=== PATIENT | female | born 1945 ===

== ENCOUNTER 2016-07-23 19:07 | Inpatient (IN) | payer MEDICARE ==
[~2016-07-23] VITALS: Ht 162.6 cm; Wt 66.2 kg
[~2016-07-23 19:07] MED LIST: B/P med; CETI10TA16 PO; DIPY25TA PO; INSU100I27 SQ; IRBE1TAB5 PO; METF500T9 PO; OCTR100V SQ; allergy pill; blood thinner; calcium; iron PO; simvastatin PO; water pill
[2016-07-23 19:44] LABS: BILIRUBIN,URINE NEGATIVE (NEG); GLUCOSE,URINE NEGATIVE (NEG); NITRITE,URINE NEGATIVE (NEG); PROTEIN,URINE 30 mg/dL (NEG-TRACE)
[2016-07-23 19:54] LABS: BACTERIA,URINE FEW /HPF (0-FEW); RBC,URINE OCC /HPF (0-2); SQUAMOUS EPITHELIAL CELL,UR OCC /LPF
[2016-07-23 20:06] LABS: BASO # 0.3 x10^3/uL (0.0-0.2); BASO % 2 % (0-3); EOS % 0 % (0-3); LYMPH # 2.1 x10^3/uL (1.0-4.8); LYMPH % 16 % (24-48); MEAN CORPUSCULAR HEMOGLOBIN 30 pg (25-35); MEAN CORPUSCULAR HGB CONC 33 g/dL (31-37); MEAN CORPUSCULAR VOLUME 90 fL (79-100); MONO % 7 % (0-9); NEUT % 74 % (31-73); PLATELET COUNT 304 x10^3/uL (140-400); RED BLOOD COUNT 2.27 x10^6/uL (3.50-5.40); RED CELL DISTRIBUTION WIDTH 17.1 % (11.5-14.5); WHITE BLOOD COUNT 13.1 x10^3/uL (4.0-11.0)
[2016-07-23 20:07] LABS: HEMATOCRIT 20.5 % (36.0-47.0); HEMOGLOBIN 6.8 g/dL (12.0-15.5)
[2016-07-23 20:16] LABS: CALCIUM 8.1 mg/dL (8.5-10.1); CREATININE 0.8 mg/dL (0.6-1.0); GFR 71.3; POTASSIUM 3.5 mmol/L (3.5-5.1)
[2016-07-23] MEDS ORDERED: PIP/TAZO PER PHARMACY MC PRN (21:15)
[2016-07-23] MEDS ORDERED: levOFLOXacin PER PHARMACY. MC PRN (21:15)
--- NOTE | 2016-07-23 21:25 | PHYS DOC ---
Past Medical History Past Medical History: CAD, Diabetes-Type II, Hypertension, TIA, Other Additional Past Medical Histor: JAUNDICE,CA OF BILIARY TRACT Past Surgical History: Other Additional Past Surgical Histo: COLOSTOMY,WHIPPLE PROCEDURE, G-tube Alcohol Use: None Additional Information: PATIENT STATES, "NOT FOR 30 YEARS" Drug Use: None Adult General Chief Complaint Chief Complaint: FEVER HPI HPI Patient is a 70 year old female who presents by EMS from nursing facility for fever and leukocytosis. The patient notes she has a cough that is been present since the time of her operation partially 6 weeks ago; but her sons state it has been worse in the past few days. She otherwise states things are going okay. She notes normal ostomy output and G-tube output. She notes abdominal pain that has been improving since time of her operation with no recent worsening or swelling. She denies chest pain, dyspnea, palpitations, fever or chills, nausea or vomiting, dysuria, hematuria, headache. Review of Systems Review of Systems Constitutional: Denies fever or chills [] Eyes: Denies change in visual acuity, redness, or eye pain [] HENT: Denies nasal congestion or sore throat [] Respiratory: Denies shortness of breath [] Cardiovascular: No additional information not addressed in HPI [] GI: Denies nausea, vomiting, bloody stools or diarrhea [] : Denies dysuria or hematuria [] Musculoskeletal: Denies back pain or joint pain [] Integument: Denies rash or skin lesions [] Neurologic: Denies headache, focal weakness or sensory changes [] Endocrine: Denies polyuria or polydipsia [] Current Medications Current Medications Current Medications Medications (Trade) Dose Ordered Sig/Luly Start Time Stop Time Status Last Admin Dose Admin Levofloxacin/ Dextrose 150 ml @ 100 mls/hr 1X ONCE 07/23/16 22:00 07/23/16 23:29 Levofloxacin/ Dextrose (Levaquin Per Pharmacy) 1 each PRN DAILY PRN 07/23/16 21:15 Piperacillin Sod/ Tazobactam Sod (Zosyn Per Pharmacy) 1 each PRN DAILY PRN 07/23/16 21:15 Piperacillin Sod/ Tazobactam Sod 3.375 gm/Sodium Chloride 50 ml @ 100 mls/hr 1X ONCE 07/23/16 21:30 07/23/16 21:59 Vancomycin HCl (Vanco Per Pharmacy) 1 each PRN DAILY PRN 07/23/16 21:15 Vancomycin HCl 1.75 gm/Sodium Chloride 500 ml @ 250 mls/hr 1X ONCE 07/23/16 23:00 07/24/16 00:59 Allergies Allergies Allergies Coded Allergies Type Severity Reaction Last Updated Verified No Known Drug Allergies 06/10/16 No Physical Exam Physical Exam Constitutional: Well developed, well nourished, no acute distress, non-toxic appearance. [] HENT: Normocephalic, atraumatic, bilateral external ears normal, oropharynx moist, no oral exudates, nose normal. [] Eyes: PERRLA, EOMI. [] Neck: Normal range of motion, supple. [] Cardiovascular:Heart rate regular rhythm [] Lungs & Thorax: Bilateral breath sounds clear to auscultation [] Abdomen: Bowel sounds normal, soft, minimal general tenderness, healing midline incision, G-tube in LUQ, ostomy with light green stool in right abdomen. [] Skin: Warm, dry, no erythema, no rash. [] Back: No tenderness, no CVA tenderness. [] Extremities: No tenderness, ROM intact, no edema. [] Neurologic: Alert and oriented X 3, normal motor function, normal sensory function, no focal deficits noted. [] Psychologic: Affect normal, judgement normal, mood normal. [] Current Patient Data Vital Signs Vital Signs Date Time Temp Pulse Resp B/P (MAP) Pulse Ox O2 Delivery O2 Flow Rate FiO2 07/23/16 19:07 99.5 97 24 118/57 (77) 86 Room Air 99.5 Lab Values Laboratory Tests Test 07/23/16 19:40 07/23/16 19:50 Urine Collection Type U cath Urine Color Yellow Urine Clarity Turbid Urine pH 8.0 Urine Specific [place] 1.020 Urine Protein 30 mg/dL (NEG-TRACE) Urine Glucose (UA) Negative mg/dL (NEG) Urine Ketones (Stick) Negative mg/dL (NEG) Urine Blood Negative (NEG) Urine Nitrite Negative (NEG) Urine Bilirubin Negative (NEG) Urine Urobilinogen Dipstick 1.0 mg/dL (0.2 mg/dL) Urine Leukocyte Esterase Large (NEG) Urine RBC Occ /HPF (0-2) Urine WBC 11-20 /HPF (0-4) Urine Squamous Epithelial Cells Occ /LPF Urine Amorphous Sediment Present /HPF Urine Bacteria Few /HPF (0-FEW) White Blood Count 13.1 x10^3/uL (4.0-11.0) H Red Blood Count 2.27 x10^6/uL (3.50-5.40) L Hemoglobin 6.8 g/dL (12.0-15.5) *L Hematocrit 20.5 % (36.0-47.0) *L Mean Corpuscular Volume 90 fL (79-100) Mean Corpuscular Hemoglobin 30 pg (25-35) Mean Corpuscular Hemoglobin Concent 33 g/dL (31-37) Red Cell Distribution Width 17.1 % (11.5-14.5) H Platelet Count 304 x10^3/uL (140-400) Neutrophils (%) (Auto) 74 % (31-73) H Lymphocytes (%) (Auto) 16 % (24-48) L Monocytes (%) (Auto) 7 % (0-9) Eosinophils (%) (Auto) 0 % (0-3) Basophils (%) (Auto) 2 % (0-3) Neutrophils # (Auto) 9.6 x10^3uL (1.8-7.7) H Lymphocytes # (Auto) 2.1 x10^3/uL (1.0-4.8) Monocytes # (Auto) 1.0 x10^3/uL (0.0-1.1) Eosinophils # (Auto) 0.1 x10^3/uL (0.0-0.7) Basophils # (Auto) 0.3 x10^3/uL (0.0-0.2) H Sodium Level 138 mmol/L (136-145) Potassium Level 3.5 mmol/L (3.5-5.1) Chloride Level 99 mmol/L (98-107) Carbon Dioxide Level 35 mmol/L (21-32) H Anion Gap 4 (6-14) L Blood Urea Nitrogen 19 mg/dL (7-20) Creatinine 0.8 mg/dL (0.6-1.0) Estimated GFR (Cockcroft-Gault) 71.3 Glucose Level 121 mg/dL (70-99) H Calcium Level 8.1 mg/dL (8.5-10.1) L Laboratory Tests 07/23/16 19:50 Laboratory Tests 07/23/16 19:50 Radiology/Procedures Radiology/Procedures Chest x-ray as interpreted by me with haziness in left lower lateral lung field concerning for infiltrate versus atelectasis Course & Med Decision Making Course & Med Decision Making Pertinent Labs and Imaging studies reviewed. (See chart for details) Has leukocytosis and anemia. Otherwise laboratory evaluation is unremarkable. Chest x-ray concerning for pneumonia. Has 2 L oxygen requirement that is new. Will treat with broad-spectrum antibiotics for HCAP. Ordered 1 unit of packed red blood cells; patient gives consent. Discussed case with Dr. Snyder, who will admit. Pulmonology consult and general surgery consult placed. Dragon Disclaimer Dragon Disclaimer This electronic medical record was generated, in whole or in part, using a voice recognition dictation system. Departure Departure Impression: Primary Impression: HCAP (healthcare-associated pneumonia) Additional Impression: Anemia Disposition: ADMITTED INPATIENT Condition: STABLE Referrals: TANI BECKETT MD (PCP) Problem Qualifiers Additional Impression: Anemia Anemia type: unspecified type Qualified Codes: D64.9 - Anemia, unspecified Enrique OLEARY MD July 23, 2016 21:25
[2016-07-23] MEDS ORDERED: fentaNYL PF VIAL 100 MCG/2 ML VIAL IV PRN (21:30)
[2016-07-23] MEDS ORDERED: PIPERACILLIN/TAZOBACTAM 3.375 GM in IV NORMAL SALINE 50ML 50 ML IV ONE (21:30)
[2016-07-23] MEDS ORDERED: ACETAMINOPHEN 325 MG TABLET. PO PRN (21:30)
[2016-07-23] MEDS ORDERED: ONDANSETRON PF 4 MG/2 ML VIAL. IV PRN (21:30)
[2016-07-23] MEDS ORDERED: POTASSIUM CL 20MEQ D5-0.9%NACL 1,000 ML IV ONE (22:00)
[2016-07-23 22:45] VITALS: BP 89/41
[2016-07-23] MEDS ORDERED: VANCOMYCIN 1.75 GM in IV NORMAL SALINE 500ML BAG 500 ML IV ONE (23:00)
[2016-07-23 23:20] VITALS: BP 89/41
[2016-07-23 23:41] VITALS: BP 98/43
[2016-07-24] VITALS (10 sets, daily range): BP systolic 94–119; BP diastolic 46–52
[2016-07-24] MEDS ORDERED: ENOX40DI SQ (02:07)
[2016-07-24] MEDS ORDERED: OCTR100A IJ (02:07)
[2016-07-24] MEDS: VANCOMYCIN PER PHARMACY MC PRN ×2 (02:10→13:25)
[2016-07-24] MEDS ORDERED: INSU100V13 SQ (02:13)
[2016-07-24] MEDS ORDERED: [UNRECOGNIZED DRUG - CODE] IV (02:13)
[2016-07-24] MEDS ORDERED: SODI20VI3 IV (02:13)
[2016-07-24] MEDS ORDERED: INSU100I17 SQ (02:13)
[2016-07-24] MEDS ORDERED: PANT40TA5 PO (02:13)
[2016-07-24] MEDS ORDERED: CETI10TA22 PO (02:13)
[2016-07-24] MEDS ORDERED: DEXTROSE 50% 25 GM / 50ML DISP.SYRIN. IV PRN (02:15)
[2016-07-24] MEDS: PIPERACILLIN/TAZOBACTAM 3.375 GM in IV NORMAL SALINE 50ML 50 ML IV SCH ×3 (04:45→20:03)
[2016-07-24] MEDS: INSULIN ASPART 300 UNITS/3 ML INSULN.PEN SQ SCH ×3 (08:00→17:00)
[2016-07-24] MEDS ORDERED: IOHEXOL 300 MG/ML 75 ML VIAL IV ONE (08:30)
[2016-07-24] MEDS ORDERED: IOHEXOL 240 MG/ML 50ML VIAL. PO ONE (08:30)
[2016-07-24] MEDS ORDERED: CONTRAST GIVEN MC PRN (08:45)
--- NOTE | 2016-07-24 08:45 | RAD ---
Indication cough. A single view of the chest was obtained and is compared to an exam 06/16/2016. Heart size is at the upper limits of normal but similar. There is no gross congestive heart failure. The right lung is clear. Aeration of the left lung base has improved relative to the previous exam. Some slight volume loss at the left lung base is compatible with atelectasis scar or pneumonia. The right lung is clear. Significant pleural fluid is not seen and there is no pneumothorax. A right PICC line is noted extending to the SVC right atrial junction. IMPRESSION: Improved aeration of the left lung base relative to the previous exam. Some residual modest volume loss persists
--- NOTE | 2016-07-24 08:59 | PDOC2 ---
BENJAMIN OROZCO CARDIAC SONOGRAPHER 07/24/16 0859: CONSULT Date of Consult Date of Consult DATE: 07/24/16 TIME: 08:53 Reason for Consult Reason for Consult: postop sandra Referring Physician Referring Physician: ER Identification/Chief Complaint Chief Complaint fevers Source Source: Chart review, Patient History of Present Illness Reason for Visit: S/p adolphle by Dr Black on 06/10/16. Has been recovering at nursing facility since discharge. Developed fevers and chills for last 3 days. She has had some persistent cough. Low appetite, however no emesis, or worsening abdominal pain Past Medical History Cardiovascular: CAD, HTN, Hyperlipidemia CENTRAL NERVOUS SYSTEM: CVA, TIA Heme/Onc: Cancer (pancreatic), Other (anemia) Endocrine: Diabetes Past Surgical History Past Surgical History: Other (ipple) Family History Family History: Diabetes Social History Quit ALCOHOL: rare Drugs: None Lives: [facility] Current Problem List Problem List Problems Medical Problems: (1) Anemia Status: Acute (2) HCAP (healthcare-associated pneumonia) Status: Acute Current Medications Current Medications Current Medications Vancomycin HCl (Vanco Per Pharmacy) 1 each PRN DAILY PRN MC SEE COMMENTS Last administered on 07/24/16 02:10; Start 07/23/16 at 21:15 Piperacillin Sod/ Tazobactam Sod (Zosyn Per Pharmacy) 1 each PRN DAILY PRN MC SEE COMMENTS; Start 07/23/16 at 21:15 Levofloxacin/ Dextrose (Levaquin Per Pharmacy) 1 each PRN DAILY PRN MC SEE COMMENTS; Start 07/23/16 at 21:15 Piperacillin Sod/ Tazobactam Sod 3.375 gm/Sodium Chloride 50 ml @ 100 mls/hr 1X ONCE IV Last administered on 07/23/16 21:27; Start 07/23/16 at 21:30; Stop 07/23/16 at 21:59; Status DC Levofloxacin/ Dextrose 150 ml @ 100 mls/hr 1X ONCE IV Last administered on 22:02; Start 07/23/16 at 22:00; Stop 07/23/16 at 23:29; Status DC Vancomycin HCl 1.75 gm/Sodium Chloride 500 ml @ 250 mls/hr 1X ONCE IV Last administered on 07/23/16 23:30; Start 07/23/16 at 23:00; Stop 07/24/16 at 00:59 ; Status DC Ondansetron HCl (Zofran) 4 mg PRN Q8HRS PRN IV NAUSEA/VOMITING; Start 07/23/16 at 21:30; Stop 07/24/16 at 21:29 Fentanyl Citrate (Fentanyl 2ml Vial) 50 mcg PRN Q2HR PRN IV SEVERE PAIN; Start 07/23/16 at 21:30; Stop 07/24/16 at 21:29 Acetaminophen (Tylenol) 650 mg PRN Q4HRS PRN PO FEVER Last administered on 07/23 21:34; Start 07/23/16 at 21:30; Stop 07/24/16 at 21:29 Potassium Chloride/Dextrose/ Sod Cl 1,000 ml @ 75 mls/hr 1X ONCE IV Last administered on 07/23/16 23:34; Start 07/23/16 at 22:00; Stop 07/24/16 at 11:19 Vancomycin HCl 1 gm/Sodium Chloride 250 ml @ 250 mls/hr Q24H IV ; Start at 23:00 Piperacillin Sod/ Tazobactam Sod 3.375 gm/Sodium Chloride 50 ml @ 100 mls/hr Q6HRS IV Last administered on 07/24/16 04:45; Start 07/24/16 at 06:00 Levofloxacin/ Dextrose 150 ml @ 100 mls/hr Q24H IV ; Start 07/24/16 at 22:00 Vancomycin HCl 1 each 1X ONCE MC ; Start 07/25/16 at 22:30; Stop 07/25/16 at 22: 31 Insulin Aspart (NovoLOG) 0-5 UNITS TIDWMEALS SQ ; Start 07/24/16 at 08:00 Dextrose (Dextrose 50%-Water Syringe) 12.5 gm PRN Q15MIN PRN IV SEE COMMENTS; Start 07/24/16 at 02:15 Iohexol (Omnipaque 240 Mg/ml) 30 ml 1X ONCE PO ; Start 07/24/16 at 08:30; Stop 07/24/16 at 08:32; Status DC Iohexol (Omnipaque 300 Mg/ml) 75 ml 1X ONCE IV ; Start 07/24/16 at 08:30; Stop 07/24/16 at 08:32; Status DC Info (Do NOT chart on this entry -- for MONITORING) 1 each PRN DAILY PRN MC SEE COMMENTS; Start 07/24/16 at 08:45; Stop 07/26/16 at 08:44 Active Scripts Active Octreotide Acetate 100 Mcg/1 Ml Vial 100 Mcg SQ Q8HRS 30 Days Levemir Flextouch (Insulin Detemir) 100 Unit/1 Ml Insuln.pen 8 Units SQ QHS 30 Days Reported Tpn Electrolytes Vial (Sodium/K+/Mag/Ca/Chlor/Acetate) 20 Ml Vial 20 Ml IV Pantoprazole Sodium 40 Mg Tablet.dr 1 Tab PO DAILY Zyrtec (Cetirizine Hcl) 10 Mg Tablet 1 Tab PO DAILY Dextrose 5%-1/2NS Iv Solution (Dextrose 5 %-0.45 % Nacl) 1,000 Ml Iv.soln 1,000 Ml IV Levemir (Insulin Detemir) 100 Unit/1 Ml Vial 8 Unit SQ Novolog Flexpen (Insulin Aspart) 100 Unit/1 Ml Insuln.pen 1 Unit SQ TIDAC Sandostatin (Octreotide Acetate) 100 Mcg/1 Ml Ampul 100 Mcg IJ TID Lovenox (Enoxaparin Sodium) 40 Mg/0.4 Ml Disp.syrin 40 Mg SQ Allergies Allergies: Coded Allergies: No Known Drug Allergies (Unverified , 06/10/16) ROS General: YES: Other (see hpi) PSYCHOLOGICAL ROS: No: Anxiety, Depression Eyes: No Blurry vision, No Double vision HEENT: No: Heacaches, Sore Throat Hematological and Lymphatic: YES: Bleeding Problems, No: Blood Clots Respiratory: YES: Cough, SOB with excertion Cardiovascular: No Chest Pain, No Palpitations Gastrointestinal: Yes Abdominal Pain (improving), No Diarrhea Genitourinary: No Dysuria, No Hematuria Musculoskeletal: No Joint Pain, No Muscle Pain Neurological: No Impaired Coord/balance, No Numbness/Tingling Skin: Yes Other (draining abdominal wound) Physical Exam General: Alert, Cooperative, No acute distress HEENT: PERRLA, Mucous membr. moist/pink Lungs: Other (diminished, on 02) Heart: Other (intermittent tachy) Abdomen: Soft, No tenderness, Other (ruq milky drainage from previous drain site, g tube in place) Extremities: No clubbing, No cyanosis Skin: No rashes, No significant lesion Neuro: Normal speech, Sensation intact Psych/Mental Status: Mental status NL, Mood NL MUSCULOSKELETAL: No deformity, No swelling Vitals VITALS Vital Signs Date Time Temp Pulse Resp B/P (MAP) Pulse Ox O2 Delivery O2 Flow Rate FiO2 07/24/16 07:00 98.7 80 20 94/46 (62) 92 Nasal Cannula 98.7 07/24/16 01:53 2.0 Labs Labs Laboratory Tests Test 07/23/16 19:40 07/23/16 19:50 07/23/16 22:45 07/24/16 08:06 Urine Collection Type U cath Urine Color Yellow Urine Clarity Turbid Urine pH 8.0 Urine Specific [place] 1.020 Urine Protein 30 mg/dL (NEG-TRACE) Urine Glucose (UA) Negative mg/dL (NEG) Urine Ketones (Stick) Negative mg/dL (NEG) Urine Blood Negative (NEG) Urine Nitrite Negative (NEG) Urine Bilirubin Negative (NEG) Urine Urobilinogen Dipstick 1.0 mg/dL (0.2 mg/dL) Urine Leukocyte Esterase Large (NEG) Urine RBC Occ /HPF (0-2) Urine WBC 11-20 /HPF (0-4) Urine Squamous Epithelial Cells Occ /LPF Urine Amorphous Sediment Present /HPF Urine Bacteria Few /HPF (0-FEW) White Blood Count 13.1 x10^3/uL (4.0-11.0) Red Blood Count 2.27 x10^6/uL (3.50-5.40) Hemoglobin 6.8 g/dL (12.0-15.5) Hematocrit 20.5 % (36.0-47.0) Mean Corpuscular Volume 90 fL (79-100) Mean Corpuscular Hemoglobin 30 pg (25-35) Mean Corpuscular Hemoglobin Concent 33 g/dL (31-37) Red Cell Distribution Width 17.1 % (11.5-14.5) Platelet Count 304 x10^3/uL (140-400) Neutrophils (%) (Auto) 74 % (31-73) Lymphocytes (%) (Auto) 16 % (24-48) Monocytes (%) (Auto) 7 % (0-9) Eosinophils (%) (Auto) 0 % (0-3) Basophils (%) (Auto) 2 % (0-3) Neutrophils # (Auto) 9.6 x10^3uL (1.8-7.7) Lymphocytes # (Auto) 2.1 x10^3/uL (1.0-4.8) Monocytes # (Auto) 1.0 x10^3/uL (0.0-1.1) Eosinophils # (Auto) 0.1 x10^3/uL (0.0-0.7) Basophils # (Auto) 0.3 x10^3/uL (0.0-0.2) Sodium Level 138 mmol/L (136-145) Potassium Level 3.5 mmol/L (3.5-5.1) Chloride Level 99 mmol/L (98-107) Carbon Dioxide Level 35 mmol/L (21-32) Anion Gap 4 (6-14) Blood Urea Nitrogen 19 mg/dL (7-20) Creatinine 0.8 mg/dL (0.6-1.0) Estimated GFR (Cockcroft-Gault) 71.3 Glucose Level 121 mg/dL (70-99) Calcium Level 8.1 mg/dL (8.5-10.1) Lactic Acid Level 1.9 mmol/L (0.4-2.0) Glucose (Fingerstick) 197 mg/dL (70-99) Laboratory Tests Test 07/23/16 19:40 07/23/16 19:50 07/23/16 22:45 07/24/16 08:06 Urine Collection Type U cath Urine Color Yellow Urine Clarity Turbid Urine pH 8.0 Urine Specific [place] 1.020 Urine Protein 30 mg/dL (NEG-TRACE) Urine Glucose (UA) Negative mg/dL (NEG) Urine Ketones (Stick) Negative mg/dL (NEG) Urine Blood Negative (NEG) Urine Nitrite Negative (NEG) Urine Bilirubin Negative (NEG) Urine Urobilinogen Dipstick 1.0 mg/dL (0.2 mg/dL) Urine Leukocyte Esterase Large (NEG) Urine RBC Occ /HPF (0-2) Urine WBC 11-20 /HPF (0-4) Urine Squamous Epithelial Cells Occ /LPF Urine Amorphous Sediment Present /HPF Urine Bacteria Few /HPF (0-FEW) White Blood Count 13.1 x10^3/uL (4.0-11.0) Red Blood Count 2.27 x10^6/uL (3.50-5.40) Hemoglobin 6.8 g/dL (12.0-15.5) Hematocrit 20.5 % (36.0-47.0) Mean Corpuscular Volume 90 fL (79-100) Mean Corpuscular Hemoglobin 30 pg (25-35) Mean Corpuscular Hemoglobin Concent 33 g/dL (31-37) Red Cell Distribution Width 17.1 % (11.5-14.5) Platelet Count 304 x10^3/uL (140-400) Neutrophils (%) (Auto) 74 % (31-73) Lymphocytes (%) (Auto) 16 % (24-48) Monocytes (%) (Auto) 7 % (0-9) Eosinophils (%) (Auto) 0 % (0-3) Basophils (%) (Auto) 2 % (0-3) Neutrophils # (Auto) 9.6 x10^3uL (1.8-7.7) Lymphocytes # (Auto) 2.1 x10^3/uL (1.0-4.8) Monocytes # (Auto) 1.0 x10^3/uL (0.0-1.1) Eosinophils # (Auto) 0.1 x10^3/uL (0.0-0.7) Basophils # (Auto) 0.3 x10^3/uL (0.0-0.2) Sodium Level 138 mmol/L (136-145) Potassium Level 3.5 mmol/L (3.5-5.1) Chloride Level 99 mmol/L (98-107) Carbon Dioxide Level 35 mmol/L (21-32) Anion Gap 4 (6-14) Blood Urea Nitrogen 19 mg/dL (7-20) Creatinine 0.8 mg/dL (0.6-1.0) Estimated GFR (Cockcroft-Gault) 71.3 Glucose Level 121 mg/dL (70-99) Calcium Level 8.1 mg/dL (8.5-10.1) Lactic Acid Level 1.9 mmol/L (0.4-2.0) Glucose (Fingerstick) 197 mg/dL (70-99) Assessment/Plan Assessment/Plan fevers, leukocytosis anemia, hypotension pneumonia, continue treatment transfused last night will check CT abd/pelvis JUAN BLACK MD 07/24/16 1244: CONSULT Allergies Allergies: Coded Allergies: No Known Drug Allergies (Unverified , 06/10/16) Assessment/Plan Assessment/Plan Pt seen and examined. Agree with MsRebecca Orozco's note Pt without c/o, denies abd complaints abd soft, ND, NTTP, some whitish drainage RUQ, previous drain is out G-tube in place CT abd pelvis without obvious complicating factors, some irritation cecum will ask GI to comment agree with treatment of pneumonia cont clears currently, but will consider ADAT being evaluated by speech d/w pt and pt's son Thanks for consult BENJAMIN OROZCO APRN July 24, 2016 08:59 JUAN BLACK MD July 24, 2016 12:44
--- NOTE | 2016-07-24 09:11 | PDOC1 ---
History and Physical Date of Admission Date of Admission DATE: 07/24/16 TIME: 09:09 Identification/Chief Complaint Chief Complaint fever, abd pain Problems: Source Source: Chart review, Patient History of Present Illness History of Present Illness Ms. Anderson, is a 70 year old female admit from [facility] for fever and leukocytosis. The patient notes she has a cough that is been present since the time of her operation partially 6 weeks ago; but her sons state it has been worse in the past few days. She otherwise states things are going okay. She notes normal ostomy output and G-tube output. She notes abdominal pain that has been improving since time of her operation with no recent worsening or swelling. She denies chest pain, dyspnea, palpitations, fever or chills, nausea or vomiting, dysuria, hematuria, headache. Past Medical History Cardiovascular: CAD, HTN, Hyperlipidemia CENTRAL NERVOUS SYSTEM: CVA, TIA Heme/Onc: Cancer (pancreatic), Other (anemia) Endocrine: Diabetes Past Surgical History Past Surgical History: Other (whipple) Family History Family History: Diabetes Social History Smoke: No ALCOHOL: rare Drugs: None Current Problem List Problem List Problems Medical Problems: (1) Anemia Status: Acute (2) HCAP (healthcare-associated pneumonia) Status: Acute Problems: Current Medications Current Medications Current Medications Vancomycin HCl (Vanco Per Pharmacy) 1 each PRN DAILY PRN MC SEE COMMENTS Last administered on 07/24/16 02:10; Start 07/23/16 at 21:15 Piperacillin Sod/ Tazobactam Sod (Zosyn Per Pharmacy) 1 each PRN DAILY PRN MC SEE COMMENTS; Start 07/23/16 at 21:15 Levofloxacin/ Dextrose (Levaquin Per Pharmacy) 1 each PRN DAILY PRN MC SEE COMMENTS; Start 07/23/16 at 21:15 Piperacillin Sod/ Tazobactam Sod 3.375 gm/Sodium Chloride 50 ml @ 100 mls/hr 1X ONCE IV Last administered on 07/23/16 21:27; Start 07/23/16 at 21:30; Stop 07/23/16 at 21:59; Status DC Levofloxacin/ Dextrose 150 ml @ 100 mls/hr 1X ONCE IV Last administered on 22:02; Start 07/23/16 at 22:00; Stop 07/23/16 at 23:29; Status DC Vancomycin HCl 1.75 gm/Sodium Chloride 500 ml @ 250 mls/hr 1X ONCE IV Last administered on 07/23/16 23:30; Start 07/23/16 at 23:00; Stop 07/24/16 at 00:59 ; Status DC Ondansetron HCl (Zofran) 4 mg PRN Q8HRS PRN IV NAUSEA/VOMITING; Start 07/23/16 at 21:30; Stop 07/24/16 at 21:29 Fentanyl Citrate (Fentanyl 2ml Vial) 50 mcg PRN Q2HR PRN IV SEVERE PAIN; Start 07/23/16 at 21:30; Stop 07/24/16 at 21:29 Acetaminophen (Tylenol) 650 mg PRN Q4HRS PRN PO FEVER Last administered on 07/23 21:34; Start 07/23/16 at 21:30; Stop 07/24/16 at 21:29 Potassium Chloride/Dextrose/ Sod Cl 1,000 ml @ 75 mls/hr 1X ONCE IV Last administered on 07/23/16 23:34; Start 07/23/16 at 22:00; Stop 07/24/16 at 11:19 Vancomycin HCl 1 gm/Sodium Chloride 250 ml @ 250 mls/hr Q24H IV ; Start at 23:00 Piperacillin Sod/ Tazobactam Sod 3.375 gm/Sodium Chloride 50 ml @ 100 mls/hr Q6HRS IV Last administered on 07/24/16 04:45; Start 07/24/16 at 06:00 Levofloxacin/ Dextrose 150 ml @ 100 mls/hr Q24H IV ; Start 07/24/16 at 22:00 Vancomycin HCl 1 each 1X ONCE MC ; Start 07/25/16 at 22:30; Stop 07/25/16 at 22: 31 Insulin Aspart (NovoLOG) 0-5 UNITS TIDWMEALS SQ ; Start 07/24/16 at 08:00 Dextrose (Dextrose 50%-Water Syringe) 12.5 gm PRN Q15MIN PRN IV SEE COMMENTS; Start 07/24/16 at 02:15 Iohexol (Omnipaque 240 Mg/ml) 30 ml 1X ONCE PO ; Start 07/24/16 at 08:30; Stop 07/24/16 at 08:32; Status DC Iohexol (Omnipaque 300 Mg/ml) 75 ml 1X ONCE IV ; Start 07/24/16 at 08:30; Stop 07/24/16 at 08:32; Status DC Info (Do NOT chart on this entry -- for MONITORING) 1 each PRN DAILY PRN MC SEE COMMENTS; Start 07/24/16 at 08:45; Stop 07/26/16 at 08:44 Active Scripts Active Octreotide Acetate 100 Mcg/1 Ml Vial 100 Mcg SQ Q8HRS 30 Days Levemir Flextouch (Insulin Detemir) 100 Unit/1 Ml Insuln.pen 8 Units SQ QHS 30 Days Reported Tpn Electrolytes Vial (Sodium/K+/Mag/Ca/Chlor/Acetate) 20 Ml Vial 20 Ml IV Pantoprazole Sodium 40 Mg Tablet.dr 1 Tab PO DAILY Zyrtec (Cetirizine Hcl) 10 Mg Tablet 1 Tab PO DAILY Dextrose 5%-1/2NS Iv Solution (Dextrose 5 %-0.45 % Nacl) 1,000 Ml Iv.soln 1,000 Ml IV Levemir (Insulin Detemir) 100 Unit/1 Ml Vial 8 Unit SQ Novolog Flexpen (Insulin Aspart) 100 Unit/1 Ml Insuln.pen 1 Unit SQ TIDAC Sandostatin (Octreotide Acetate) 100 Mcg/1 Ml Ampul 100 Mcg IJ TID Lovenox (Enoxaparin Sodium) 40 Mg/0.4 Ml Disp.syrin 40 Mg SQ Allergies Allergies: Coded Allergies: No Known Drug Allergies (Unverified , 06/10/16) ROS General: YES: Fatigue, Malaise PSYCHOLOGICAL ROS: YES: Sleep disturbances, No: Anxiety, Behavioral Disorder, Concentration difficultie, Decreased libido , Depression, Disorientation, Hallucinations, Hostility, Irritablity, Memory difficulties, Mood Swings, Obsessive thoughts Eyes: No Blurry vision, No Decreased vision, No Double vision, No Dry eyes, No Excessive tearing, No Eye Pain, No Itchy Eyes, No Loss of vision, No Photophobia , No Scotomata, No Uses contacts, No Uses glasses, No Other HEENT: No: Heacaches, Visual Changes, Hearing change, Nasal congestion, Nasal discharge, Oral lesions, Sinus pain, Sore Throat, Epistaxis, Sneezing, Snoring, Tinnitus, Vertigo, Vocal changes, Other Respiratory: YES: Tachypnea, No: Cough, Hemoptysis, Orthopnea, Pleuritic Pain, Shortness of breath, Sputum Changes, Stridor Cardiovascular: No Chest Pain, No Palpitations, No Orthopnea, No Paroxysmal Noc. Dyspnea, No Edema, No Lt Headedness, No Other Gastrointestinal: Yes Nausea, Yes Abdominal Pain, No Vomiting, No Diarrhea, No Constipation, No Melena, No Hematochezia, No Other Genitourinary: No Dysuria, No Frequency, No Incontinence, No Hematuria, No Retention, No Discharge, No Urgency, No Pain, No Flank Pain, No Other, No , No , No , No , No , No , No Musculoskeletal: Yes Joint Stiffness, No Gait Disturbance, No Joint Pain, No Joint Swelling, No Muscle Pain, No Muscular Weakness, No Pain In:, No Swelling In:, No Other Neurological: Yes Memory Loss, No Behavorial Changes, No Bowel/Bladder ControlChng, No Confusion, No Dizziness, No Gait Disturbance, No Headaches, No Impaired Coord/balance, No Numbness/Tingling, No Seizures, No Speech Problems, No Tremors, No Visual Changes, No Weakness, No Other Skin: Yes Dry Skin, No Eczema, No Hair Changes, No Lumps, No Mole Changes, No Mottling, No Nail Changes, No Pruritus, No Rash, No Skin Lesion Changes, No Other, No Acne Physical Exam General: Alert, Cooperative, mild distress HEENT: EOMI, Mucous membr. moist/pink Lungs: Other (poor vol, slight rales) Abdomen: Soft (tender, diffuse, no acute) Extremities: Normal pulses Skin: No rashes, No significant lesion Neuro: Normal tone Psych/Mental Status: Mental status NL, Mood NL Vitals Vitals Vital Signs Date Time Temp Pulse Resp B/P (MAP) Pulse Ox O2 Delivery O2 Flow Rate FiO2 07/24/16 07:00 98.7 80 20 94/46 (62) 92 Nasal Cannula 98.7 07/24/16 01:53 2.0 Labs Labs Laboratory Tests Test 07/23/16 19:40 07/23/16 19:50 07/23/16 22:45 07/24/16 08:06 Urine Collection Type U cath Urine Color Yellow Urine Clarity Turbid Urine pH 8.0 Urine Specific [place] 1.020 Urine Protein 30 mg/dL (NEG-TRACE) Urine Glucose (UA) Negative mg/dL (NEG) Urine Ketones (Stick) Negative mg/dL (NEG) Urine Blood Negative (NEG) Urine Nitrite Negative (NEG) Urine Bilirubin Negative (NEG) Urine Urobilinogen Dipstick 1.0 mg/dL (0.2 mg/dL) Urine Leukocyte Esterase Large (NEG) Urine RBC Occ /HPF (0-2) Urine WBC 11-20 /HPF (0-4) Urine Squamous Epithelial Cells Occ /LPF Urine Amorphous Sediment Present /HPF Urine Bacteria Few /HPF (0-FEW) White Blood Count 13.1 x10^3/uL (4.0-11.0) Red Blood Count 2.27 x10^6/uL (3.50-5.40) Hemoglobin 6.8 g/dL (12.0-15.5) Hematocrit 20.5 % (36.0-47.0) Mean Corpuscular Volume 90 fL (79-100) Mean Corpuscular Hemoglobin 30 pg (25-35) Mean Corpuscular Hemoglobin Concent 33 g/dL (31-37) Red Cell Distribution Width 17.1 % (11.5-14.5) Platelet Count 304 x10^3/uL (140-400) Neutrophils (%) (Auto) 74 % (31-73) Lymphocytes (%) (Auto) 16 % (24-48) Monocytes (%) (Auto) 7 % (0-9) Eosinophils (%) (Auto) 0 % (0-3) Basophils (%) (Auto) 2 % (0-3) Neutrophils # (Auto) 9.6 x10^3uL (1.8-7.7) Lymphocytes # (Auto) 2.1 x10^3/uL (1.0-4.8) Monocytes # (Auto) 1.0 x10^3/uL (0.0-1.1) Eosinophils # (Auto) 0.1 x10^3/uL (0.0-0.7) Basophils # (Auto) 0.3 x10^3/uL (0.0-0.2) Sodium Level 138 mmol/L (136-145) Potassium Level 3.5 mmol/L (3.5-5.1) Chloride Level 99 mmol/L (98-107) Carbon Dioxide Level 35 mmol/L (21-32) Anion Gap 4 (6-14) Blood Urea Nitrogen 19 mg/dL (7-20) Creatinine 0.8 mg/dL (0.6-1.0) Estimated GFR (Cockcroft-Gault) 71.3 Glucose Level 121 mg/dL (70-99) Calcium Level 8.1 mg/dL (8.5-10.1) Lactic Acid Level 1.9 mmol/L (0.4-2.0) Glucose (Fingerstick) 197 mg/dL (70-99) Laboratory Tests Test 07/23/16 19:40 07/23/16 19:50 07/23/16 22:45 07/24/16 08:06 Urine Collection Type U cath Urine Color Yellow Urine Clarity Turbid Urine pH 8.0 Urine Specific [place] 1.020 Urine Protein 30 mg/dL (NEG-TRACE) Urine Glucose (UA) Negative mg/dL (NEG) Urine Ketones (Stick) Negative mg/dL (NEG) Urine Blood Negative (NEG) Urine Nitrite Negative (NEG) Urine Bilirubin Negative (NEG) Urine Urobilinogen Dipstick 1.0 mg/dL (0.2 mg/dL) Urine Leukocyte Esterase Large (NEG) Urine RBC Occ /HPF (0-2) Urine WBC 11-20 /HPF (0-4) Urine Squamous Epithelial Cells Occ /LPF Urine Amorphous Sediment Present /HPF Urine Bacteria Few /HPF (0-FEW) White Blood Count 13.1 x10^3/uL (4.0-11.0) Red Blood Count 2.27 x10^6/uL (3.50-5.40) Hemoglobin 6.8 g/dL (12.0-15.5) Hematocrit 20.5 % (36.0-47.0) Mean Corpuscular Volume 90 fL (79-100) Mean Corpuscular Hemoglobin 30 pg (25-35) Mean Corpuscular Hemoglobin Concent 33 g/dL (31-37) Red Cell Distribution Width 17.1 % (11.5-14.5) Platelet Count 304 x10^3/uL (140-400) Neutrophils (%) (Auto) 74 % (31-73) Lymphocytes (%) (Auto) 16 % (24-48) Monocytes (%) (Auto) 7 % (0-9) Eosinophils (%) (Auto) 0 % (0-3) Basophils (%) (Auto) 2 % (0-3) Neutrophils # (Auto) 9.6 x10^3uL (1.8-7.7) Lymphocytes # (Auto) 2.1 x10^3/uL (1.0-4.8) Monocytes # (Auto) 1.0 x10^3/uL (0.0-1.1) Eosinophils # (Auto) 0.1 x10^3/uL (0.0-0.7) Basophils # (Auto) 0.3 x10^3/uL (0.0-0.2) Sodium Level 138 mmol/L (136-145) Potassium Level 3.5 mmol/L (3.5-5.1) Chloride Level 99 mmol/L (98-107) Carbon Dioxide Level 35 mmol/L (21-32) Anion Gap 4 (6-14) Blood Urea Nitrogen 19 mg/dL (7-20) Creatinine 0.8 mg/dL (0.6-1.0) Estimated GFR (Cockcroft-Gault) 71.3 Glucose Level 121 mg/dL (70-99) Calcium Level 8.1 mg/dL (8.5-10.1) Lactic Acid Level 1.9 mmol/L (0.4-2.0) Glucose (Fingerstick) 197 mg/dL (70-99) VTE Prophylaxis Ordered VTE Prophylaxis Devices: No VTE Pharmacological Prophylaxi: Yes Assessment/Plan Assessment/Plan sepsis, UTI fever acute hypoxic respiratory failure, stable on a little 02, consult pulm no clear PNA seen on CXR blood cx pending recent wipple, cont TPN moderate malnutrition anemia of chronic disease, trasnfuse 1 PRBC to help hypoxia admit ERWIN PUENTE MD July 24, 2016 09:11
--- NOTE | 2016-07-24 10:45 | RAD ---
Indication status post Whipple procedure. Fever. Axial images through the abdomen and pelvis were obtained. Both oral and IV contrast were administered. Approximately 75 cc of Omnipaque 300 was administered intravenously. Note is made of a previous examination 06/18/2016. The lung bases are clear. There is a low-density mass, likely reflecting a cyst, in the left lobe of the liver appearing similar to the previous exam. A definite significant finding in the liver is not seen. The spleen appears unremarkable. A gastrostomy tube is noted. Changes compatible with a Whipple procedure are noted. The distal body and tail of the pancreas appear unremarkable. No extravasated GI contrast is seen on today's exam. No extraluminal air is seen. There is some abdominal ascites. The amount of fluid overall appears similar to the previous exam. No adrenal or significant renal pathology is seen. Occasional right renal cysts are noted. The cecum and ascending colon are thickened. This represents a new finding compared to the previous exam. Findings suggest ischemia or focal colitis. The transverse and ascending and sigmoid colon are relatively collapsed but a definite abnormality associated with this portion of the bowel is not seen. No additional finding in the pelvis is seen. IMPRESSION: Thickening of the cecum and ascending colon suggesting focal colitis or ischemia. Abdominal ascites similar to the previous exam. PQRS Compliance Statement: One or more of the following individualized dose reduction techniques were utilized for this examination: 1. Automated exposure control 2. Adjustment of the mA and/or kV according to patient size 3. Use of iterative reconstruction technique
--- NOTE | 2016-07-24 13:00 | CONS ---
DATE OF CONSULTATION: 07/23/2016 ATTENDING PHYSICIAN: Dr. Hieu Snyder. REASON FOR CONSULTATION: Fever, leukocytosis, and abnormal chest x-ray. HISTORY OF PRESENT ILLNESS: The patient is a 70-year-old female who has minimal history of tobacco use, quit 25 years ago. She had a recent Whipple surgery. She states she has been using oxygen since the surgery. She lives at a rehab facility where she was brought back to the hospital with increasing white cell count and fever. She also has some abdominal pain. The patient has a normal ostomy output and also a G-tube output. From a pulmonary standpoint, she does have a mild cough, but she does not seem to be bothered by it. No purulent sputum production. No shortness of breath. Currently, she is requiring oxygen at 2 liters. Her blood cultures have shown 1 out of 2 bottles gram-positive cocci in clusters. I have reviewed the patient's CT abdomen and pelvis, and the lower sections shows mild atelectasis at the bases which is most likely secondary to abdominal process. No postnasal drainage. She does have a lot of belching. PAST MEDICAL HISTORY: History of coronary artery disease, hypertension, hyperlipidemia, CVA, TIA, history of pancreatic cancer, anemia, and diabetes. PAST SURGICAL HISTORY: Whipple surgery recently. FAMILY HISTORY: Diabetes. ALLERGIES: None. CURRENT MEDICATIONS: Reviewed as listed in the MRAD including broad-spectrum antibiotics. SOCIAL HISTORY: Smoked minimally, quit 25 years ago. FAMILY HISTORY: Noncontributory to lungs. PHYSICAL EXAMINATION: VITAL SIGNS: Blood pressure 103/52. She had a T-max of 102.8. Pulse oximetry is 95% on 2 liters. HEENT: Sclerae are nonicteric. NECK: Supple. LUNGS: Clear. CARDIOVASCULAR: Regular rate and rhythm. ABDOMEN: Soft, and she has an ileostomy in place and another drain. EXTREMITIES: With no pitting edema. LABORATORY DATA: Reviewed. White cell count 13.1, hemoglobin 6.8, hematocrit 20.5, and platelets are 304. IMPRESSION: 1. Fever/leukocytosis and bacteremia secondary to early sepsis. The source is in the abdomen. CT abdomen and pelvis is suggesting colitis or focal cecum/ascending colon ischemia. 2. Recent Whipple procedure. 3. Gram-positive bacteremia. 4. Abnormal chest x-ray with minimal atelectasis in the bases which is most likely related to the abdominal process. 5. Minimal history of tobacco use. 6. Mild cough which is nonspecific. RECOMMENDATIONS: 1. Continue with broad-spectrum antibiotic per Infectious Disease recommendation. 2. Follow cultures. 3. Follow Infectious Disease recommendations. 4. Follow General Surgery recommendations. 5. Incentive spirometry. 6. Discussed with the patient's son. 7. Continue oxygen at 2 liters. 8. We will follow along with you with p.r.n. bronchodilators as well. NIKKI ANTHONY MD DR: YOSELYN/sheyla JOB#: [id number] / [id number] PETER
--- NOTE | 2016-07-24 13:11 | PDOC ---
Infectious Disease Note Vital Sign Vital Signs Vital Signs Date Time Temp Pulse Resp B/P (MAP) Pulse Ox O2 Delivery O2 Flow Rate FiO2 07/24/16 11:00 98.4 73 20 103/52 (69) 95 Nasal Cannula 98.4 07/24/16 01:53 2.0 Labs Lab Laboratory Tests Test 07/23/16 19:40 07/23/16 19:50 07/23/16 22:45 07/24/16 05:00 Urine Collection Type U cath Urine Color Yellow Urine Clarity Turbid Urine pH 8.0 Urine Specific [place] 1.020 Urine Protein 30 mg/dL (NEG-TRACE) Urine Glucose (UA) Negative mg/dL (NEG) Urine Ketones (Stick) Negative mg/dL (NEG) Urine Blood Negative (NEG) Urine Nitrite Negative (NEG) Urine Bilirubin Negative (NEG) Urine Urobilinogen Dipstick 1.0 mg/dL (0.2 mg/dL) Urine Leukocyte Esterase Large (NEG) Urine RBC Occ /HPF (0-2) Urine WBC 11-20 /HPF (0-4) Urine Squamous Epithelial Cells Occ /LPF Urine Amorphous Sediment Present /HPF Urine Bacteria Few /HPF (0-FEW) White Blood Count 13.1 x10^3/uL (4.0-11.0) Red Blood Count 2.27 x10^6/uL (3.50-5.40) Hemoglobin 6.8 g/dL (12.0-15.5) Hematocrit 20.5 % (36.0-47.0) Mean Corpuscular Volume 90 fL (79-100) Mean Corpuscular Hemoglobin 30 pg (25-35) Mean Corpuscular Hemoglobin Concent 33 g/dL (31-37) Red Cell Distribution Width 17.1 % (11.5-14.5) Platelet Count 304 x10^3/uL (140-400) Neutrophils (%) (Auto) 74 % (31-73) Lymphocytes (%) (Auto) 16 % (24-48) Monocytes (%) (Auto) 7 % (0-9) Eosinophils (%) (Auto) 0 % (0-3) Basophils (%) (Auto) 2 % (0-3) Neutrophils # (Auto) 9.6 x10^3uL (1.8-7.7) Lymphocytes # (Auto) 2.1 x10^3/uL (1.0-4.8) Monocytes # (Auto) 1.0 x10^3/uL (0.0-1.1) Eosinophils # (Auto) 0.1 x10^3/uL (0.0-0.7) Basophils # (Auto) 0.3 x10^3/uL (0.0-0.2) Sodium Level 138 mmol/L (136-145) Potassium Level 3.5 mmol/L (3.5-5.1) Chloride Level 99 mmol/L (98-107) Carbon Dioxide Level 35 mmol/L (21-32) Anion Gap 4 (6-14) Blood Urea Nitrogen 19 mg/dL (7-20) Creatinine 0.8 mg/dL (0.6-1.0) Estimated GFR (Cockcroft-Gault) 71.3 Glucose Level 121 mg/dL (70-99) Calcium Level 8.1 mg/dL (8.5-10.1) Lactic Acid Level 1.9 mmol/L (0.4-2.0) Nasal Screen MRSA (PCR) Negative (Negative) Test 07/24/16 08:06 07/24/16 11:46 Glucose (Fingerstick) 197 mg/dL (70-99) 141 mg/dL (70-99) Micro BLOOD CULTURE Final GRAM POSITIVE COCCI IN CLUSTERS, SUGGESTIVE OF STAPH, IN 1 OF 2 BOTTLES, ONE SET DRAWN. Objective Assessment GPC in clusters bacteremia, POA - came with PICC line Fever Leukocytosis Thickening of the cecum and ascending colon suggesting focal colitis or ischemia. 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 The chart was reviewed. The case was discussed. Agree with the plan of care. KAREN FLORES APRN July 24, 2016 13:11 DWAYNE CARL MD July 24, 2016 13:25
[2016-07-24] MEDS: TPN PER PHARMACY MC PRN (13:17)
[2016-07-24 14:16] LABS: BASO % 0 % (0-3); EOS % 3 % (0-3); HEMATOCRIT 24.9 % (36.0-47.0); HEMOGLOBIN 8.3 g/dL (12.0-15.5); LYMPH # 1.4 x10^3/uL (1.0-4.8); LYMPH % 14 % (24-48); MEAN CORPUSCULAR HEMOGLOBIN 30 pg (25-35); MEAN CORPUSCULAR HGB CONC 33 g/dL (31-37); MEAN CORPUSCULAR VOLUME 89 fL (79-100); MONO % 9 % (0-9); NEUT % 75 % (31-73); PLATELET COUNT 179 x10^3/uL (140-400); RED CELL DISTRIBUTION WIDTH 17.8 % (11.5-14.5)
--- NOTE | 2016-07-24 14:27 | PDOC2 ---
GI CONSULT Reason For Consult: Possible colitis HPI: HPI: 70 y/o female know from previous admission in 05/2016, found to have cholangiocarcinoma, s/p Whipple. Has been recovering at rehab facility, brought back to [facility] w/ fever/chills, cough, and low appetite. Pulmonology and ID are following for bacteremia/early sepsis, abnormal CXR. Surgery has seen, GI consult requested re: thickening of the cecum and ascending colon on CT, suggestive of colitis or ischemia. Has been having diarrhea, sometimes w/ incontinence. No abd pain, no n/v. Denies bleeding. On TPN and clears. Hgb low at 6.8, transfusions in process. Reports previously normal EGD and colonoscopy w/ Dr. Hawkins. PMH: PMH: cholangiocarcinoma s/p Whipple, CVA, CAD, DM, HLD, HTN, anemia, right ankle surgery, arm fracture FH: Family History: Cancer Social History: Smoke: No ALCOHOL: rare Drugs: None ROS: GEN: +fevers HEENT: Denies blurred vision, sore throat CV: Denies chest pain RESP: +cough GI: Per HPI : Denies hematuria, dysuria ENDO: Denies weight changes NEURO: Denies confusion, dizziness MSK: +weakness SKIN: Denies jaundice, pruritus Vitals: Vitals: Vital Signs Date Time Temp Pulse Resp B/P (MAP) Pulse Ox O2 Delivery O2 Flow Rate FiO2 07/24/16 11:00 98.4 73 20 103/52 (69) 95 Nasal Cannula 98.4 07/24/16 01:53 2.0 Labs: Labs: Laboratory Tests Test 07/23/16 19:40 07/23/16 19:50 07/23/16 22:45 07/24/16 05:00 Urine Collection Type U cath Urine Color Yellow Urine Clarity Turbid Urine pH 8.0 Urine Specific [place] 1.020 Urine Protein 30 mg/dL (NEG-TRACE) Urine Glucose (UA) Negative mg/dL (NEG) Urine Ketones (Stick) Negative mg/dL (NEG) Urine Blood Negative (NEG) Urine Nitrite Negative (NEG) Urine Bilirubin Negative (NEG) Urine Urobilinogen Dipstick 1.0 mg/dL (0.2 mg/dL) Urine Leukocyte Esterase Large (NEG) Urine RBC Occ /HPF (0-2) Urine WBC 11-20 /HPF (0-4) Urine Squamous Epithelial Cells Occ /LPF Urine Amorphous Sediment Present /HPF Urine Bacteria Few /HPF (0-FEW) White Blood Count 13.1 x10^3/uL (4.0-11.0) Red Blood Count 2.27 x10^6/uL (3.50-5.40) Hemoglobin 6.8 g/dL (12.0-15.5) Hematocrit 20.5 % (36.0-47.0) Mean Corpuscular Volume 90 fL (79-100) Mean Corpuscular Hemoglobin 30 pg (25-35) Mean Corpuscular Hemoglobin Concent 33 g/dL (31-37) Red Cell Distribution Width 17.1 % (11.5-14.5) Platelet Count 304 x10^3/uL (140-400) Neutrophils (%) (Auto) 74 % (31-73) Lymphocytes (%) (Auto) 16 % (24-48) Monocytes (%) (Auto) 7 % (0-9) Eosinophils (%) (Auto) 0 % (0-3) Basophils (%) (Auto) 2 % (0-3) Neutrophils # (Auto) 9.6 x10^3uL (1.8-7.7) Lymphocytes # (Auto) 2.1 x10^3/uL (1.0-4.8) Monocytes # (Auto) 1.0 x10^3/uL (0.0-1.1) Eosinophils # (Auto) 0.1 x10^3/uL (0.0-0.7) Basophils # (Auto) 0.3 x10^3/uL (0.0-0.2) Sodium Level 138 mmol/L (136-145) Potassium Level 3.5 mmol/L (3.5-5.1) Chloride Level 99 mmol/L (98-107) Carbon Dioxide Level 35 mmol/L (21-32) Anion Gap 4 (6-14) Blood Urea Nitrogen 19 mg/dL (7-20) Creatinine 0.8 mg/dL (0.6-1.0) Estimated GFR (Cockcroft-Gault) 71.3 Glucose Level 121 mg/dL (70-99) Calcium Level 8.1 mg/dL (8.5-10.1) Lactic Acid Level 1.9 mmol/L (0.4-2.0) Nasal Screen MRSA (PCR) Negative (Negative) Test 07/24/16 08:06 07/24/16 11:46 Glucose (Fingerstick) 197 mg/dL (70-99) 141 mg/dL (70-99) Allergies: Coded Allergies: No Known Drug Allergies (Unverified , 06/10/16) Medications: Current Medications Medications (Trade) Dose Ordered Sig/Luly Route PRN Reason Start Time Stop Time Status Last Admin Dose Admin Vancomycin HCl (Vanco Per Pharmacy) 1 each PRN DAILY PRN MC SEE COMMENTS 07/23/16 21:15 07/24/16 13:25 Piperacillin Sod/ Tazobactam Sod 3.375 gm/Sodium Chloride 50 ml @ 100 mls/hr 1X ONCE IV 07/23/16 21:30 07/23/16 21:59 DC 07/23/16 21:27 Levofloxacin/ Dextrose 150 ml @ 100 mls/hr 1X ONCE IV 07/23/16 22:00 07/23/16 23:29 DC 07/23/16 22:02 Vancomycin HCl 1.75 gm/Sodium Chloride 500 ml @ 250 mls/hr 1X ONCE IV 07/23/16 23:00 07/24/16 00:59 DC 07/23/16 23:30 Acetaminophen (Tylenol) 650 mg PRN Q4HRS PRN PO FEVER 07/23/16 21:30 07/24/16 21:29 07/23/16 21:34 Potassium Chloride/Dextrose/ Sod Cl 1,000 ml @ 75 mls/hr 1X ONCE IV 07/23/16 22:00 07/24/16 11:19 DC 07/23/16 23:34 Piperacillin Sod/ Tazobactam Sod 3.375 gm/Sodium Chloride 50 ml @ 100 mls/hr Q6HRS IV 07/24/16 06:00 07/24/16 11:42 Iohexol (Omnipaque 240 Mg/ml) 30 ml 1X ONCE PO 07/24/16 08:30 07/24/16 08:32 DC 07/24/16 08:30 Iohexol (Omnipaque 300 Mg/ml) 75 ml 1X ONCE IV 07/24/16 08:30 07/24/16 08:32 DC 07/24/16 09:57 Info 1 each PRN DAILY PRN MC SEE COMMENTS 07/24/16 10:00 07/24/16 13:17 Metronidazole 100 ml @ 100 mls/hr Q8HRS IV 07/24/16 14:00 07/24/16 13:50 Imaging: Imaging: CXR 07/24/16 IMPRESSION: Improved aeration of the left lung base relative to the previous exam. Some residual modest volume loss persists. CT A/P 07/24/16 IMPRESSION: Thickening of the cecum and ascending colon suggesting focal colitis or ischemia. Abdominal ascites similar to the previous exam. PE: GEN: NAD HEENT: Atraumatic, PERRL LUNGS: diminished HEART: tachycardic ABD: non-tender, previous drain sight w/ milky drainage, G tube EXTREMITY: No edema SKIN: No rashes, no jaundice NEURO/PSYCH: A & O 3 A/P: A/P: Fever, leukocytosis, abnormal CXR, possible colitis on CT -followed by ID, pulm; on IV atbx -C Diff ordered, uncollected Cholangiocarcinoma s/p Whipple 05/2016 -surgery following, on TPN and clears Anemia CRC screen -reports previously normal colonoscopy w/ Dr. Hawkins, unsure when -- Infectious vs ischemia. Check stool studies, continue atbx. CLINT LAURNET July 24, 2016 14:27
[2016-07-24] MEDS: IPRATRPIUM/ALBUTEROL 0.5/2.5MG 3 ML NEBU. NEB SCH ×2 (16:28→19:45)
[2016-07-24] MEDS: VANCOMYCIN 1 GM in IV NORMAL SALINE 250ML 250 ML IV SCH (18:18)
[2016-07-24] MEDS: ENOXAPARIN 40 MG/0.4 ML SYRINGE. SQ SCH (18:25)
[2016-07-24] MEDS ORDERED: [UNRECOGNIZED DRUG - OTHER] IV SCH ×10 (22:00)
[2016-07-24] MEDS ORDERED: DEXTROSE 70% IV SCH ×10 (22:00)
[2016-07-24] MEDS ORDERED: TOTAL PARENTERAL NUTRITION IV SCH ×10 (22:00)
[2016-07-24] MEDS ORDERED: AMINO ACIDS IV SCH ×10 (22:00)
[2016-07-25] MEDS: PIPERACILLIN/TAZOBACTAM 3.375 GM in IV NORMAL SALINE 50ML 50 ML IV SCH ×5 (00:28→23:29)
[2016-07-25 03:00] VITALS: BP 106/36
--- NOTE | 2016-07-25 03:53 | CONS ---
DATE OF CONSULTATION: 07/24/2016 REFERRING PHYSICIAN: Dr. Chandler. REASON FOR CONSULTATION: Positive blood cultures. 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 She initially presented with painless obstructive jaundice status post biliary stenting followed by a Whipple procedure on 06/10/2016. 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 She eventually was transferred to a [facility] facility. However, she has since developed a fever and an elevated white blood cell count of 13,100, and a hemoglobin 6.8. Blood cultures have since returned positive for gram-positive cocci in clusters suggestive of staph in one of two bottles, hence ID consult. Aside from a nagging cough, the patient verbalizes comfort at the moment. She denies headache, chest discomfort or shortness of air. She is needing supplemental oxygen at 2 liters nasal cannula. She received a blood transfusion yesterday. She denies nausea or vomiting. She is tolerating a clear liquid diet and is awaiting for a bedside swallow evaluation for diet advancement. She has a PICC line that has been in place since last admission. She is incontinent of bowel and bladder. PAST MEDICAL HISTORY: Klebsiella urinary tract infection, intermediate nitrofurantoin and resistant ampicillin, otherwise sensitive. Coronary artery disease, hypertension, hyperlipidemia, cerebrovascular accident, diabetes mellitus, B12 deficiency. PAST SURGICAL HISTORY: Whipple procedure 06/10/2016, ERCP with stent placement on 06/03/2016, PICC line placement on 06/17/2016. FAMILY HISTORY: Positive for diabetes mellitus, heart disease, colon cancer, prostate cancer, and ovarian cancer SOCIAL HISTORY: She is a , currently residing in a [facility] facility. Former smoker. Quit over 20 years ago. ALLERGIES: No known drug allergies. CURRENT MEDICATIONS: She is on vancomycin, Zosyn, and levofloxacin. Other medications are available and have been reviewed on the APR. REVIEW OF SYSTEMS: Per HPI, otherwise all other review of systems are negative. PHYSICAL EXAMINATION: GENERAL: female, propped up in bed, in no apparent distress. VITAL SIGNS: Temperature 98.4, T-max is 102.8. Blood pressure 103/52, heart rate 73, respiratory rate 20, pulse oximetry 95% on 2 liters nasal cannula. Weight is 146 pounds. HEENT: Pupils equally round, normal conjunctivae. Oral mucosa is pink and moist. . No lesions seen. NECK: Supple. LUNGS: Clear to auscultation. Nonlabored. HEART: Normal S1, S2. ABDOMEN: Obese, bowel sounds are present, soft, nontender. Gastrostomy tube to dependent drainage bag. Right-sided ostomy bag over a previous YUMIKO drain site. EXTREMITIES: No gross edema or cyanosis. SKIN: Without rash. Warm to touch. Coccyx pressure wound per RN notes. We referred to a chart for further description and pictures. NEUROLOGIC: Alert, responds appropriately and follows commands. LINES: RUE-PICC clean. LABORATORY DATA: On admission, WBC 13.1, hemoglobin 6.8, hematocrit 20.5, platelet count 304,000. Sodium 138, potassium 3.5, creatinine 0.8, BUN 19, glucose 121, lactic acid 1.9. Urinalysis showed wbc's 11-20, leukocyte esterase large, nitrite negative, bacteria few. Urine culture no growth so far. MRSA screen negative. Blood cultures, gram-positive cocci in clusters, suggestive of staph in one of two bottles. Chest x-ray shows improved aeration of the left lung base relative to previous exam. Some residual volume loss persist. Abdominal/pelvic CT shows thickening of the cecum and ascending colon suggestive of focal colitis or ischemia; and abdominal ascites similar to the previous exam. IMPRESSION: 1. Gram-positive cocci in clusters, bacteremia, present on admission. 2. Fever. 3. Leukocytosis. 4. Thickening of the cecum and ascending colon suggestive of focal colitis or ischemia. 5. Anemia, status post blood transfusion. 6. Newly diagnosed cholangiocarcinoma status post Whipple procedure on 06/10/2016. PLAN: I discontinued the levofloxacin. I agree with vancomycin and Zosyn. We will check stool for Clostridium difficile and add metronidazole. Discussed with RN for stat CBC. We will follow up on laboratory values and await GPC identification. Supportive care. Thank you, Dr. Chandler, for asking us to participate in this patient's care. Should you have further questions or concerns, please call. The patient was seen and examined, and plan of care implemented by Dr. Dwayne Carl. DWAYNE CARL MD DR: LINDA/sheyla JOB#: [id number] / [id number]
[2016-07-25 05:55] LABS: BASO % 1 % (0-3); EOS % 7 % (0-3); HEMATOCRIT 23.7 % (36.0-47.0); HEMOGLOBIN 8.3 g/dL (12.0-15.5); LYMPH # 1.7 x10^3/uL (1.0-4.8); LYMPH % 21 % (24-48); MEAN CORPUSCULAR HEMOGLOBIN 31 pg (25-35); MEAN CORPUSCULAR HGB CONC 35 g/dL (31-37); MEAN CORPUSCULAR VOLUME 88 fL (79-100); MONO % 11 % (0-9); NEUT % 62 % (31-73); PLATELET COUNT 195 x10^3/uL (140-400); RED BLOOD COUNT 2.69 x10^6/uL (3.50-5.40); RED CELL DISTRIBUTION WIDTH 17.6 % (11.5-14.5); WHITE BLOOD COUNT 8.3 x10^3/uL (4.0-11.0)
[2016-07-25 05:58] LABS: ALBUMIN 1.4 g/dL (3.4-5.0); ALBUMIN/GLOBULIN RATIO 0.4 (1.0-1.7); CALCIUM 7.7 mg/dL (8.5-10.1); CREATININE 0.9 mg/dL (0.6-1.0); GFR 62.3; PHOSPHORUS 3.4 mg/dL (2.6-4.7); POTASSIUM 3.2 mmol/L (3.5-5.1); TOTAL BILIRUBIN 0.5 mg/dL (0.2-1.0); TOTAL PROTEIN 5.2 g/dL (6.4-8.2)
[2016-07-25] MEDS: IPRATRPIUM/ALBUTEROL 0.5/2.5MG 3 ML NEBU. NEB SCH ×4 (07:18→20:15)
[2016-07-25 07:35] VITALS: BP 117/49
[2016-07-25] MEDS: INSULIN ASPART 300 UNITS/3 ML INSULN.PEN SQ SCH ×3 (08:00→17:35)
--- NOTE | 2016-07-25 09:21 | PDOC ---
PULMONARY PROGRESS NOTES Subjective no soa Vitals Vital Signs Date Time Temp Pulse Resp B/P (MAP) Pulse Ox O2 Delivery O2 Flow Rate FiO2 07/25/16 07:35 97.7 69 18 117/49 (71) 95 Nasal Cannula 2.0 97.7 General: Alert, No acute distress Lungs: Clear Cardiovascular: S1 Abdomen: Soft Neuro Exam: Alert Extremities: No Edema Skin: Warm Labs Laboratory Tests Test 07/23/16 19:40 07/23/16 19:50 07/23/16 22:45 07/24/16 05:00 Urine Collection Type U cath Urine Color Yellow Urine Clarity Turbid Urine pH 8.0 Urine Specific [place] 1.020 Urine Protein 30 mg/dL (NEG-TRACE) Urine Glucose (UA) Negative mg/dL (NEG) Urine Ketones (Stick) Negative mg/dL (NEG) Urine Blood Negative (NEG) Urine Nitrite Negative (NEG) Urine Bilirubin Negative (NEG) Urine Urobilinogen Dipstick 1.0 mg/dL (0.2 mg/dL) Urine Leukocyte Esterase Large (NEG) Urine RBC Occ /HPF (0-2) Urine WBC 11-20 /HPF (0-4) Urine Squamous Epithelial Cells Occ /LPF Urine Amorphous Sediment Present /HPF Urine Bacteria Few /HPF (0-FEW) White Blood Count 13.1 x10^3/uL (4.0-11.0) Red Blood Count 2.27 x10^6/uL (3.50-5.40) Hemoglobin 6.8 g/dL (12.0-15.5) Hematocrit 20.5 % (36.0-47.0) Mean Corpuscular Volume 90 fL (79-100) Mean Corpuscular Hemoglobin 30 pg (25-35) Mean Corpuscular Hemoglobin Concent 33 g/dL (31-37) Red Cell Distribution Width 17.1 % (11.5-14.5) Platelet Count 304 x10^3/uL (140-400) Neutrophils (%) (Auto) 74 % (31-73) Lymphocytes (%) (Auto) 16 % (24-48) Monocytes (%) (Auto) 7 % (0-9) Eosinophils (%) (Auto) 0 % (0-3) Basophils (%) (Auto) 2 % (0-3) Neutrophils # (Auto) 9.6 x10^3uL (1.8-7.7) Lymphocytes # (Auto) 2.1 x10^3/uL (1.0-4.8) Monocytes # (Auto) 1.0 x10^3/uL (0.0-1.1) Eosinophils # (Auto) 0.1 x10^3/uL (0.0-0.7) Basophils # (Auto) 0.3 x10^3/uL (0.0-0.2) Sodium Level 138 mmol/L (136-145) Potassium Level 3.5 mmol/L (3.5-5.1) Chloride Level 99 mmol/L (98-107) Carbon Dioxide Level 35 mmol/L (21-32) Anion Gap 4 (6-14) Blood Urea Nitrogen 19 mg/dL (7-20) Creatinine 0.8 mg/dL (0.6-1.0) Estimated GFR (Cockcroft-Gault) 71.3 Glucose Level 121 mg/dL (70-99) Calcium Level 8.1 mg/dL (8.5-10.1) Lactic Acid Level 1.9 mmol/L (0.4-2.0) Nasal Screen MRSA (PCR) Negative (Negative) Test 07/24/16 08:06 07/24/16 11:46 07/24/16 13:55 07/24/16 18:26 Glucose (Fingerstick) 197 mg/dL (70-99) 141 mg/dL (70-99) 138 mg/dL (70-99) White Blood Count 10.0 x10^3/uL (4.0-11.0) Red Blood Count 2.80 x10^6/uL (3.50-5.40) Hemoglobin 8.3 g/dL (12.0-15.5) Hematocrit 24.9 % (36.0-47.0) Mean Corpuscular Volume 89 fL (79-100) Mean Corpuscular Hemoglobin 30 pg (25-35) Mean Corpuscular Hemoglobin Concent 33 g/dL (31-37) Red Cell Distribution Width 17.8 % (11.5-14.5) Platelet Count 179 x10^3/uL (140-400) Neutrophils (%) (Auto) 75 % (31-73) Lymphocytes (%) (Auto) 14 % (24-48) Monocytes (%) (Auto) 9 % (0-9) Eosinophils (%) (Auto) 3 % (0-3) Basophils (%) (Auto) 0 % (0-3) Neutrophils # (Auto) 7.5 x10^3uL (1.8-7.7) Lymphocytes # (Auto) 1.4 x10^3/uL (1.0-4.8) Monocytes # (Auto) 0.9 x10^3/uL (0.0-1.1) Eosinophils # (Auto) 0.2 x10^3/uL (0.0-0.7) Basophils # (Auto) 0.0 x10^3/uL (0.0-0.2) Test 07/25/16 00:05 07/25/16 05:15 07/25/16 06:48 Glucose (Fingerstick) 235 mg/dL (70-99) 226 mg/dL (70-99) White Blood Count 8.3 x10^3/uL (4.0-11.0) Red Blood Count 2.69 x10^6/uL (3.50-5.40) Hemoglobin 8.3 g/dL (12.0-15.5) Hematocrit 23.7 % (36.0-47.0) Mean Corpuscular Volume 88 fL (79-100) Mean Corpuscular Hemoglobin 31 pg (25-35) Mean Corpuscular Hemoglobin Concent 35 g/dL (31-37) Red Cell Distribution Width 17.6 % (11.5-14.5) Platelet Count 195 x10^3/uL (140-400) Neutrophils (%) (Auto) 62 % (31-73) Lymphocytes (%) (Auto) 21 % (24-48) Monocytes (%) (Auto) 11 % (0-9) Eosinophils (%) (Auto) 7 % (0-3) Basophils (%) (Auto) 1 % (0-3) Neutrophils # (Auto) 5.1 x10^3uL (1.8-7.7) Lymphocytes # (Auto) 1.7 x10^3/uL (1.0-4.8) Monocytes # (Auto) 0.9 x10^3/uL (0.0-1.1) Eosinophils # (Auto) 0.6 x10^3/uL (0.0-0.7) Basophils # (Auto) 0.0 x10^3/uL (0.0-0.2) Sodium Level 141 mmol/L (136-145) Potassium Level 3.2 mmol/L (3.5-5.1) Chloride Level 104 mmol/L (98-107) Carbon Dioxide Level 31 mmol/L (21-32) Anion Gap 6 (6-14) Blood Urea Nitrogen 17 mg/dL (7-20) Creatinine 0.9 mg/dL (0.6-1.0) Estimated GFR (Cockcroft-Gault) 62.3 BUN/Creatinine Ratio 19 (6-20) Glucose Level 215 mg/dL (70-99) Calcium Level 7.7 mg/dL (8.5-10.1) Phosphorus Level 3.4 mg/dL (2.6-4.7) Magnesium Level 2.0 mg/dL (1.8-2.4) Total Bilirubin 0.5 mg/dL (0.2-1.0) Aspartate Amino Transf (AST/SGOT) 22 U/L (15-37) Alanine Aminotransferase (ALT/SGPT) 26 U/L (14-59) Alkaline Phosphatase 89 U/L (46-116) Total Protein 5.2 g/dL (6.4-8.2) Albumin 1.4 g/dL (3.4-5.0) Albumin/Globulin Ratio 0.4 (1.0-1.7) Triglycerides Level 300 mg/dL (0-150) Laboratory Tests Test 07/24/16 11:46 07/24/16 13:55 07/24/16 18:26 07/25/16 00:05 Glucose (Fingerstick) 141 mg/dL (70-99) 138 mg/dL (70-99) 235 mg/dL (70-99) White Blood Count 10.0 x10^3/uL (4.0-11.0) Red Blood Count 2.80 x10^6/uL (3.50-5.40) Hemoglobin 8.3 g/dL (12.0-15.5) Hematocrit 24.9 % (36.0-47.0) Mean Corpuscular Volume 89 fL (79-100) Mean Corpuscular Hemoglobin 30 pg (25-35) Mean Corpuscular Hemoglobin Concent 33 g/dL (31-37) Red Cell Distribution Width 17.8 % (11.5-14.5) Platelet Count 179 x10^3/uL (140-400) Neutrophils (%) (Auto) 75 % (31-73) Lymphocytes (%) (Auto) 14 % (24-48) Monocytes (%) (Auto) 9 % (0-9) Eosinophils (%) (Auto) 3 % (0-3) Basophils (%) (Auto) 0 % (0-3) Neutrophils # (Auto) 7.5 x10^3uL (1.8-7.7) Lymphocytes # (Auto) 1.4 x10^3/uL (1.0-4.8) Monocytes # (Auto) 0.9 x10^3/uL (0.0-1.1) Eosinophils # (Auto) 0.2 x10^3/uL (0.0-0.7) Basophils # (Auto) 0.0 x10^3/uL (0.0-0.2) Test 07/25/16 05:15 07/25/16 06:48 White Blood Count 8.3 x10^3/uL (4.0-11.0) Red Blood Count 2.69 x10^6/uL (3.50-5.40) Hemoglobin 8.3 g/dL (12.0-15.5) Hematocrit 23.7 % (36.0-47.0) Mean Corpuscular Volume 88 fL (79-100) Mean Corpuscular Hemoglobin 31 pg (25-35) Mean Corpuscular Hemoglobin Concent 35 g/dL (31-37) Red Cell Distribution Width 17.6 % (11.5-14.5) Platelet Count 195 x10^3/uL (140-400) Neutrophils (%) (Auto) 62 % (31-73) Lymphocytes (%) (Auto) 21 % (24-48) Monocytes (%) (Auto) 11 % (0-9) Eosinophils (%) (Auto) 7 % (0-3) Basophils (%) (Auto) 1 % (0-3) Neutrophils # (Auto) 5.1 x10^3uL (1.8-7.7) Lymphocytes # (Auto) 1.7 x10^3/uL (1.0-4.8) Monocytes # (Auto) 0.9 x10^3/uL (0.0-1.1) Eosinophils # (Auto) 0.6 x10^3/uL (0.0-0.7) Basophils # (Auto) 0.0 x10^3/uL (0.0-0.2) Sodium Level 141 mmol/L (136-145) Potassium Level 3.2 mmol/L (3.5-5.1) Chloride Level 104 mmol/L (98-107) Carbon Dioxide Level 31 mmol/L (21-32) Anion Gap 6 (6-14) Blood Urea Nitrogen 17 mg/dL (7-20) Creatinine 0.9 mg/dL (0.6-1.0) Estimated GFR (Cockcroft-Gault) 62.3 BUN/Creatinine Ratio 19 (6-20) Glucose Level 215 mg/dL (70-99) Calcium Level 7.7 mg/dL (8.5-10.1) Phosphorus Level 3.4 mg/dL (2.6-4.7) Magnesium Level 2.0 mg/dL (1.8-2.4) Total Bilirubin 0.5 mg/dL (0.2-1.0) Aspartate Amino Transf (AST/SGOT) 22 U/L (15-37) Alanine Aminotransferase (ALT/SGPT) 26 U/L (14-59) Alkaline Phosphatase 89 U/L (46-116) Total Protein 5.2 g/dL (6.4-8.2) Albumin 1.4 g/dL (3.4-5.0) Albumin/Globulin Ratio 0.4 (1.0-1.7) Triglycerides Level 300 mg/dL (0-150) Glucose (Fingerstick) 226 mg/dL (70-99) Medications Active Scripts Medications Dose Route/Sig Max Daily Dose Days Date Category Tpn Electrolytes Vial (Sodium/K+/Mag/Ca/Chlor/Acetate) 20 Ml Vial 20 Ml IV 07/24/16 Reported Pantoprazole Sodium 40 Mg Tablet.dr 1 Tab PO DAILY 07/24/16 Reported Zyrtec (Cetirizine Hcl) 10 Mg Tablet 1 Tab PO DAILY 07/24/16 Reported Dextrose 5%-1/2NS Iv Solution (Dextrose 5 %-0.45 % Nacl) 1,000 Ml Iv.soln 1,000 Ml IV 5/31/17 Reported Levemir (Insulin Detemir) 100 Unit/1 Ml Vial 8 Unit SQ 07/24/16 Reported Novolog Flexpen (Insulin Aspart) 100 Unit/1 Ml Insuln.pen 1 Unit SQ TIDAC 07/24/16 Reported Sandostatin (Octreotide Acetate) 100 Mcg/1 Ml Ampul 100 Mcg IJ TID 07/24/16 Reported Lovenox (Enoxaparin Sodium) 40 Mg/0.4 Ml Disp.syrin 40 Mg SQ 07/24/16 Reported Octreotide Acetate 100 Mcg/1 Ml Vial 100 Mcg SQ Q8HRS 30 06/27/16 Rx Levemir Flextouch (Insulin Detemir) 100 Unit/1 Ml Insuln.pen 8 Units SQ QHS 30 06/27/16 Rx Impression . 1. Fever/leukocytosis and bacteremia secondary to early sepsis. The source is in the abdomen. CT abdomen and pelvis is suggesting colitis or focal cecum/ascending colon ischemia. 2. Recent Whipple procedure. 3. Gram-positive bacteremia./coag neg staph 4. Abnormal chest x-ray with minimal atelectasis in the bases which is most likely related to the abdominal process. 5. Minimal history of tobacco use. 6. Mild cough which is nonspecific. Plan . 1. Continue with broad-spectrum antibiotic per Infectious Disease recommendation. 2. Follow cultures. 3. Follow Infectious Disease recommendations. 4. Follow General Surgery recommendations. 5. Incentive spirometry. 6. Discussed with the patient's son 07/24 7. Continue oxygen at 2 liters. 8. We will follow along with NIKKI Ojeda MD Jul 25, 2016 09:21
--- NOTE | 2016-07-25 09:35 | PDOC ---
BENJAMIN OROZCO PROCEDURE ANALYST 07/25/16 0935: SURGICAL PROGRESS NOTE Subjective taking clears no abdominal pain Vital Signs Vital Signs Date Time Temp Pulse Resp B/P (MAP) Pulse Ox O2 Delivery O2 Flow Rate FiO2 07/25/16 07:35 97.7 69 18 117/49 (71) 95 Nasal Cannula 2.0 97.7 I&O Intake and Output 07/25/16 06:59 Intake Total 400 ml Output Total 350 ml Balance 50 ml Intake Oral 400 ml Drainage Total 350 ml # Voids 2 # Bowel Movements 4 General: Cooperative, No acute distress Abdomen: Soft, Other (nttp) Labs Laboratory Tests Test 07/23/16 19:40 07/23/16 19:50 07/23/16 22:45 07/24/16 05:00 Urine Collection Type U cath Urine Color Yellow Urine Clarity Turbid Urine pH 8.0 Urine Specific [place] 1.020 Urine Protein 30 mg/dL (NEG-TRACE) Urine Glucose (UA) Negative mg/dL (NEG) Urine Ketones (Stick) Negative mg/dL (NEG) Urine Blood Negative (NEG) Urine Nitrite Negative (NEG) Urine Bilirubin Negative (NEG) Urine Urobilinogen Dipstick 1.0 mg/dL (0.2 mg/dL) Urine Leukocyte Esterase Large (NEG) Urine RBC Occ /HPF (0-2) Urine WBC 11-20 /HPF (0-4) Urine Squamous Epithelial Cells Occ /LPF Urine Amorphous Sediment Present /HPF Urine Bacteria Few /HPF (0-FEW) White Blood Count 13.1 x10^3/uL (4.0-11.0) Red Blood Count 2.27 x10^6/uL (3.50-5.40) Hemoglobin 6.8 g/dL (12.0-15.5) Hematocrit 20.5 % (36.0-47.0) Mean Corpuscular Volume 90 fL (79-100) Mean Corpuscular Hemoglobin 30 pg (25-35) Mean Corpuscular Hemoglobin Concent 33 g/dL (31-37) Red Cell Distribution Width 17.1 % (11.5-14.5) Platelet Count 304 x10^3/uL (140-400) Neutrophils (%) (Auto) 74 % (31-73) Lymphocytes (%) (Auto) 16 % (24-48) Monocytes (%) (Auto) 7 % (0-9) Eosinophils (%) (Auto) 0 % (0-3) Basophils (%) (Auto) 2 % (0-3) Neutrophils # (Auto) 9.6 x10^3uL (1.8-7.7) Lymphocytes # (Auto) 2.1 x10^3/uL (1.0-4.8) Monocytes # (Auto) 1.0 x10^3/uL (0.0-1.1) Eosinophils # (Auto) 0.1 x10^3/uL (0.0-0.7) Basophils # (Auto) 0.3 x10^3/uL (0.0-0.2) Sodium Level 138 mmol/L (136-145) Potassium Level 3.5 mmol/L (3.5-5.1) Chloride Level 99 mmol/L (98-107) Carbon Dioxide Level 35 mmol/L (21-32) Anion Gap 4 (6-14) Blood Urea Nitrogen 19 mg/dL (7-20) Creatinine 0.8 mg/dL (0.6-1.0) Estimated GFR (Cockcroft-Gault) 71.3 Glucose Level 121 mg/dL (70-99) Calcium Level 8.1 mg/dL (8.5-10.1) Lactic Acid Level 1.9 mmol/L (0.4-2.0) Nasal Screen MRSA (PCR) Negative (Negative) Test 07/24/16 08:06 07/24/16 11:46 07/24/16 13:55 07/24/16 18:26 Glucose (Fingerstick) 197 mg/dL (70-99) 141 mg/dL (70-99) 138 mg/dL (70-99) White Blood Count 10.0 x10^3/uL (4.0-11.0) Red Blood Count 2.80 x10^6/uL (3.50-5.40) Hemoglobin 8.3 g/dL (12.0-15.5) Hematocrit 24.9 % (36.0-47.0) Mean Corpuscular Volume 89 fL (79-100) Mean Corpuscular Hemoglobin 30 pg (25-35) Mean Corpuscular Hemoglobin Concent 33 g/dL (31-37) Red Cell Distribution Width 17.8 % (11.5-14.5) Platelet Count 179 x10^3/uL (140-400) Neutrophils (%) (Auto) 75 % (31-73) Lymphocytes (%) (Auto) 14 % (24-48) Monocytes (%) (Auto) 9 % (0-9) Eosinophils (%) (Auto) 3 % (0-3) Basophils (%) (Auto) 0 % (0-3) Neutrophils # (Auto) 7.5 x10^3uL (1.8-7.7) Lymphocytes # (Auto) 1.4 x10^3/uL (1.0-4.8) Monocytes # (Auto) 0.9 x10^3/uL (0.0-1.1) Eosinophils # (Auto) 0.2 x10^3/uL (0.0-0.7) Basophils # (Auto) 0.0 x10^3/uL (0.0-0.2) Test 07/25/16 00:05 07/25/16 05:15 07/25/16 06:48 Glucose (Fingerstick) 235 mg/dL (70-99) 226 mg/dL (70-99) White Blood Count 8.3 x10^3/uL (4.0-11.0) Red Blood Count 2.69 x10^6/uL (3.50-5.40) Hemoglobin 8.3 g/dL (12.0-15.5) Hematocrit 23.7 % (36.0-47.0) Mean Corpuscular Volume 88 fL (79-100) Mean Corpuscular Hemoglobin 31 pg (25-35) Mean Corpuscular Hemoglobin Concent 35 g/dL (31-37) Red Cell Distribution Width 17.6 % (11.5-14.5) Platelet Count 195 x10^3/uL (140-400) Neutrophils (%) (Auto) 62 % (31-73) Lymphocytes (%) (Auto) 21 % (24-48) Monocytes (%) (Auto) 11 % (0-9) Eosinophils (%) (Auto) 7 % (0-3) Basophils (%) (Auto) 1 % (0-3) Neutrophils # (Auto) 5.1 x10^3uL (1.8-7.7) Lymphocytes # (Auto) 1.7 x10^3/uL (1.0-4.8) Monocytes # (Auto) 0.9 x10^3/uL (0.0-1.1) Eosinophils # (Auto) 0.6 x10^3/uL (0.0-0.7) Basophils # (Auto) 0.0 x10^3/uL (0.0-0.2) Sodium Level 141 mmol/L (136-145) Potassium Level 3.2 mmol/L (3.5-5.1) Chloride Level 104 mmol/L (98-107) Carbon Dioxide Level 31 mmol/L (21-32) Anion Gap 6 (6-14) Blood Urea Nitrogen 17 mg/dL (7-20) Creatinine 0.9 mg/dL (0.6-1.0) Estimated GFR (Cockcroft-Gault) 62.3 BUN/Creatinine Ratio 19 (6-20) Glucose Level 215 mg/dL (70-99) Calcium Level 7.7 mg/dL (8.5-10.1) Phosphorus Level 3.4 mg/dL (2.6-4.7) Magnesium Level 2.0 mg/dL (1.8-2.4) Total Bilirubin 0.5 mg/dL (0.2-1.0) Aspartate Amino Transf (AST/SGOT) 22 U/L (15-37) Alanine Aminotransferase (ALT/SGPT) 26 U/L (14-59) Alkaline Phosphatase 89 U/L (46-116) Total Protein 5.2 g/dL (6.4-8.2) Albumin 1.4 g/dL (3.4-5.0) Albumin/Globulin Ratio 0.4 (1.0-1.7) Triglycerides Level 300 mg/dL (0-150) Laboratory Tests Test 07/24/16 11:46 07/24/16 13:55 07/24/16 18:26 07/25/16 00:05 Glucose (Fingerstick) 141 mg/dL (70-99) 138 mg/dL (70-99) 235 mg/dL (70-99) White Blood Count 10.0 x10^3/uL (4.0-11.0) Red Blood Count 2.80 x10^6/uL (3.50-5.40) Hemoglobin 8.3 g/dL (12.0-15.5) Hematocrit 24.9 % (36.0-47.0) Mean Corpuscular Volume 89 fL (79-100) Mean Corpuscular Hemoglobin 30 pg (25-35) Mean Corpuscular Hemoglobin Concent 33 g/dL (31-37) Red Cell Distribution Width 17.8 % (11.5-14.5) Platelet Count 179 x10^3/uL (140-400) Neutrophils (%) (Auto) 75 % (31-73) Lymphocytes (%) (Auto) 14 % (24-48) Monocytes (%) (Auto) 9 % (0-9) Eosinophils (%) (Auto) 3 % (0-3) Basophils (%) (Auto) 0 % (0-3) Neutrophils # (Auto) 7.5 x10^3uL (1.8-7.7) Lymphocytes # (Auto) 1.4 x10^3/uL (1.0-4.8) Monocytes # (Auto) 0.9 x10^3/uL (0.0-1.1) Eosinophils # (Auto) 0.2 x10^3/uL (0.0-0.7) Basophils # (Auto) 0.0 x10^3/uL (0.0-0.2) Test 07/25/16 05:15 07/25/16 06:48 White Blood Count 8.3 x10^3/uL (4.0-11.0) Red Blood Count 2.69 x10^6/uL (3.50-5.40) Hemoglobin 8.3 g/dL (12.0-15.5) Hematocrit 23.7 % (36.0-47.0) Mean Corpuscular Volume 88 fL (79-100) Mean Corpuscular Hemoglobin 31 pg (25-35) Mean Corpuscular Hemoglobin Concent 35 g/dL (31-37) Red Cell Distribution Width 17.6 % (11.5-14.5) Platelet Count 195 x10^3/uL (140-400) Neutrophils (%) (Auto) 62 % (31-73) Lymphocytes (%) (Auto) 21 % (24-48) Monocytes (%) (Auto) 11 % (0-9) Eosinophils (%) (Auto) 7 % (0-3) Basophils (%) (Auto) 1 % (0-3) Neutrophils # (Auto) 5.1 x10^3uL (1.8-7.7) Lymphocytes # (Auto) 1.7 x10^3/uL (1.0-4.8) Monocytes # (Auto) 0.9 x10^3/uL (0.0-1.1) Eosinophils # (Auto) 0.6 x10^3/uL (0.0-0.7) Basophils # (Auto) 0.0 x10^3/uL (0.0-0.2) Sodium Level 141 mmol/L (136-145) Potassium Level 3.2 mmol/L (3.5-5.1) Chloride Level 104 mmol/L (98-107) Carbon Dioxide Level 31 mmol/L (21-32) Anion Gap 6 (6-14) Blood Urea Nitrogen 17 mg/dL (7-20) Creatinine 0.9 mg/dL (0.6-1.0) Estimated GFR (Cockcroft-Gault) 62.3 BUN/Creatinine Ratio 19 (6-20) Glucose Level 215 mg/dL (70-99) Calcium Level 7.7 mg/dL (8.5-10.1) Phosphorus Level 3.4 mg/dL (2.6-4.7) Magnesium Level 2.0 mg/dL (1.8-2.4) Total Bilirubin 0.5 mg/dL (0.2-1.0) Aspartate Amino Transf (AST/SGOT) 22 U/L (15-37) Alanine Aminotransferase (ALT/SGPT) 26 U/L (14-59) Alkaline Phosphatase 89 U/L (46-116) Total Protein 5.2 g/dL (6.4-8.2) Albumin 1.4 g/dL (3.4-5.0) Albumin/Globulin Ratio 0.4 (1.0-1.7) Triglycerides Level 300 mg/dL (0-150) Glucose (Fingerstick) 226 mg/dL (70-99) Problem List Problems Medical Problems: (1) Anemia Status: Acute (2) HCAP (healthcare-associated pneumonia) Status: Acute Assessment/Plan colitis cdiff pending Problems: JUAN VILLA MD 07/25/16 1526: SURGICAL PROGRESS NOTE Assessment/Plan Pt seen and examined. Agree with Ms. Orozco's note Pt without c/o abd soft, min drainage will clamp G-tube and try diet Problems: BENJAMIN OROZCO APRN Jul 25, 2016 09:35 JUAN VILLA MD Jul 25, 2016 15:26
--- NOTE | 2016-07-25 09:59 | PDOC ---
PROGRESS NOTES Chief Complaint Chief Complaint sepsis. 1. colitis or focal cecum/ascending colon ischemia. 2. Recent Whipple procedure. 3. Gram-positive bacteremia 4. dyspnea and hypoxia, w/ atelectasis History of Present Illness History of Present Illness better today, cont IV abx ID and PULM following cx pending 02 support and pulm toilet Vitals Vitals Vital Signs Date Time Temp Pulse Resp B/P (MAP) Pulse Ox O2 Delivery O2 Flow Rate FiO2 07/25/16 07:35 97.7 69 18 117/49 (71) 95 Nasal Cannula 2.0 97.7 Physical Exam General: Cooperative, No acute distress Heart: Other (intermittent tachy) Lungs: Clear Abdomen: Soft, Other (nttp) Extremities: Normal pulses Skin: No rashes, No significant lesion Labs LABS Laboratory Tests Test 07/24/16 11:46 07/24/16 13:55 07/24/16 18:26 07/25/16 00:05 Glucose (Fingerstick) 141 mg/dL (70-99) 138 mg/dL (70-99) 235 mg/dL (70-99) White Blood Count 10.0 x10^3/uL (4.0-11.0) Red Blood Count 2.80 x10^6/uL (3.50-5.40) Hemoglobin 8.3 g/dL (12.0-15.5) Hematocrit 24.9 % (36.0-47.0) Mean Corpuscular Volume 89 fL (79-100) Mean Corpuscular Hemoglobin 30 pg (25-35) Mean Corpuscular Hemoglobin Concent 33 g/dL (31-37) Red Cell Distribution Width 17.8 % (11.5-14.5) Platelet Count 179 x10^3/uL (140-400) Neutrophils (%) (Auto) 75 % (31-73) Lymphocytes (%) (Auto) 14 % (24-48) Monocytes (%) (Auto) 9 % (0-9) Eosinophils (%) (Auto) 3 % (0-3) Basophils (%) (Auto) 0 % (0-3) Neutrophils # (Auto) 7.5 x10^3uL (1.8-7.7) Lymphocytes # (Auto) 1.4 x10^3/uL (1.0-4.8) Monocytes # (Auto) 0.9 x10^3/uL (0.0-1.1) Eosinophils # (Auto) 0.2 x10^3/uL (0.0-0.7) Basophils # (Auto) 0.0 x10^3/uL (0.0-0.2) Test 07/25/16 05:15 07/25/16 06:48 White Blood Count 8.3 x10^3/uL (4.0-11.0) Red Blood Count 2.69 x10^6/uL (3.50-5.40) Hemoglobin 8.3 g/dL (12.0-15.5) Hematocrit 23.7 % (36.0-47.0) Mean Corpuscular Volume 88 fL (79-100) Mean Corpuscular Hemoglobin 31 pg (25-35) Mean Corpuscular Hemoglobin Concent 35 g/dL (31-37) Red Cell Distribution Width 17.6 % (11.5-14.5) Platelet Count 195 x10^3/uL (140-400) Neutrophils (%) (Auto) 62 % (31-73) Lymphocytes (%) (Auto) 21 % (24-48) Monocytes (%) (Auto) 11 % (0-9) Eosinophils (%) (Auto) 7 % (0-3) Basophils (%) (Auto) 1 % (0-3) Neutrophils # (Auto) 5.1 x10^3uL (1.8-7.7) Lymphocytes # (Auto) 1.7 x10^3/uL (1.0-4.8) Monocytes # (Auto) 0.9 x10^3/uL (0.0-1.1) Eosinophils # (Auto) 0.6 x10^3/uL (0.0-0.7) Basophils # (Auto) 0.0 x10^3/uL (0.0-0.2) Sodium Level 141 mmol/L (136-145) Potassium Level 3.2 mmol/L (3.5-5.1) Chloride Level 104 mmol/L (98-107) Carbon Dioxide Level 31 mmol/L (21-32) Anion Gap 6 (6-14) Blood Urea Nitrogen 17 mg/dL (7-20) Creatinine 0.9 mg/dL (0.6-1.0) Estimated GFR (Cockcroft-Gault) 62.3 BUN/Creatinine Ratio 19 (6-20) Glucose Level 215 mg/dL (70-99) Calcium Level 7.7 mg/dL (8.5-10.1) Phosphorus Level 3.4 mg/dL (2.6-4.7) Magnesium Level 2.0 mg/dL (1.8-2.4) Total Bilirubin 0.5 mg/dL (0.2-1.0) Aspartate Amino Transf (AST/SGOT) 22 U/L (15-37) Alanine Aminotransferase (ALT/SGPT) 26 U/L (14-59) Alkaline Phosphatase 89 U/L (46-116) Total Protein 5.2 g/dL (6.4-8.2) Albumin 1.4 g/dL (3.4-5.0) Albumin/Globulin Ratio 0.4 (1.0-1.7) Triglycerides Level 300 mg/dL (0-150) Glucose (Fingerstick) 226 mg/dL (70-99) Review of Systems Review of Systems abd pain and nausea Assessment and Plan Assessmemt and Plan Problems Medical Problems: (1) Anemia Status: Acute (2) HCAP (healthcare-associated pneumonia) Status: Acute Problems: Comment Review of Relevant I have reviewed the following items mera (where applicable) has been applied. Labs Laboratory Tests Test 07/23/16 19:40 07/23/16 19:50 07/23/16 22:45 07/24/16 05:00 Urine Collection Type U cath Urine Color Yellow Urine Clarity Turbid Urine pH 8.0 Urine Specific [place] 1.020 Urine Protein 30 mg/dL (NEG-TRACE) Urine Glucose (UA) Negative mg/dL (NEG) Urine Ketones (Stick) Negative mg/dL (NEG) Urine Blood Negative (NEG) Urine Nitrite Negative (NEG) Urine Bilirubin Negative (NEG) Urine Urobilinogen Dipstick 1.0 mg/dL (0.2 mg/dL) Urine Leukocyte Esterase Large (NEG) Urine RBC Occ /HPF (0-2) Urine WBC 11-20 /HPF (0-4) Urine Squamous Epithelial Cells Occ /LPF Urine Amorphous Sediment Present /HPF Urine Bacteria Few /HPF (0-FEW) White Blood Count 13.1 x10^3/uL (4.0-11.0) Red Blood Count 2.27 x10^6/uL (3.50-5.40) Hemoglobin 6.8 g/dL (12.0-15.5) Hematocrit 20.5 % (36.0-47.0) Mean Corpuscular Volume 90 fL (79-100) Mean Corpuscular Hemoglobin 30 pg (25-35) Mean Corpuscular Hemoglobin Concent 33 g/dL (31-37) Red Cell Distribution Width 17.1 % (11.5-14.5) Platelet Count 304 x10^3/uL (140-400) Neutrophils (%) (Auto) 74 % (31-73) Lymphocytes (%) (Auto) 16 % (24-48) Monocytes (%) (Auto) 7 % (0-9) Eosinophils (%) (Auto) 0 % (0-3) Basophils (%) (Auto) 2 % (0-3) Neutrophils # (Auto) 9.6 x10^3uL (1.8-7.7) Lymphocytes # (Auto) 2.1 x10^3/uL (1.0-4.8) Monocytes # (Auto) 1.0 x10^3/uL (0.0-1.1) Eosinophils # (Auto) 0.1 x10^3/uL (0.0-0.7) Basophils # (Auto) 0.3 x10^3/uL (0.0-0.2) Sodium Level 138 mmol/L (136-145) Potassium Level 3.5 mmol/L (3.5-5.1) Chloride Level 99 mmol/L (98-107) Carbon Dioxide Level 35 mmol/L (21-32) Anion Gap 4 (6-14) Blood Urea Nitrogen 19 mg/dL (7-20) Creatinine 0.8 mg/dL (0.6-1.0) Estimated GFR (Cockcroft-Gault) 71.3 Glucose Level 121 mg/dL (70-99) Calcium Level 8.1 mg/dL (8.5-10.1) Lactic Acid Level 1.9 mmol/L (0.4-2.0) Nasal Screen MRSA (PCR) Negative (Negative) Test 07/24/16 08:06 07/24/16 11:46 07/24/16 13:55 07/24/16 18:26 Glucose (Fingerstick) 197 mg/dL (70-99) 141 mg/dL (70-99) 138 mg/dL (70-99) White Blood Count 10.0 x10^3/uL (4.0-11.0) Red Blood Count 2.80 x10^6/uL (3.50-5.40) Hemoglobin 8.3 g/dL (12.0-15.5) Hematocrit 24.9 % (36.0-47.0) Mean Corpuscular Volume 89 fL (79-100) Mean Corpuscular Hemoglobin 30 pg (25-35) Mean Corpuscular Hemoglobin Concent 33 g/dL (31-37) Red Cell Distribution Width 17.8 % (11.5-14.5) Platelet Count 179 x10^3/uL (140-400) Neutrophils (%) (Auto) 75 % (31-73) Lymphocytes (%) (Auto) 14 % (24-48) Monocytes (%) (Auto) 9 % (0-9) Eosinophils (%) (Auto) 3 % (0-3) Basophils (%) (Auto) 0 % (0-3) Neutrophils # (Auto) 7.5 x10^3uL (1.8-7.7) Lymphocytes # (Auto) 1.4 x10^3/uL (1.0-4.8) Monocytes # (Auto) 0.9 x10^3/uL (0.0-1.1) Eosinophils # (Auto) 0.2 x10^3/uL (0.0-0.7) Basophils # (Auto) 0.0 x10^3/uL (0.0-0.2) Test 07/25/16 00:05 07/25/16 05:15 07/25/16 06:48 Glucose (Fingerstick) 235 mg/dL (70-99) 226 mg/dL (70-99) White Blood Count 8.3 x10^3/uL (4.0-11.0) Red Blood Count 2.69 x10^6/uL (3.50-5.40) Hemoglobin 8.3 g/dL (12.0-15.5) Hematocrit 23.7 % (36.0-47.0) Mean Corpuscular Volume 88 fL (79-100) Mean Corpuscular Hemoglobin 31 pg (25-35) Mean Corpuscular Hemoglobin Concent 35 g/dL (31-37) Red Cell Distribution Width 17.6 % (11.5-14.5) Platelet Count 195 x10^3/uL (140-400) Neutrophils (%) (Auto) 62 % (31-73) Lymphocytes (%) (Auto) 21 % (24-48) Monocytes (%) (Auto) 11 % (0-9) Eosinophils (%) (Auto) 7 % (0-3) Basophils (%) (Auto) 1 % (0-3) Neutrophils # (Auto) 5.1 x10^3uL (1.8-7.7) Lymphocytes # (Auto) 1.7 x10^3/uL (1.0-4.8) Monocytes # (Auto) 0.9 x10^3/uL (0.0-1.1) Eosinophils # (Auto) 0.6 x10^3/uL (0.0-0.7) Basophils # (Auto) 0.0 x10^3/uL (0.0-0.2) Sodium Level 141 mmol/L (136-145) Potassium Level 3.2 mmol/L (3.5-5.1) Chloride Level 104 mmol/L (98-107) Carbon Dioxide Level 31 mmol/L (21-32) Anion Gap 6 (6-14) Blood Urea Nitrogen 17 mg/dL (7-20) Creatinine 0.9 mg/dL (0.6-1.0) Estimated GFR (Cockcroft-Gault) 62.3 BUN/Creatinine Ratio 19 (6-20) Glucose Level 215 mg/dL (70-99) Calcium Level 7.7 mg/dL (8.5-10.1) Phosphorus Level 3.4 mg/dL (2.6-4.7) Magnesium Level 2.0 mg/dL (1.8-2.4) Total Bilirubin 0.5 mg/dL (0.2-1.0) Aspartate Amino Transf (AST/SGOT) 22 U/L (15-37) Alanine Aminotransferase (ALT/SGPT) 26 U/L (14-59) Alkaline Phosphatase 89 U/L (46-116) Total Protein 5.2 g/dL (6.4-8.2) Albumin 1.4 g/dL (3.4-5.0) Albumin/Globulin Ratio 0.4 (1.0-1.7) Triglycerides Level 300 mg/dL (0-150) Laboratory Tests Test 07/24/16 11:46 07/24/16 13:55 07/24/16 18:26 07/25/16 00:05 Glucose (Fingerstick) 141 mg/dL (70-99) 138 mg/dL (70-99) 235 mg/dL (70-99) White Blood Count 10.0 x10^3/uL (4.0-11.0) Red Blood Count 2.80 x10^6/uL (3.50-5.40) Hemoglobin 8.3 g/dL (12.0-15.5) Hematocrit 24.9 % (36.0-47.0) Mean Corpuscular Volume 89 fL (79-100) Mean Corpuscular Hemoglobin 30 pg (25-35) Mean Corpuscular Hemoglobin Concent 33 g/dL (31-37) Red Cell Distribution Width 17.8 % (11.5-14.5) Platelet Count 179 x10^3/uL (140-400) Neutrophils (%) (Auto) 75 % (31-73) Lymphocytes (%) (Auto) 14 % (24-48) Monocytes (%) (Auto) 9 % (0-9) Eosinophils (%) (Auto) 3 % (0-3) Basophils (%) (Auto) 0 % (0-3) Neutrophils # (Auto) 7.5 x10^3uL (1.8-7.7) Lymphocytes # (Auto) 1.4 x10^3/uL (1.0-4.8) Monocytes # (Auto) 0.9 x10^3/uL (0.0-1.1) Eosinophils # (Auto) 0.2 x10^3/uL (0.0-0.7) Basophils # (Auto) 0.0 x10^3/uL (0.0-0.2) Test 07/25/16 05:15 07/25/16 06:48 White Blood Count 8.3 x10^3/uL (4.0-11.0) Red Blood Count 2.69 x10^6/uL (3.50-5.40) Hemoglobin 8.3 g/dL (12.0-15.5) Hematocrit 23.7 % (36.0-47.0) Mean Corpuscular Volume 88 fL (79-100) Mean Corpuscular Hemoglobin 31 pg (25-35) Mean Corpuscular Hemoglobin Concent 35 g/dL (31-37) Red Cell Distribution Width 17.6 % (11.5-14.5) Platelet Count 195 x10^3/uL (140-400) Neutrophils (%) (Auto) 62 % (31-73) Lymphocytes (%) (Auto) 21 % (24-48) Monocytes (%) (Auto) 11 % (0-9) Eosinophils (%) (Auto) 7 % (0-3) Basophils (%) (Auto) 1 % (0-3) Neutrophils # (Auto) 5.1 x10^3uL (1.8-7.7) Lymphocytes # (Auto) 1.7 x10^3/uL (1.0-4.8) Monocytes # (Auto) 0.9 x10^3/uL (0.0-1.1) Eosinophils # (Auto) 0.6 x10^3/uL (0.0-0.7) Basophils # (Auto) 0.0 x10^3/uL (0.0-0.2) Sodium Level 141 mmol/L (136-145) Potassium Level 3.2 mmol/L (3.5-5.1) Chloride Level 104 mmol/L (98-107) Carbon Dioxide Level 31 mmol/L (21-32) Anion Gap 6 (6-14) Blood Urea Nitrogen 17 mg/dL (7-20) Creatinine 0.9 mg/dL (0.6-1.0) Estimated GFR (Cockcroft-Gault) 62.3 BUN/Creatinine Ratio 19 (6-20) Glucose Level 215 mg/dL (70-99) Calcium Level 7.7 mg/dL (8.5-10.1) Phosphorus Level 3.4 mg/dL (2.6-4.7) Magnesium Level 2.0 mg/dL (1.8-2.4) Total Bilirubin 0.5 mg/dL (0.2-1.0) Aspartate Amino Transf (AST/SGOT) 22 U/L (15-37) Alanine Aminotransferase (ALT/SGPT) 26 U/L (14-59) Alkaline Phosphatase 89 U/L (46-116) Total Protein 5.2 g/dL (6.4-8.2) Albumin 1.4 g/dL (3.4-5.0) Albumin/Globulin Ratio 0.4 (1.0-1.7) Triglycerides Level 300 mg/dL (0-150) Glucose (Fingerstick) 226 mg/dL (70-99) Microbiology 07/23/16 Blood Culture - Preliminary, Resulted 07/23/16 Blood Culture Result 1 (CHANDU) - Preliminary, Resulted 07/23/16 Urine Culture - Preliminary, Resulted 07/23/16 Urine Culture Result 1 (CHANDU) - Preliminary, Resulted Medications Current Medications Vancomycin HCl (Vanco Per Pharmacy) 1 each PRN DAILY PRN MC SEE COMMENTS Last administered on 07/24/16 13:25; Start 07/23/16 at 21:15 Piperacillin Sod/ Tazobactam Sod (Zosyn Per Pharmacy) 1 each PRN DAILY PRN MC SEE COMMENTS; Start 07/23/16 at 21:15; Stop 07/24/16 at 13:27; Status DC Levofloxacin/ Dextrose (Levaquin Per Pharmacy) 1 each PRN DAILY PRN MC SEE COMMENTS; Start 07/23/16 at 21:15; Stop 07/24/16 at 13:27; Status DC Piperacillin Sod/ Tazobactam Sod 3.375 gm/Sodium Chloride 50 ml @ 100 mls/hr 1X ONCE IV Last administered on 07/23/16 21:27; Start 07/23/16 at 21:30; Stop 07/23/16 at 21:59; Status DC Levofloxacin/ Dextrose 150 ml @ 100 mls/hr 1X ONCE IV Last administered on 22:02; Start 07/23/16 at 22:00; Stop 07/23/16 at 23:29; Status DC Vancomycin HCl 1.75 gm/Sodium Chloride 500 ml @ 250 mls/hr 1X ONCE IV Last administered on 07/23/16 23:30; Start 07/23/16 at 23:00; Stop 07/24/16 at 00:59 ; Status DC Ondansetron HCl (Zofran) 4 mg PRN Q8HRS PRN IV NAUSEA/VOMITING; Start 07/23/16 at 21:30; Stop 07/24/16 at 21:29; Status DC Fentanyl Citrate (Fentanyl 2ml Vial) 50 mcg PRN Q2HR PRN IV SEVERE PAIN; Start 07/23/16 at 21:30; Stop 07/24/16 at 21:29; Status DC Acetaminophen (Tylenol) 650 mg PRN Q4HRS PRN PO FEVER Last administered on 07/23 21:34; Start 07/23/16 at 21:30; Stop 07/24/16 at 21:29; Status DC Potassium Chloride/Dextrose/ Sod Cl 1,000 ml @ 75 mls/hr 1X ONCE IV Last administered on 07/23/16 23:34; Start 07/23/16 at 22:00; Stop 07/24/16 at 11:19 ; Status DC Vancomycin HCl 1 gm/Sodium Chloride 250 ml @ 250 mls/hr Q18H IV Last administered on 07/24/16 18:18; Start 07/24/16 at 17:00 Piperacillin Sod/ Tazobactam Sod 3.375 gm/Sodium Chloride 50 ml @ 100 mls/hr Q6HRS IV Last administered on 07/25/16 06:21; Start 07/24/16 at 06:00 Levofloxacin/ Dextrose 150 ml @ 100 mls/hr Q24H IV ; Start 07/24/16 at 22:00; Stop 07/24/16 at 22:00; Status DC Vancomycin HCl 1 each 1X ONCE MC ; Start 07/25/16 at 22:30; Stop 07/25/16 at 22: 31 Insulin Aspart (NovoLOG) 0-5 UNITS TIDWMEALS SQ Last administered on 07/25/16 08:00; Start 07/24/16 at 08:00 Dextrose (Dextrose 50%-Water Syringe) 12.5 gm PRN Q15MIN PRN IV SEE COMMENTS; Start 07/24/16 at 02:15 Iohexol (Omnipaque 240 Mg/ml) 30 ml 1X ONCE PO Last administered on 07/24/16 08:30; Start 07/24/16 at 08:30; Stop 07/24/16 at 08:32; Status DC Iohexol (Omnipaque 300 Mg/ml) 75 ml 1X ONCE IV Last administered on 07/24/16 09:57; Start 07/24/16 at 08:30; Stop 07/24/16 at 08:32; Status DC Info (Do NOT chart on this entry -- for MONITORING) 1 each PRN DAILY PRN MC SEE COMMENTS; Start 07/24/16 at 08:45; Stop 07/26/16 at 08:44 Info 1 each PRN DAILY PRN MC SEE COMMENTS Last administered on 07/24/16 13:17 ; Start 07/24/16 at 10:00 Enoxaparin Sodium (Lovenox Per Pharmacy Prophylaxis Dosing) 1 each PRN DAILY PRN MC SEE COMMENTS; Start 07/24/16 at 11:45; Stop 07/24/16 at 13:27; Status DC Enoxaparin Sodium (Lovenox 40mg Syringe) 40 mg Q24H SQ Last administered on 18:25; Start 07/24/16 at 12:00 Albuterol/ Ipratropium (Duoneb) 3 ml RTQID NEB Last administered on 07/25/16 07 :18; Start 07/24/16 at 13:00 Sodium Acetate 80 meq/Potassium Chloride 40 meq/ Potassium Phosphate 13.6 mmol/ Magnesium Sulfate 14 meq/ Calcium Gluconate 10 meq/ Multivitamins 10 ml/Chromium / Copper/Manganese/ Seleni/Zn 1 ml/ Total Parenteral Nutrition/Amino Acids/ Dextrose/ Fat Emulsion Intravenous 1,800 ml @ 75 mls/hr TPN CONT IV Last administered on 07/24/16 22:03; Start 07/24/16 at 22:00; Stop 07/25/16 at 21:59 Metronidazole 100 ml @ 100 mls/hr Q8HRS IV Last administered on 07/25/16 05:43 ; Start 07/24/16 at 14:00 Active Scripts Active Octreotide Acetate 100 Mcg/1 Ml Vial 100 Mcg SQ Q8HRS 30 Days Levemir Flextouch (Insulin Detemir) 100 Unit/1 Ml Insuln.pen 8 Units SQ QHS 30 Days Reported Tpn Electrolytes Vial (Sodium/K+/Mag/Ca/Chlor/Acetate) 20 Ml Vial 20 Ml IV Pantoprazole Sodium 40 Mg Tablet.dr 1 Tab PO DAILY Zyrtec (Cetirizine Hcl) 10 Mg Tablet 1 Tab PO DAILY Dextrose 5%-1/2NS Iv Solution (Dextrose 5 %-0.45 % Nacl) 1,000 Ml Iv.soln 1,000 Ml IV Levemir (Insulin Detemir) 100 Unit/1 Ml Vial 8 Unit SQ Novolog Flexpen (Insulin Aspart) 100 Unit/1 Ml Insuln.pen 1 Unit SQ TIDAC Sandostatin (Octreotide Acetate) 100 Mcg/1 Ml Ampul 100 Mcg IJ TID Lovenox (Enoxaparin Sodium) 40 Mg/0.4 Ml Disp.syrin 40 Mg SQ Vitals/I & O Vital Sign - Last 24 Hours 07/24/16 07/24/16 07/24/16 07/24/16 11:00 14:00 16:31 19:00 Temp 98.4 97.7 97.5 98.4 97.7 97.5 Pulse 73 72 80 Resp 20 20 20 B/P (MAP) 103/52 (69) 99/48 (65) 107/49 (68) Pulse Ox 95 95 94 96 O2 Delivery Nasal Cannula Nasal Cannula Nasal Cannula Nasal Cannula O2 Flow Rate 2.0 07/24/16 07/24/16 07/25/16 07/25/16 19:46 23:00 03:00 07:29 Temp 97.7 97.7 97.7 97.7 Pulse 67 70 Resp 20 18 B/P (MAP) 119/50 (73) 106/36 (59) Pulse Ox 97 98 97 O2 Delivery Nasal Cannula Nasal Cannula Nasal Cannula Nasal Cannula O2 Flow Rate 2.0 2.0 2.0 2.0 07/25/16 07:35 Temp 97.7 97.7 Pulse 69 Resp 18 B/P (MAP) 117/49 (71) Pulse Ox 95 O2 Delivery Nasal Cannula O2 Flow Rate 2.0 Intake and Output 07/24/16 07/24/16 07/25/16 15:00 23:00 07:00 Intake Total 200 ml 200 ml Output Total 350 ml Balance 200 ml 200 ml -350 ml ERWIN PUENTE MD Jul 25, 2016 09:59
[2016-07-25 10:40] VITALS: BP 109/52
[2016-07-25] MEDS: VANCOMYCIN 1 GM in IV NORMAL SALINE 250ML 250 ML IV SCH (11:32)
--- NOTE | 2016-07-25 11:36 | PDOC ---
Infectious Disease Note Subjective Subjective Feeling better ROS ROS GEN: Denies fevers, chills, sweats HEENT: Denies blurred vision, sore throat CV: Denies chest pain RESP: Denies shortness of air, cough GI: Denies n/v/d NEURO: Denies confusion, dizziness MSK: Denies weakness, joint pain/swelling Vital Sign Vital Signs Vital Signs Date Time Temp Pulse Resp B/P (MAP) Pulse Ox O2 Delivery O2 Flow Rate FiO2 07/25/16 11:14 Nasal Cannula 2.0 07/25/16 07:35 97.7 69 18 117/49 (71) 95 97.7 Physical Exam PHYSICAL EXAM GENERAL: NAD, Alert, coop HEENT: PERRL, OC/OP -clear NECK: Supple, no JVD, no LN LUNGS: Clear HEART: S1S2, no gallop, no murmur ABD: Soft, NT, no organomegaly, no rebound, Obese. G tube to drainage EXT: No edema, no cyanosis [employer]CH [employer]: Alert, oriented x 3, no focal neurologic deficit SKIN: No rash IV: PICC - RUE Labs Lab Laboratory Tests Test 07/24/16 11:46 07/24/16 13:55 07/24/16 18:26 07/25/16 00:05 Glucose (Fingerstick) 141 mg/dL (70-99) 138 mg/dL (70-99) 235 mg/dL (70-99) White Blood Count 10.0 x10^3/uL (4.0-11.0) Red Blood Count 2.80 x10^6/uL (3.50-5.40) Hemoglobin 8.3 g/dL (12.0-15.5) Hematocrit 24.9 % (36.0-47.0) Mean Corpuscular Volume 89 fL (79-100) Mean Corpuscular Hemoglobin 30 pg (25-35) Mean Corpuscular Hemoglobin Concent 33 g/dL (31-37) Red Cell Distribution Width 17.8 % (11.5-14.5) Platelet Count 179 x10^3/uL (140-400) Neutrophils (%) (Auto) 75 % (31-73) Lymphocytes (%) (Auto) 14 % (24-48) Monocytes (%) (Auto) 9 % (0-9) Eosinophils (%) (Auto) 3 % (0-3) Basophils (%) (Auto) 0 % (0-3) Neutrophils # (Auto) 7.5 x10^3uL (1.8-7.7) Lymphocytes # (Auto) 1.4 x10^3/uL (1.0-4.8) Monocytes # (Auto) 0.9 x10^3/uL (0.0-1.1) Eosinophils # (Auto) 0.2 x10^3/uL (0.0-0.7) Basophils # (Auto) 0.0 x10^3/uL (0.0-0.2) Test 07/25/16 05:15 07/25/16 06:48 White Blood Count 8.3 x10^3/uL (4.0-11.0) Red Blood Count 2.69 x10^6/uL (3.50-5.40) Hemoglobin 8.3 g/dL (12.0-15.5) Hematocrit 23.7 % (36.0-47.0) Mean Corpuscular Volume 88 fL (79-100) Mean Corpuscular Hemoglobin 31 pg (25-35) Mean Corpuscular Hemoglobin Concent 35 g/dL (31-37) Red Cell Distribution Width 17.6 % (11.5-14.5) Platelet Count 195 x10^3/uL (140-400) Neutrophils (%) (Auto) 62 % (31-73) Lymphocytes (%) (Auto) 21 % (24-48) Monocytes (%) (Auto) 11 % (0-9) Eosinophils (%) (Auto) 7 % (0-3) Basophils (%) (Auto) 1 % (0-3) Neutrophils # (Auto) 5.1 x10^3uL (1.8-7.7) Lymphocytes # (Auto) 1.7 x10^3/uL (1.0-4.8) Monocytes # (Auto) 0.9 x10^3/uL (0.0-1.1) Eosinophils # (Auto) 0.6 x10^3/uL (0.0-0.7) Basophils # (Auto) 0.0 x10^3/uL (0.0-0.2) Sodium Level 141 mmol/L (136-145) Potassium Level 3.2 mmol/L (3.5-5.1) Chloride Level 104 mmol/L (98-107) Carbon Dioxide Level 31 mmol/L (21-32) Anion Gap 6 (6-14) Blood Urea Nitrogen 17 mg/dL (7-20) Creatinine 0.9 mg/dL (0.6-1.0) Estimated GFR (Cockcroft-Gault) 62.3 BUN/Creatinine Ratio 19 (6-20) Glucose Level 215 mg/dL (70-99) Calcium Level 7.7 mg/dL (8.5-10.1) Phosphorus Level 3.4 mg/dL (2.6-4.7) Magnesium Level 2.0 mg/dL (1.8-2.4) Total Bilirubin 0.5 mg/dL (0.2-1.0) Aspartate Amino Transf (AST/SGOT) 22 U/L (15-37) Alanine Aminotransferase (ALT/SGPT) 26 U/L (14-59) Alkaline Phosphatase 89 U/L (46-116) Total Protein 5.2 g/dL (6.4-8.2) Albumin 1.4 g/dL (3.4-5.0) Albumin/Globulin Ratio 0.4 (1.0-1.7) Triglycerides Level 300 mg/dL (0-150) Glucose (Fingerstick) 226 mg/dL (70-99) Objective Assessment STCN bacteremia, POA - came with PICC line Fever - better Leukocytosis - better Thickening of the cecum and ascending colon suggesting focal colitis or ischemia. 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
--- NOTE | 2016-07-25 12:13 | PDOC ---
Subjective: Subjective: Feels better. No pain. Objective: Objective: Per RN - not much diarrhea, stool tests sent yesterday. Vital Signs: Vital Signs Date Time Temp Pulse Resp B/P (MAP) Pulse Ox O2 Delivery O2 Flow Rate FiO2 07/25/16 11:14 Nasal Cannula 2.0 07/25/16 07:35 97.7 69 18 117/49 (71) 95 97.7 Labs: Laboratory Tests Test 07/24/16 13:55 07/24/16 18:26 07/25/16 00:05 07/25/16 05:15 White Blood Count 10.0 x10^3/uL 8.3 x10^3/uL Red Blood Count 2.80 x10^6/uL 2.69 x10^6/uL Hemoglobin 8.3 g/dL 8.3 g/dL Hematocrit 24.9 % 23.7 % Mean Corpuscular Volume 89 fL 88 fL Mean Corpuscular Hemoglobin 30 pg 31 pg Mean Corpuscular Hemoglobin Concent 33 g/dL 35 g/dL Red Cell Distribution Width 17.8 % 17.6 % Platelet Count 179 x10^3/uL 195 x10^3/uL Neutrophils (%) (Auto) 75 % 62 % Lymphocytes (%) (Auto) 14 % 21 % Monocytes (%) (Auto) 9 % 11 % Eosinophils (%) (Auto) 3 % 7 % Basophils (%) (Auto) 0 % 1 % Neutrophils # (Auto) 7.5 x10^3uL 5.1 x10^3uL Lymphocytes # (Auto) 1.4 x10^3/uL 1.7 x10^3/uL Monocytes # (Auto) 0.9 x10^3/uL 0.9 x10^3/uL Eosinophils # (Auto) 0.2 x10^3/uL 0.6 x10^3/uL Basophils # (Auto) 0.0 x10^3/uL 0.0 x10^3/uL Glucose (Fingerstick) 138 mg/dL 235 mg/dL Sodium Level 141 mmol/L Potassium Level 3.2 mmol/L Chloride Level 104 mmol/L Carbon Dioxide Level 31 mmol/L Anion Gap 6 Blood Urea Nitrogen 17 mg/dL Creatinine 0.9 mg/dL Estimated GFR (Cockcroft-Gault) 62.3 BUN/Creatinine Ratio 19 Glucose Level 215 mg/dL Calcium Level 7.7 mg/dL Phosphorus Level 3.4 mg/dL Magnesium Level 2.0 mg/dL Total Bilirubin 0.5 mg/dL Aspartate Amino Transf (AST/SGOT) 22 U/L Alanine Aminotransferase (ALT/SGPT) 26 U/L Alkaline Phosphatase 89 U/L Total Protein 5.2 g/dL Albumin 1.4 g/dL Albumin/Globulin Ratio 0.4 Triglycerides Level 300 mg/dL Test 07/25/16 06:48 07/25/16 11:30 Glucose (Fingerstick) 226 mg/dL 261 mg/dL PE: GEN: NAD LUNGS: clear anteriorly HEART: RRR ABD: non-tender, RUQ w/ bag, G tube NEURO/PSYCH: A & O 3 A/P: Fever, leukocytosis- resolved Abnormal CXR, possible colitis on CT -on IV atbx per ID -stool tests pending 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 Hawkins -- Await stool studies. CLINT LAURENT Jul 25, 2016 12:13
[2016-07-25] MEDS: ENOXAPARIN 40 MG/0.4 ML SYRINGE. SQ SCH (12:14)
[2016-07-25] MEDS: TPN PER PHARMACY MC PRN (13:24)
[2016-07-25] MEDS: VANCOMYCIN PER PHARMACY MC PRN (13:31)
[2016-07-25 15:10] VITALS: BP 111/55
[2016-07-25] MEDS: VANCOMYCIN 125 MG/2.5 ML ORAL SOLUTION. PO SCH ×2 (18:22→20:51)
[2016-07-25 19:00] VITALS: BP 111/48
[2016-07-25] MEDS ORDERED: [UNRECOGNIZED DRUG - OTHER] IV SCH ×10 (22:00)
[2016-07-25] MEDS ORDERED: DEXTROSE 70% IV SCH ×20 (22:00)
[2016-07-25] MEDS ORDERED: AMINO ACIDS IV SCH ×20 (22:00)
[2016-07-25] MEDS ORDERED: TOTAL PARENTERAL NUTRITION IV SCH ×20 (22:00)
[2016-07-25] MEDS ORDERED: [UNRECOGNIZED DRUG - OTHER] IV SCH ×10 (22:00)
[2016-07-25 23:00] VITALS: BP 122/54
[2016-07-26 03:00] VITALS: BP 128/69
[2016-07-26] MEDS: VANCOMYCIN 1 GM in IV NORMAL SALINE 250ML 250 ML IV SCH (04:23)
[2016-07-26 05:26] LABS: CALCIUM 7.7 mg/dL (8.5-10.1); CREATININE 0.8 mg/dL (0.6-1.0); GFR 71.3; MAGNESIUM 1.9 mg/dL (1.8-2.4); PHOSPHORUS 2.9 mg/dL (2.6-4.7); POTASSIUM 3.2 mmol/L (3.5-5.1)
[2016-07-26] MEDS: PIPERACILLIN/TAZOBACTAM 3.375 GM in IV NORMAL SALINE 50ML 50 ML IV SCH ×2 (05:50→11:25)
[2016-07-26] MEDS: VANCOMYCIN PER PHARMACY MC PRN ×3 (06:06→12:31)
[2016-07-26 07:00] VITALS: BP 115/56
[2016-07-26] MEDS: IPRATRPIUM/ALBUTEROL 0.5/2.5MG 3 ML NEBU. NEB SCH ×4 (07:38→19:54)
[2016-07-26] MEDS: VANCOMYCIN 125 MG/2.5 ML ORAL SOLUTION. PO SCH ×4 (08:30→21:57)
[2016-07-26] MEDS: INSULIN ASPART 300 UNITS/3 ML INSULN.PEN SQ SCH ×3 (08:35→17:15)
--- NOTE | 2016-07-26 08:46 | PDOC ---
SURGICAL PROGRESS NOTE Subjective tolerating diet last night, no n/v g tube clamped + diarrhea Vital Signs Vital Signs Date Time Temp Pulse Resp B/P (MAP) Pulse Ox O2 Delivery O2 Flow Rate FiO2 07/26/16 07:39 Nasal Cannula 2.0 07/26/16 03:00 98.1 73 18 128/69 (88) 98 98.1 I&O Intake and Output 07/26/16 07:00 Intake Total 860 ml Output Total 1352 ml Balance -492 ml Intake Oral 610 ml IV Total 250 ml Stool Total 2 ml Drainage Total 1350 ml # Voids 2 # Bowel Movements 3 General: Alert, Oriented X3, Cooperative, No acute distress Abdomen: Soft, Other (g tube clamped) Labs Laboratory Tests Test 07/24/16 11:46 07/24/16 13:55 07/24/16 17:20 07/24/16 18:26 Glucose (Fingerstick) 141 mg/dL (70-99) 138 mg/dL (70-99) White Blood Count 10.0 x10^3/uL (4.0-11.0) Red Blood Count 2.80 x10^6/uL (3.50-5.40) Hemoglobin 8.3 g/dL (12.0-15.5) Hematocrit 24.9 % (36.0-47.0) Mean Corpuscular Volume 89 fL (79-100) Mean Corpuscular Hemoglobin 30 pg (25-35) Mean Corpuscular Hemoglobin Concent 33 g/dL (31-37) Red Cell Distribution Width 17.8 % (11.5-14.5) Platelet Count 179 x10^3/uL (140-400) Neutrophils (%) (Auto) 75 % (31-73) Lymphocytes (%) (Auto) 14 % (24-48) Monocytes (%) (Auto) 9 % (0-9) Eosinophils (%) (Auto) 3 % (0-3) Basophils (%) (Auto) 0 % (0-3) Neutrophils # (Auto) 7.5 x10^3uL (1.8-7.7) Lymphocytes # (Auto) 1.4 x10^3/uL (1.0-4.8) Monocytes # (Auto) 0.9 x10^3/uL (0.0-1.1) Eosinophils # (Auto) 0.2 x10^3/uL (0.0-0.7) Basophils # (Auto) 0.0 x10^3/uL (0.0-0.2) Clostridium difficile Toxin (PCR) Positive (Negative) Test 07/25/16 00:05 07/25/16 05:15 07/25/16 06:48 07/25/16 11:30 Glucose (Fingerstick) 235 mg/dL (70-99) 226 mg/dL (70-99) 261 mg/dL (70-99) White Blood Count 8.3 x10^3/uL (4.0-11.0) Red Blood Count 2.69 x10^6/uL (3.50-5.40) Hemoglobin 8.3 g/dL (12.0-15.5) Hematocrit 23.7 % (36.0-47.0) Mean Corpuscular Volume 88 fL (79-100) Mean Corpuscular Hemoglobin 31 pg (25-35) Mean Corpuscular Hemoglobin Concent 35 g/dL (31-37) Red Cell Distribution Width 17.6 % (11.5-14.5) Platelet Count 195 x10^3/uL (140-400) Neutrophils (%) (Auto) 62 % (31-73) Lymphocytes (%) (Auto) 21 % (24-48) Monocytes (%) (Auto) 11 % (0-9) Eosinophils (%) (Auto) 7 % (0-3) Basophils (%) (Auto) 1 % (0-3) Neutrophils # (Auto) 5.1 x10^3uL (1.8-7.7) Lymphocytes # (Auto) 1.7 x10^3/uL (1.0-4.8) Monocytes # (Auto) 0.9 x10^3/uL (0.0-1.1) Eosinophils # (Auto) 0.6 x10^3/uL (0.0-0.7) Basophils # (Auto) 0.0 x10^3/uL (0.0-0.2) Sodium Level 141 mmol/L (136-145) Potassium Level 3.2 mmol/L (3.5-5.1) Chloride Level 104 mmol/L (98-107) Carbon Dioxide Level 31 mmol/L (21-32) Anion Gap 6 (6-14) Blood Urea Nitrogen 17 mg/dL (7-20) Creatinine 0.9 mg/dL (0.6-1.0) Estimated GFR (Cockcroft-Gault) 62.3 BUN/Creatinine Ratio 19 (6-20) Glucose Level 215 mg/dL (70-99) Calcium Level 7.7 mg/dL (8.5-10.1) Phosphorus Level 3.4 mg/dL (2.6-4.7) Magnesium Level 2.0 mg/dL (1.8-2.4) Total Bilirubin 0.5 mg/dL (0.2-1.0) Aspartate Amino Transf (AST/SGOT) 22 U/L (15-37) Alanine Aminotransferase (ALT/SGPT) 26 U/L (14-59) Alkaline Phosphatase 89 U/L (46-116) Total Protein 5.2 g/dL (6.4-8.2) Albumin 1.4 g/dL (3.4-5.0) Albumin/Globulin Ratio 0.4 (1.0-1.7) Triglycerides Level 300 mg/dL (0-150) Test 07/25/16 17:06 07/26/16 00:18 07/26/16 04:20 Glucose (Fingerstick) 223 mg/dL (70-99) 298 mg/dL (70-99) Sodium Level 141 mmol/L (136-145) Potassium Level 3.2 mmol/L (3.5-5.1) Chloride Level 106 mmol/L (98-107) Carbon Dioxide Level 29 mmol/L (21-32) Anion Gap 6 (6-14) Blood Urea Nitrogen 13 mg/dL (7-20) Creatinine 0.8 mg/dL (0.6-1.0) Estimated GFR (Cockcroft-Gault) 71.3 Glucose Level 254 mg/dL (70-99) Calcium Level 7.7 mg/dL (8.5-10.1) Phosphorus Level 2.9 mg/dL (2.6-4.7) Magnesium Level 1.9 mg/dL (1.8-2.4) Vancomycin Level Trough 12.9 mcg/mL (10.0-20.0) Vancomycin Last Dose Date 07/25/16 Vancomycin Last Dose Time 1100 Laboratory Tests Test 07/25/16 11:30 07/25/16 17:06 07/26/16 00:18 07/26/16 04:20 Glucose (Fingerstick) 261 mg/dL (70-99) 223 mg/dL (70-99) 298 mg/dL (70-99) Sodium Level 141 mmol/L (136-145) Potassium Level 3.2 mmol/L (3.5-5.1) Chloride Level 106 mmol/L (98-107) Carbon Dioxide Level 29 mmol/L (21-32) Anion Gap 6 (6-14) Blood Urea Nitrogen 13 mg/dL (7-20) Creatinine 0.8 mg/dL (0.6-1.0) Estimated GFR (Cockcroft-Gault) 71.3 Glucose Level 254 mg/dL (70-99) Calcium Level 7.7 mg/dL (8.5-10.1) Phosphorus Level 2.9 mg/dL (2.6-4.7) Magnesium Level 1.9 mg/dL (1.8-2.4) Vancomycin Level Trough 12.9 mcg/mL (10.0-20.0) Vancomycin Last Dose Date 07/25/16 Vancomycin Last Dose Time 1100 Problem List Problems Medical Problems: (1) Anemia Status: Acute (2) HCAP (healthcare-associated pneumonia) Status: Acute Assessment/Plan continue diet, g tube clamped + cdiff, on oral vanco Problems: BENJAMIN OROZCO APRN Jul 26, 2016 08:46
[2016-07-26 11:00] VITALS: BP 125/63
[2016-07-26] MEDS: ENOXAPARIN 40 MG/0.4 ML SYRINGE. SQ SCH (11:26)
--- NOTE | 2016-07-26 11:43 | PDOC ---
Subjective: Subjective: Some diarrhea, doing okay. Objective: Vital Signs: Vital Signs Date Time Temp Pulse Resp B/P (MAP) Pulse Ox O2 Delivery O2 Flow Rate FiO2 07/26/16 11:09 99 Nasal Cannula 2.0 07/26/16 03:00 98.1 73 18 128/69 (88) 98.1 Labs: Laboratory Tests Test 07/25/16 17:06 07/26/16 00:18 07/26/16 04:20 07/26/16 10:52 Glucose (Fingerstick) 223 mg/dL 298 mg/dL 335 mg/dL Sodium Level 141 mmol/L Potassium Level 3.2 mmol/L Chloride Level 106 mmol/L Carbon Dioxide Level 29 mmol/L Anion Gap 6 Blood Urea Nitrogen 13 mg/dL Creatinine 0.8 mg/dL Estimated GFR (Cockcroft-Gault) 71.3 Glucose Level 254 mg/dL Calcium Level 7.7 mg/dL Phosphorus Level 2.9 mg/dL Magnesium Level 1.9 mg/dL Vancomycin Level Trough 12.9 mcg/mL Vancomycin Last Dose Date 07/25/16 Vancomycin Last Dose Time 1100 Test 07/26/16 10:53 Glucose (Fingerstick) 302 mg/dL C Diff + PE: GEN: NAD LUNGS: clear anteriorly HEART: RRR ABD: non-tender NEURO/PSYCH: A & O 3 A/P: C Diff -on oral vanco, ID following -possible colitis on CT, some diarrhea Cholangiocarcinoma s/p Whipple 05/2016 -diet per surgery Anemia -Hgb stable -- Continue vancomycin for C Diff. CLINT LAURENT Jul 26, 2016 11:43
--- NOTE | 2016-07-26 11:54 | PDOC ---
PULMONARY PROGRESS NOTES Subjective no soa Vitals Vital Signs Date Time Temp Pulse Resp B/P (MAP) Pulse Ox O2 Delivery O2 Flow Rate FiO2 07/26/16 11:09 99 Nasal Cannula 2.0 07/26/16 03:00 98.1 73 18 128/69 (88) 98.1 General: Alert, No acute distress Lungs: Clear Cardiovascular: S1 Abdomen: Soft Neuro Exam: Alert Extremities: No Edema Skin: Warm Labs Laboratory Tests Test 07/24/16 13:55 07/24/16 17:20 07/24/16 18:26 07/25/16 00:05 White Blood Count 10.0 x10^3/uL (4.0-11.0) Red Blood Count 2.80 x10^6/uL (3.50-5.40) Hemoglobin 8.3 g/dL (12.0-15.5) Hematocrit 24.9 % (36.0-47.0) Mean Corpuscular Volume 89 fL (79-100) Mean Corpuscular Hemoglobin 30 pg (25-35) Mean Corpuscular Hemoglobin Concent 33 g/dL (31-37) Red Cell Distribution Width 17.8 % (11.5-14.5) Platelet Count 179 x10^3/uL (140-400) Neutrophils (%) (Auto) 75 % (31-73) Lymphocytes (%) (Auto) 14 % (24-48) Monocytes (%) (Auto) 9 % (0-9) Eosinophils (%) (Auto) 3 % (0-3) Basophils (%) (Auto) 0 % (0-3) Neutrophils # (Auto) 7.5 x10^3uL (1.8-7.7) Lymphocytes # (Auto) 1.4 x10^3/uL (1.0-4.8) Monocytes # (Auto) 0.9 x10^3/uL (0.0-1.1) Eosinophils # (Auto) 0.2 x10^3/uL (0.0-0.7) Basophils # (Auto) 0.0 x10^3/uL (0.0-0.2) Clostridium difficile Toxin (PCR) Positive (Negative) Glucose (Fingerstick) 138 mg/dL (70-99) 235 mg/dL (70-99) Test 07/25/16 05:15 07/25/16 06:48 07/25/16 11:30 07/25/16 17:06 White Blood Count 8.3 x10^3/uL (4.0-11.0) Red Blood Count 2.69 x10^6/uL (3.50-5.40) Hemoglobin 8.3 g/dL (12.0-15.5) Hematocrit 23.7 % (36.0-47.0) Mean Corpuscular Volume 88 fL (79-100) Mean Corpuscular Hemoglobin 31 pg (25-35) Mean Corpuscular Hemoglobin Concent 35 g/dL (31-37) Red Cell Distribution Width 17.6 % (11.5-14.5) Platelet Count 195 x10^3/uL (140-400) Neutrophils (%) (Auto) 62 % (31-73) Lymphocytes (%) (Auto) 21 % (24-48) Monocytes (%) (Auto) 11 % (0-9) Eosinophils (%) (Auto) 7 % (0-3) Basophils (%) (Auto) 1 % (0-3) Neutrophils # (Auto) 5.1 x10^3uL (1.8-7.7) Lymphocytes # (Auto) 1.7 x10^3/uL (1.0-4.8) Monocytes # (Auto) 0.9 x10^3/uL (0.0-1.1) Eosinophils # (Auto) 0.6 x10^3/uL (0.0-0.7) Basophils # (Auto) 0.0 x10^3/uL (0.0-0.2) Sodium Level 141 mmol/L (136-145) Potassium Level 3.2 mmol/L (3.5-5.1) Chloride Level 104 mmol/L (98-107) Carbon Dioxide Level 31 mmol/L (21-32) Anion Gap 6 (6-14) Blood Urea Nitrogen 17 mg/dL (7-20) Creatinine 0.9 mg/dL (0.6-1.0) Estimated GFR (Cockcroft-Gault) 62.3 BUN/Creatinine Ratio 19 (6-20) Glucose Level 215 mg/dL (70-99) Calcium Level 7.7 mg/dL (8.5-10.1) Phosphorus Level 3.4 mg/dL (2.6-4.7) Magnesium Level 2.0 mg/dL (1.8-2.4) Total Bilirubin 0.5 mg/dL (0.2-1.0) Aspartate Amino Transf (AST/SGOT) 22 U/L (15-37) Alanine Aminotransferase (ALT/SGPT) 26 U/L (14-59) Alkaline Phosphatase 89 U/L (46-116) Total Protein 5.2 g/dL (6.4-8.2) Albumin 1.4 g/dL (3.4-5.0) Albumin/Globulin Ratio 0.4 (1.0-1.7) Triglycerides Level 300 mg/dL (0-150) Glucose (Fingerstick) 226 mg/dL (70-99) 261 mg/dL (70-99) 223 mg/dL (70-99) Test 07/26/16 00:18 07/26/16 04:20 07/26/16 10:52 07/26/16 10:53 Glucose (Fingerstick) 298 mg/dL (70-99) 335 mg/dL (70-99) 302 mg/dL (70-99) Sodium Level 141 mmol/L (136-145) Potassium Level 3.2 mmol/L (3.5-5.1) Chloride Level 106 mmol/L (98-107) Carbon Dioxide Level 29 mmol/L (21-32) Anion Gap 6 (6-14) Blood Urea Nitrogen 13 mg/dL (7-20) Creatinine 0.8 mg/dL (0.6-1.0) Estimated GFR (Cockcroft-Gault) 71.3 Glucose Level 254 mg/dL (70-99) Calcium Level 7.7 mg/dL (8.5-10.1) Phosphorus Level 2.9 mg/dL (2.6-4.7) Magnesium Level 1.9 mg/dL (1.8-2.4) Vancomycin Level Trough 12.9 mcg/mL (10.0-20.0) Vancomycin Last Dose Date 07/25/16 Vancomycin Last Dose Time 1100 Laboratory Tests Test 07/25/16 17:06 07/26/16 00:18 07/26/16 04:20 07/26/16 10:52 Glucose (Fingerstick) 223 mg/dL (70-99) 298 mg/dL (70-99) 335 mg/dL (70-99) Sodium Level 141 mmol/L (136-145) Potassium Level 3.2 mmol/L (3.5-5.1) Chloride Level 106 mmol/L (98-107) Carbon Dioxide Level 29 mmol/L (21-32) Anion Gap 6 (6-14) Blood Urea Nitrogen 13 mg/dL (7-20) Creatinine 0.8 mg/dL (0.6-1.0) Estimated GFR (Cockcroft-Gault) 71.3 Glucose Level 254 mg/dL (70-99) Calcium Level 7.7 mg/dL (8.5-10.1) Phosphorus Level 2.9 mg/dL (2.6-4.7) Magnesium Level 1.9 mg/dL (1.8-2.4) Vancomycin Level Trough 12.9 mcg/mL (10.0-20.0) Vancomycin Last Dose Date 07/25/16 Vancomycin Last Dose Time 1100 Test 07/26/16 10:53 Glucose (Fingerstick) 302 mg/dL (70-99) Medications Active Scripts Medications Dose Route/Sig Max Daily Dose Days Date Category Tpn Electrolytes Vial (Sodium/K+/Mag/Ca/Chlor/Acetate) 20 Ml Vial 20 Ml IV 07/24/16 Reported Pantoprazole Sodium 40 Mg Tablet.dr 1 Tab PO DAILY 07/24/16 Reported Zyrtec (Cetirizine Hcl) 10 Mg Tablet 1 Tab PO DAILY 07/24/16 Reported Dextrose 5%-1/2NS Iv Solution (Dextrose 5 %-0.45 % Nacl) 1,000 Ml Iv.soln 1,000 Ml IV 07/24/16 Reported Levemir (Insulin Detemir) 100 Unit/1 Ml Vial 8 Unit SQ 07/24/16 Reported Novolog Flexpen (Insulin Aspart) 100 Unit/1 Ml Insuln.pen 1 Unit SQ TIDAC 07/24/16 Reported Sandostatin (Octreotide Acetate) 100 Mcg/1 Ml Ampul 100 Mcg IJ TID 07/24/16 Reported Lovenox (Enoxaparin Sodium) 40 Mg/0.4 Ml Disp.syrin 40 Mg SQ 07/24/16 Reported Octreotide Acetate 100 Mcg/1 Ml Vial 100 Mcg SQ Q8HRS 30 06/27/16 Rx Levemir Flextouch (Insulin Detemir) 100 Unit/1 Ml Insuln.pen 8 Units SQ QHS 30 06/27/16 Rx Impression . 1. Fever/leukocytosis and bacteremia secondary to early sepsis. The source is in the abdomen. CT abdomen and pelvis is suggesting colitis or focal cecum/ascending colon ischemia. 2. Recent Whipple procedure. 3. Gram-positive bacteremia./coag neg staph 4. Abnormal chest x-ray with minimal atelectasis in the bases which is most likely related to the abdominal process. 5. Minimal history of tobacco use. 6. Mild cough which is nonspecific. Plan . 1. Continue with broad-spectrum antibiotic per Infectious Disease recommendation. 2. Follow cultures. 3. Follow Infectious Disease recommendations. 4. Follow General Surgery recommendations. 5. Incentive spirometry. 6. Discussed with the patient's son 07/24 7. Continue oxygen at 2 liters. 8. will see NIKKI Card MD Jul 26, 2016 11:54
--- NOTE | 2016-07-26 11:54 | PDOC ---
Infectious Disease Note Subjective Subjective Feeling better, less abdominal l discomfort No fever TPN O2 2LNC ROS ROS GEN: Denies chills CV: Denies chest pain RESP: Denies shortness of air, cough GI: Denies n/v Vital Sign Vital Signs Vital Signs Date Time Temp Pulse Resp B/P (MAP) Pulse Ox O2 Delivery O2 Flow Rate FiO2 07/26/16 11:09 99 Nasal Cannula 2.0 07/26/16 03:00 98.1 73 18 128/69 (88) 98.1 Physical Exam PHYSICAL EXAM GENERAL: Propped up in bed, AND HEENT: OC/OP clear LUNGS: Clear HEART: S1S2, no gallop, no murmur ABD: Obese, BS present, soft, NT to light palpation, g-tube dependent drainage bag; ostomy bag over previous drain site EXT: No edema, 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 clean Labs Lab Laboratory Tests Test 07/25/16 17:06 07/26/16 00:18 07/26/16 04:20 07/26/16 10:52 Glucose (Fingerstick) 223 mg/dL (70-99) 298 mg/dL (70-99) 335 mg/dL (70-99) Sodium Level 141 mmol/L (136-145) Potassium Level 3.2 mmol/L (3.5-5.1) Chloride Level 106 mmol/L (98-107) Carbon Dioxide Level 29 mmol/L (21-32) Anion Gap 6 (6-14) Blood Urea Nitrogen 13 mg/dL (7-20) Creatinine 0.8 mg/dL (0.6-1.0) Estimated GFR (Cockcroft-Gault) 71.3 Glucose Level 254 mg/dL (70-99) Calcium Level 7.7 mg/dL (8.5-10.1) Phosphorus Level 2.9 mg/dL (2.6-4.7) Magnesium Level 1.9 mg/dL (1.8-2.4) Vancomycin Level Trough 12.9 mcg/mL (10.0-20.0) Vancomycin Last Dose Date 07/25/16 Vancomycin Last Dose Time 1100 Test 07/26/16 10:53 Glucose (Fingerstick) 302 mg/dL (70-99) Micro BLOOD CULTURE Final GRAM POSITIVE COCCI IN CLUSTERS, SUGGESTIVE OF STAPH, IN 1 OF 2 BOTTLES, ONE SET DRAWN. Objective Assessment STCN bacteremia, POA - came with PICC line Fever - better Leukocytosis - better Thickening of the cecum and ascending colon suggesting focal colitis or ischemia. + C. difficile 07/24 Anemia Newly diagnosis cholangiocarcinoma in May s/p Whipple procedure, June 10 Plan Plan of Care Cont Vanc, Zosyn, Flagyl po vanc Monitor WBC, Cr and temp Maintain hydration Contact isolation Supportive care Attending Co-Sign The patient was seen and interviewed as well as examined at the bedside. The chart was reviewed. The case was discussed. Agree with the plan of care. KAREN FLORES APRN Jul 26, 2016 11:54 ALLEN WHYTE MD Jul 26, 2016 15:17
[2016-07-26] MEDS: TPN PER PHARMACY MC PRN (12:37)
[2016-07-26 15:00] VITALS: BP 118/49
[2016-07-26] MEDS ORDERED: VANCOMYCIN 1 GM in IV NORMAL SALINE 250ML 250 ML IV SCH (16:30)
--- NOTE | 2016-07-26 16:56 | PDOC ---
PROGRESS NOTES Chief Complaint Chief Complaint Sepsis. Cholangiocarcinoma s/p Whipple CVA CAD DM HLD HTN anemia right ankle surgery arm fracture colitis or focal cecum/ascending colon ischemia. Recent Whipple procedure. Gram-positive bacteremia dyspnea and hypoxia, w/ atelectasis History of Present Illness History of Present Illness Slow improvrmrnt On IV abx, O2 ID and PULM following DW RN Vitals Vitals Vital Signs Date Time Temp Pulse Resp B/P (MAP) Pulse Ox O2 Delivery O2 Flow Rate FiO2 07/26/16 15:27 98 Nasal Cannula 2.0 07/26/16 11:00 97.9 73 17 125/63 (83) 97.9 Physical Exam General: Alert, Oriented X3, Cooperative, No acute distress Heart: Other (intermittent tachy) Lungs: Clear Abdomen: Soft, Other (g tube clamped) Extremities: Normal pulses Skin: No rashes, No significant lesion Labs LABS Laboratory Tests Test 07/25/16 17:06 07/26/16 00:18 07/26/16 04:20 07/26/16 10:52 Glucose (Fingerstick) 223 mg/dL (70-99) 298 mg/dL (70-99) 335 mg/dL (70-99) Sodium Level 141 mmol/L (136-145) Potassium Level 3.2 mmol/L (3.5-5.1) Chloride Level 106 mmol/L (98-107) Carbon Dioxide Level 29 mmol/L (21-32) Anion Gap 6 (6-14) Blood Urea Nitrogen 13 mg/dL (7-20) Creatinine 0.8 mg/dL (0.6-1.0) Estimated GFR (Cockcroft-Gault) 71.3 Glucose Level 254 mg/dL (70-99) Calcium Level 7.7 mg/dL (8.5-10.1) Phosphorus Level 2.9 mg/dL (2.6-4.7) Magnesium Level 1.9 mg/dL (1.8-2.4) Vancomycin Level Trough 12.9 mcg/mL (10.0-20.0) Vancomycin Last Dose Date 07/25/16 Vancomycin Last Dose Time 1100 Test 07/26/16 10:53 Glucose (Fingerstick) 302 mg/dL (70-99) Review of Systems Review of Systems co weakness co pain Assessment and Plan Assessmemt and Plan Problems Medical Problems: (1) Anemia Status: Acute (2) HCAP (healthcare-associated pneumonia) Status: Acute Sepsis. Cholangiocarcinoma s/p Whipple CVA CAD DM HLD HTN anemia right ankle surgery arm fracture colitis or focal cecum/ascending colon ischemia. Gram-positive bacteremia dyspnea and hypoxia, w/ atelectasis Plan Cont wound care Encourage po Consult Heme/Onc Recheck labs Prog guarded Problems: Comment Review of Relevant I have reviewed the following items mera (where applicable) has been applied. Labs Laboratory Tests Test 07/24/16 17:20 07/24/16 18:26 07/25/16 00:05 07/25/16 05:15 Clostridium difficile Toxin (PCR) Positive (Negative) Glucose (Fingerstick) 138 mg/dL (70-99) 235 mg/dL (70-99) White Blood Count 8.3 x10^3/uL (4.0-11.0) Red Blood Count 2.69 x10^6/uL (3.50-5.40) Hemoglobin 8.3 g/dL (12.0-15.5) Hematocrit 23.7 % (36.0-47.0) Mean Corpuscular Volume 88 fL (79-100) Mean Corpuscular Hemoglobin 31 pg (25-35) Mean Corpuscular Hemoglobin Concent 35 g/dL (31-37) Red Cell Distribution Width 17.6 % (11.5-14.5) Platelet Count 195 x10^3/uL (140-400) Neutrophils (%) (Auto) 62 % (31-73) Lymphocytes (%) (Auto) 21 % (24-48) Monocytes (%) (Auto) 11 % (0-9) Eosinophils (%) (Auto) 7 % (0-3) Basophils (%) (Auto) 1 % (0-3) Neutrophils # (Auto) 5.1 x10^3uL (1.8-7.7) Lymphocytes # (Auto) 1.7 x10^3/uL (1.0-4.8) Monocytes # (Auto) 0.9 x10^3/uL (0.0-1.1) Eosinophils # (Auto) 0.6 x10^3/uL (0.0-0.7) Basophils # (Auto) 0.0 x10^3/uL (0.0-0.2) Sodium Level 141 mmol/L (136-145) Potassium Level 3.2 mmol/L (3.5-5.1) Chloride Level 104 mmol/L (98-107) Carbon Dioxide Level 31 mmol/L (21-32) Anion Gap 6 (6-14) Blood Urea Nitrogen 17 mg/dL (7-20) Creatinine 0.9 mg/dL (0.6-1.0) Estimated GFR (Cockcroft-Gault) 62.3 BUN/Creatinine Ratio 19 (6-20) Glucose Level 215 mg/dL (70-99) Calcium Level 7.7 mg/dL (8.5-10.1) Phosphorus Level 3.4 mg/dL (2.6-4.7) Magnesium Level 2.0 mg/dL (1.8-2.4) Total Bilirubin 0.5 mg/dL (0.2-1.0) Aspartate Amino Transf (AST/SGOT) 22 U/L (15-37) Alanine Aminotransferase (ALT/SGPT) 26 U/L (14-59) Alkaline Phosphatase 89 U/L (46-116) Total Protein 5.2 g/dL (6.4-8.2) Albumin 1.4 g/dL (3.4-5.0) Albumin/Globulin Ratio 0.4 (1.0-1.7) Triglycerides Level 300 mg/dL (0-150) Test 07/25/16 06:48 07/25/16 11:30 07/25/16 17:06 07/26/16 00:18 Glucose (Fingerstick) 226 mg/dL (70-99) 261 mg/dL (70-99) 223 mg/dL (70-99) 298 mg/dL (70-99) Test 07/26/16 04:20 07/26/16 10:52 07/26/16 10:53 Sodium Level 141 mmol/L (136-145) Potassium Level 3.2 mmol/L (3.5-5.1) Chloride Level 106 mmol/L (98-107) Carbon Dioxide Level 29 mmol/L (21-32) Anion Gap 6 (6-14) Blood Urea Nitrogen 13 mg/dL (7-20) Creatinine 0.8 mg/dL (0.6-1.0) Estimated GFR (Cockcroft-Gault) 71.3 Glucose Level 254 mg/dL (70-99) Calcium Level 7.7 mg/dL (8.5-10.1) Phosphorus Level 2.9 mg/dL (2.6-4.7) Magnesium Level 1.9 mg/dL (1.8-2.4) Vancomycin Level Trough 12.9 mcg/mL (10.0-20.0) Vancomycin Last Dose Date 07/25/16 Vancomycin Last Dose Time 1100 Glucose (Fingerstick) 335 mg/dL (70-99) 302 mg/dL (70-99) Laboratory Tests Test 07/25/16 17:06 07/26/16 00:18 07/26/16 04:20 07/26/16 10:52 Glucose (Fingerstick) 223 mg/dL (70-99) 298 mg/dL (70-99) 335 mg/dL (70-99) Sodium Level 141 mmol/L (136-145) Potassium Level 3.2 mmol/L (3.5-5.1) Chloride Level 106 mmol/L (98-107) Carbon Dioxide Level 29 mmol/L (21-32) Anion Gap 6 (6-14) Blood Urea Nitrogen 13 mg/dL (7-20) Creatinine 0.8 mg/dL (0.6-1.0) Estimated GFR (Cockcroft-Gault) 71.3 Glucose Level 254 mg/dL (70-99) Calcium Level 7.7 mg/dL (8.5-10.1) Phosphorus Level 2.9 mg/dL (2.6-4.7) Magnesium Level 1.9 mg/dL (1.8-2.4) Vancomycin Level Trough 12.9 mcg/mL (10.0-20.0) Vancomycin Last Dose Date 07/25/16 Vancomycin Last Dose Time 1100 Test 07/26/16 10:53 Glucose (Fingerstick) 302 mg/dL (70-99) Microbiology 07/23/16 Blood Culture - Final, Complete 07/23/16 Blood Culture Result 1 (CHANDU) - Final, Complete 07/23/16 Antimicrobic Susceptibility - Final, Complete 07/23/16 Urine Culture - Final, Complete 07/23/16 Urine Culture Result 1 (CHANDU) - Final, Complete Medications Current Medications Vancomycin HCl (Vanco Per Pharmacy) 1 each PRN DAILY PRN MC SEE COMMENTS Last administered on 07/26/16 12:31; Start 07/23/16 at 21:15; Stop 07/26/16 at 15:20; Status DC Piperacillin Sod/ Tazobactam Sod (Zosyn Per Pharmacy) 1 each PRN DAILY PRN MC SEE COMMENTS; Start 07/23/16 at 21:15; Stop 07/24/16 at 13:27; Status DC Levofloxacin/ Dextrose (Levaquin Per Pharmacy) 1 each PRN DAILY PRN MC SEE COMMENTS; Start 07/23/16 at 21:15; Stop 07/24/16 at 13:27; Status DC Piperacillin Sod/ Tazobactam Sod 3.375 gm/Sodium Chloride 50 ml @ 100 mls/hr 1X ONCE IV Last administered on 07/23/16 21:27; Start 07/23/16 at 21:30; Stop 07/23/16 at 21:59; Status DC Levofloxacin/ Dextrose 150 ml @ 100 mls/hr 1X ONCE IV Last administered on 22:02; Start 07/23/16 at 22:00; Stop 07/23/16 at 23:29; Status DC Vancomycin HCl 1.75 gm/Sodium Chloride 500 ml @ 250 mls/hr 1X ONCE IV Last administered on 07/23/16 23:30; Start 07/23/16 at 23:00; Stop 07/24/16 at 00:59 ; Status DC Ondansetron HCl (Zofran) 4 mg PRN Q8HRS PRN IV NAUSEA/VOMITING; Start 07/23/16 at 21:30; Stop 07/24/16 at 21:29; Status DC Fentanyl Citrate (Fentanyl 2ml Vial) 50 mcg PRN Q2HR PRN IV SEVERE PAIN; Start 07/23/16 at 21:30; Stop 07/24/16 at 21:29; Status DC Acetaminophen (Tylenol) 650 mg PRN Q4HRS PRN PO FEVER Last administered on 07/23 21:34; Start 07/23/16 at 21:30; Stop 07/24/16 at 21:29; Status DC Potassium Chloride/Dextrose/ Sod Cl 1,000 ml @ 75 mls/hr 1X ONCE IV Last administered on 07/23/16 23:34; Start 07/23/16 at 22:00; Stop 07/24/16 at 11:19 ; Status DC Vancomycin HCl 1 gm/Sodium Chloride 250 ml @ 250 mls/hr Q18H IV Last administered on 07/26/16 04:23; Start 07/24/16 at 17:00; Stop 07/26/16 at 06:00; Status DC Piperacillin Sod/ Tazobactam Sod 3.375 gm/Sodium Chloride 50 ml @ 100 mls/hr Q6HRS IV Last administered on 07/26/16 11:25; Start 07/24/16 at 06:00; Stop 07/26/16 at 15:18; Status DC Levofloxacin/ Dextrose 150 ml @ 100 mls/hr Q24H IV ; Start 07/24/16 at 22:00; Stop 07/24/16 at 22:00; Status DC Vancomycin HCl 1 each 1X ONCE MC Last administered on 07/26/16 04:23; Start at 04:30; Stop 07/26/16 at 04:31; Status DC Insulin Aspart (NovoLOG) 0-5 UNITS TIDWMEALS SQ Last administered on 07/26/16 11:30; Start 07/24/16 at 08:00 Dextrose (Dextrose 50%-Water Syringe) 12.5 gm PRN Q15MIN PRN IV SEE COMMENTS; Start 07/24/16 at 02:15 Iohexol (Omnipaque 240 Mg/ml) 30 ml 1X ONCE PO Last administered on 07/24/16 08:30; Start 07/24/16 at 08:30; Stop 07/24/16 at 08:32; Status DC Iohexol (Omnipaque 300 Mg/ml) 75 ml 1X ONCE IV Last administered on 07/24/16 09:57; Start 07/24/16 at 08:30; Stop 07/24/16 at 08:32; Status DC Info (Do NOT chart on this entry -- for MONITORING) 1 each PRN DAILY PRN MC SEE COMMENTS; Start 07/24/16 at 08:45; Stop 07/26/16 at 08:44; Status DC Info 1 each PRN DAILY PRN MC SEE COMMENTS Last administered on 07/26/16 12:37; Start 07/24/16 at 10:00 Enoxaparin Sodium (Lovenox Per Pharmacy Prophylaxis Dosing) 1 each PRN DAILY PRN MC SEE COMMENTS; Start 07/24/16 at 11:45; Stop 07/24/16 at 13:27; Status DC Enoxaparin Sodium (Lovenox 40mg Syringe) 40 mg Q24H SQ Last administered on 07/26 11:26; Start 07/24/16 at 12:00 Albuterol/ Ipratropium (Duoneb) 3 ml RTQID NEB Last administered on 07/26/16 15 :26; Start 07/24/16 at 13:00 Sodium Acetate 80 meq/Potassium Chloride 40 meq/ Potassium Phosphate 13.6 mmol/ Magnesium Sulfate 14 meq/ Calcium Gluconate 10 meq/ Multivitamins 10 ml/Chromium / Copper/Manganese/ Seleni/Zn 1 ml/ Total Parenteral Nutrition/Amino Acids/ Dextrose/ Fat Emulsion Intravenous 1,800 ml @ 75 mls/hr TPN CONT IV Last administered on 07/24/16 22:03; Start 07/24/16 at 22:00; Stop 07/25/16 at 21:59 ; Status DC Metronidazole 100 ml @ 100 mls/hr Q8HRS IV Last administered on 07/26/16 13:50 ; Start 07/24/16 at 14:00; Stop 07/26/16 at 15:18; Status DC Sodium Acetate 80 meq/Potassium Chloride 40 meq/ Potassium Phosphate 13.6 mmol/ Magnesium Sulfate 14 meq/ Calcium Gluconate 10 meq/ Multivitamins 10 ml/Chromium / Copper/Manganese/ Seleni/Zn 1 ml/ Total Parenteral Nutrition/Amino Acids/ Dextrose/ Fat Emulsion Intravenous 1,800 ml @ 75 mls/hr TPN CONT IV ; Start at 22:00; Stop 07/26/16 at 21:59; Status Cancel Sodium Acetate 80 meq/Potassium Chloride 60 meq/ Potassium Phosphate 13.6 mmol/ Magnesium Sulfate 14 meq/ Calcium Gluconate 10 meq/ Multivitamins 10 ml/Chromium / Copper/Manganese/ Seleni/Zn 1 ml/ Total Parenteral Nutrition/Amino Acids/ Dextrose/ Fat Emulsion Intravenous 1,800 ml @ 75 mls/hr TPN CONT IV Last administered on 07/25/16 21:45; Start 07/25/16 at 22:00; Stop 07/26/16 at 21:59 Vancomycin HCl 125 mg [id number] PO Last administered on 07/26/16 12:48; Start 07/25/16 at 17:30 Vancomycin HCl 1 gm/Sodium Chloride 250 ml @ 250 mls/hr Q12H IV ; Start at 16:30; Stop 07/26/16 at 16:30; Status DC Vancomycin HCl 1 each 1X ONCE MC ; Start 07/27/16 at 16:00; Stop 07/27/16 at 16: 00; Status DC Sodium Acetate 80 meq/Potassium Chloride 60 meq/ Potassium Acetate 20 meq/ Potassium Phosphate 13.6 mmol/Magnesium Sulfate 14 meq/ Calcium Gluconate 10 meq / Multivitamins 10 ml/Chromium/ Copper/Manganese/ Seleni/Zn 1 ml/ Total Parenteral Nutrition/Amino Acids/Dextrose/ Fat Emulsion Intravenous 1,800 ml @ 75 mls/hr TPN CONT IV ; Start 07/26/16 at 22:00; Stop 07/27/16 at 21:59 Active Scripts Active Octreotide Acetate 100 Mcg/1 Ml Vial 100 Mcg SQ Q8HRS 30 Days Levemir Flextouch (Insulin Detemir) 100 Unit/1 Ml Insuln.pen 8 Units SQ QHS 30 Days Reported Tpn Electrolytes Vial (Sodium/K+/Mag/Ca/Chlor/Acetate) 20 Ml Vial 20 Ml IV Pantoprazole Sodium 40 Mg Tablet.dr 1 Tab PO DAILY Zyrtec (Cetirizine Hcl) 10 Mg Tablet 1 Tab PO DAILY Dextrose 5%-1/2NS Iv Solution (Dextrose 5 %-0.45 % Nacl) 1,000 Ml Iv.soln 1,000 Ml IV Levemir (Insulin Detemir) 100 Unit/1 Ml Vial 8 Unit SQ Novolog Flexpen (Insulin Aspart) 100 Unit/1 Ml Insuln.pen 1 Unit SQ TIDAC Sandostatin (Octreotide Acetate) 100 Mcg/1 Ml Ampul 100 Mcg IJ TID Lovenox (Enoxaparin Sodium) 40 Mg/0.4 Ml Disp.syrin 40 Mg SQ Vitals/I & O Vital Sign - Last 24 Hours 07/25/16 07/25/16 07/25/16 07/25/16 19:00 20:16 20:16 23:00 Temp 97.5 97.5 97.5 97.5 Pulse 69 68 Resp 18 18 B/P (MAP) 111/48 (69) 122/54 (76) Pulse Ox 97 96 97 O2 Delivery Nasal Cannula Nasal Cannula Nasal Cannula Nasal Cannula O2 Flow Rate 2.0 2.0 2.0 2.0 07/26/16 07/26/16 07/26/16 07/26/16 03:00 07:00 07:39 08:00 Temp 98.1 98.1 98.1 98.1 Pulse 73 77 Resp 18 17 B/P (MAP) 128/69 (88) 115/56 (75) Pulse Ox 98 92 O2 Delivery Nasal Cannula Nasal Cannula Nasal Cannula Nasal Cannula O2 Flow Rate 2.0 2.0 2.0 2.0 07/26/16 07/26/16 07/26/16 11:00 11:09 15:27 Temp 97.9 97.9 Pulse 73 Resp 17 B/P (MAP) 125/63 (83) Pulse Ox 93 99 98 O2 Delivery Nasal Cannula Nasal Cannula Nasal Cannula O2 Flow Rate 2.0 2.0 2.0 Intake and Output 07/25/16 07/25/16 07/26/16 15:00 23:00 07:00 Intake Total 510 ml 350 ml Output Total 1352 ml Balance 510 ml -1352 ml 350 ml APRIL NATION III DO Jul 26, 2016 16:56
[2016-07-26] MEDS ORDERED: VANCOMYCIN 1 GM in IV NORMAL SALINE 250ML 250 ML IV ONE (18:30)
[2016-07-26] MEDS ORDERED: VANCOMYCIN PER PHARMACY MC PRN (18:30)
[2016-07-26] MEDS ORDERED: VANCOMYCIN 1.5 GM in IV NORMAL SALINE 500ML BAG 500 ML IV ONE (18:45)
[2016-07-26] MEDS ORDERED: PIPERACILLIN/TAZOBACTAM 3.375 GM in IV NORMAL SALINE 50ML 50 ML IV SCH (18:45)
[2016-07-26 19:00] VITALS: BP 124/64
[2016-07-26] MEDS ORDERED: AMINO ACIDS IV SCH ×11 (22:00)
[2016-07-26] MEDS ORDERED: TOTAL PARENTERAL NUTRITION IV SCH ×11 (22:00)
[2016-07-26] MEDS ORDERED: DEXTROSE 70% IV SCH ×11 (22:00)
[2016-07-26] MEDS ORDERED: [UNRECOGNIZED DRUG - OTHER] IV SCH ×11 (22:00)
[2016-07-26 23:00] VITALS: BP 123/40
[2016-07-27 03:04] VITALS: BP 136/54
[2016-07-27 06:08] LABS: CALCIUM 7.8 mg/dL (8.5-10.1); CREATININE 0.7 mg/dL (0.6-1.0); GFR 83.2; PHOSPHORUS 2.4 mg/dL (2.6-4.7); POTASSIUM 3.9 mmol/L (3.5-5.1)
[2016-07-27 07:00] VITALS: BP 141/64
[2016-07-27] MEDS: TPN PER PHARMACY MC PRN (07:20)
[2016-07-27] MEDS: IPRATRPIUM/ALBUTEROL 0.5/2.5MG 3 ML NEBU. NEB SCH ×4 (07:45→20:02)
[2016-07-27] MEDS: INSULIN ASPART 300 UNITS/3 ML INSULN.PEN SQ SCH ×3 (08:46→17:46)
[2016-07-27] MEDS: VANCOMYCIN 125 MG/2.5 ML ORAL SOLUTION. PO SCH ×4 (08:47→20:57)
[2016-07-27 10:58] VITALS: BP 133/57
--- NOTE | 2016-07-27 11:20 | PDOC ---
Provider Note Provider Note SURG Jese Black feels a little better less diarrhea pain controlled belly soft no new surgical recs OANH AGRAWAL MD Jul 27, 2016 11:20
[2016-07-27] MEDS: ENOXAPARIN 40 MG/0.4 ML SYRINGE. SQ SCH (11:46)
--- NOTE | 2016-07-27 12:10 | PDOC ---
PROGRESS NOTES Chief Complaint Chief Complaint Sepsis. Cholangiocarcinoma s/p Whipple CVA CAD DM HLD HTN anemia right ankle surgery arm fracture colitis or focal cecum/ascending colon ischemia. Recent Whipple procedure. Gram-positive bacteremia dyspnea and hypoxia, w/ atelectasis History of Present Illness History of Present Illness Slow improvement Resting with NAD On IV abx, O2 Also on TPN ID and PULM following DW RN Vitals Vitals Vital Signs Date Time Temp Pulse Resp B/P (MAP) Pulse Ox O2 Delivery O2 Flow Rate FiO2 07/27/16 11:33 98 Nasal Cannula 2.0 07/27/16 10:58 97.5 62 20 133/57 (82) 97.5 Physical Exam General: Alert, Oriented X3, Cooperative, No acute distress Heart: Other (intermittent tachy) Lungs: Clear Abdomen: Soft, Other (g tube clamped) Extremities: Normal pulses Skin: No rashes, No significant lesion Labs LABS Laboratory Tests Test 07/26/16 17:07 07/26/16 20:06 07/27/16 05:25 07/27/16 07:26 Glucose (Fingerstick) 254 mg/dL (70-99) 217 mg/dL (70-99) 325 mg/dL (70-99) Sodium Level 140 mmol/L (136-145) Potassium Level 3.9 mmol/L (3.5-5.1) Chloride Level 108 mmol/L (98-107) Carbon Dioxide Level 28 mmol/L (21-32) Anion Gap 4 (6-14) Blood Urea Nitrogen 12 mg/dL (7-20) Creatinine 0.7 mg/dL (0.6-1.0) Estimated GFR (Cockcroft-Gault) 83.2 Glucose Level 296 mg/dL (70-99) Calcium Level 7.8 mg/dL (8.5-10.1) Phosphorus Level 2.4 mg/dL (2.6-4.7) Magnesium Level 2.0 mg/dL (1.8-2.4) Test 07/27/16 11:12 Glucose (Fingerstick) 366 mg/dL (70-99) Review of Systems Review of Systems no complaints very weak Assessment and Plan Assessmemt and Plan Problems Medical Problems: (1) Anemia Status: Acute (2) HCAP (healthcare-associated pneumonia) Status: Acute Sepsis. Cholangiocarcinoma s/p Whipple CVA CAD DM HLD HTN anemia right ankle surgery arm fracture colitis or focal cecum/ascending colon ischemia. Recent Whipple procedure. Gram-positive bacteremia dyspnea and hypoxia, w/ atelectasis Plan Cont current tx Recheck labs TPN PTOT Wound care Prog guarded Problems: Comment Review of Relevant I have reviewed the following items mera (where applicable) has been applied. Labs Laboratory Tests Test 07/25/16 17:06 07/26/16 00:18 07/26/16 04:20 07/26/16 08:15 Glucose (Fingerstick) 223 mg/dL (70-99) 298 mg/dL (70-99) 255 mg/dL (70-99) Sodium Level 141 mmol/L (136-145) Potassium Level 3.2 mmol/L (3.5-5.1) Chloride Level 106 mmol/L (98-107) Carbon Dioxide Level 29 mmol/L (21-32) Anion Gap 6 (6-14) Blood Urea Nitrogen 13 mg/dL (7-20) Creatinine 0.8 mg/dL (0.6-1.0) Estimated GFR (Cockcroft-Gault) 71.3 Glucose Level 254 mg/dL (70-99) Calcium Level 7.7 mg/dL (8.5-10.1) Phosphorus Level 2.9 mg/dL (2.6-4.7) Magnesium Level 1.9 mg/dL (1.8-2.4) Vancomycin Level Trough 12.9 mcg/mL (10.0-20.0) Vancomycin Last Dose Date 07/25/16 Vancomycin Last Dose Time 1100 Test 07/26/16 10:52 07/26/16 10:53 07/26/16 17:07 07/26/16 20:06 Glucose (Fingerstick) 335 mg/dL (70-99) 302 mg/dL (70-99) 254 mg/dL (70-99) 217 mg/dL (70-99) Test 07/27/16 05:25 07/27/16 07:26 07/27/16 11:12 Sodium Level 140 mmol/L (136-145) Potassium Level 3.9 mmol/L (3.5-5.1) Chloride Level 108 mmol/L (98-107) Carbon Dioxide Level 28 mmol/L (21-32) Anion Gap 4 (6-14) Blood Urea Nitrogen 12 mg/dL (7-20) Creatinine 0.7 mg/dL (0.6-1.0) Estimated GFR (Cockcroft-Gault) 83.2 Glucose Level 296 mg/dL (70-99) Calcium Level 7.8 mg/dL (8.5-10.1) Phosphorus Level 2.4 mg/dL (2.6-4.7) Magnesium Level 2.0 mg/dL (1.8-2.4) Glucose (Fingerstick) 325 mg/dL (70-99) 366 mg/dL (70-99) Laboratory Tests Test 07/26/16 17:07 07/26/16 20:06 07/27/16 05:25 07/27/16 07:26 Glucose (Fingerstick) 254 mg/dL (70-99) 217 mg/dL (70-99) 325 mg/dL (70-99) Sodium Level 140 mmol/L (136-145) Potassium Level 3.9 mmol/L (3.5-5.1) Chloride Level 108 mmol/L (98-107) Carbon Dioxide Level 28 mmol/L (21-32) Anion Gap 4 (6-14) Blood Urea Nitrogen 12 mg/dL (7-20) Creatinine 0.7 mg/dL (0.6-1.0) Estimated GFR (Cockcroft-Gault) 83.2 Glucose Level 296 mg/dL (70-99) Calcium Level 7.8 mg/dL (8.5-10.1) Phosphorus Level 2.4 mg/dL (2.6-4.7) Magnesium Level 2.0 mg/dL (1.8-2.4) Test 07/27/16 11:12 Glucose (Fingerstick) 366 mg/dL (70-99) Microbiology 07/23/16 Blood Culture - Final, Complete 07/23/16 Blood Culture Result 1 (CHANDU) - Final, Complete 07/23/16 Antimicrobic Susceptibility - Final, Complete 07/23/16 Urine Culture - Final, Complete 07/23/16 Urine Culture Result 1 (CHANDU) - Final, Complete Medications Current Medications Vancomycin HCl (Vanco Per Pharmacy) 1 each PRN DAILY PRN MC SEE COMMENTS Last administered on 07/26/16t 12:31; Start 07/23/16 at 21:15; Stop 07/26/16 at 15:20; Status DC Piperacillin Sod/ Tazobactam Sod (Zosyn Per Pharmacy) 1 each PRN DAILY PRN MC SEE COMMENTS; Start 07/23/16 at 21:15; Stop 07/24/16 at 13:27; Status DC Levofloxacin/ Dextrose (Levaquin Per Pharmacy) 1 each PRN DAILY PRN MC SEE COMMENTS; Start 07/23/16 at 21:15; Stop 07/24/16 at 13:27; Status DC Piperacillin Sod/ Tazobactam Sod 3.375 gm/Sodium Chloride 50 ml @ 100 mls/hr 1X ONCE IV Last administered on 07/23/16 21:27; Start 07/23/16 at 21:30; Stop 07/23/16 at 21:59; Status DC Levofloxacin/ Dextrose 150 ml @ 100 mls/hr 1X ONCE IV Last administered on 22:02; Start 07/23/16 at 22:00; Stop 07/23/16 at 23:29; Status DC Vancomycin HCl 1.75 gm/Sodium Chloride 500 ml @ 250 mls/hr 1X ONCE IV Last administered on 07/23/16 23:30; Start 07/23/16 at 23:00; Stop 07/24/16 at 00:59 ; Status DC Ondansetron HCl (Zofran) 4 mg PRN Q8HRS PRN IV NAUSEA/VOMITING; Start 07/23/16 at 21:30; Stop 07/24/16 at 21:29; Status DC Fentanyl Citrate (Fentanyl 2ml Vial) 50 mcg PRN Q2HR PRN IV SEVERE PAIN; Start 07/23/16 at 21:30; Stop 07/24/16 at 21:29; Status DC Acetaminophen (Tylenol) 650 mg PRN Q4HRS PRN PO FEVER Last administered on 07/23 21:34; Start 07/23/16 at 21:30; Stop 07/24/16 at 21:29; Status DC Potassium Chloride/Dextrose/ Sod Cl 1,000 ml @ 75 mls/hr 1X ONCE IV Last administered on 07/23/16 23:34; Start 07/23/16 at 22:00; Stop 07/24/16 at 11:19 ; Status DC Vancomycin HCl 1 gm/Sodium Chloride 250 ml @ 250 mls/hr Q18H IV Last administered on 07/26/16 04:23; Start 07/24/16 at 17:00; Stop 07/26/16 at 06:00; Status DC Piperacillin Sod/ Tazobactam Sod 3.375 gm/Sodium Chloride 50 ml @ 100 mls/hr Q6HRS IV Last administered on 07/26/16 11:25; Start 07/24/16 at 06:00; Stop 07/26/16 at 15:18; Status DC Levofloxacin/ Dextrose 150 ml @ 100 mls/hr Q24H IV ; Start 07/24/16 at 22:00; Stop 07/24/16 at 22:00; Status DC Vancomycin HCl 1 each 1X ONCE MC Last administered on 07/26/16 04:23; Start at 04:30; Stop 07/26/16 at 04:31; Status DC Insulin Aspart (NovoLOG) 0-5 UNITS TIDWMEALS SQ Last administered on 07/27/16 11:50; Start 07/24/16 at 08:00 Dextrose (Dextrose 50%-Water Syringe) 12.5 gm PRN Q15MIN PRN IV SEE COMMENTS; Start 07/24/16 at 02:15 Iohexol (Omnipaque 240 Mg/ml) 30 ml 1X ONCE PO Last administered on 07/24/16 08:30; Start 07/24/16 at 08:30; Stop 07/24/16 at 08:32; Status DC Iohexol (Omnipaque 300 Mg/ml) 75 ml 1X ONCE IV Last administered on 07/24/16 09:57; Start 07/24/16 at 08:30; Stop 07/24/16 at 08:32; Status DC Info (Do NOT chart on this entry -- for MONITORING) 1 each PRN DAILY PRN MC SEE COMMENTS; Start 07/24/16 at 08:45; Stop 07/26/16 at 08:44; Status DC Info 1 each PRN DAILY PRN MC SEE COMMENTS Last administered on 07/27/16 07:20; Start 07/24/16 at 10:00 Enoxaparin Sodium (Lovenox Per Pharmacy Prophylaxis Dosing) 1 each PRN DAILY PRN MC SEE COMMENTS; Start 07/24/16 at 11:45; Stop 07/24/16 at 13:27; Status DC Enoxaparin Sodium (Lovenox 40mg Syringe) 40 mg Q24H SQ Last administered on 07/27 11:46; Start 07/24/16 at 12:00 Albuterol/ Ipratropium (Duoneb) 3 ml RTQID NEB Last administered on 07/27/16 11 :32; Start 07/24/16 at 13:00 Sodium Acetate 80 meq/Potassium Chloride 40 meq/ Potassium Phosphate 13.6 mmol/ Magnesium Sulfate 14 meq/ Calcium Gluconate 10 meq/ Multivitamins 10 ml/Chromium / Copper/Manganese/ Seleni/Zn 1 ml/ Total Parenteral Nutrition/Amino Acids/ Dextrose/ Fat Emulsion Intravenous 1,800 ml @ 75 mls/hr TPN CONT IV Last administered on 07/24/16 22:03; Start 07/24/16 at 22:00; Stop 07/25/16 at 21:59 ; Status DC Metronidazole 100 ml @ 100 mls/hr Q8HRS IV Last administered on 07/26/16 13:50 ; Start 07/24/16 at 14:00; Stop 07/26/16 at 15:18; Status DC Sodium Acetate 80 meq/Potassium Chloride 40 meq/ Potassium Phosphate 13.6 mmol/ Magnesium Sulfate 14 meq/ Calcium Gluconate 10 meq/ Multivitamins 10 ml/Chromium / Copper/Manganese/ Seleni/Zn 1 ml/ Total Parenteral Nutrition/Amino Acids/ Dextrose/ Fat Emulsion Intravenous 1,800 ml @ 75 mls/hr TPN CONT IV ; Start at 22:00; Stop 07/26/16 at 21:59; Status Cancel Sodium Acetate 80 meq/Potassium Chloride 60 meq/ Potassium Phosphate 13.6 mmol/ Magnesium Sulfate 14 meq/ Calcium Gluconate 10 meq/ Multivitamins 10 ml/Chromium / Copper/Manganese/ Seleni/Zn 1 ml/ Total Parenteral Nutrition/Amino Acids/ Dextrose/ Fat Emulsion Intravenous 1,800 ml @ 75 mls/hr TPN CONT IV Last administered on 07/25/16 21:45; Start 07/25/16 at 22:00; Stop 07/26/16 at 21:59; Status DC Vancomycin HCl 125 mg [id number] PO Last administered on 07/27/16 11:45; Start 07/25/16 at 17:30 Vancomycin HCl 1 gm/Sodium Chloride 250 ml @ 250 mls/hr Q12H IV ; Start at 16:30; Stop 07/26/16 at 16:30; Status DC Vancomycin HCl 1 each 1X ONCE MC ; Start 07/27/16 at 16:00; Stop 07/27/16 at 16: 00; Status DC Sodium Acetate 80 meq/Potassium Chloride 60 meq/ Potassium Acetate 20 meq/ Potassium Phosphate 13.6 mmol/Magnesium Sulfate 14 meq/ Calcium Gluconate 10 meq / Multivitamins 10 ml/Chromium/ Copper/Manganese/ Seleni/Zn 1 ml/ Total Parenteral Nutrition/Amino Acids/Dextrose/ Fat Emulsion Intravenous 1,800 ml @ 75 mls/hr TPN CONT IV Last administered on 07/26/16t 21:57; Start 07/26/16 at 22 :00; Stop 07/27/16 at 21:59 Vancomycin HCl 1 gm/Sodium Chloride 250 ml @ 250 mls/hr 1X ONCE IV ; Start 07/26/16 at 18:30; Stop 07/26/16 at 19:29; Status UNV Vancomycin HCl (Vanco Per Pharmacy) 1 each PRN DAILY PRN MC SEE COMMENTS; Start 07/26/16 at 18:30; Status Cancel Piperacillin Sod/ Tazobactam Sod 3.375 gm/Sodium Chloride 50 ml @ 100 mls/hr Q6HRS IV ; Start 07/26/16 at 18:45; Status Cancel Vancomycin HCl 1.5 gm/Sodium Chloride 500 ml @ 250 mls/hr 1X ONCE IV ; Start 07/26/16 at 18:45; Stop 07/26/16 at 20:44; Status Cancel Sodium Acetate 80 meq/Potassium Chloride 30 meq/ Potassium Acetate 50 meq/ Potassium Phosphate 15 mmol/ Magnesium Sulfate 14 meq/Calcium Gluconate 10 meq/ Multivitamins 10 ml/Chromium/ Copper/Manganese/ Seleni/Zn 1 ml/ Insulin Human Regular 10 unit/ Total Parenteral Nutrition/Amino Acids/Dextrose/ Fat Emuls... 1 ,800 ml @ 75 mls/hr TPN CONT IV ; Start 07/27/16 at 22:00; Stop 07/28/16 at 21: 59 Active Scripts Active Octreotide Acetate 100 Mcg/1 Ml Vial 100 Mcg SQ Q8HRS 30 Days Levemir Flextouch (Insulin Detemir) 100 Unit/1 Ml Insuln.pen 8 Units SQ QHS 30 Days Reported Tpn Electrolytes Vial (Sodium/K+/Mag/Ca/Chlor/Acetate) 20 Ml Vial 20 Ml IV Pantoprazole Sodium 40 Mg Tablet.dr 1 Tab PO DAILY Zyrtec (Cetirizine Hcl) 10 Mg Tablet 1 Tab PO DAILY Dextrose 5%-1/2NS Iv Solution (Dextrose 5 %-0.45 % Nacl) 1,000 Ml Iv.soln 1,000 Ml IV Levemir (Insulin Detemir) 100 Unit/1 Ml Vial 8 Unit SQ Novolog Flexpen (Insulin Aspart) 100 Unit/1 Ml Insuln.pen 1 Unit SQ TIDAC Sandostatin (Octreotide Acetate) 100 Mcg/1 Ml Ampul 100 Mcg IJ TID Lovenox (Enoxaparin Sodium) 40 Mg/0.4 Ml Disp.syrin 40 Mg SQ Vitals/I & O Vital Sign - Last 24 Hours 07/26/16 07/26/16 07/26/16 07/26/16 15:00 15:27 19:00 19:55 Temp 97.4 97.9 97.4 97.9 Pulse 79 67 Resp 17 20 B/P (MAP) 118/49 (72) 124/64 (84) Pulse Ox 93 98 97 O2 Delivery Nasal Cannula Nasal Cannula Nasal Cannula Nasal Cannula O2 Flow Rate 2.0 2.0 2.0 07/26/16 07/26/16 07/27/16 07/27/16 21:57 23:00 03:04 07:00 Temp 98.1 98.6 97.9 98.1 98.6 97.9 Pulse 70 62 71 Resp 20 20 22 B/P (MAP) 123/40 (67) 136/54 (81) 141/64 (89) Pulse Ox 97 97 96 O2 Delivery Nasal Cannula Nasal Cannula Nasal Cannula Nasal Cannula O2 Flow Rate 2.0 2.0 07/27/16 07/27/16 07/27/16 07/27/16 07:45 08:00 10:58 11:33 Temp 97.5 97.5 Pulse 62 Resp 20 B/P (MAP) 133/57 (82) Pulse Ox 98 98 O2 Delivery Nasal Cannula Nasal Cannula Nasal Cannula Nasal Cannula O2 Flow Rate 2.0 2.0 2.0 2.0 Intake and Output 07/26/16 07/26/16 07/27/16 15:00 23:00 07:00 Intake Total 530 ml 300 ml Output Total 300 ml 300 ml Balance 230 ml 300 ml -300 ml APRIL NATION III DO Jul 27, 2016 12:10
--- NOTE | 2016-07-27 12:37 | PDOC ---
Infectious Disease Note Subjective Subjective Feeling alright Up in chair earlier this morning No fever TPN O2 2LNC No BM so far today ROS ROS GEN: Denies chills, sweats CV: Denies chest pain RESP: Denies shortness of air, cough GI: Denies n/v Vital Sign Vital Signs Vital Signs Date Time Temp Pulse Resp B/P (MAP) Pulse Ox O2 Delivery O2 Flow Rate FiO2 07/27/16 11:33 98 Nasal Cannula 2.0 07/27/16 10:58 97.5 62 20 133/57 (82) 97.5 Physical Exam PHYSICAL EXAM GENERAL: Propped up in bed, talkative, NAD HEENT: OC/OP clear LUNGS: Clear HEART: S1S2, no gallop, no murmur ABD: Obese, BS present, soft, NT to light palpation, g-tube dependent drainage bag; ostomy bag over previous drain site EXT: No edema, no cyanosis 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 clean Labs Lab Laboratory Tests Test 07/26/16 17:07 07/26/16 20:06 07/27/16 05:25 07/27/16 07:26 Glucose (Fingerstick) 254 mg/dL (70-99) 217 mg/dL (70-99) 325 mg/dL (70-99) Sodium Level 140 mmol/L (136-145) Potassium Level 3.9 mmol/L (3.5-5.1) Chloride Level 108 mmol/L (98-107) Carbon Dioxide Level 28 mmol/L (21-32) Anion Gap 4 (6-14) Blood Urea Nitrogen 12 mg/dL (7-20) Creatinine 0.7 mg/dL (0.6-1.0) Estimated GFR (Cockcroft-Gault) 83.2 Glucose Level 296 mg/dL (70-99) Calcium Level 7.8 mg/dL (8.5-10.1) Phosphorus Level 2.4 mg/dL (2.6-4.7) Magnesium Level 2.0 mg/dL (1.8-2.4) Test 07/27/16 11:12 Glucose (Fingerstick) 366 mg/dL (70-99) Micro BLOOD CULTURE Final GRAM POSITIVE COCCI IN CLUSTERS, SUGGESTIVE OF STAPH, IN 1 OF 2 BOTTLES, ONE SET DRAWN. Objective Assessment STCN bacteremia, POA - came with PICC line Fever - better Leukocytosis - better Thickening of the cecum and ascending colon suggesting focal colitis or ischemia. + C. difficile 07/24 Anemia Newly diagnosis cholangiocarcinoma in May s/p Whipple procedure, June 10 Plan Plan of Care Cont Vanc IV & po Maintain hydration Contact isolation Supportive care Attending Co-Sign The patient was seen and interviewed as well as examined at the bedside. The chart was reviewed. The case was discussed. Agree with the plan of care. KAREN FLORES APRN Jul 27, 2016 12:37 ALLEN WHYTE MD Jul 27, 2016 13:09
[2016-07-27 14:49] VITALS: BP 134/59
--- NOTE | 2016-07-27 14:55 | PDOC2 ---
CONSULT Date of Consult Date of Consult DATE: 07/27/16 TIME: 14:47 Reason for Consult Reason for Consult: cholangiocarcinoma Referring Physician Referring Physician: Dr. Olea Source Source: Chart review, Patient History of Present Illness Reason for Visit: 70 yo female with recently diagnosed cholangiocarcinoma T3N0 (stage IIA)s/p whipple by who has been on TPN after her surgery presented to the hospital with abdominal pain and fever and she was found to have bacteremia with gram positive cocci in clusters. Currently, she is feeling better than yesterday and is starting to be able to eat. She is still recovering from her surgery.. Past Medical History Cardiovascular: CAD, HTN, Hyperlipidemia CENTRAL NERVOUS SYSTEM: CVA, TIA Heme/Onc: Cancer (pancreatic), Other (anemia) Endocrine: Diabetes Past Surgical History Past Surgical History: Other (whipple) Family History Family History: Diabetes Social History No ALCOHOL: rare Drugs: None Lives: Retirement Current Problem List Problem List Problems Medical Problems: (1) Anemia Status: Acute (2) HCAP (healthcare-associated pneumonia) Status: Acute Current Medications Current Medications Current Medications Vancomycin HCl (Vanco Per Pharmacy) 1 each PRN DAILY PRN MC SEE COMMENTS Last administered on 07/26/16 12:31; Start 07/23/16 at 21:15; Stop 07/26/16 at 15:20; Status DC Piperacillin Sod/ Tazobactam Sod (Zosyn Per Pharmacy) 1 each PRN DAILY PRN MC SEE COMMENTS; Start 07/23/16 at 21:15; Stop 07/24/16 at 13:27; Status DC Levofloxacin/ Dextrose (Levaquin Per Pharmacy) 1 each PRN DAILY PRN MC SEE COMMENTS; Start 07/23/16 at 21:15; Stop 07/24/16 at 13:27; Status DC Piperacillin Sod/ Tazobactam Sod 3.375 gm/Sodium Chloride 50 ml @ 100 mls/hr 1X ONCE IV Last administered on 07/23/16 21:27; Start 07/23/16 at 21:30; Stop 07/23/16 at 21:59; Status DC Levofloxacin/ Dextrose 150 ml @ 100 mls/hr 1X ONCE IV Last administered on 22:02; Start 07/23/16 at 22:00; Stop 07/23/16 at 23:29; Status DC Vancomycin HCl 1.75 gm/Sodium Chloride 500 ml @ 250 mls/hr 1X ONCE IV Last administered on 07/23/16 23:30; Start 07/23/16 at 23:00; Stop 07/24/16 at 00:59 ; Status DC Ondansetron HCl (Zofran) 4 mg PRN Q8HRS PRN IV NAUSEA/VOMITING; Start 07/23/16 at 21:30; Stop 07/24/16 at 21:29; Status DC Fentanyl Citrate (Fentanyl 2ml Vial) 50 mcg PRN Q2HR PRN IV SEVERE PAIN; Start 07/23/16 at 21:30; Stop 07/24/16 at 21:29; Status DC Acetaminophen (Tylenol) 650 mg PRN Q4HRS PRN PO FEVER Last administered on 07/23 21:34; Start 07/23/16 at 21:30; Stop 07/24/16 at 21:29; Status DC Potassium Chloride/Dextrose/ Sod Cl 1,000 ml @ 75 mls/hr 1X ONCE IV Last administered on 07/23/16 23:34; Start 07/23/16 at 22:00; Stop 07/24/16 at 11:19 ; Status DC Vancomycin HCl 1 gm/Sodium Chloride 250 ml @ 250 mls/hr Q18H IV Last administered on 07/26/16 04:23; Start 07/24/16 at 17:00; Stop 07/26/16 at 06:00; Status DC Piperacillin Sod/ Tazobactam Sod 3.375 gm/Sodium Chloride 50 ml @ 100 mls/hr Q6HRS IV Last administered on 07/26/16 11:25; Start 07/24/16 at 06:00; Stop 07/26/16 at 15:18; Status DC Levofloxacin/ Dextrose 150 ml @ 100 mls/hr Q24H IV ; Start 07/24/16 at 22:00; Stop 07/24/16 at 22:00; Status DC Vancomycin HCl 1 each 1X ONCE MC Last administered on 07/26/16 04:23; Start at 04:30; Stop 07/26/16 at 04:31; Status DC Insulin Aspart (NovoLOG) 0-5 UNITS TIDWMEALS SQ Last administered on 07/27/16 11:50; Start 07/24/16 at 08:00 Dextrose (Dextrose 50%-Water Syringe) 12.5 gm PRN Q15MIN PRN IV SEE COMMENTS; Start 07/24/16 at 02:15 Iohexol (Omnipaque 240 Mg/ml) 30 ml 1X ONCE PO Last administered on 07/24/16 08:30; Start 07/24/16 at 08:30; Stop 07/24/16 at 08:32; Status DC Iohexol (Omnipaque 300 Mg/ml) 75 ml 1X ONCE IV Last administered on 07/24/16 09:57; Start 07/24/16 at 08:30; Stop 07/24/16 at 08:32; Status DC Info (Do NOT chart on this entry -- for MONITORING) 1 each PRN DAILY PRN MC SEE COMMENTS; Start 07/24/16 at 08:45; Stop 07/26/16 at 08:44; Status DC Info 1 each PRN DAILY PRN MC SEE COMMENTS Last administered on 07/27/16 07:20; Start 07/24/16 at 10:00 Enoxaparin Sodium (Lovenox Per Pharmacy Prophylaxis Dosing) 1 each PRN DAILY PRN MC SEE COMMENTS; Start 07/24/16 at 11:45; Stop 07/24/16 at 13:27; Status DC Enoxaparin Sodium (Lovenox 40mg Syringe) 40 mg Q24H SQ Last administered on 07/27 11:46; Start 07/24/16 at 12:00 Albuterol/ Ipratropium (Duoneb) 3 ml RTQID NEB Last administered on 07/27/16 11 :32; Start 07/24/16 at 13:00 Sodium Acetate 80 meq/Potassium Chloride 40 meq/ Potassium Phosphate 13.6 mmol/ Magnesium Sulfate 14 meq/ Calcium Gluconate 10 meq/ Multivitamins 10 ml/Chromium / Copper/Manganese/ Seleni/Zn 1 ml/ Total Parenteral Nutrition/Amino Acids/ Dextrose/ Fat Emulsion Intravenous 1,800 ml @ 75 mls/hr TPN CONT IV Last administered on 07/24/16 22:03; Start 07/24/16 at 22:00; Stop 07/25/16 at 21:59 ; Status DC Metronidazole 100 ml @ 100 mls/hr Q8HRS IV Last administered on 07/26/16 13:50 ; Start 07/24/16 at 14:00; Stop 07/26/16 at 15:18; Status DC Sodium Acetate 80 meq/Potassium Chloride 40 meq/ Potassium Phosphate 13.6 mmol/ Magnesium Sulfate 14 meq/ Calcium Gluconate 10 meq/ Multivitamins 10 ml/Chromium / Copper/Manganese/ Seleni/Zn 1 ml/ Total Parenteral Nutrition/Amino Acids/ Dextrose/ Fat Emulsion Intravenous 1,800 ml @ 75 mls/hr TPN CONT IV ; Start at 22:00; Stop 07/26/16 at 21:59; Status Cancel Sodium Acetate 80 meq/Potassium Chloride 60 meq/ Potassium Phosphate 13.6 mmol/ Magnesium Sulfate 14 meq/ Calcium Gluconate 10 meq/ Multivitamins 10 ml/Chromium / Copper/Manganese/ Seleni/Zn 1 ml/ Total Parenteral Nutrition/Amino Acids/ Dextrose/ Fat Emulsion Intravenous 1,800 ml @ 75 mls/hr TPN CONT IV Last administered on 07/25/16 21:45; Start 07/25/16 at 22:00; Stop 07/26/16 at 21:59; Status DC Vancomycin HCl 125 mg [id number] PO Last administered on 07/27/16 11:45; Start 07/25/16 at 17:30 Vancomycin HCl 1 gm/Sodium Chloride 250 ml @ 250 mls/hr Q12H IV ; Start at 16:30; Stop 07/26/16 at 16:30; Status DC Vancomycin HCl 1 each 1X ONCE MC ; Start 07/27/16 at 16:00; Stop 07/27/16 at 16: 00; Status DC Sodium Acetate 80 meq/Potassium Chloride 60 meq/ Potassium Acetate 20 meq/ Potassium Phosphate 13.6 mmol/Magnesium Sulfate 14 meq/ Calcium Gluconate 10 meq / Multivitamins 10 ml/Chromium/ Copper/Manganese/ Seleni/Zn 1 ml/ Total Parenteral Nutrition/Amino Acids/Dextrose/ Fat Emulsion Intravenous 1,800 ml @ 75 mls/hr TPN CONT IV Last administered on 07/26/16 21:57; Start 07/26/16 at 22 :00; Stop 07/27/16 at 21:59 Vancomycin HCl 1 gm/Sodium Chloride 250 ml @ 250 mls/hr 1X ONCE IV ; Start 07/26/16 at 18:30; Stop 07/26/16 at 19:29; Status UNV Vancomycin HCl (Vanco Per Pharmacy) 1 each PRN DAILY PRN MC SEE COMMENTS; Start 07/26/16 at 18:30; Status Cancel Piperacillin Sod/ Tazobactam Sod 3.375 gm/Sodium Chloride 50 ml @ 100 mls/hr Q6HRS IV ; Start 07/26/16 at 18:45; Status Cancel Vancomycin HCl 1.5 gm/Sodium Chloride 500 ml @ 250 mls/hr 1X ONCE IV ; Start 07/26/16 at 18:45; Stop 07/26/16 at 20:44; Status Cancel Sodium Acetate 80 meq/Potassium Chloride 30 meq/ Potassium Acetate 50 meq/ Potassium Phosphate 15 mmol/ Magnesium Sulfate 14 meq/Calcium Gluconate 10 meq/ Multivitamins 10 ml/Chromium/ Copper/Manganese/ Seleni/Zn 1 ml/ Insulin Human Regular 10 unit/ Total Parenteral Nutrition/Amino Acids/Dextrose/ Fat Emuls... 1 ,800 ml @ 75 mls/hr TPN CONT IV ; Start 07/27/16 at 22:00; Stop 07/28/16 at 21: 59 Active Scripts Active Octreotide Acetate 100 Mcg/1 Ml Vial 100 Mcg SQ Q8HRS 30 Days Levemir Flextouch (Insulin Detemir) 100 Unit/1 Ml Insuln.pen 8 Units SQ QHS 30 Days Reported Tpn Electrolytes Vial (Sodium/K+/Mag/Ca/Chlor/Acetate) 20 Ml Vial 20 Ml IV Pantoprazole Sodium 40 Mg Tablet.dr 1 Tab PO DAILY Zyrtec (Cetirizine Hcl) 10 Mg Tablet 1 Tab PO DAILY Dextrose 5%-1/2NS Iv Solution (Dextrose 5 %-0.45 % Nacl) 1,000 Ml Iv.soln 1,000 Ml IV Levemir (Insulin Detemir) 100 Unit/1 Ml Vial 8 Unit SQ Novolog Flexpen (Insulin Aspart) 100 Unit/1 Ml Insuln.pen 1 Unit SQ TIDAC Sandostatin (Octreotide Acetate) 100 Mcg/1 Ml Ampul 100 Mcg IJ TID Lovenox (Enoxaparin Sodium) 40 Mg/0.4 Ml Disp.syrin 40 Mg SQ Allergies Allergies: Coded Allergies: No Known Drug Allergies (Unverified , 06/10/16) ROS General: YES: Fatigue, No: Chills, Night Sweats, Malaise, Appetite, Other PSYCHOLOGICAL ROS: No: Anxiety, Behavioral Disorder, Concentration difficultie , Decreased libido, Depression, Disorientation, Hallucinations, Hostility, Irritablity, Memory difficulties, Mood Swings, Obsessive thoughts, Physical abuse, Sexual abuse, Sleep disturbances, Suicidal ideation, Other Eyes: No Blurry vision, No Decreased vision, No Double vision, No Dry eyes, No Excessive tearing, No Eye Pain, No Itchy Eyes, No Loss of vision, No Photophobia , No Scotomata, No Uses contacts, No Uses glasses, No Other HEENT: No: Heacaches, Visual Changes, Hearing change, Nasal congestion, Nasal discharge, Oral lesions, Sinus pain, Sore Throat, Epistaxis, Sneezing, Snoring, Tinnitus, Vertigo, Vocal changes, Other ALLERGY AND IMMUNOLOGY: No: Hives, Insect Bite Sensitivity, Itchy/Watery Eyes, Nasal Congestion, Post Nasal Drip, Seasonal Allergies, Other Hematological and Lymphatic: No: Bleeding Problems, Blood Clots, Blood Transfusions, Brusing, Night Sweats, Pallor, Swollen Lymph Nodes, Other ENDOCRINE: No: Breast Changes, Galactorrhea, Hair Pattern Changes, Hot Flashes , Malaise/lethargy, Mood Swings, Palpitations, Polydipsia/polyuria, Skin Changes , Temperature Intolerance, Unexpected Weight Changes, Other Breast: No New/Changing Breast Lumps, No Nipple changes, No Nipple discharge, No Other Respiratory: No: Cough, Hemoptysis, Orthopnea, Pleuritic Pain, Shortness of breath, SOB with excertion, Sputum Changes, Stridor, Tachypnea, Wheezing, Other Cardiovascular: No Chest Pain, No Palpitations, No Orthopnea, No Paroxysmal Noc. Dyspnea, No Edema, No Lt Headedness, No Other Gastrointestinal: Yes Abdominal Pain, No Nausea, No Vomiting, No Diarrhea, No Constipation, No Melena, No Hematochezia, No Other Genitourinary: No Dysuria, No Frequency, No Incontinence, No Hematuria, No Retention, No Discharge, No Urgency, No Pain, No Flank Pain, No Other, No , No , No , No , No , No , No Musculoskeletal: No Gait Disturbance, No Joint Pain, No Joint Stiffness, No Joint Swelling, No Muscle Pain, No Muscular Weakness, No Pain In:, No Swelling In:, No Other Neurological: No Behavorial Changes, No Bowel/Bladder ControlChng, No Confusion , No Dizziness, No Gait Disturbance, No Headaches, No Impaired Coord/balance, No Memory Loss, No Numbness/Tingling, No Seizures, No Speech Problems, No Tremors, No Visual Changes, No Weakness, No Other Skin: No Dry Skin, No Eczema, No Hair Changes, No Lumps, No Mole Changes, No Mottling, No Nail Changes, No Pruritus, No Rash, No Skin Lesion Changes, No Other, No Acne Physical Exam General: Alert, Oriented X3 HEENT: PERRLA Lungs: Clear to auscultation Heart: Regular rate, Normal S1, Normal S2 Abdomen: Normal bowel sounds, Soft, Other (surgical areas look c/d/i. Ostomy in place) MUSCULOSKELETAL: Other (PICC in place) Vitals VITALS Vital Signs Date Time Temp Pulse Resp B/P (MAP) Pulse Ox O2 Delivery O2 Flow Rate FiO2 07/27/16 11:33 98 Nasal Cannula 2.0 07/27/16 10:58 97.5 62 20 133/57 (82) 97.5 Labs Labs Laboratory Tests Test 07/25/16 17:06 07/26/16 00:18 07/26/16 04:20 07/26/16 08:15 Glucose (Fingerstick) 223 mg/dL (70-99) 298 mg/dL (70-99) 255 mg/dL (70-99) Sodium Level 141 mmol/L (136-145) Potassium Level 3.2 mmol/L (3.5-5.1) Chloride Level 106 mmol/L (98-107) Carbon Dioxide Level 29 mmol/L (21-32) Anion Gap 6 (6-14) Blood Urea Nitrogen 13 mg/dL (7-20) Creatinine 0.8 mg/dL (0.6-1.0) Estimated GFR (Cockcroft-Gault) 71.3 Glucose Level 254 mg/dL (70-99) Calcium Level 7.7 mg/dL (8.5-10.1) Phosphorus Level 2.9 mg/dL (2.6-4.7) Magnesium Level 1.9 mg/dL (1.8-2.4) Vancomycin Level Trough 12.9 mcg/mL (10.0-20.0) Vancomycin Last Dose Date 07/25/16 Vancomycin Last Dose Time 1100 Test 07/26/16 10:52 6/2/17 10:53 07/26/16 17:07 07/26/16 20:06 Glucose (Fingerstick) 335 mg/dL (70-99) 302 mg/dL (70-99) 254 mg/dL (70-99) 217 mg/dL (70-99) Test 07/27/16 05:25 07/27/16 07:26 07/27/16 11:12 Sodium Level 140 mmol/L (136-145) Potassium Level 3.9 mmol/L (3.5-5.1) Chloride Level 108 mmol/L (98-107) Carbon Dioxide Level 28 mmol/L (21-32) Anion Gap 4 (6-14) Blood Urea Nitrogen 12 mg/dL (7-20) Creatinine 0.7 mg/dL (0.6-1.0) Estimated GFR (Cockcroft-Gault) 83.2 Glucose Level 296 mg/dL (70-99) Calcium Level 7.8 mg/dL (8.5-10.1) Phosphorus Level 2.4 mg/dL (2.6-4.7) Magnesium Level 2.0 mg/dL (1.8-2.4) Glucose (Fingerstick) 325 mg/dL (70-99) 366 mg/dL (70-99) Laboratory Tests Test 07/26/16 17:07 07/26/16 20:06 07/27/16 05:25 07/27/16 07:26 Glucose (Fingerstick) 254 mg/dL (70-99) 217 mg/dL (70-99) 325 mg/dL (70-99) Sodium Level 140 mmol/L (136-145) Potassium Level 3.9 mmol/L (3.5-5.1) Chloride Level 108 mmol/L (98-107) Carbon Dioxide Level 28 mmol/L (21-32) Anion Gap 4 (6-14) Blood Urea Nitrogen 12 mg/dL (7-20) Creatinine 0.7 mg/dL (0.6-1.0) Estimated GFR (Cockcroft-Gault) 83.2 Glucose Level 296 mg/dL (70-99) Calcium Level 7.8 mg/dL (8.5-10.1) Phosphorus Level 2.4 mg/dL (2.6-4.7) Magnesium Level 2.0 mg/dL (1.8-2.4) Test 07/27/16 11:12 Glucose (Fingerstick) 366 mg/dL (70-99) Assessment/Plan Assessment/Plan 1. Cholangiocarcinoma T3N0 (Stage IIA). She will need to fully recover from her surgery and hospitalization prior to considering adjuvant chemo. She will need to follow up with Dr. Childress as an outpatient for further management. 2. Bacteremia mangament as per primary team and CARMEN FLORENTINO MD Jul 27, 2016 14:55
[2016-07-27 19:50] VITALS: BP 130/59
[2016-07-27] MEDS ORDERED: AMINO ACIDS IV SCH ×12 (22:00)
[2016-07-27] MEDS ORDERED: DEXTROSE 70% IV SCH ×12 (22:00)
[2016-07-27] MEDS ORDERED: TOTAL PARENTERAL NUTRITION IV SCH ×12 (22:00)
[2016-07-27] MEDS ORDERED: [UNRECOGNIZED DRUG - OTHER] IV SCH ×12 (22:00)
[2016-07-27 23:28] VITALS: BP 131/54
[2016-07-28 03:55] VITALS: BP 143/52
[2016-07-28 07:00] VITALS: BP 137/60
[2016-07-28] MEDS: IPRATRPIUM/ALBUTEROL 0.5/2.5MG 3 ML NEBU. NEB SCH ×5 (07:30→19:39)
[2016-07-28] MEDS: TPN PER PHARMACY MC PRN ×2 (07:32→12:36)
[2016-07-28] MEDS: VANCOMYCIN 125 MG/2.5 ML ORAL SOLUTION. PO SCH ×4 (08:15→20:36)
[2016-07-28] MEDS: INSULIN ASPART 300 UNITS/3 ML INSULN.PEN SQ SCH ×3 (08:20→17:00)
--- NOTE | 2016-07-28 09:07 | PDOC ---
Infectious Disease Note Subjective Subjective Feels good overall Hoping to go home soon No fever TPN + BM ROS ROS GEN: Denies fevers, chills, sweats CV: Denies chest pain RESP: Denies shortness of air, cough GI: Denies n/v/d Vital Sign Vital Signs Vital Signs Date Time Temp Pulse Resp B/P (MAP) Pulse Ox O2 Delivery O2 Flow Rate FiO2 07/28/16 08:03 96 Nasal Cannula 2.0 07/28/16 07:00 97.5 56 20 137/60 (85) 97.5 Physical Exam PHYSICAL EXAM GENERAL: Sitting in the chair, eating, smiling LUNGS: Clear HEART: S1S2, no gallop, no murmur ABD: Obese, BS present, soft, NT to light palpation, g-tube dependent drainage bag; ostomy bag over previous drain site EXT: No edema, no cyanosis 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 clean Labs Lab Laboratory Tests Test 07/27/16 11:12 07/27/16 16:16 07/27/16 20:58 07/28/16 08:01 Glucose (Fingerstick) 366 mg/dL (70-99) 315 mg/dL (70-99) 334 mg/dL (70-99) 265 mg/dL (70-99) Micro STOOL CULTURE PENDING STOOL CULT RES 1 PENDING CAMPY PENDING CAMPY RES 1 PENDING SHIGA TOXIN Final Negative Objective Assessment STCN bacteremia, POA - came with PICC line Fever - better Leukocytosis - better Thickening of the cecum and ascending colon suggesting focal colitis or ischemia. + C. difficile 07/24 Anemia Newly diagnosis cholangiocarcinoma in May s/p Whipple procedure, June 10 Plan Plan of Care po Vanc Maintain hydration Contact isolation Supportive care Attending Co-Sign The patient was seen and interviewed as well as examined at the bedside. The chart was reviewed. The case was discussed. Agree with the plan of care. KAREN FLORES APRN Jul 28, 2016 09:07 ALLEN WHYTE MD Jul 28, 2016 14:18
--- NOTE | 2016-07-28 10:55 | PDOC ---
Provider Note Provider Note SURG Ms Anderson is on the phone appears well fewer stools per record no new recs OANH AGRAWAL MD Jul 28, 2016 10:55
[2016-07-28 11:00] VITALS: BP 123/61
[2016-07-28] MEDS: ENOXAPARIN 40 MG/0.4 ML SYRINGE. SQ SCH (12:08)
[2016-07-28 15:00] VITALS: BP 136/59
--- NOTE | 2016-07-28 15:39 | PDOC ---
PROGRESS NOTES Chief Complaint Chief Complaint C-Diff Sepsis. Cholangiocarcinoma s/p Whipple CVA CAD DM HLD HTN anemia right ankle surgery arm fracture colitis or focal cecum/ascending colon ischemia. Recent Whipple procedure. Gram-positive bacteremia dyspnea and hypoxia, w/ atelectasis History of Present Illness History of Present Illness Seen and examined Slow improvement Resting with NAD On IV abx, O2 Also on TPN ID and PULM following DW RN Vitals Vitals Vital Signs Date Time Temp Pulse Resp B/P (MAP) Pulse Ox O2 Delivery O2 Flow Rate FiO2 07/28/16 15:21 Nasal Cannula 2.0 07/28/16 15:00 97.7 69 16 136/59 (84) 100 97.7 Physical Exam General: Alert, Oriented X3 Heart: Regular rate, Normal S1, Normal S2 Lungs: Clear Abdomen: Normal bowel sounds, Soft, Other (surgical areas look c/d/i. Ostomy in place) Extremities: Normal pulses Skin: No rashes, No significant lesion Labs LABS Laboratory Tests Test 07/27/16 16:16 07/27/16 20:58 07/28/16 08:01 07/28/16 11:38 Glucose (Fingerstick) 315 mg/dL (70-99) 334 mg/dL (70-99) 265 mg/dL (70-99) 349 mg/dL (70-99) Review of Systems Review of Systems co pain co diarrrhea Assessment and Plan Assessmemt and Plan Problems Medical Problems: (1) Anemia Status: Acute (2) HCAP (healthcare-associated pneumonia) Status: Acute C-Diff Sepsis. Cholangiocarcinoma s/p Whipple CVA CAD DM HLD HTN anemia right ankle surgery arm fracture colitis or focal cecum/ascending colon ischemia. Recent Whipple procedure. Gram-positive bacteremia dyspnea and hypoxia, w/ atelectasis Plan Cont current tx Appreciate subspecialist input Recheck labs PTOT Home meds C-Diff precautions Problems: Comment Review of Relevant I have reviewed the following items mera (where applicable) has been applied. Labs Laboratory Tests Test 07/26/16 17:07 07/26/16 20:06 07/27/16 05:25 07/27/16 07:26 Glucose (Fingerstick) 254 mg/dL (70-99) 217 mg/dL (70-99) 325 mg/dL (70-99) Sodium Level 140 mmol/L (136-145) Potassium Level 3.9 mmol/L (3.5-5.1) Chloride Level 108 mmol/L (98-107) Carbon Dioxide Level 28 mmol/L (21-32) Anion Gap 4 (6-14) Blood Urea Nitrogen 12 mg/dL (7-20) Creatinine 0.7 mg/dL (0.6-1.0) Estimated GFR (Cockcroft-Gault) 83.2 Glucose Level 296 mg/dL (70-99) Calcium Level 7.8 mg/dL (8.5-10.1) Phosphorus Level 2.4 mg/dL (2.6-4.7) Magnesium Level 2.0 mg/dL (1.8-2.4) Test 07/27/16 11:12 07/27/16 16:16 07/27/16 20:58 07/28/16 08:01 Glucose (Fingerstick) 366 mg/dL (70-99) 315 mg/dL (70-99) 334 mg/dL (70-99) 265 mg/dL (70-99) Test 07/28/16 11:38 Glucose (Fingerstick) 349 mg/dL (70-99) Laboratory Tests Test 07/27/16 16:16 07/27/16 20:58 07/28/16 08:01 07/28/16 11:38 Glucose (Fingerstick) 315 mg/dL (70-99) 334 mg/dL (70-99) 265 mg/dL (70-99) 349 mg/dL (70-99) Microbiology 07/23/16 Blood Culture - Final, Complete 07/23/16 Blood Culture Result 1 (CHANDU) - Final, Complete 07/23/16 Antimicrobic Susceptibility - Final, Complete 07/24/16 Stool Culture - Final, Resulted 07/24/16 Stool Culture Result 1 (CHANDU) - Final, Resulted 07/24/16 Campylobacter Antigen Assay - Preliminary, Resulted 07/24/16 Campylobactor Result 1 - Preliminary, Resulted 07/24/16 Shiga Toxin Test - Final, Resulted 07/23/16 Urine Culture - Final, Complete 07/23/16 Urine Culture Result 1 (CHANDU) - Final, Complete Medications Current Medications Vancomycin HCl (Vanco Per Pharmacy) 1 each PRN DAILY PRN MC SEE COMMENTS Last administered on 6/2/17at 12:31; Start 07/23/16 at 21:15; Stop 07/26/16 at 15:20; Status DC Piperacillin Sod/ Tazobactam Sod (Zosyn Per Pharmacy) 1 each PRN DAILY PRN MC SEE COMMENTS; Start 07/23/16 at 21:15; Stop 07/24/16 at 13:27; Status DC Levofloxacin/ Dextrose (Levaquin Per Pharmacy) 1 each PRN DAILY PRN MC SEE COMMENTS; Start 07/23/16 at 21:15; Stop 07/24/16 at 13:27; Status DC Piperacillin Sod/ Tazobactam Sod 3.375 gm/Sodium Chloride 50 ml @ 100 mls/hr 1X ONCE IV Last administered on 07/23/16 21:27; Start 07/23/16 at 21:30; Stop 07/23/16 at 21:59; Status DC Levofloxacin/ Dextrose 150 ml @ 100 mls/hr 1X ONCE IV Last administered on 22:02; Start 07/23/16 at 22:00; Stop 07/23/16 at 23:29; Status DC Vancomycin HCl 1.75 gm/Sodium Chloride 500 ml @ 250 mls/hr 1X ONCE IV Last administered on 07/23/16 23:30; Start 07/23/16 at 23:00; Stop 07/24/16 at 00:59 ; Status DC Ondansetron HCl (Zofran) 4 mg PRN Q8HRS PRN IV NAUSEA/VOMITING; Start 07/23/16 at 21:30; Stop 07/24/16 at 21:29; Status DC Fentanyl Citrate (Fentanyl 2ml Vial) 50 mcg PRN Q2HR PRN IV SEVERE PAIN; Start 07/23/16 at 21:30; Stop 07/24/16 at 21:29; Status DC Acetaminophen (Tylenol) 650 mg PRN Q4HRS PRN PO FEVER Last administered on 07/23 21:34; Start 07/23/16 at 21:30; Stop 07/24/16 at 21:29; Status DC Potassium Chloride/Dextrose/ Sod Cl 1,000 ml @ 75 mls/hr 1X ONCE IV Last administered on 07/23/16 23:34; Start 07/23/16 at 22:00; Stop 07/24/16 at 11:19 ; Status DC Vancomycin HCl 1 gm/Sodium Chloride 250 ml @ 250 mls/hr Q18H IV Last administered on 07/26/16 04:23; Start 07/24/16 at 17:00; Stop 07/26/16 at 06:00; Status DC Piperacillin Sod/ Tazobactam Sod 3.375 gm/Sodium Chloride 50 ml @ 100 mls/hr Q6HRS IV Last administered on 07/26/16 11:25; Start 07/24/16 at 06:00; Stop 07/26/16 at 15:18; Status DC Levofloxacin/ Dextrose 150 ml @ 100 mls/hr Q24H IV ; Start 07/24/16 at 22:00; Stop 07/24/16 at 22:00; Status DC Vancomycin HCl 1 each 1X ONCE MC Last administered on 07/26/16 04:23; Start at 04:30; Stop 07/26/16 at 04:31; Status DC Insulin Aspart (NovoLOG) 0-5 UNITS TIDWMEALS SQ Last administered on 07/28/16 12:13; Start 07/24/16 at 08:00 Dextrose (Dextrose 50%-Water Syringe) 12.5 gm PRN Q15MIN PRN IV SEE COMMENTS; Start 07/24/16 at 02:15 Iohexol (Omnipaque 240 Mg/ml) 30 ml 1X ONCE PO Last administered on 07/24/16 08:30; Start 07/24/16 at 08:30; Stop 07/24/16 at 08:32; Status DC Iohexol (Omnipaque 300 Mg/ml) 75 ml 1X ONCE IV Last administered on 07/24/16 09:57; Start 07/24/16 at 08:30; Stop 07/24/16 at 08:32; Status DC Info (Do NOT chart on this entry -- for MONITORING) 1 each PRN DAILY PRN MC SEE COMMENTS; Start 07/24/16 at 08:45; Stop 07/26/16 at 08:44; Status DC Info 1 each PRN DAILY PRN MC SEE COMMENTS Last administered on 07/28/16 12:36; Start 07/24/16 at 10:00; Stop 07/28/16 at 15:05; Status DC Enoxaparin Sodium (Lovenox Per Pharmacy Prophylaxis Dosing) 1 each PRN DAILY PRN MC SEE COMMENTS; Start 07/24/16 at 11:45; Stop 07/24/16 at 13:27; Status DC Enoxaparin Sodium (Lovenox 40mg Syringe) 40 mg Q24H SQ Last administered on 07/28 12:08; Start 07/24/16 at 12:00 Albuterol/ Ipratropium (Duoneb) 3 ml RTQID NEB Last administered on 07/28/16 15 :21; Start 07/24/16 at 13:00 Sodium Acetate 80 meq/Potassium Chloride 40 meq/ Potassium Phosphate 13.6 mmol/ Magnesium Sulfate 14 meq/ Calcium Gluconate 10 meq/ Multivitamins 10 ml/Chromium / Copper/Manganese/ Seleni/Zn 1 ml/ Total Parenteral Nutrition/Amino Acids/ Dextrose/ Fat Emulsion Intravenous 1,800 ml @ 75 mls/hr TPN CONT IV Last administered on 07/24/16 22:03; Start 07/24/16 at 22:00; Stop 07/25/16 at 21:59 ; Status DC Metronidazole 100 ml @ 100 mls/hr Q8HRS IV Last administered on 07/26/16 13:50 ; Start 07/24/16 at 14:00; Stop 07/26/16 at 15:18; Status DC Sodium Acetate 80 meq/Potassium Chloride 40 meq/ Potassium Phosphate 13.6 mmol/ Magnesium Sulfate 14 meq/ Calcium Gluconate 10 meq/ Multivitamins 10 ml/Chromium / Copper/Manganese/ Seleni/Zn 1 ml/ Total Parenteral Nutrition/Amino Acids/ Dextrose/ Fat Emulsion Intravenous 1,800 ml @ 75 mls/hr TPN CONT IV ; Start at 22:00; Stop 07/26/16 at 21:59; Status Cancel Sodium Acetate 80 meq/Potassium Chloride 60 meq/ Potassium Phosphate 13.6 mmol/ Magnesium Sulfate 14 meq/ Calcium Gluconate 10 meq/ Multivitamins 10 ml/Chromium / Copper/Manganese/ Seleni/Zn 1 ml/ Total Parenteral Nutrition/Amino Acids/ Dextrose/ Fat Emulsion Intravenous 1,800 ml @ 75 mls/hr TPN CONT IV Last administered on 07/25/16 21:45; Start 07/25/16 at 22:00; Stop 07/26/16 at 21:59; Status DC Vancomycin HCl 125 mg [id number] PO Last administered on 07/28/16 12:08; Start 07/25/16 at 17:30 Vancomycin HCl 1 gm/Sodium Chloride 250 ml @ 250 mls/hr Q12H IV ; Start at 16:30; Stop 07/26/16 at 16:30; Status DC Vancomycin HCl 1 each 1X ONCE MC ; Start 07/27/16 at 16:00; Stop 07/27/16 at 16: 00; Status DC Sodium Acetate 80 meq/Potassium Chloride 60 meq/ Potassium Acetate 20 meq/ Potassium Phosphate 13.6 mmol/Magnesium Sulfate 14 meq/ Calcium Gluconate 10 meq / Multivitamins 10 ml/Chromium/ Copper/Manganese/ Seleni/Zn 1 ml/ Total Parenteral Nutrition/Amino Acids/Dextrose/ Fat Emulsion Intravenous 1,800 ml @ 75 mls/hr TPN CONT IV Last administered on 07/26/16 21:57; Start 07/26/16 at 22 :00; Stop 07/27/16 at 21:59; Status DC Vancomycin HCl 1 gm/Sodium Chloride 250 ml @ 250 mls/hr 1X ONCE IV ; Start 07/26/16 at 18:30; Stop 07/26/16 at 19:29; Status UNV Vancomycin HCl (Vanco Per Pharmacy) 1 each PRN DAILY PRN MC SEE COMMENTS; Start 07/26/16 at 18:30; Status Cancel Piperacillin Sod/ Tazobactam Sod 3.375 gm/Sodium Chloride 50 ml @ 100 mls/hr Q6HRS IV ; Start 07/26/16 at 18:45; Status Cancel Vancomycin HCl 1.5 gm/Sodium Chloride 500 ml @ 250 mls/hr 1X ONCE IV ; Start 07/26/16 at 18:45; Stop 07/26/16 at 20:44; Status Cancel Sodium Acetate 80 meq/Potassium Chloride 30 meq/ Potassium Acetate 50 meq/ Potassium Phosphate 15 mmol/ Magnesium Sulfate 14 meq/Calcium Gluconate 10 meq/ Multivitamins 10 ml/Chromium/ Copper/Manganese/ Seleni/Zn 1 ml/ Insulin Human Regular 10 unit/ Total Parenteral Nutrition/Amino Acids/Dextrose/ Fat Emuls... 1 ,800 ml @ 75 mls/hr TPN CONT IV Last administered on 07/27/16 21:06; Start at 22:00; Stop 07/28/16 at 21:59 Sodium Acetate 80 meq/Potassium Chloride 30 meq/ Potassium Acetate 50 meq/ Potassium Phosphate 15 mmol/ Magnesium Sulfate 14 meq/Calcium Gluconate 10 meq/ Multivitamins 10 ml/Chromium/ Copper/Manganese/ Seleni/Zn 1 ml/ Insulin Human Regular 20 unit/ Total Parenteral Nutrition/Amino Acids/Dextrose/ Fat Emuls... 1 ,800 ml @ 75 mls/hr TPN CONT IV ; Start 07/28/16 at 22:00; Stop 07/28/16 at 22: 00; Status DC Active Scripts Active Octreotide Acetate 100 Mcg/1 Ml Vial 100 Mcg SQ Q8HRS 30 Days Levemir Flextouch (Insulin Detemir) 100 Unit/1 Ml Insuln.pen 8 Units SQ QHS 30 Days Reported Tpn Electrolytes Vial (Sodium/K+/Mag/Ca/Chlor/Acetate) 20 Ml Vial 20 Ml IV Pantoprazole Sodium 40 Mg Tablet.dr 1 Tab PO DAILY Zyrtec (Cetirizine Hcl) 10 Mg Tablet 1 Tab PO DAILY Dextrose 5%-1/2NS Iv Solution (Dextrose 5 %-0.45 % Nacl) 1,000 Ml Iv.soln 1,000 Ml IV Levemir (Insulin Detemir) 100 Unit/1 Ml Vial 8 Unit SQ Novolog Flexpen (Insulin Aspart) 100 Unit/1 Ml Insuln.pen 1 Unit SQ TIDAC Sandostatin (Octreotide Acetate) 100 Mcg/1 Ml Ampul 100 Mcg IJ TID Lovenox (Enoxaparin Sodium) 40 Mg/0.4 Ml Disp.syrin 40 Mg SQ Vitals/I & O Vital Sign - Last 24 Hours 07/27/16 07/27/16 07/27/16 07/27/16 15:42 19:00 19:50 20:03 Temp 97.5 97.5 Pulse 64 Resp 20 B/P (MAP) 130/59 (82) Pulse Ox 98 99 O2 Delivery Nasal Cannula Nasal Cannula Nasal Cannula Nasal Cannula O2 Flow Rate 2.0 2.0 2.0 2.0 07/27/16 07/28/16 07/28/16 07/28/16 23:28 03:55 07:00 08:00 Temp 97.7 98.0 97.5 97.7 98.0 97.5 Pulse 67 70 56 Resp 20 18 20 B/P (MAP) 131/54 (79) 143/52 (82) 137/60 (85) Pulse Ox 98 98 98 O2 Delivery Nasal Cannula Nasal Cannula Nasal Cannula Nasal Cannula O2 Flow Rate 2.0 2.0 2.0 2.0 07/28/16 07/28/16 07/28/16 07/28/16 08:03 11:00 11:33 15:00 Temp 97.5 97.7 97.5 97.7 Pulse 75 69 Resp 16 16 B/P (MAP) 123/61 (81) 136/59 (84) Pulse Ox 96 100 100 O2 Delivery Nasal Cannula Room Air Nasal Cannula Nasal Cannula O2 Flow Rate 2.0 2.0 2.0 2.0 07/28/16 15:21 O2 Delivery Nasal Cannula O2 Flow Rate 2.0 Intake and Output 07/27/16 07/27/16 07/28/16 15:00 23:00 07:00 Intake Total 250 ml 2700 ml 300 ml Output Total 300 ml 300 ml Balance 250 ml 2400 ml 0 ml APRIL NATION III DO Jul 28, 2016 15:39
[2016-07-28 19:35] VITALS: BP 137/60
[2016-07-28] MEDS ORDERED: [UNRECOGNIZED DRUG - OTHER] IV SCH ×12 (22:00)
[2016-07-28] MEDS ORDERED: DEXTROSE 70% IV SCH ×12 (22:00)
[2016-07-28] MEDS ORDERED: TOTAL PARENTERAL NUTRITION IV SCH ×12 (22:00)
[2016-07-28] MEDS ORDERED: AMINO ACIDS IV SCH ×12 (22:00)
[2016-07-28 22:44] VITALS: BP 124/48
[2016-07-29 03:32] VITALS: BP 130/55
[2016-07-29 06:13] LABS: ALBUMIN 1.8 g/dL (3.4-5.0); ALBUMIN/GLOBULIN RATIO 0.5 (1.0-1.7); CALCIUM 8.1 mg/dL (8.5-10.1); CREATININE 0.6 mg/dL (0.6-1.0); GFR 99.4; MAGNESIUM 1.8 mg/dL (1.8-2.4); PHOSPHORUS 2.3 mg/dL (2.6-4.7); POTASSIUM 4.5 mmol/L (3.5-5.1); TOTAL BILIRUBIN 0.5 mg/dL (0.2-1.0); TOTAL PROTEIN 5.8 g/dL (6.4-8.2)
[2016-07-29 07:00] VITALS: BP 132/57
[2016-07-29] MEDS: IPRATRPIUM/ALBUTEROL 0.5/2.5MG 3 ML NEBU. NEB SCH ×4 (08:29→19:49)
--- NOTE | 2016-07-29 08:57 | PDOC ---
Subjective: Subjective: Onc f/u- Cholangiocarcinoma Doing well. No diarrhea, abd pain. Gaining strength No further fevers eating well Objective: Vital Signs: Vital Signs Date Time Temp Pulse Resp B/P (MAP) Pulse Ox O2 Delivery O2 Flow Rate FiO2 07/29/16 08:30 97 Room Air 07/29/16 03:32 82 22 130/55 (80) 07/28/16 22:44 97.9 97.9 07/28/16 19:40 2.0 Physical Exam: Heart: Regular rate Extremities: No edema General: Alert, Oriented X3, Cooperative, No acute distress Lungs: Other (no resp distress) Psych/Mental Status: Mental status NL, Mood NL Skin: No significant lesion Labs/Imaging: C diff + Blood cx reviewed, ID following Assessment/Plan A/P: 1. Cholangiocarcinoma T3N0 (Stage IIA). She will need to fully recover from her surgery and hospitalization prior to considering adjuvant chemo. Had f/u planned 08/02 to consider adjuvant chemo (gemzar) but this causes cytopenias, needs to be over infections first. Will move back fu 2 weeks. 2. C diff. On po vanc. 3. Positive blood cx. per ID/ primary. Will f/u as outpt, thanks. ZHANE SONG DO Jul 29, 2016 08:57
--- NOTE | 2016-07-29 09:07 | PDOC ---
Infectious Disease Note Subjective Subjective Feeling good, up in chair, eating, walking ROS ROS GEN: Denies fevers, chills, sweats HEENT: Denies blurred vision, sore throat CV: Denies chest pain RESP: Denies shortness of air, cough GI: Denies n/v/d NEURO: Denies confusion, dizziness MSK: Denies weakness, joint pain/swelling Vital Sign Vital Signs Vital Signs Date Time Temp Pulse Resp B/P (MAP) Pulse Ox O2 Delivery O2 Flow Rate FiO2 07/29/16 08:30 97 Room Air 07/29/16 07:00 97.7 69 18 132/57 (82) 97.7 07/28/16 19:40 2.0 Physical Exam PHYSICAL EXAM GENERAL: NAD, Alert HEENT: PERRL, OC/OP NECK: Supple, no JVD, no LN LUNGS: Clear HEART: S1S2, no gallop, no murmur ABD: Soft, NT, no organomegaly, no rebound EXT: No edema, no cyanosis DRAFTER GEOPHYSICAL: Alert, oriented x 3, no focal neurologic deficit SKIN: No rash IV: ok Labs Lab Laboratory Tests Test 07/28/16 11:38 07/28/16 16:36 07/28/16 20:42 07/29/16 05:40 Glucose (Fingerstick) 349 mg/dL (70-99) 271 mg/dL (70-99) 295 mg/dL (70-99) Sodium Level 138 mmol/L (136-145) Potassium Level 4.5 mmol/L (3.5-5.1) Chloride Level 106 mmol/L (98-107) Carbon Dioxide Level 26 mmol/L (21-32) Anion Gap 6 (6-14) Blood Urea Nitrogen 9 mg/dL (7-20) Creatinine 0.6 mg/dL (0.6-1.0) Estimated GFR (Cockcroft-Gault) 99.4 BUN/Creatinine Ratio 15 (6-20) Glucose Level 165 mg/dL (70-99) Calcium Level 8.1 mg/dL (8.5-10.1) Phosphorus Level 2.3 mg/dL (2.6-4.7) Magnesium Level 1.8 mg/dL (1.8-2.4) Total Bilirubin 0.5 mg/dL (0.2-1.0) Aspartate Amino Transf (AST/SGOT) 19 U/L (15-37) Alanine Aminotransferase (ALT/SGPT) 23 U/L (14-59) Alkaline Phosphatase 95 U/L (46-116) Total Protein 5.8 g/dL (6.4-8.2) Albumin 1.8 g/dL (3.4-5.0) Albumin/Globulin Ratio 0.5 (1.0-1.7) Test 07/29/16 07:54 Glucose (Fingerstick) 155 mg/dL (70-99) Objective Assessment STCN bacteremia, POA - came with PICC line Fever - better Leukocytosis - better Thickening of the cecum and ascending colon suggesting focal colitis or ischemia. + C. difficile 07/24 Anemia Newly diagnosis cholangiocarcinoma in May s/p Whipple procedure, June 10 Plan Plan of Care po Vanc for 10 more days, Maintain hydration Contact isolation Supportive care d/c picc d/c to rehab ALLEN Aguero MD Jul 29, 2016 09:07
--- NOTE | 2016-07-29 09:28 | PDOC ---
SURGICAL PROGRESS NOTE Subjective no complaints tolerating diet diarrhea less Vital Signs Vital Signs Date Time Temp Pulse Resp B/P (MAP) Pulse Ox O2 Delivery O2 Flow Rate FiO2 07/29/16 08:30 97 Room Air 07/29/16 07:00 97.7 69 18 132/57 (82) 97.7 07/28/16 19:40 2.0 I&O Intake and Output 07/29/16 07:00 Intake Total 2110 ml Output Total 1725 ml Balance 385 ml Intake Oral 310 ml IV Total 1800 ml Output Urine Total 1725 ml # Bowel Movements 1 General: Alert, Oriented X3, Cooperative, No acute distress Abdomen: Soft, Other (g tube clamped, RUQ drainage bag dry ) Labs Laboratory Tests Test 07/27/16 11:12 07/27/16 16:16 07/27/16 20:58 07/28/16 08:01 Glucose (Fingerstick) 366 mg/dL (70-99) 315 mg/dL (70-99) 334 mg/dL (70-99) 265 mg/dL (70-99) Test 07/28/16 11:38 07/28/16 16:36 07/28/16 20:42 07/29/16 05:40 Glucose (Fingerstick) 349 mg/dL (70-99) 271 mg/dL (70-99) 295 mg/dL (70-99) Sodium Level 138 mmol/L (136-145) Potassium Level 4.5 mmol/L (3.5-5.1) Chloride Level 106 mmol/L (98-107) Carbon Dioxide Level 26 mmol/L (21-32) Anion Gap 6 (6-14) Blood Urea Nitrogen 9 mg/dL (7-20) Creatinine 0.6 mg/dL (0.6-1.0) Estimated GFR (Cockcroft-Gault) 99.4 BUN/Creatinine Ratio 15 (6-20) Glucose Level 165 mg/dL (70-99) Calcium Level 8.1 mg/dL (8.5-10.1) Phosphorus Level 2.3 mg/dL (2.6-4.7) Magnesium Level 1.8 mg/dL (1.8-2.4) Total Bilirubin 0.5 mg/dL (0.2-1.0) Aspartate Amino Transf (AST/SGOT) 19 U/L (15-37) Alanine Aminotransferase (ALT/SGPT) 23 U/L (14-59) Alkaline Phosphatase 95 U/L (46-116) Total Protein 5.8 g/dL (6.4-8.2) Albumin 1.8 g/dL (3.4-5.0) Albumin/Globulin Ratio 0.5 (1.0-1.7) Test 07/29/16 07:54 Glucose (Fingerstick) 155 mg/dL (70-99) Laboratory Tests Test 07/28/16 11:38 07/28/16 16:36 07/28/16 20:42 07/29/16 05:40 Glucose (Fingerstick) 349 mg/dL (70-99) 271 mg/dL (70-99) 295 mg/dL (70-99) Sodium Level 138 mmol/L (136-145) Potassium Level 4.5 mmol/L (3.5-5.1) Chloride Level 106 mmol/L (98-107) Carbon Dioxide Level 26 mmol/L (21-32) Anion Gap 6 (6-14) Blood Urea Nitrogen 9 mg/dL (7-20) Creatinine 0.6 mg/dL (0.6-1.0) Estimated GFR (Cockcroft-Gault) 99.4 BUN/Creatinine Ratio 15 (6-20) Glucose Level 165 mg/dL (70-99) Calcium Level 8.1 mg/dL (8.5-10.1) Phosphorus Level 2.3 mg/dL (2.6-4.7) Magnesium Level 1.8 mg/dL (1.8-2.4) Total Bilirubin 0.5 mg/dL (0.2-1.0) Aspartate Amino Transf (AST/SGOT) 19 U/L (15-37) Alanine Aminotransferase (ALT/SGPT) 23 U/L (14-59) Alkaline Phosphatase 95 U/L (46-116) Total Protein 5.8 g/dL (6.4-8.2) Albumin 1.8 g/dL (3.4-5.0) Albumin/Globulin Ratio 0.5 (1.0-1.7) Test 07/29/16 07:54 Glucose (Fingerstick) 155 mg/dL (70-99) Problem List Problems Medical Problems: (1) Anemia Status: Acute (2) HCAP (healthcare-associated pneumonia) Status: Acute Assessment/Plan supportive care rehab soon? Problems: BENJAMIN OROZCO APRN Jul 29, 2016 09:28
[2016-07-29] MEDS: INSULIN ASPART 300 UNITS/3 ML INSULN.PEN SQ SCH ×3 (09:46→16:30)
[2016-07-29] MEDS: VANCOMYCIN 125 MG/2.5 ML ORAL SOLUTION. PO SCH ×4 (09:46→20:19)
--- NOTE | 2016-07-29 10:05 | PDOC ---
PULMONARY PROGRESS NOTES Subjective no soa off oxygen no cough Vitals Vital Signs Date Time Temp Pulse Resp B/P (MAP) Pulse Ox O2 Delivery O2 Flow Rate FiO2 07/29/16 08:30 97 Room Air 07/29/16 07:00 97.7 69 18 132/57 (82) 97.7 07/28/16 19:40 2.0 General: Alert, No acute distress Lungs: Clear Cardiovascular: S1 Abdomen: Soft Neuro Exam: Alert Extremities: No Edema Skin: Warm Labs Laboratory Tests Test 07/27/16 11:12 07/27/16 16:16 07/27/16 20:58 07/28/16 08:01 Glucose (Fingerstick) 366 mg/dL (70-99) 315 mg/dL (70-99) 334 mg/dL (70-99) 265 mg/dL (70-99) Test 07/28/16 11:38 07/28/16 16:36 07/28/16 20:42 07/29/16 05:40 Glucose (Fingerstick) 349 mg/dL (70-99) 271 mg/dL (70-99) 295 mg/dL (70-99) Sodium Level 138 mmol/L (136-145) Potassium Level 4.5 mmol/L (3.5-5.1) Chloride Level 106 mmol/L (98-107) Carbon Dioxide Level 26 mmol/L (21-32) Anion Gap 6 (6-14) Blood Urea Nitrogen 9 mg/dL (7-20) Creatinine 0.6 mg/dL (0.6-1.0) Estimated GFR (Cockcroft-Gault) 99.4 BUN/Creatinine Ratio 15 (6-20) Glucose Level 165 mg/dL (70-99) Calcium Level 8.1 mg/dL (8.5-10.1) Phosphorus Level 2.3 mg/dL (2.6-4.7) Magnesium Level 1.8 mg/dL (1.8-2.4) Total Bilirubin 0.5 mg/dL (0.2-1.0) Aspartate Amino Transf (AST/SGOT) 19 U/L (15-37) Alanine Aminotransferase (ALT/SGPT) 23 U/L (14-59) Alkaline Phosphatase 95 U/L (46-116) Total Protein 5.8 g/dL (6.4-8.2) Albumin 1.8 g/dL (3.4-5.0) Albumin/Globulin Ratio 0.5 (1.0-1.7) Test 07/29/16 07:54 Glucose (Fingerstick) 155 mg/dL (70-99) Laboratory Tests Test 07/28/16 11:38 07/28/16 16:36 07/28/16 20:42 07/29/16 05:40 Glucose (Fingerstick) 349 mg/dL (70-99) 271 mg/dL (70-99) 295 mg/dL (70-99) Sodium Level 138 mmol/L (136-145) Potassium Level 4.5 mmol/L (3.5-5.1) Chloride Level 106 mmol/L (98-107) Carbon Dioxide Level 26 mmol/L (21-32) Anion Gap 6 (6-14) Blood Urea Nitrogen 9 mg/dL (7-20) Creatinine 0.6 mg/dL (0.6-1.0) Estimated GFR (Cockcroft-Gault) 99.4 BUN/Creatinine Ratio 15 (6-20) Glucose Level 165 mg/dL (70-99) Calcium Level 8.1 mg/dL (8.5-10.1) Phosphorus Level 2.3 mg/dL (2.6-4.7) Magnesium Level 1.8 mg/dL (1.8-2.4) Total Bilirubin 0.5 mg/dL (0.2-1.0) Aspartate Amino Transf (AST/SGOT) 19 U/L (15-37) Alanine Aminotransferase (ALT/SGPT) 23 U/L (14-59) Alkaline Phosphatase 95 U/L (46-116) Total Protein 5.8 g/dL (6.4-8.2) Albumin 1.8 g/dL (3.4-5.0) Albumin/Globulin Ratio 0.5 (1.0-1.7) Test 07/29/16 07:54 Glucose (Fingerstick) 155 mg/dL (70-99) Medications Active Scripts Medications Dose Route/Sig Max Daily Dose Days Date Category Tpn Electrolytes Vial (Sodium/K+/Mag/Ca/Chlor/Acetate) 20 Ml Vial 20 Ml IV 07/24/16 Reported Pantoprazole Sodium 40 Mg Tablet.dr 1 Tab PO DAILY 07/24/16 Reported Zyrtec (Cetirizine Hcl) 10 Mg Tablet 1 Tab PO DAILY 07/24/16 Reported Dextrose 5%-1/2NS Iv Solution (Dextrose 5 %-0.45 % Nacl) 1,000 Ml Iv.soln 1,000 Ml IV 07/24/16 Reported Levemir (Insulin Detemir) 100 Unit/1 Ml Vial 8 Unit SQ 07/24/16 Reported Novolog Flexpen (Insulin Aspart) 100 Unit/1 Ml Insuln.pen 1 Unit SQ TIDAC 07/24/16 Reported Sandostatin (Octreotide Acetate) 100 Mcg/1 Ml Ampul 100 Mcg IJ TID 07/24/16 Reported Lovenox (Enoxaparin Sodium) 40 Mg/0.4 Ml Disp.syrin 40 Mg SQ 07/24/16 Reported Octreotide Acetate 100 Mcg/1 Ml Vial 100 Mcg SQ Q8HRS 30 06/27/16 Rx Levemir Flextouch (Insulin Detemir) 100 Unit/1 Ml Insuln.pen 8 Units SQ QHS 30 06/27/16 Rx Impression . 1. Fever/leukocytosis and bacteremia secondary to early sepsis/ PICC related CT abdomen and pelvis is suggesting colitis or focal cecum/ascending colon ischemia. 2. Recent Whipple procedure. 3. Gram-positive bacteremia./coag neg staph 4. Abnormal chest x-ray with minimal atelectasis in the bases which is most likely related to the abdominal process. 5. Minimal history of tobacco use. 6. Mild cough which is nonspecific. Plan . 1. Continue with broad-spectrum antibiotic per Infectious Disease recommendation. 2. pulmonary status very stable 3. Follow Infectious Disease recommendations. 4. Follow General Surgery recommendations. 5. Incentive spirometry. 6. will see NIKKI Card MD Jul 29, 2016 10:05
--- NOTE | 2016-07-29 10:11 | PDOC ---
PROGRESS NOTES Chief Complaint Chief Complaint SOB Anemia ASSESSMENT AND PLAN: 1. Sepsis: fever, leukocytosis improving 2. Staph epi bacteremia: POA (line associated), improving. 3. C. diff colitis: cont PO vanco for add.l [address] Fang 4. Anemia: multifactorial 5. 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 Dyspnea and hypoxia: atelectasis. improving 7. DM: sl better since stopping TPN. restart home levemir, cont ISS 8. CAD: no acute issues. (re-)start 2ary prevention meds 9. PVD: hx CVA 10. HLD: start statin 11. HTN: borderline; start BB 12. Prophylaxis: on lovenox 13. Dispo: anticipate D/C back to rehab in AM History of Present Illness History of Present Illness diarrhea improving, pain min. Vitals Vitals Vital Signs Date Time Temp Pulse Resp B/P (MAP) Pulse Ox O2 Delivery O2 Flow Rate FiO2 07/29/16 08:30 97 Room Air 07/29/16 07:00 97.7 69 18 132/57 (82) 97.7 07/28/16 19:40 2.0 Physical Exam General: Alert, Oriented X3, Cooperative, No acute distress Heart: Regular rate Lungs: Clear Abdomen: Normal bowel sounds, Soft, Other (G tube clamped, RUQ drainage bag dry ) Extremities: No edema Skin: No significant lesion Labs LABS Laboratory Tests Test 07/28/16 11:38 07/28/16 16:36 07/28/16 20:42 07/29/16 05:40 Glucose (Fingerstick) 349 mg/dL (70-99) 271 mg/dL (70-99) 295 mg/dL (70-99) Sodium Level 138 mmol/L (136-145) Potassium Level 4.5 mmol/L (3.5-5.1) Chloride Level 106 mmol/L (98-107) Carbon Dioxide Level 26 mmol/L (21-32) Anion Gap 6 (6-14) Blood Urea Nitrogen 9 mg/dL (7-20) Creatinine 0.6 mg/dL (0.6-1.0) Estimated GFR (Cockcroft-Gault) 99.4 BUN/Creatinine Ratio 15 (6-20) Glucose Level 165 mg/dL (70-99) Calcium Level 8.1 mg/dL (8.5-10.1) Phosphorus Level 2.3 mg/dL (2.6-4.7) Magnesium Level 1.8 mg/dL (1.8-2.4) Total Bilirubin 0.5 mg/dL (0.2-1.0) Aspartate Amino Transf (AST/SGOT) 19 U/L (15-37) Alanine Aminotransferase (ALT/SGPT) 23 U/L (14-59) Alkaline Phosphatase 95 U/L (46-116) Total Protein 5.8 g/dL (6.4-8.2) Albumin 1.8 g/dL (3.4-5.0) Albumin/Globulin Ratio 0.5 (1.0-1.7) Test 07/29/16 07:54 Glucose (Fingerstick) 155 mg/dL (70-99) AIDEN SALVADOR MD Jul 29, 2016 10:11
[2016-07-29 11:00] VITALS: BP 148/69
[2016-07-29] MEDS: ASPIRIN CHEWABLE 81 MG TABLET. PO SCH (12:01)
[2016-07-29] MEDS: METOPROLOL TART IMMED RELEASE 25 MG TABLET. PO SCH ×2 (12:02→20:20)
[2016-07-29] MEDS: CETIRIZINE HCL 10 MG TABLET. PO SCH (12:02)
[2016-07-29] MEDS: ENOXAPARIN 40 MG/0.4 ML SYRINGE. SQ SCH (12:03)
--- NOTE | 2016-07-29 12:12 | PDOC ---
Subjective: Subjective: Doing okay. Denies pain and diarrhea. Objective: Objective: Per RN - no diarrhea. Vital Signs: Vital Signs Date Time Temp Pulse Resp B/P (MAP) Pulse Ox O2 Delivery O2 Flow Rate FiO2 07/29/16 08:30 97 Room Air 07/29/16 07:00 97.7 69 18 132/57 (82) 97.7 07/28/16 19:40 2.0 Labs: Laboratory Tests Test 07/28/16 16:36 07/28/16 20:42 07/29/16 05:40 07/29/16 07:54 Glucose (Fingerstick) 271 mg/dL 295 mg/dL 155 mg/dL Sodium Level 138 mmol/L Potassium Level 4.5 mmol/L Chloride Level 106 mmol/L Carbon Dioxide Level 26 mmol/L Anion Gap 6 Blood Urea Nitrogen 9 mg/dL Creatinine 0.6 mg/dL Estimated GFR (Cockcroft-Gault) 99.4 BUN/Creatinine Ratio 15 Glucose Level 165 mg/dL Calcium Level 8.1 mg/dL Phosphorus Level 2.3 mg/dL Magnesium Level 1.8 mg/dL Total Bilirubin 0.5 mg/dL Aspartate Amino Transf (AST/SGOT) 19 U/L Alanine Aminotransferase (ALT/SGPT) 23 U/L Alkaline Phosphatase 95 U/L Total Protein 5.8 g/dL Albumin 1.8 g/dL Albumin/Globulin Ratio 0.5 Test 07/29/16 11:47 Glucose (Fingerstick) 199 mg/dL PE: GEN: NAD, was sleeping ABD: NABS, S/NT NEURO/PSYCH: A & O 3 A/P: C Diff -on oral vanco per ID -diarrhea seems resolved 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 CLINT LAURENT Jul 29, 2016 12:12
[2016-07-29 15:00] VITALS: BP 121/59
[2016-07-29 19:00] VITALS: BP 115/57
[2016-07-29] MEDS ORDERED: INSULIN DETEMIR 300 UNITS/3 ML INSULN.PEN. SQ SCH (21:00)
[2016-07-29] MEDS ORDERED: ATORVASTATIN CALCIUM 20 MG TABLET PO SCH (21:00)
[2016-07-29 23:00] VITALS: BP 135/67
[2016-07-30 03:00] VITALS: BP 141/60
[2016-07-30 07:00] VITALS: BP 144/63
[2016-07-30] MEDS: IPRATRPIUM/ALBUTEROL 0.5/2.5MG 3 ML NEBU. NEB SCH ×3 (07:39→15:27)
[2016-07-30] MEDS: INSULIN ASPART 300 UNITS/3 ML INSULN.PEN SQ SCH ×3 (08:18→17:00)
[2016-07-30] MEDS: ASPIRIN CHEWABLE 81 MG TABLET. PO SCH (09:06)
[2016-07-30] MEDS: VANCOMYCIN 125 MG/2.5 ML ORAL SOLUTION. PO SCH ×3 (09:06→17:57)
[2016-07-30] MEDS: CETIRIZINE HCL 10 MG TABLET. PO SCH (09:08)
[2016-07-30] MEDS: METOPROLOL TART IMMED RELEASE 25 MG TABLET. PO SCH (09:08)
--- NOTE | 2016-07-30 09:46 | PDOC ---
SURGICAL PROGRESS NOTE Subjective Pt doing well, gian PO Vital Signs Vital Signs Date Time Temp Pulse Resp B/P (MAP) Pulse Ox O2 Delivery O2 Flow Rate FiO2 07/30/16 09:08 64 144/63 07/30/16 07:39 96 Room Air 07/30/16 07:00 98.0 16 98.0 I&O Intake and Output 07/30/16 07:00 Intake Total 1160 ml Output Total 1600 ml Balance -440 ml Intake Oral 1160 ml Output Urine Total 1600 ml # Voids 2 # Bowel Movements 2 General: Alert, Oriented X3, Cooperative, No acute distress Abdomen: Soft, No tenderness, Other (G-tube clamped, ostomy with min output) Labs Laboratory Tests Test 07/28/16 11:38 07/28/16 16:36 07/28/16 20:42 07/29/16 05:40 Glucose (Fingerstick) 349 mg/dL (70-99) 271 mg/dL (70-99) 295 mg/dL (70-99) Sodium Level 138 mmol/L (136-145) Potassium Level 4.5 mmol/L (3.5-5.1) Chloride Level 106 mmol/L (98-107) Carbon Dioxide Level 26 mmol/L (21-32) Anion Gap 6 (6-14) Blood Urea Nitrogen 9 mg/dL (7-20) Creatinine 0.6 mg/dL (0.6-1.0) Estimated GFR (Cockcroft-Gault) 99.4 BUN/Creatinine Ratio 15 (6-20) Glucose Level 165 mg/dL (70-99) Calcium Level 8.1 mg/dL (8.5-10.1) Phosphorus Level 2.3 mg/dL (2.6-4.7) Magnesium Level 1.8 mg/dL (1.8-2.4) Total Bilirubin 0.5 mg/dL (0.2-1.0) Aspartate Amino Transf (AST/SGOT) 19 U/L (15-37) Alanine Aminotransferase (ALT/SGPT) 23 U/L (14-59) Alkaline Phosphatase 95 U/L (46-116) Total Protein 5.8 g/dL (6.4-8.2) Albumin 1.8 g/dL (3.4-5.0) Albumin/Globulin Ratio 0.5 (1.0-1.7) Test 07/29/16 07:54 07/29/16 11:47 07/29/16 16:21 07/29/16 20:24 Glucose (Fingerstick) 155 mg/dL (70-99) 199 mg/dL (70-99) 119 mg/dL (70-99) 181 mg/dL (70-99) Test 07/30/16 07:47 Glucose (Fingerstick) 92 mg/dL (70-99) Laboratory Tests Test 07/29/16 11:47 07/29/16 16:21 07/29/16 20:24 07/30/16 07:47 Glucose (Fingerstick) 199 mg/dL (70-99) 119 mg/dL (70-99) 181 mg/dL (70-99) 92 mg/dL (70-99) Problem List Problems Medical Problems: (1) Anemia Status: Acute (2) HCAP (healthcare-associated pneumonia) Status: Acute Assessment/Plan cholangiocarcinoma ADAT work towards d/c plan d/c G-tube prior to d/c Problems: JUAN VILLA MD Jul 30, 2016 09:46
--- NOTE | 2016-07-30 10:10 | PDOC ---
Infectious Disease Note Subjective Subjective Feeling good, up in chair, eating, walking ROS ROS GEN: Denies fevers, chills, sweats HEENT: Denies blurred vision, sore throat CV: Denies chest pain RESP: Denies shortness of air, cough GI: Denies n/v/d NEURO: Denies confusion, dizziness MSK: Denies weakness, joint pain/swelling Vital Sign Vital Signs Vital Signs Date Time Temp Pulse Resp B/P (MAP) Pulse Ox O2 Delivery O2 Flow Rate FiO2 07/30/16 09:08 64 144/63 07/30/16 07:39 96 Room Air 07/30/16 07:00 98.0 16 98.0 Physical Exam PHYSICAL EXAM GENERAL: NAD, Alert HEENT: PERRL, OC/OP NECK: Supple, no JVD, no LN LUNGS: Clear HEART: S1S2, no gallop, no murmur ABD: Soft, NT, no organomegaly, no rebound EXT: No edema, no cyanosis COMPLIANCE ANALYST: Alert, oriented x 3, no focal neurologic deficit SKIN: No rash IV: ok Labs Lab Laboratory Tests Test 07/29/16 11:47 07/29/16 16:21 07/29/16 20:24 07/30/16 07:47 Glucose (Fingerstick) 199 mg/dL (70-99) 119 mg/dL (70-99) 181 mg/dL (70-99) 92 mg/dL (70-99) Objective Assessment STCN bacteremia, POA - came with PICC line Fever - better Leukocytosis - better Thickening of the cecum and ascending colon suggesting focal colitis or ischemia. + C. difficile 07/24 Anemia Newly diagnosis cholangiocarcinoma in May s/p Whipple procedure, June 10 Plan Plan of Care po Vanc for 10 more days, Maintain hydration Contact isolation Supportive care d/c picc d/c to rehab ALLEN Aguero MD Jul 30, 2016 10:10
[2016-07-30 11:00] VITALS: BP 126/55
--- NOTE | 2016-07-30 12:24 | PDOC ---
Subjective: Subjective: No complaints. Objective: Vital Signs: Vital Signs Date Time Temp Pulse Resp B/P (MAP) Pulse Ox O2 Delivery O2 Flow Rate FiO2 07/30/16 11:25 Room Air 07/30/16 11:00 97.5 69 18 126/55 (78) 99 97.5 Labs: Laboratory Tests Test 07/29/16 16:21 07/29/16 20:24 07/30/16 07:47 07/30/16 11:32 Glucose (Fingerstick) 119 mg/dL 181 mg/dL 92 mg/dL 158 mg/dL PE: GEN: NAD LUNGS: clear HEART: RRR ABD: S/ND/NT NEURO/PSYCH: A & O 3 A/P: C Diff -on oral vanco per ID, diarrhea resolved Cholangiocarcinoma s/p Christianoipple 05/2016 -- Doing well GI-godinez. Await DC plans. CLINT LAURENT Jul 30, 2016 12:24
[2016-07-30] MEDS: ENOXAPARIN 40 MG/0.4 ML SYRINGE. SQ SCH (12:26)
[2016-07-30 15:00] VITALS: BP 134/62
--- NOTE | 2016-07-30 17:18 | PDOC ---
PULMONARY PROGRESS NOTES Subjective not more soa Vitals Vital Signs Date Time Temp Pulse Resp B/P (MAP) Pulse Ox O2 Delivery O2 Flow Rate FiO2 07/30/16 15:27 Room Air 07/30/16 15:00 97.9 78 16 134/62 (86) 98 97.9 ROS: No Nausea, No Chest Pain, No Abdominal Pain, No Increase Cough General: Alert, No acute distress Lungs: Clear Cardiovascular: S1 Abdomen: Soft Neuro Exam: Alert Extremities: No Edema Skin: Warm Labs Laboratory Tests Test 07/28/16 20:42 07/29/16 05:40 07/29/16 07:54 07/29/16 11:47 Glucose (Fingerstick) 295 mg/dL (70-99) 155 mg/dL (70-99) 199 mg/dL (70-99) Sodium Level 138 mmol/L (136-145) Potassium Level 4.5 mmol/L (3.5-5.1) Chloride Level 106 mmol/L (98-107) Carbon Dioxide Level 26 mmol/L (21-32) Anion Gap 6 (6-14) Blood Urea Nitrogen 9 mg/dL (7-20) Creatinine 0.6 mg/dL (0.6-1.0) Estimated GFR (Cockcroft-Gault) 99.4 BUN/Creatinine Ratio 15 (6-20) Glucose Level 165 mg/dL (70-99) Calcium Level 8.1 mg/dL (8.5-10.1) Phosphorus Level 2.3 mg/dL (2.6-4.7) Magnesium Level 1.8 mg/dL (1.8-2.4) Total Bilirubin 0.5 mg/dL (0.2-1.0) Aspartate Amino Transf (AST/SGOT) 19 U/L (15-37) Alanine Aminotransferase (ALT/SGPT) 23 U/L (14-59) Alkaline Phosphatase 95 U/L (46-116) Total Protein 5.8 g/dL (6.4-8.2) Albumin 1.8 g/dL (3.4-5.0) Albumin/Globulin Ratio 0.5 (1.0-1.7) Test 07/29/16 16:21 07/29/16 20:24 07/30/16 07:47 07/30/16 11:32 Glucose (Fingerstick) 119 mg/dL (70-99) 181 mg/dL (70-99) 92 mg/dL (70-99) 158 mg/dL (70-99) Laboratory Tests Test 07/29/16 20:24 07/30/16 07:47 07/30/16 11:32 Glucose (Fingerstick) 181 mg/dL (70-99) 92 mg/dL (70-99) 158 mg/dL (70-99) Medications Active Scripts Medications Dose Route/Sig Max Daily Dose Days Date Category Tpn Electrolytes Vial (Sodium/K+/Mag/Ca/Chlor/Acetate) 20 Ml Vial 20 Ml IV 07/24/16 Reported Pantoprazole Sodium 40 Mg Tablet.dr 1 Tab PO DAILY 07/24/16 Reported Zyrtec (Cetirizine Hcl) 10 Mg Tablet 1 Tab PO DAILY 07/24/16 Reported Dextrose 5%-1/2NS Iv Solution (Dextrose 5 %-0.45 % Nacl) 1,000 Ml Iv.soln 1,000 Ml IV 07/24/16 Reported Levemir (Insulin Detemir) 100 Unit/1 Ml Vial 8 Unit SQ 07/24/16 Reported Novolog Flexpen (Insulin Aspart) 100 Unit/1 Ml Insuln.pen 1 Unit SQ TIDAC 07/24/16 Reported Sandostatin (Octreotide Acetate) 100 Mcg/1 Ml Ampul 100 Mcg IJ TID 07/24/16 Reported Lovenox (Enoxaparin Sodium) 40 Mg/0.4 Ml Disp.syrin 40 Mg SQ 07/24/16 Reported Octreotide Acetate 100 Mcg/1 Ml Vial 100 Mcg SQ Q8HRS 30 06/27/16 Rx Levemir Flextouch (Insulin Detemir) 100 Unit/1 Ml Insuln.pen 8 Units SQ QHS 30 06/27/16 Rx Impression . 1. Fever/leukocytosis 2. Recent Whipple procedure. 3. Gram-positive bacteremia./coag neg staph 4. Abnormal chest x-ray with minimal atelectasis in the bases which is most likely related to the abdominal process. 5. Minimal history of tobacco use. 6. Mild cough which is nonspecific. Plan . 1. Continue with broad-spectrum antibiotic per Infectious Disease recommendation. 2. pulmonary status compensated PABLO JEAN MD Jul 30, 2016 17:18
--- NOTE | 2016-07-31 00:15 | DS ---
DATE OF DISCHARGE: 07/30/2016 CHIEF COMPLAINT: Shortness of breath, anemia. HOSPITAL COURSE: The patient is a 70-year-old woman who had recently been diagnosed with cholangiocarcinoma and was status post Whipple on 06/10/2016. Post-surgery, she had been discharged to long term from where she had presented on 07/23/2016, back to the Emergency Room with fever, shortness of breath. She was found with leukocytosis, anemia, sepsis and was therefore admitted. She grew out Staph epi, which was suspected to be Lyme associated. ID was consulted and she was placed on appropriate antibiotics. Unfortunately, she was also diagnosed with C. diff colitis for which the p.o. vancomycin was started with improvement of her symptoms. For her chronic issues, home medications were continued including . PEG tube as well as a PICC line was discontinued before discharge to long term. The patient was discharged back to long term for additional rehabilitation. PHYSICAL EXAMINATION: VITAL SIGNS: Blood pressure of 132/57, heart rate of 69, respiratory rate at 18. No fevers. GENERAL: This is a well-nourished 70-year-old woman, awake, alert, in no acute distress. LUNGS: Clear. HEART: Regular rate and rhythm. ABDOMEN: Slightly distended, positive bowel sounds, soft, nontender. EXTREMITIES: Show no edema. DISCHARGE DATE: 07/30/2016 DISCHARGE DIAGNOSES: Staphylococcus epidermidis bacteremia, Clostridium difficile colitis and anemia. DISCHARGE DISPOSITION: To SNF. DISCHARGE CONDITION: Improved. DISCHARGE MEDICATIONS: Please refer to MAR. DISCHARGE INSTRUCTIONS: The patient will see PCP in long term and after discharge. AIDEN SALVADOR MD DR: UR/nts JOB#: [id number] / [id number] TANI Horn MDD
== END 2016-07-30 18:15 | DRG 871 ==
LOC: ER 19:07 → 5 NORTH 21:10
PROVIDERS: ADMIT Internal Medicine; ATTEND Internal Medicine
PROC: 30233N1 Transfusion of Nonautologous Red Blood Cells into Peripheral Vein, Percutaneous Approach (ICD-10-PCS; principal; 2016-07-23)
DX: A41.9 Sepsis, unspecified organism (principal); J96.01 Acute respiratory failure with hypoxia; J18.9 Pneumonia, unspecified organism; N39.0 Urinary tract infection, site not specified; E44.0 Moderate protein-calorie malnutrition; A04.7 Enterocolitis due to Clostridium difficile; R18.8 Other ascites; C22.1 Intrahepatic bile duct carcinoma; D63.8 Anemia in other chronic diseases classified elsewhere; E78.5 Hyperlipidemia, unspecified; R32 Unspecified urinary incontinence; K86.89 Other specified diseases of pancreas; E11.51 Type 2 diabetes mellitus with diabetic peripheral angiopathy without gangrene; I10 Essential (primary) hypertension; E53.8 Deficiency of other specified B group vitamins; I25.10 Atherosclerotic heart disease of native coronary artery without angina pectoris; B95.7 Other staphylococcus as the cause of diseases classified elsewhere; B96.89 Other specified bacterial agents as the cause of diseases classified elsewhere; Y95 Nosocomial condition; Z80.0 Family history of malignant neoplasm of digestive organs; Z80.41 Family history of malignant neoplasm of ovary; Z85.05 Personal history of malignant neoplasm of liver; Z83.3 Family history of diabetes mellitus; Z85.07 Personal history of malignant neoplasm of pancreas; Z86.73 Personal history of transient ischemic attack (TIA), and cerebral infarction without residual deficits; Z90.411 Acquired partial absence of pancreas; Z93.1 Gastrostomy status; Z93.3 Colostomy status; Z87.891 Personal history of nicotine dependence; Z79.899 Other long term (current) drug therapy; Z79.1 Long term (current) use of non-steroidal anti-inflammatories (NSAID); Z79.2 Long term (current) use of antibiotics; Z79.82 Long term (current) use of aspirin; Z68.25 Body mass index [BMI] 25.0-25.9, adult
CPT/HCPCS: 36415; 51701; 71010; 74177; 80048; 80053; 80202; 81001; 82962; 83605; 83735; 84100; 84478; 85027; 86850; 86900; 86901; 86920; 87040; 87045; 87086; 87205; 87324; 87641; 94250; 94640; 94760; 96365; 96375; J0610; J1650; J1815; J1956; J2543; J3370; J3475; J3490; J7040; J7050; J7620; P9016; Q9966; Q9967; 92526; 92610; 97530; 99285-25; J7030

== ENCOUNTER → 2016-11-28 | Day surgery (SDC) | payer MEDICARE ==
[~2016-11-28] VITALS: Ht 161.3 cm; Wt 58.1 kg
[~2016-11-28] MED LIST changes: +ASPI-630 PO; +ATOR20TA58 PO; +BUPIVACAINE MPF 0.25% 30 ML VIAL. ONE; +CETI10TA22 PO; +DEXAMETHASONE SOD PHOS 20 MG/5 ML VIAL. ONE; +ENOX40DI SQ; +HEPARIN PF 500 UNIT/5 ML DISP.SYRIN. IV ONE; +HEPARIN for IV BOLUS 10,000 UNIT/10 ML VIAL. ONE; +HYDR-971 PO; +HYDROmorphone 2 MG/ML VIAL IV PRN; +INSU100I17 SQ; +INSU100V13 SQ; +IOHEXOL 300 MG/ML 50 ML VIAL. ONE; +IV RINGERS,LACTATED 1000ML 1,000 ML IV SCH; +LACT1CAP6 PO; +LIDOCAINE 1% PF 2 ML VIAL. ID PRN; +LIDOCAINE 2% PF Vial for OR 5 ML VIAL. ONE; +METF500T4 PO; +METO25TA4 PO; +MORPHINE SULFATE 4 MG/ML DISP.SYRIN. IV PRN; +OCTR100A IJ; +ONDANSETRON PF 4 MG/2 ML VIAL. IV PRN; +ONDANSETRON PF 4 MG/2 ML VIAL. ONE; +PANT40TA5 PO; +PHENYLEPHRINE in 0.9% NACL PF 1 MG/10 ML DISP.SYRIN. IV ONE; +PROCHLORPERAZINE 10 MG/2 ML VIAL. IV PRN; +PROPOFOL 20 ML IV ONE; +SEVOFLURANE 16 TO 30 MINUTES. IH ONE; +SEVOFLURANE 31 TO 60 MINUTES. IH ONE; +SEVOFLURANE > 120 MINUTES. IH ONE; +SODI20VI3 IV; +[UNRECOGNIZED DRUG - CODE] IV; +fentaNYL PF VIAL 100 MCG/2 ML VIAL IV PRN; +fentaNYL PF VIAL 100 MCG/2 ML VIAL ONE
--- NOTE | 2016-11-28 11:47 | PDOC4 ---
Operative Note Operative Note Date: 11/28/2016 Preoperative diagnosis: Pancreatic cancer Postoperative diagnosis: Same Procedure: Port-A-Cath placement left chest Surgeon: Shay Co-surgeon:Cachorro Specimen: None Dictation: Patient is a 71-year-old female with pancreatic cancer receiving chemotherapy and needing long-term venous access. Seizure of Port-A-Cath placement was explained to the patient in detail was benefits were also discussed including bleeding infection and pneumothorax. The patient seemed understanding gave both verbal and written consent have procedure performed. Patient was taken to the operating room placed in supine position general anesthesia was initiated once patient asleep and intubated her neck and chest were prepped and draped in the usual sterile fashion using ChloraPrep. An area in the left deltopectoral groove was injected with quarter percent Marcaine with epinephrine incisions made with 15 blade scalpel was carried down through the subtendinous tissue using electrocautery to provide hemostasis the cephalic vein was visualized which was too small to be used. At this point the subclavian vein was accessed via needle a wire was placed under fluoroscopy larger peel-away dilator was then placed and a larger wire placed. Issue of the wire transversed to the inferior vena cava and the catheter was placed through the peel-away dilator the Peel-away was then removed and the catheter was placed on the port the port was sewn into place with 3-0 Prolene. Port was then accessed but there was not good blood return and easily flushed. The catheter position was changed but again there was no blood aspirated at this point the port was removed and a wire was placed through the catheter which was then removed over the wire and fluoroscopy was used to evaluate wire placement which did not show the wire transverse and into the vena cava at this time. A catheter was placed over the wire and contrast material was shot through the catheter to assess the venous anatomy by fluoroscopy did show contrast material flowing into the right atrium. Multiple attempts were made to pass the wire into the right atrium are inferior vena cava which were unsuccessful. At this point consult was requested from interventional radiology Dr. Ivory who was able to use a different catheter with a directional tip to eventually direct the wire into the inferior vena cava. At this time then the Port-A-Cath catheter was placed over the wire into the vena cava there was good blood return at this point the port was then placed on the catheter sewn into place on the anterior chest with 3-0 Prolene. Again the port was accessed there was good blood return and easily flushed with hep saline catheter was then locked with 1 mL of thousand units per mL heparin solution. The incision was then closed with deep layer running 3-0 Vicryl and the skin was approximate 4 subcuticular Monocryl Mastisol Steri-Strips and island dressing were applied. Patient was awakened and extubated in the operating room taken to recovery in stable condition all sponge instrument and needle counts listed as correct estimated blood loss 100 mL. RAMU ROBERTS MD Nov 28, 2016 11:47
--- NOTE | 2016-11-28 11:49 | DISCH ---
DISCHARGE INSTRUCTIONS Condition on Discharge Condition on Discharge: Stable Activity After Discharge Activity Instructions for Disc: Activity as tolerated Other activity instructions: Do not lift left arm above head for 1 week Diet after Discharge Diet after Discharge: Regular Wound Incision Care Other wound/incision instructi: May shower in 24 hours Contacting the after DC Call your doctor for: If your condition worsens Follow-Up Follow up with: Dr Roberts in 2 weeks RAMU ROBERTS MD Nov 28, 2016 11:49
--- NOTE | 2016-11-28 12:19 | RAD ---
Portable chest, 11/28/2016: History: Check Port-A-Cath placement Comparison is made to a study from 07/23/2016. A left Port-A-Cath has been inserted extending into the superior aspect of the right atrium. The heart is at the upper limits of normal in size. The pulmonary vascularity is normal. There is mild linear atelectasis or scarring in the left base. There is no evidence of pneumothorax or definite pleural fluid. IMPRESSION: 1. Interval insertion of a left Port-A-Cath extending into the right atrium. 2. Mild left basilar linear atelectasis and/or scarring.
[2016-11-28 13:15] VITALS: BP 124/58
== END | disposition home or self-care (01) ==
LOC: SURG 07:58
PROVIDERS: ATTEND Surgery
DX: C25.9 Malignant neoplasm of pancreas, unspecified (principal); E78.00 Pure hypercholesterolemia, unspecified; E11.9 Type 2 diabetes mellitus without complications; I10 Essential (primary) hypertension; F17.200 Nicotine dependence, unspecified, uncomplicated; Z86.73 Personal history of transient ischemic attack (TIA), and cerebral infarction without residual deficits; Z86.69 Personal history of other diseases of the nervous system and sense organs; Z90.49 Acquired absence of other specified parts of digestive tract
CPT/HCPCS: 36556; 71010; 82962; A4215; C1769; C1788; J0690; J1100; J1644; J2370; J2405; J2704; J3010; J3490; J7120; Q9967; J2001

== ENCOUNTER → 2017-02-19 | Outpatient (CLI) | payer MEDICARE ==
[~2017-02-19] MED LIST changes: -ASPI-630 PO; -ATOR20TA58 PO; -B/P med; -BUPIVACAINE MPF 0.25% 30 ML VIAL. ONE; -CETI10TA16 PO; -CETI10TA22 PO; +CONTRAST GIVEN MC; -DEXAMETHASONE SOD PHOS 20 MG/5 ML VIAL. ONE; -DIPY25TA PO; -ENOX40DI SQ; -HEPARIN PF 500 UNIT/5 ML DISP.SYRIN. IV ONE; -HEPARIN for IV BOLUS 10,000 UNIT/10 ML VIAL. ONE; -HYDR-971 PO; -HYDROmorphone 2 MG/ML VIAL IV PRN; -INSU100I17 SQ; -INSU100I27 SQ; -INSU100V13 SQ; -IOHEXOL 300 MG/ML 50 ML VIAL. ONE; -IRBE1TAB5 PO; -IV RINGERS,LACTATED 1000ML 1,000 ML IV SCH; -LACT1CAP6 PO; -LIDOCAINE 1% PF 2 ML VIAL. ID PRN; -LIDOCAINE 2% PF Vial for OR 5 ML VIAL. ONE; -METF500T4 PO; -METF500T9 PO; -METO25TA4 PO; -MORPHINE SULFATE 4 MG/ML DISP.SYRIN. IV PRN; -OCTR100A IJ; -OCTR100V SQ; -ONDANSETRON PF 4 MG/2 ML VIAL. IV PRN; -ONDANSETRON PF 4 MG/2 ML VIAL. ONE; -PANT40TA5 PO; -PHENYLEPHRINE in 0.9% NACL PF 1 MG/10 ML DISP.SYRIN. IV ONE; -PROCHLORPERAZINE 10 MG/2 ML VIAL. IV PRN; -PROPOFOL 20 ML IV ONE; -SEVOFLURANE 16 TO 30 MINUTES. IH ONE; -SEVOFLURANE 31 TO 60 MINUTES. IH ONE; -SEVOFLURANE > 120 MINUTES. IH ONE; -SODI20VI3 IV; -[UNRECOGNIZED DRUG - CODE] IV; -allergy pill; -blood thinner; -calcium; -fentaNYL PF VIAL 100 MCG/2 ML VIAL IV PRN; -fentaNYL PF VIAL 100 MCG/2 ML VIAL ONE; -iron PO; -simvastatin PO; -water pill
[2017-02-19] MEDS: IOHEXOL 240 MG/ML 50ML VIAL. PO (12:45)
[2017-02-19] MEDS: IOHEXOL 300 MG/ML 100ML VIAL. IV (14:00)
== END | disposition home or self-care (01) ==
LOC: CT 12:31
DX: C22.1 Intrahepatic bile duct carcinoma (principal); N28.1 Cyst of kidney, acquired; I31.3 Pericardial effusion (noninflammatory); I10 Essential (primary) hypertension; R18.8 Other ascites; Z98.890 Other specified postprocedural states
CPT/HCPCS: 71260; 74177; Q9966; Q9967

== ENCOUNTER → 2017-06-05 | Outpatient (CLI) | payer MEDICARE ==
[2017-06-05] MEDS: IOHEXOL 240 MG/ML 50ML VIAL. PO (09:57)
[2017-06-05] MEDS: IOHEXOL 300 MG/ML 100ML VIAL. IV (09:58)
[2017-06-05] MEDS: HEPARIN PF 500 UNIT/5 ML DISP.SYRIN. IV (10:03)
== END | disposition home or self-care (01) ==
LOC: CT 07:58
DX: C22.1 Intrahepatic bile duct carcinoma (principal); J90 Pleural effusion, not elsewhere classified; N28.1 Cyst of kidney, acquired; I51.7 Cardiomegaly
CPT/HCPCS: 71260; 74177; Q9966; Q9967

== ENCOUNTER → 2017-09-04 | Outpatient (CLI) | payer MEDICARE ==
[2017-09-04] MEDS: IOHEXOL 300 MG/ML 100ML VIAL. IV (08:00)
[2017-09-04] MEDS: IOHEXOL 240 MG/ML 50ML VIAL. PO (08:00)
[2017-09-04 09:32] LABS: ANION GAP 6 (6-14); BLOOD UREA NITROGEN 11 mg/dL (7-20); CALCIUM 8.6 mg/dL (8.5-10.1); CARBON DIOXIDE 29 mmol/L (21-32); CHLORIDE 106 mmol/L (98-107); CREATININE 0.8 mg/dL (0.6-1.0); GFR 71.1; GLUCOSE 129 mg/dL (70-99); POTASSIUM 3.8 mmol/L (3.5-5.1); SODIUM 141 mmol/L (136-145)
== END | disposition home or self-care (01) ==
LOC: CT 11:09
DX: C34.92 Malignant neoplasm of unspecified part of left bronchus or lung (principal); C34.91 Malignant neoplasm of unspecified part of right bronchus or lung; K76.89 Other specified diseases of liver; K76.0 Fatty (change of) liver, not elsewhere classified
CPT/HCPCS: 36415; 71260; 74177; 80048; Q9966; Q9967

== ENCOUNTER → 2018-03-03 | Outpatient (CLI) | payer MEDICARE ==
[2016-12-10 14:28] VITALS: BP 163/67
[~2018-03-03] MED LIST changes: +ASPI-630 PO; +ATOR20TA58 PO; +B/P med; +CETI10TA16 PO; +CETI10TA22 PO; -CONTRAST GIVEN MC; +CONTRAST GIVEN. MC PRN; +DIPY25TA PO; +ENOX40DI SQ; +HYDR-3164 PO; +INSU100I17 SQ; +INSU100I27 SQ; +INSU100V13 SQ; +IOHEXOL 240 MG/ML 50ML VIAL. PO ONE; +IOHEXOL 300 MG/ML 100ML VIAL. IV ONE; +IRBE1TAB5 PO; +LACT1CAP6 PO; +METF500T16 PO; +METF500T9 PO; +METO25TA4 PO; +OCTR100A IJ; +OCTR100V SQ; +PANT40TA5 PO; +SODI20VI3 IV; +[UNRECOGNIZED DRUG - CODE] IV; +allergy pill; +blood thinner; +calcium; +iron PO; +simvastatin PO; +water pill
--- NOTE | 2018-03-03 14:28 | RAD ---
CT CHEST ABD PELVIS W/CONTRAST Indication: Cholangiocarcinoma Technique: Postcontrast CT imaging was performed of the chest, abdomen, pelvis, multiplanar reconstruction images submitted. Oral contrast was also given. One or more of the following individualized dose reduction techniques were utilized for this examination: 1. Automated exposure control 2. Adjustment of the mA and/or kV according to patient size 3. Use of iterative reconstruction technique. Comparison: September 04, 2017; June 05, 2017 CHEST: Findings: Noncalcified right upper lobe nodule axial image 29 4 to 5 mm is unchanged. 4 to 5 mm right lower lobe nodule axial image 49 is stable. There is calcified right lower lobe nodule as seen previously. 3 to 4 mm subpleural left lower lobe nodule axial image 32 is stable. There is no new suspicious pulmonary nodularity or lymphadenopathy of the chest. There is again coronary calcification. There is no pericardial or pleural fluid, pneumothorax, infiltrate. Slightly ectatic ascending thoracic aorta about 37 mm is stable. There is again focus of calcification left thyroid gland. There is left port catheter. IMPRESSION: 1. Previously seen small pulmonary nodules are stable, no new pulmonary nodularity or significant chest lymphadenopathy. 2. There is coronary calcification. Abdomen pelvis: Findings: There is again severe hepatic steatosis. There is again pneumobilia. There again has been Whipple procedure. There is increased pancreatic ductal dilatation greatest caliber about 7 mm, previously about 3 mm. No new focal hepatic lesion is identified. Both kidneys enhance, no hydronephrosis. There are again foci of hypodensity of the bilateral kidneys, largest of the mid right kidney about 2 cm in size overall with density characteristics suggestive of a cyst. 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 Portal vein is patent. There is no free air or free fluid. There is again right ventral fat-containing hernia in the pelvis. There is now small right parasagittal ventral hernia of the abdomen containing a partial wall of likely small bowel. No new significant lymphadenopathy is identified. There is retained stool greater rectosigmoid colon. There is some sclerosis about the sacroiliac joints as seen previously. There is no new adrenal nodularity. There is multilevel lumbar degenerative disc disease greatest L1-2, L3-4, L5-S1. There is atherosclerotic calcification abdominal aorta and iliac arteries. Appendix is again somewhat dilated about 7 to 8 mm although stable. IMPRESSION: 1. There is increased pancreatic ductal dilatation. There again has been Whipple procedure. No new hepatic mass or lymphadenopathy is identified. There is again diffuse hepatic steatosis. There is again pneumobilia. 2. There is again fat-containing right ventral hernia in the pelvis, now shallow right ventral abdominal hernia more superiorly containing partial wall of nondilated small bowel. 3. There are again renal cysts bilaterally. There is also small angiomyolipoma of the right kidney. Electronically signed by: Leandro Johnson MD (03/03/2018 2:23 PM) [id number]
== END | disposition home or self-care (01) ==
LOC: CT 09:58
PROVIDERS: ATTEND Internal Medicine Hematology & Oncology
DX: C22.1 Intrahepatic bile duct carcinoma (principal); D17.71 Benign lipomatous neoplasm of kidney; K76.0 Fatty (change of) liver, not elsewhere classified; K83.8 Other specified diseases of biliary tract; K43.9 Ventral hernia without obstruction or gangrene; K46.9 Unspecified abdominal hernia without obstruction or gangrene; N28.1 Cyst of kidney, acquired
CPT/HCPCS: 71260; 74177; Q9966; Q9967

== ENCOUNTER → 2018-07-23 | Day surgery (SDC) | payer MEDICARE ==
[~2018-07-23] MED LIST changes: -CONTRAST GIVEN. MC PRN; -IOHEXOL 240 MG/ML 50ML VIAL. PO ONE; -IOHEXOL 300 MG/ML 100ML VIAL. IV ONE; +LIDOCAINE 2% PF 5 ML VIAL. ONE; +PROPOFOL 20 ML IV ONE; +SPIR50TA4 PO
[2018-07-23] MEDS: IV RINGERS,LACTATED 1000ML 1,000 ML IV SCH ×2 (07:00→12:50)
[2018-07-23 13:29] VITALS: BP 114/70
== END | disposition home or self-care (01) ==
LOC: ENDOS 12:20
PROVIDERS: ATTEND Internal Medicine Gastroenterology
DX: K29.50 Unspecified chronic gastritis without bleeding (principal); E11.9 Type 2 diabetes mellitus without complications; Z86.73 Personal history of transient ischemic attack (TIA), and cerebral infarction without residual deficits; Z85.07 Personal history of malignant neoplasm of pancreas; Z79.82 Long term (current) use of aspirin; Z79.84 Long term (current) use of oral hypoglycemic drugs
CPT/HCPCS: 43235; J2001; J2704

== ENCOUNTER → 2018-08-31 | Outpatient (CLI) | payer MEDICARE ==
[2018-07-23 13:29] VITALS: BP 114/70
[~2018-08-31] MED LIST changes: +CONTRAST GIVEN. MC PRN; +IOHEXOL 240 MG/ML 50ML VIAL. PO ONE; +IOHEXOL 300 MG/ML 100ML VIAL. IV ONE; +IOHEXOL 300 MG/ML 100ML VIAL. ONE; -LIDOCAINE 2% PF 5 ML VIAL. ONE; -PANT40TA5 PO; +PANT40TA77 PO; -PROPOFOL 20 ML IV ONE
--- NOTE | 2018-08-31 13:37 | RAD ---
CT scan of the chest, abdomen and pelvis with contrast 08/31/2018 CLINICAL HISTORY: Cholangiocarcinoma. TECHNIQUE: After the oral and intravenous administration of contrast, contiguous, 5 mm axial sections were obtained through the chest, abdomen and pelvis. 75 cc of Omnipaque 300 were administered intravenously during this examination. One or more of the following individualized dose reduction techniques were utilized for this study: 1. Automated exposure control. 2. Adjustment of the mA and/or kV according to patient size. 3. Use of iterative reconstruction technique. FINDINGS: Comparison study is dated 03/03/2018. The heart is mildly enlarged. Atherosclerotic calcification of the thoracic aorta and its branches is seen. The thoracic aorta is mildly tortuous but tapers normally. No hilar, mediastinal or axillary lymphadenopathy is seen. A 6 mm calcified granuloma is seen involving the right lower lobe, unchanged. Several 3 to 4 mm nodular opacities are seen scattered throughout the right lung, unchanged. No new pulmonary nodule is seen. No area of consolidation is noted. No pleural effusion or pneumothorax is seen. Decreased attenuation of the liver parenchyma is seen consistent with fatty infiltration. Air is seen within the intra and extrahepatic bile ducts, unchanged. The spleen, and adrenal glands are within normal limits. Rounded low-attenuation lesions are seen involving both kidneys. These measure 5 mm to 2.2 cm in size. They likely represent cysts. The patient appears to be post Whipple procedure. The pancreatic duct within the remaining body/tail of pancreas is dilated, unchanged. No recurrent mass lesion is seen. Atherosclerotic calcification of the abdominal aorta and its branches is noted. The abdominal aorta tapers normally. The gallbladder is not visualized consistent with a cholecystectomy. No retroperitoneal lymphadenopathy is seen. No free fluid or free air is seen within the abdomen. There is no evidence of bowel obstruction. A small right paracentral ventral hernia is seen which contains a portion of nondilated transverse colon. This measures 3.3 cm in transverse diameter. The appendix is well-visualized and is within normal limits. A right paracentral ventral hernia is seen more inferiorly within the lower abdomen/pelvis. This contains fat. It measures 4.1 cm in size. Images through the pelvis demonstrate the urinary bladder is urine. Moderate amount stool seen involving the rectum and sigmoid colon. No adnexal mass is seen. No free fluid is noted. No pelvic or inguinal lymphadenopathy is seen. The osseous structures are unchanged. IMPRESSION: Stable CT appearance of the chest, abdomen and pelvis as discussed above. No acute abnormality is seen. Electronically signed by: Vlad Navarro MD (08/31/2018 1:34 PM) [place] [id number]
== END | disposition home or self-care (01) ==
LOC: CT 12:05
PROVIDERS: ATTEND Internal Medicine Hematology & Oncology
DX: C22.1 Intrahepatic bile duct carcinoma (principal); I70.0 Atherosclerosis of aorta; J84.10 Pulmonary fibrosis, unspecified; K43.9 Ventral hernia without obstruction or gangrene; I11.9 Hypertensive heart disease without heart failure; E11.9 Type 2 diabetes mellitus without complications; F17.200 Nicotine dependence, unspecified, uncomplicated; Z79.01 Long term (current) use of anticoagulants
CPT/HCPCS: 71260; 74177; Q9966; Q9967

== ENCOUNTER → 2019-03-11 | Outpatient (CLI) | payer MEDICARE ==
[2018-07-23 13:29] VITALS: BP 114/70
[~2019-03-11] MED LIST changes: -CETI10TA22 PO; +CETI10TA24 PO; -IOHEXOL 300 MG/ML 100ML VIAL. ONE; +METF500T11 PO; -METF500T9 PO
--- NOTE | 2019-03-11 15:11 | RAD ---
EXAM: CT Chest, Abdomen, and Pelvis with IV contrast INDICATION: Cholangiocarcinoma TECHNIQUE: Multi-detector row CT images were acquired from the thoracic inlet through the ischial tuberosities with the use of IV contrast. Sagittal and coronal images were acquired from the transaxial data. All CT scans performed at this facility utilize dose optimization techniques as appropriate to the exam, including the following: Automated exposure control and adjustment of the mA and/or KV according to patient size (this includes techniques or standardized protocols for targeted exams where dose is indication/reason for exam). IV CONTRAST: Administered ORAL CONTRAST: Administered DLP 427.1 mGycm COMPARISON: Chest abdomen pelvis CT with IV contrast of 08/31/2018 and and June 04, [address] FINDINGS: CHEST: CARDIOVASCULAR: Multivessel coronary calcifications. Left chest subclavian approach tunneled chest port. MEDIASTINUM & DANK: Calcifications in the mediastinum and right hilum compatible with calcified lymph nodes. No mediastinal or hilar adenopathy. Left thyroid lobe 7 mm coarse calcification. LUNGS: 7 mm right lower lobe superior segment pulmonary nodule with punctate posterior calcification (image 33 of 60 series 2 this exam) is unchanged. A 4 mm pleural-based posterior left lower lobe pulmonary nodule (image 29 of 60 series 2) is unchanged as well. No new pulmonary nodules or masses. PLEURAL SPACE: No pleural effusions or pneumothorax. OSSEOUS & SOFT TISSUE: Unremarkable ABDOMEN/PELVIS: LIVER: Diffuse hepatic steatosis. Low-density 7 mm hepatic segment 2 lesion at the periphery (image 14 of 85 on series 4) is smaller than in 2017 but not as well seen on the most recent comparison examination likely due to differences in phases of enhancement. No new hepatic lesions on this study. BILIARY SYSTEM: Cholecystectomy and pneumobilia. No CT evidence of biliary obstruction. PANCREAS: Residual pancreatic body and tail shows diffuse parenchymal atrophy with apparent dilation of the main pancreatic duct to 1 cm diameter, similar to the most recent prior. SPLEEN: Unremarkable ADRENALS: Unremarkable KIDNEYS & URETERS: Bilateral renal cortical lesions compatible with cysts, measuring 2.2 cm in the midpole right kidney and a pair of cysts in the inferior pole left kidney measuring 1.2 and 0.9 cm. BLADDER: Unremarkable REPRODUCTIVE ORGANS: Unremarkable GASTROINTESTINAL: Surgical changes compatible with a distal gastrectomy and gastrojejunal anastomosis with wall thickening at the gastroduodenal junction. The appendix is normal. MESENTERY/PERITONEUM/RETROPERITONEUM: Fat-containing periumbilical hernia. VASCULAR: Unremarkable LYMPH NODES: No adenopathy OSSEOUS & SOFT TISSUES: Right os acromiale. Nonunion right clavicular midshaft fracture. Sclerosis of the left sacroiliac joint with mild remodeling of the bone on the sacral side of the joint space is unchanged. IMPRESSION: Stable postoperative changes compatible with a prior Billroth type procedure with no evidence for local disease recurrence or of active metastatic disease. Electronically signed by: Cynthia Alcantara MD (03/11/2019 3:08 PM) [facility]
== END | disposition home or self-care (01) ==
LOC: CT 08:47
PROVIDERS: ATTEND Internal Medicine Hematology & Oncology
DX: C22.1 Intrahepatic bile duct carcinoma (principal); I25.10 Atherosclerotic heart disease of native coronary artery without angina pectoris; K76.0 Fatty (change of) liver, not elsewhere classified; N28.9 Disorder of kidney and ureter, unspecified; K42.9 Umbilical hernia without obstruction or gangrene; N28.1 Cyst of kidney, acquired; K86.89 Other specified diseases of pancreas; Z90.49 Acquired absence of other specified parts of digestive tract
CPT/HCPCS: 71260; 74177; Q9966; Q9967

== ENCOUNTER 2020-04-04 02:32 | Emergency (ER) | payer MEDICARE ==
[~2020-04-04] VITALS: Ht 157.5 cm; Wt 60.0 kg
[~2020-04-04 02:32] MED LIST changes: -CETI10TA24 PO; +CETI10TA74 PO; -CONTRAST GIVEN. MC PRN; -IOHEXOL 240 MG/ML 50ML VIAL. PO ONE; -IOHEXOL 300 MG/ML 100ML VIAL. IV ONE; +METF-658 PO; -METF500T11 PO
--- NOTE | 2020-04-04 02:45 | PHYS DOC ---
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 Patient was given juice. EMS reports glucose was 196 and 146. Patient reports she was waiting for her hot tea that she has not had in the past 3 nights. She noticed it was 11:45 and shut off her lights and TV went to sleep. States she woke up with EMS in her room. Does not recall any needle sticks. Patient reports she ate dinner around 5:55 PM. EMR was reviewed from [facility]. Patient was admitted from March 31- after patient was found down at the nursing facility. Patient failed to eat her dinner and was given insulin 10 units that day. Patient does have a history of Alzheimer's. Pt in no active distress, calm, no complaints. Review of Systems: Review of Systems: Constitutional: Denies fever or chills. [] Eyes: Denies change in visual acuity. [] HENT: Denies nasal congestion or sore throat. [] Respiratory: Denies cough or shortness of breath. [] Cardiovascular: Denies chest pain or edema. [] GI: Denies abdominal pain, nausea, vomiting, bloody stools or diarrhea. [] : Denies dysuria. [] Musculoskeletal: Denies back pain or joint pain. [] Integument: Denies rash. [] Neurologic: Denies headache, focal weakness or sensory changes. [] Endocrine: Denies polyuria or polydipsia. [] Lymphatic: Denies swollen glands. [] Psychiatric: Denies depression or anxiety. [] Heart Score: Risk Factors: Risk Factors: DM, Current or recent (<one month) smoker, HTN, HLP, family history of CAD, obesity. Risk Scores: Score 0 - 3: 2.5% MACE over next 6 weeks - Discharge Home Score 4 - 6: 20.3% MACE over next 6 weeks - Admit for Clinical Observation Score 7 - 10: 72.7% MACE over next 6 weeks - Early Invasive Strategies Allergies: Allergies: Allergies Coded Allergies Type Severity Reaction Last Updated Verified No Known Drug Allergies 07/23/18 No Physical Exam: PE: Constitutional: Well developed, well nourished, no acute distress, non-toxic appearance. HENT: Normocephalic, atraumatic, no signs of head trauma, no midline neck pain Eyes: EOMI, conjunctiva normal, no discharge. Neck: Normal range of motion, supple, Cardiovascular: S1/2 present, regular rhythm Lungs & Thorax: Speaking in full sentences, bilateral equal chest rise, no tachypnea or increased work of breathing Abdomen: soft, no tenderness, medical hernia easily reducible Skin: Warm, dry, no erythema, no rash. [] Back: No midline spinal tenderness or step-offs, no CVA tenderness. [] Extremities: No tenderness, no cyanosis, mild equal lower extremity edema, no asymmetry Neurologic: Alert, normal motor function, normal sensory function, no focal deficits noted. [] Psychologic: Affect normal, judgement normal, mood normal. [] EKG: EKG: Sinus rhythm at 59 bpm, mild bradycardia, left axis deviation, normal intervals, no T wave inversions, no ST elevations or ST depressions, no active chest pain Radiology/Procedures: Radiology/Procedures: IMAGING REPORT Signed PATIENT: SOLOMON BLAKE ACCOUNT: [id number] : 1945 LOCATION: ER AGE: 74 SEX: F EXAM STATUS: REG ER ORD. PHYSICIAN: MARIE LYONS DO REASON: hypoglycemia PROCEDURE: PORTABLE CHEST 1V XR CHEST 1V 04/04/2020 3:01 AM INDICATION: Hypoglycemia COMPARISON: None available TECHNIQUE: Portable frontal view of the chest is provided. FINDINGS: The cardiomediastinal silhouette is within normal limits. There is subsegmental atelectasis at the left lung base. Left chest wall infusion port catheter is identified with the distal tip projecting over the cavoatrial junction. There are no significant pleural effusions. There is no pulmonary vascular congestion. No pneumothorax. No suspicious osseous abnormality. IMPRESSION: There is subsegmental atelectasis at the left lung base. Electronically signed by: Campos Noel MD (04/04/2020 3:27 AM) [facility] DICTATED and SIGNED BY: CAMPOS NOEL MD DATE: 04/04/20 [id number] 0 Course & Med Decision Making: Course & Med Decision Making Pertinent Labs and Imaging studies reviewed. (See chart for details) Suspect hypoglycemia? although history very limited. Pt's cancer is in remission, has type 2 diabetes. I spoke to Coral, at pts' facility who sent pt here. Coral stated "her sugar was stable," described as glucose of 42 just before 2am, that pt has "snacks all around her in her room," and was eating. Coral brought her some juice. Coral was unable to report how much insulin pt has been given in the past 24 hours and that there was no one else I could speak to (I requested a tank shop supervisor, encouraged her to reach out for help/ask another care provider to assist her with this information) at the facility, that she was having "computer problems." Patient with chronic transaminitis. Her AST and ALT were 82 and 50 on March 31 with a T bili of 1.4, magnesium of 1.6. Magnesium not replaced in ED-can be replaced at facility. Prior CT imaging in February 2020 showed hepatomegaly, ascites, consistent with steatohepatitis. Patient's normocytic anemia is improved from prior. No hypoglycemia in ED and tolerates food/drink. Patient hemodynamically stable, afebrile. U/A unobtainable. Patient voided in toilet with bowel movement (no me sherrie/hematochezia). Will discharge back to nursing facility with strict ED return precautions were given for altered mental status, confusion or fever - pcp can perform U/A at her facility. Pt with no signs/sxs c/w hypoglycemia. Encouraged urgent outpatient follow-up with PMD and GI as needed for hepatosteatosis. Life-threatening processes were considered but are low suspicion at this time, given history, physical exam and ED workup. Pt was educated on all prescription medications and adverse effects. All patient's questions were answered and pt was stable at time of discharge. Life/limb-threatening differential includes but is not limited to, trauma, head injury, and sepsis or infection, surgical abdomen, ACS, electrolyte disorder, concerning for sepsis or shock, or respiratory failure. I spoken with the patient and her caregivers. I explained the patient's condition, diagnoses and treatment plan based on the information available to me at this time. I have answered the patient and her caregiver's questions and addressed any concerns. The patient and her caregivers have a good understanding of patient's diagnosis, condition and treatment plan as can be expected at this point. Vital signs have been stable. Patient's condition is stable and appropriate for discharge from the emergency department. Patient will pursue further outpatient evaluation with primary care physician or other designated or consulting physician as outlined in the discharge instructions. The patient and/or caregivers are agreeable to this plan of care and follow-up instructions have been explained in detail. The patient and/or caregivers have received these instructions in written form and have expressed an understanding of the discharge instructions. The patient and/or caregivers are aware that any significant change of condition or worsening of symptoms should prompt immediate return to this or the closest emergency department or call to 9Rebecca Mcbride Disclaimer: Reed Disclaimer: This electronic medical record was generated, in whole or in part, using a voice recognition dictation system. Departure Departure Impression: Primary Impression: Anemia Additional Impressions: Hepatic steatosis Hypomagnesemia Disposition: 01 DC HOME SELF CARE/HOMELESS Condition: STABLE Referrals: TANI BECKETT MD (PCP) Follow-up in 24 to 40 hours Patient Instructions: Anemia, Nonspecific-Brief, Hypoglycemia (Low Blood Sugar), Hypomagnesemia Additional Instructions: FOLLOW UP WITH GASTROENTEROLOGY: Gastroenterology [facility] Address: [address] [place] [address] EMERGENCY DEPARTMENT GENERAL DISCHARGE INSTRUCTIONS Thank you for coming to [facility] Emergency Department (ED) today and trusting us with you care. We trust that you had a positive experience in our Emergency Department. If you wish to speak to the department management, you may call the Director at [phone]. YOUR FOLLOW UP INSTRUCTIONS ARE FOLLOWS: 1. Do you have a private Doctor? If you do not have a private doctor, please ask for a resource list of physicians or clinics that may be able to assist you with follow up care. 2. The Emergency Physicain has interpreted your x-rays. The X-Ray specialist will also review them. If there is a change in the findings, you will be notified in 48 hours when at all possible. 3. A lab test or culture has been done, your results will be reviewed and you will be notified if you need a change in treatment. ADDITIONAL INSTRUCTIONS AND INFORMATION: 1. Your care today has been supervised by a physician who is specially trained in emergency care. Many problems require more than one evaluation for a complete diagnosis and treatment. We recommend that you schedule your follow up appointment as recommended to ensure complete treatment of you illness or injury. If you are unable to obtain follow up care and continue to have a problem, or if your condition worsens, we recommend that you return to the ED. 2. We are not able to safely determine your condition over the phone nor are we able to give sound medical advice over the phone. For these safety reasons, if you call for medical advice we will ask you to come to the ED for further evaluation. 3. If you have any questions regarding these discharge instructions please call the ED at [phone]. SAFETY INFORMATION: In the interest of safety, wellness, and injury prevention; we encourage you to wear your sealbelt, if you smoke; quite smoking, and we encourage family to use a protective helmet for bicycling and other sporting events that present an increased risk for head injury. IF YOUR SYMPTOMS WORSEN OR NEW SYMPTOMS DEVELOP, OR YOU HAVE CONCERNS ABOUT YOUR CONDITION; OR IF YOUR CONDITION WORSENS WHILE YOU ARE WAITING FOR YOUR FOLLOW UP APPOINTMENT; EITHER CONTACT YOUR PRIMARY CARE DOCTOR, THE PHYSICIAN WHOSE NAME AND NUMBER YOU WERE GIVEN, OR RETURN TO THE ED IMMEDIATELY. MARIE LYONS DO Apr 04, 2020 02:45
--- NOTE | 2020-04-04 03:30 | RAD ---
XR CHEST 1V 04/04/2020 3:01 AM INDICATION: Hypoglycemia COMPARISON: None available TECHNIQUE: Portable frontal view of the chest is provided. FINDINGS: The cardiomediastinal silhouette is within normal limits. There is subsegmental atelectasis at the le ft lung base. Left chest wall infusion port catheter is identified with the distal tip projecting ove r the cavoatrial junction. There are no significant pleural effusions. There is no pulmonary vascular congestion. No pneumothora x. No suspicious osseous abnormality. IMPRESSION: There is subsegmental atelectasis at the left lung base. Electronically signed by: Leonela Roman MD (04/04/2020 3:27 AM) [facility]
[2020-04-04 04:06] LABS: BASO % 1 % (0-3); EOS # 0.2 x10^3/uL (0.0-0.7); EOS % 3 % (0-3); HEMATOCRIT 29.6 % (36.0-47.0); LYMPH # 1.5 x10^3/uL (1.0-4.8); LYMPH % 24 % (24-48); MEAN CORPUSCULAR HEMOGLOBIN 34 pg (25-35); MEAN CORPUSCULAR HGB CONC 34 g/dL (31-37); MEAN CORPUSCULAR VOLUME 100 fL (79-100); MONO # 0.5 x10^3/uL (0.0-1.1); MONO % 8 % (0-9); NEUT # 3.9 x10^3/uL (1.8-7.7); NEUT % 65 % (31-73); PLATELET COUNT 177 x10^3/uL (140-400); RED BLOOD COUNT 2.95 x10^6/uL (3.50-5.40); RED CELL DISTRIBUTION WIDTH 16.7 % (11.5-14.5); WHITE BLOOD COUNT 6.1 x10^3/uL (4.0-11.0)
[2020-04-04 04:18] LABS: CALCIUM 8.1 mg/dL (8.5-10.1); CREATININE 0.7 mg/dL (0.6-1.0); GFR 82.3; POTASSIUM 3.9 mmol/L (3.5-5.1)
[2020-04-04 04:24] LABS: ALBUMIN 2.1 g/dL (3.4-5.0); ALBUMIN/GLOBULIN RATIO 0.6 (1.0-1.7); MAGNESIUM 1.7 mg/dL (1.8-2.4); TOTAL BILIRUBIN 1.8 mg/dL (0.2-1.0); TOTAL PROTEIN 5.8 g/dL (6.4-8.2)
--- NOTE | 2020-04-04 04:45 | EKG ---
[facility] [address] [place] [address] Test Date: 2020-04-04 Test Time: 03:34:01 Pat Name: SOLOMON BLAKE Department: Room: Gender: F Nurse Private Duty: : 1945 Requested By: MARIE LYONS Order Number: [id number] Reading MD: Kwasi Purdy Measurements Intervals [place] Rate: 59 P: 0 ME: 188 QRS: -13 QRSD: 98 T: 46 QT: 420 QTc: 420 Interpretive Statements SINUS RHYTHM LEFTWARD AXIS LOW LIMB LEAD VOLTAGE Electronically Signed On 04-04-2020 14:39:54 PUMP ATTENDANT by Kwasi Purdy
[2020-04-04] MEDS ORDERED: MAGNESIUM SULFATE 2GM 50 ML IV ONE (05:45)
[2020-04-04 06:07] VITALS: BP 127/60
== END 2020-04-04 06:35 | disposition home or self-care (01) ==
LOC: ER 02:32
DX: D64.9 Anemia, unspecified (principal); K76.0 Fatty (change of) liver, not elsewhere classified; E83.42 Hypomagnesemia; E11.9 Type 2 diabetes mellitus without complications; I25.2 Old myocardial infarction; I11.9 Hypertensive heart disease without heart failure; Z90.89 Acquired absence of other organs; Z87.891 Personal history of nicotine dependence; Z98.890 Other specified postprocedural states
CPT/HCPCS: 36415; 71045; 80053; 82962; 83690; 83735; 84484; 85025; 93005; 99285; J3475

== ENCOUNTER 2021-06-02 15:05 | Inpatient (IN) | payer MEDICARE ==
[~2021-06-02] VITALS: Ht 160 cm; Wt 61.8 kg
[2021-06-02] MEDS ORDERED: MIRT7.5T8 PO (15:33)
[2021-06-02] MEDS ORDERED: METF10007 PO (15:33)
[2021-06-02] MEDS ORDERED: LOPE2TAB27 PO (15:33)
[2021-06-02] MEDS ORDERED: INSU100V6 SQ (15:33)
[2021-06-02] MEDS ORDERED: INSU100I13 SQ (15:33)
[2021-06-02] MEDS ORDERED: TAMS0.4C97 PO (15:33)
[2021-06-02] MEDS ORDERED: ONDANSETRON PF 4 MG/2 ML VIAL. IVP PRN (15:45)
--- NOTE | 2021-06-02 16:23 | PDOC2 ---
CONSULT Date of Consult Date of Consult DATE: 06/02/21 TIME: 16:19 Reason for Consult Reason for Consult: Right hip fracture History of Present Illness Reason for Visit: Patient presents to the emergency emergency department at an outside hospital. She lives in a nursing facility and suffered a fall while walking to the bathroom in the middle of the night. She was complaining of right hip pain and inability to ambulate after the fall. She was diagnosed with a right hip intertrochanteric hip fracture at the outside hospital. The patient was then transferred to [facility] for definitive treatment. Currently she is resting in bed and comfortable. Pain is under control. She has lived in a nursing facility for about a year now due to inability to care for herself. She denies any pain to her upper extremities torso left lower extremity or head. She denies hitting her head or loss of consciousness. She denies any right lower extremity paresthesias or weakness. Past Medical History Cardiovascular: CAD, HTN, Hyperlipidemia CENTRAL NERVOUS SYSTEM: CVA, TIA Heme/Onc: Cancer, Other Endocrine: Diabetes Past Surgical History Past Surgical History: Other Family History Family History: Diabetes Social History ALCOHOL: rare Drugs: None Lives: Long-Term Current Medications Current Medications Current Medications Morphine Sulfate (Morphine Sulfate) 4 mg PRN Q4HRS PRN IV PAIN; Start 06/02/21 at 15:45 Ondansetron HCl (Zofran) 4 mg PRN Q4HRS PRN IVP NAUSEA/VOMITING; Start 06/02/21 at 15:45 Active Scripts Active Reported Humalog (Insulin Lispro) 100 Unit/1 Ml Vial 5 Unit SQ TIDAC Mirtazapine 7.5 Mg Tablet 1 Tab PO QHS 30 Days Metformin Hcl 1,000 Mg Tablet 1,000 Mg PO BID Loperamide (Loperamide Hcl) 2 Mg Tablet 2 Mg PO DAILY Lantus Solostar (Insulin Glargine,Hum.rec.anlog) 100 Unit/1 Ml Insuln.pen 15 Unit SQ QHS Flomax (Tamsulosin Hcl) 0.4 Mg Cap.er.24h 1 Cap PO DAILY Aspirin 81 Mg Tab.chew 81 Mg PO DAILY Probiotic (Lactobacillus Acidophilus) 1 Each Capsule 1 Each PO DAILY Atorvastatin Calcium 20 Mg Tablet 20 Mg PO HS Zyrtec (Cetirizine Hcl) 10 Mg Tablet 1 Tab PO DAILY Allergies Allergies: Coded Allergies: No Known Drug Allergies (Unverified , 07/23/18) Labs Labs Laboratory Tests Test 06/02/21 15:42 Glucose (Fingerstick) 141 mg/dL (70-99) Laboratory Tests Test 06/02/21 15:42 Glucose (Fingerstick) 141 mg/dL (70-99) Assessment/Plan Assessment/Plan Assessment Right hip intertrochanteric hip fracture Plan X-rays of right femur have been ordered. Per the report from the outside facility the patient has an intertrochanteric hip fracture of the right hip. We will plan for surgical fixation of the right hip. Operative and nonoperative management was discussed with the patient and family as well as the risks of loyda epifanio which include but are not limited to infection, wound healing complications, persistent pain, nonunion, malunion, failure of the implant, need for revision surgery, DVT, PE, blood loss, intraoperative fracture, as well as all the medical associated with anesthesia. The patient and family elected to proceed with the surgery. All questions were answered. Informed consent was obtained. N.p.o. at midnight Preoperative labs and preoperative medical clearance by the internal medicine team. [facility] ANDRE Fisher Jr. DO Jun 02, 2021 16:23
[2021-06-02 19:00] VITALS: BP 123/58
--- NOTE | 2021-06-02 19:38 | NUR ---
Dr Colindres stated the xrays taken of pt hip were not good images and requesting a true AP R hip xray be completed. order placed.
--- NOTE | 2021-06-02 19:38 | RAD ---
Exam: Right femur 2 views INDICATION: Leg pain TECHNIQUE: Frontal and lateral views of the right femur Comparisons: None FINDINGS: There is a mildly displaced fracture involving the intertrochanteric region of the right femur. Soft tissues are unremarkable. Joint spaces are well-maintained. IMPRESSION: Fracture at the intertrochanteric region of the right femur, not well evaluated on radiographs. Consi marianna cross-sectional imaging to better evaluate. Electronically signed by: Pete Elaine MD (06/02/2021 7:35 PM) [facility]
--- NOTE | 2021-06-02 20:56 | RAD ---
Exam: Right hip one view INDICATION: Leg TECHNIQUE: Frontal view of the right hip Comparisons: None FINDINGS: Mildly displaced intertrochanteric right hip fracture. Diffuse osteopenia. Soft tissues are unremarka ble. IMPRESSION: Mildly displaced intertrochanteric right hip fracture. Electronically signed by: Pete Elaine MD (06/02/2021 8:54 PM) [facility]
[2021-06-02 23:00] VITALS: BP 121/54
[2021-06-03] VITALS (13 sets, daily range): BP systolic 86–195; BP diastolic 38–99
[2021-06-03] MEDS ORDERED: ONDANSETRON PF 4 MG/2 ML VIAL. ONE (07:37)
[2021-06-03] MEDS ORDERED: PROPOFOL 10 MG/ML (20ML) VIAL. IV ONE (07:37)
[2021-06-03] MEDS ORDERED: LIDOCAINE 2% PF 5 ML VIAL. ONE (07:37)
[2021-06-03] MEDS ORDERED: DEXAMETHASONE SOD PHOS 4 MG/ML VIAL ONE (07:37)
[2021-06-03] MEDS ORDERED: PHENYLEPHRINE in 0.9% NACL PF 1 MG/10 ML SYRINGE. IV ONE (07:38)
[2021-06-03] MEDS ORDERED: ePHEDrine PF IN SALINE 50 MG/10 ML SYRINGE. IV ONE ×2 (07:38→12:07)
[2021-06-03 07:47] LABS: BASO % 0 % (0-3); EOS # 0.1 x10^3/uL (0.0-0.7); EOS % 2 % (0-3); HEMATOCRIT 29.5 % (36.0-47.0); HEMOGLOBIN 10.1 g/dL (12.0-15.5); LYMPH # 1.1 x10^3/uL (1.0-4.8); LYMPH % 17 % (24-48); MEAN CORPUSCULAR HEMOGLOBIN 32 pg (25-35); MEAN CORPUSCULAR HGB CONC 34 g/dL (31-37); MEAN CORPUSCULAR VOLUME 95 fL (79-100); MONO # 0.6 x10^3/uL (0.0-1.1); MONO % 9 % (0-9); NEUT # 4.6 x10^3/uL (1.8-7.7); NEUT % 72 % (31-73); PLATELET COUNT 150 x10^3/uL (140-400); RED BLOOD COUNT 3.11 x10^6/uL (3.50-5.40); WHITE BLOOD COUNT 6.4 x10^3/uL (4.0-11.0)
[2021-06-03] MEDS ORDERED: IV RINGERS,LACTATED 1000ML 1,000 ML IV SCH (08:00)
[2021-06-03] MEDS ORDERED: MORPHINE SULFATE 2 MG/ML INJ. IVP PRN (08:00)
[2021-06-03] MEDS ORDERED: PROCHLORPERAZINE 10 MG/2 ML VIAL. IVP PRN (08:00)
[2021-06-03] MEDS ORDERED: fentaNYL PF VIAL 100 MCG/2 ML VIAL IVP PRN ×2 (08:00)
[2021-06-03] MEDS ORDERED: HYDROmorphone 2 MG/ML INJ. IVP PRN (08:00)
--- NOTE | 2021-06-03 08:00 | NUR ---
pt transported to surgery.
[2021-06-03 08:08] LABS: ALBUMIN 2.5 g/dL (3.4-5.0); ALBUMIN/GLOBULIN RATIO 0.6 (1.0-1.7); CALCIUM 8.2 mg/dL (8.5-10.1); CREATININE 0.7 mg/dL (0.6-1.0); POTASSIUM 3.1 mmol/L (3.5-5.1); TOTAL BILIRUBIN 3.7 mg/dL (0.2-1.0); TOTAL PROTEIN 6.4 g/dL (6.4-8.2)
[2021-06-03] MEDS ORDERED: LOPERAMIDE 2 MG CAPSULE PO PRN (08:30)
[2021-06-03] MEDS: CETIRIZINE HCL 10 MG TABLET. PO SCH (09:00)
[2021-06-03] MEDS: ASPIRIN CHEWABLE 81 MG TABLET. PO SCH (09:00)
[2021-06-03] MEDS: TAMSULOSIN 0.4 MG CAP.ER.24H. PO SCH (09:00)
[2021-06-03] MEDS: LACTOBACILLUS RHAMNOSUS GG 1 CAPSULE. PO SCH (09:00)
[2021-06-03] MEDS ORDERED: fentaNYL PF VIAL 100 MCG/2 ML VIAL ONE (09:19)
--- NOTE | 2021-06-03 09:24 | HP ---
DATE OF SERVICE: 06/03/2021 ADMIT DATE: 06/02/2021 HISTORY OF PRESENT ILLNESS: The patient is a 75-year-old female patient, resident at [facility] who was brought to the Emergency Room of [facility] via EMS after she fell. The patient was found down on the ground in her shower by staff. She stated that she got up and was in the bathroom and got dizzy and fell backward and hit her head. She does not believe that she has lost consciousness. She was unable to get up off the floor that is why she was still laying there. Staff reported that she was not quite herself the day before she arrived to the Emergency Room and more sleepy than usual. She does have diabetes and uses insulin. She was given her morning insulin, but did not get a chance to eat breakfast. She stated that she has some mild neck pain but is mostly concerned about her right hip and thigh. She is very hard of hearing at baseline, but is normally alert, oriented and able to take care of herself. She does have early dementia. She denied any other complaint. She was extensively investigated in the Emergency Room and she has had an EKG, extensive imaging studies as well as lab work. Her EKG showed that she was in sinus bradycardia with a heart rate of 55 with a leftward axis, but no ST segment elevation or depression. X-ray of the right hip showed that there is a lucency extending across the intertrochanteric area. No hip dislocation is seen. No diastasis of the symphysis pubis or either SI joints is seen. No lytic process is evident. Given the finding, the patient had a CT scan of the right lower extremity which basically showed that there are acute traumatic intertrochanteric fracture of the right femur, fracture line extends into the lesser and greater trochanter anteriorly. The fracture fragments are by 7 mm posterior to the fracture is nondisplaced. There is overall no significant displacement or fracture line extends to the subtrochanteric posterior cortex; however, the visualized pelvic bones are intact. There is a 4 mm faint sclerotic density in the right iliac bone. The hip joint is intact with no dislocation. The uterus probably atrophic. Urinary bladder is unremarkable with no obvious pelvic free fluid. No obvious intramuscular hematoma is identified. She did have a CT scan of the head and cervical spine which showed no acute intracranial abnormality, no acute fracture of the cervical spine. Therefore, the patient was [facility] to consult the orthopedic surgeon. Her blood sugar on arrival was 106 mg/dL, repeat testing was down to 78 and therefore, she was given an amp of D50. The patient was basically started on IV pain medication as well as antiemetic and we held her insulin at nighttime and kept her n.p.o. from midnight for definitive surgical treatment. PAST MEDICAL HISTORY: Significant for type 2 diabetes mellitus, hypertension, cerebrovascular accident, hyperlipidemia, malignant neoplasm of the colon and also malignant neoplasm of the pancreas, status post Whipple's procedure. Does have also history of coronary artery disease and anxiety. PAST SURGICAL HISTORY: Significant for cholecystectomy and Whipple's procedure. ALLERGIES: She has no known drug allergies. MEDICATIONS: She is currently on the following medications: She is on cetirizine 10 mg daily, tamsulosin 0.4 mg daily, atorvastatin calcium 20 mg at bedtime, metoprolol tartrate 25, she takes 12.5 mg twice a day, spironolactone 25 mg once a day, aspirin 81 mg once a day, hydrocodone/APAP 5/325 one to two tablets every 4-6 hours, Lactobacillus acidophilus, probiotic 1 capsule daily. She is on Pulmicort 3 mg enteric coated daily, metformin 500 mg p.o. b.i.d. She is on Humalog insulin as per insulin sliding scale 3 times a day before meals. FAMILY HISTORY: Noncontributory. SOCIAL HISTORY: The patient is a resident at [facility]. She does not smoke, drink alcohol or use recreational drugs. PHYSICAL EXAMINATION: GENERAL: On arrival, the patient was pale, not jaundiced, cyanosed, no lymphadenopathy, no thyromegaly, no jugular venous distention. No lower limb edema. VITAL SIGNS: Her heart rate was 56, blood pressure was 99/41. Her temperature was 97.8, respiratory rate was 18 and oxygen saturation was 96% on room air. HEAD, EYES, EARS, NOSE, AND THROAT: Normocephalic, atraumatic. NECK: Supple. HEART: Normal first and second heart sounds. No gallop, rub or murmur. CHEST: Clear to auscultation, no crepitation or rhonchi. ABDOMEN: Distended, soft, nontender. She has a periumbilical easily reducible hernia. There is no guarding or rigidity. No organomegaly. All hernial orifice intact. Bowel sounds normal. NEUROLOGIC: She is very hard of hearing, but all other cranial nerves are intact. She moves upper extremities without difficulty. Her right lower extremity is externally rotated and shorter. LABORATORY DATA: Her lab work on arrival showed a white cell count of 4000, hemoglobin 9.7, hematocrit 29, MCV 97 and platelet count 138,000 with a normal manual differential. Her chemistry showed a serum sodium 147, potassium 3.3, chloride 111, bicarbonate 23, anion gap of 13, BUN 14, creatinine 0.8. Estimated GFR was 70 mL per minute. Her glucose was 79. Her calcium was 8.8. Her total bilirubin was 2.8. AST, ALT, alkaline phosphatase are elevated. Her troponin I high sensitivity was 13. Total protein 6, albumin was 2.6. ASSESSMENT AND PLAN: In summary, this is a 75-year-old female patient, a resident at [facility], who fell sustaining a right intertrochanteric hip fracture. She was [facility] for definitive surgical treatment. She has multiple other medical problems including hypertension, hyperlipidemia, coronary artery disease, type 2 diabetes mellitus. She also has colon cancer as well as history of pancreatic cancer for which she underwent Whipple's procedure. I do not have any more information about her colon cancer. Her lab work showed that she has hypokalemia, in fact her potassium is only 3.1. Her blood sugar is much better controlled. Her bilirubin is actually high at 3.7, although her liver enzymes are somewhat trending down. My plan is obviously to reconcile all her medications. She was kept n.p.o. and we held her insulin overnight and we have already consulted the orthopedic surgeon for definitive treatment. NIKHIL DR: Jessie TID: [id number]
[2021-06-03] MEDS: POTASSIUM CHLORIDE 10MEQ 100 ML IV SCH ×2 (09:44→11:00)
[2021-06-03] MEDS ORDERED: SEVOFLURANE 31 TO 60 MINUTES. IH ONE (11:15)
[2021-06-03] MEDS: INSULIN LISPRO 300 UNITS/3 ML VIAL. SQ SCH ×3 (11:30→17:54)
--- NOTE | 2021-06-03 12:23 | PDOC4 ---
Operative Note Operative Note Date of procedure: June 03, 2021 Preoperative diagnosis right hip intertrochanteric hip fracture Postoperative diagnosis: Same Procedure: Right short cephalomedullary nail Surgeon: Dr. Elroy Motta DO Senior Technical Manager: None Anesthesia: General Estimated blood loss: 200 cc Drains: None Specimens: None Complications: None apparent Condition: Stable transfer to PACU Implants: All of these were Shweta implants 1. Cephalomedullary nail size 10 x 170 mm 130 degree 2. Lag screw size 85 mm 3. 5 mm locking screw size 35 mm Operative indications: This is a 75-year-old female who presented to the emergency department with the above-stated diagnosis. Operative or nonoperative management as well as the risks and benefits possible complications of surgery was discussed with the patient. These risks include but are not limited to infection, wound healing complications, extension of the fracture, need for revision surgery, nonunion, malunion, failure of the hardware, screw cut out, leg length discrepancy, persistent hip pain, DVT, PE, blood loss possible requiring a blood transfusion, as well as all the medical risks associated with anesthesia. The patient demonstrate understanding of these risks and elected to proceed with the surgery. All questions were answered and informed consent was obtained Procedure description: The patient was identified in the preoperative holding area by myself or the operative extremity was marked with indelible marker. Consent was verified and signed and all questions answered again at that time. The patient was then taken back to the operative suite placed in supine position operative table where anesthesia performed their portion of the procedure by placing the patient under general anesthesia. The bilateral lower extremities were placed in the Kirby table boots. The perineal post was secured between the legs. The boots were then secured to the bilateral spars. The nonoperative extremity was then extended. The ipsilateral arm was placed across the body and secured with foam padding and tape. Fluoroscopic x-ray was brought into the field for preoperative reduction with traction, rotation and abduction of the leg to perform reduction confirmed on fluoroscopic x-ray on the both AP and lateral. The operative extremity was then prepped and draped in standard surgical fashion using alcohol ChloraPrep. Preoperative antibiotics were administered. A timeout was performed by the staff in the room where again the patient identity site of the surgery and surgery itself were confirmed by everyone in the room. X-ray was utilized to identify the tip of the greater trochanter. A 3 cm incision was then made 2 cm proximal to the tip of the greater trochanter. Dissection was carried down with a #10 scalpel blade through skin and through tensor fascia. The greater trochanter was then palpated and the starting guidewire was inserted at the level of the tip of the greater trochanter and in between the anterior one third and posterior two thirds confirmed on orthogonal x-rays. The opening reamer was then advanced over the guidewire and into the superior femoral canal. The reamer and guidewire were then removed and the above-stated nail size was then placed with the level of the lag screw insertion point at the center of the femoral neck. The trocar for the lag screw was then placed and an incision was made at that level through skin and tensor fascia. The trocar was then advanced down to bone. The guidewire was then advanced thr ough the trocar and into the center of the femoral neck on both AP and lateral x-rays. The guidewire was then advanced to subchondral bone and measured to the above stated size lag screw. The drill was then advanced over the guidewire to the same distance of the lag screw. The drill was then removed and the lag screw was then advanced over the guidewire to the appropriate depth confirmed on AP and lateral views. Traction was then removed from the extremity and compression was then performed. The setscrew was then tightened completely and backed off one quarter of a turn to allow for dynamic compression with weightbearing. The trocar and guidewire were then removed and the trocar for the distal interlock was then placed and a skin incision was made at the level of this trocar through skin and through the tensor fascia. The trocar was then advanced down to bone and the drill was advanced through bone bicortically and through the nail under x-ray guidance and measurement was taken off of the drill bit. The appropriate size screw was then advanced through the trocar through the bone bicortically and through the nail confirmed under x-ray. The nail handle was then removed. Final x-rays were obtained again confirming appropriate reduction of the fracture as well as appropriate placement of the hardware. The wounds were then copiously irrigated. The tensor fascia was then closed with a #1 Vicryl in an interrupted [id number] fashion. Followed by subcutaneous tissue closure with a 3-0 Monocryl. And skin closure with kandy. The wounds were then cleaned and dried and sterile dressings applied. All drapes were then removed and the patient was awoken from anesthesia and transferred to the postanesthesia care unit in stable condition with stable vital signs having tolerated procedure well without any apparent complications. All instrument needle and sponge counts were correct x2 at the end the case per the nursing staff. ELROY MOTTA Jr. DO Jun 03, 2021 12:23
--- NOTE | 2021-06-03 12:41 | NUR ---
report received from Maeve LANDRY in PACU, she states pt had an EBL of 200ml and was advised to not order a repeat H&H, she also stated that pt received 2 bags of 10mEq of potassium instead of the NS with potassium that was sent down with patient this morning. Call to Dr Mclaughlin, advised that pt had 200ml of EBL and pt had 20mEq of potassium in OR. VO given to go ahead and hang the NS with K as ordered, add an H&H with the BMP ordered for this afternoon. Advised that if K is 3.5 or above can discontinue the NS with K. If H&H below 7 verbal order to give 1 unit PRBC. will await lab results.
[2021-06-03 13:15] LABS: HEMATOCRIT 27.7 % (36.0-47.0); HEMOGLOBIN 9.7 g/dL (12.0-15.5); RED BLOOD COUNT 2.9 x10^6/uL (3.50-5.40); WHITE BLOOD COUNT 8.8 x10^3/uL (4.0-11.0)
[2021-06-03 13:26] LABS: CREATININE 0.9 mg/dL (0.6-1.0); GFR 61.4; POTASSIUM 3.7 mmol/L (3.5-5.1)
[2021-06-03] MEDS: POTASSIUM CL 40MEQ IN 0.9%NACL 1,000 ML IV SCH (13:45)
--- NOTE | 2021-06-03 13:46 | NUR ---
Vitals upon return progressively dropping post-op, 91/38, VO for NS bolus of 500ml. orders placed. will continue to monitor vitals during infusion.
[2021-06-03] MEDS ORDERED: IV NORMAL SALINE 500ML BAG 500 ML IV ONE (14:15)
--- NOTE | 2021-06-03 15:48 | RAD ---
EXAM: ULTRASOUND ABDOMEN LIMITED CLINICAL HISTORY: Reason: abnormal liver enzymes with history of pancreatic and colon cancer. / Spl. Instructions: / History: COMPARISON: CT abdomen from February 2019 TECHNIQUE: Limited ultrasound examination of the right upper quadrant of the abdomen was performed. FINDINGS: Mid body the pancreas appeared normal. Portions of the head and tail of pancreas were obscured. Liver is echogenic possible fatty infiltration. Liver is poorly evaluated. There is a cyst in the anterior right liver. There is flow the portal vein with color imaging. Liver is difficult to fully evaluate. MRI or cysts CT could be of benefit. Right kidney was 10.4 cm in length without hydronephrosis. Ther e is a 2.4 cm right renal cyst. Patient's had a cholecystectomy. Common duct is dilated measuring 1.3 cm IMPRESSION: 1. Previous cholecystectomy. 2. No right hydronephrosis. 3. Incomplete evaluation of the pancreas. 4. Hepatic cyst. 5. Dilated common duct. Electronically signed by: Jude Navarrete MD (06/03/2021 3:45 PM) [id number]
[2021-06-03] MEDS ORDERED: IV DEXTROSE 5% 250 ML BAG. IV PRN (17:15)
[2021-06-03] MEDS ORDERED: DEXTROSE 50% 25 GM / 50ML DISP.SYRIN. IV PRN (17:15)
[2021-06-03] MEDS: metFORMIN 500 MG TABLET PO SCH (17:52)
[2021-06-03] MEDS: ATORVASTATIN CALCIUM 20 MG TABLET PO SCH (21:33)
[2021-06-03] MEDS: MIRTAZAPINE 7.5 MG TABLET. PO SCH (21:33)
[2021-06-03] MEDS: INSULIN GLARGINE SYRINGE. SQ SCH (21:43)
[2021-06-04] VITALS (14 sets, daily range): BP systolic 86–116; BP diastolic 43–60
[2021-06-04] MEDS: POTASSIUM CL 40MEQ IN 0.9%NACL 1,000 ML IV SCH ×2 (00:03→05:00)
[2021-06-04] MEDS: MORPHINE SULFATE 4 MG/ML INJ. IV PRN (04:03)
[2021-06-04 06:01] LABS: HEMATOCRIT 20.2 % (36.0-47.0); RED BLOOD COUNT 2.08 x10^6/uL (3.50-5.40); RED CELL DISTRIBUTION WIDTH 17.3 % (11.5-14.5); WHITE BLOOD COUNT 11.9 x10^3/uL (4.0-11.0)
[2021-06-04 06:23] LABS: ALBUMIN 2.2 g/dL (3.4-5.0); ALBUMIN/GLOBULIN RATIO 0.7 (1.0-1.7); CALCIUM 7.5 mg/dL (8.5-10.1); GFR 54.3; TOTAL BILIRUBIN 2.6 mg/dL (0.2-1.0); TOTAL PROTEIN 5.5 g/dL (6.4-8.2)
[2021-06-04 06:25] LABS: POTASSIUM 4.8 mmol/L (3.5-5.1)
[2021-06-04 06:54] LABS: HEMOGLOBIN 6.8 g/dL (12.0-15.5)
[2021-06-04] MEDS: INSULIN LISPRO 300 UNITS/3 ML VIAL. SQ SCH ×6 (07:30→17:00)
[2021-06-04] MEDS: CETIRIZINE HCL 10 MG TABLET. PO SCH (08:42)
[2021-06-04] MEDS: metFORMIN 500 MG TABLET PO SCH ×2 (08:42→17:00)
[2021-06-04] MEDS: LACTOBACILLUS RHAMNOSUS GG 1 CAPSULE. PO SCH (08:42)
[2021-06-04] MEDS: TAMSULOSIN 0.4 MG CAP.ER.24H. PO SCH (08:43)
[2021-06-04] MEDS: ASPIRIN CHEWABLE 81 MG TABLET. PO SCH (09:00)
--- NOTE | 2021-06-04 09:55 | PN ---
DATE: 06/04/2021 SUBJECTIVE: The patient is resting, slightly propped up in bed, in no apparent distress. She is very hard of hearing. On questioning her; however, she denied any complaint. Nursing staff stated that her H and H has dropped down to 6.8 and 20.2, although there is no obvious site of bleeding. She was given a bolus of normal saline and started on IV fluid, could be that at least in part hemodilution is playing the factor. Her electrolytes were also abnormal as she has hyponatremia and hypokalemia that has improved. PHYSICAL EXAMINATION: GENERAL: When I examined her, she was pale, but no jaundice, cyanosis, no lymphadenopathy, no thyromegaly, no jugular venous distention. No limb edema. VITAL SIGNS: Her heart rate this morning was 78, blood pressure is 105/43, temperature 97.8, respiratory rate 20, and oxygen saturation was 98% on 2 liters of oxygen by nasal cannula. HEAD, EYES, EARS, NOSE, AND THROAT: Normocephalic, atraumatic. NECK: Supple. HEART: Normal first and second heart sounds. No gallop, rub or murmur. CHEST: Clear to auscultation, no crepitation or rhonchi. ABDOMEN: Scaphoid, soft, nontender. NEUROLOGIC: She is very hard of hearing, but otherwise all her cranial nerves are intact. She moves upper extremities without difficulty. She is mostly bedbound. Her intake and output are incompletely recorded. LABORATORY DATA: This morning showed a white cell count 11.9, hemoglobin 6.8, hematocrit 20.2, MCV 97 and platelet count of 155,000. Her chemistry showed a serum sodium 139, potassium 4.8, chloride 109, bicarbonate 20, anion gap of 10, BUN 20, creatinine 1, estimated GFR was 54 mL per minute. Her glucose 149, calcium was 7.5. Total bilirubin 2.6. AST is elevated. ALT and alkaline phosphatase are normal. Total protein 5.5, albumin was 2.2. ASSESSMENT: 1. Fall with resultant right hip intertrochanteric fracture, status post right short cephalomedullary nail. The patient has a multitude of other medical problems including: A. Type 2 diabetes mellitus, seems to be reasonably controlled. B. Hypertension. C. Cerebrovascular accident. D. Hyperlipidemia. E. Malignant neoplasm of the colon. F. Malignant neoplasm of the pancreas, status post Whipple's procedure. H. Coronary artery disease. 2. Blood loss anemia with a hemoglobin that dropped down to 6.8 for which we will type and cross and transfuse 1 unit of packed RBCs. We will also consult physical and occupational therapy. PLAN: Her potassium has normalized and therefore I will switch her IV fluid to normal saline. I will also order SCDs for DVT prophylaxis. LORI/SARAN DR: Jessie TID: [id number]
--- NOTE | 2021-06-04 10:32 | NUR ---
SW following. Discussed with RN. 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 Pt getting blood today. PT/OT ordered. Pt can return SNF or LTC. SW will continue to follow.
--- NOTE | 2021-06-04 14:57 | NUR ---
bladder scan completed with >952ml urine. Rust placed per verbal order from Dr Mclaughlin. Plan to remove rust once PT assesses patient.
--- NOTE | 2021-06-04 17:00 | NUR ---
pt blood sugar at 44, 15g of dextrose given, bp at 110/43. Paged dr su.
--- NOTE | 2021-06-04 17:05 | NUR ---
Return page from Dr Mclaughlin, advised of patients status, verbal order for CBC, CMP, D10 at 30ml/hr, blood sugar every hour and once sugar reaches 100-150 can drop rate to 20ml/hr.
[2021-06-04] MEDS: IV DEXTROSE 10% 1,000 ML IV SCH (17:51)
[2021-06-04 18:55] LABS: BASO % 0 % (0-3); EOS # 0.1 x10^3/uL (0.0-0.7); EOS % 1 % (0-3); HEMATOCRIT 22.5 % (36.0-47.0); HEMOGLOBIN 7.7 g/dL (12.0-15.5); LYMPH # 1.8 x10^3/uL (1.0-4.8); LYMPH % 16 % (24-48); MEAN CORPUSCULAR HEMOGLOBIN 33 pg (25-35); MEAN CORPUSCULAR HGB CONC 34 g/dL (31-37); MEAN CORPUSCULAR VOLUME 95 fL (79-100); MONO # 1.7 x10^3/uL (0.0-1.1); MONO % 15 % (0-9); NEUT # 7.4 x10^3/uL (1.8-7.7); NEUT % 67 % (31-73); PLATELET COUNT 168 x10^3/uL (140-400); RED BLOOD COUNT 2.38 x10^6/uL (3.50-5.40); RED CELL DISTRIBUTION WIDTH 18.4 % (11.5-14.5)
[2021-06-04 19:02] LABS: CALCIUM 7.8 mg/dL (8.5-10.1); CREATININE 1.1 mg/dL (0.6-1.0); GFR 48.7; POTASSIUM 4.8 mmol/L (3.5-5.1)
[2021-06-04 19:08] LABS: ALBUMIN 2.2 g/dL (3.4-5.0); ALBUMIN/GLOBULIN RATIO 0.7 (1.0-1.7); TOTAL BILIRUBIN 3.2 mg/dL (0.2-1.0); TOTAL PROTEIN 5.5 g/dL (6.4-8.2)
--- NOTE | 2021-06-04 19:31 | NUR ---
DR GINO DAVALOS
--- NOTE | 2021-06-04 19:44 | NUR ---
RETURN CALL FROM DR CHRISTIAN, ADVISED OF RECENT BLOOD SUGAR AT 87 AND RECENT LAB RESULTS. VERBAL ORDERS FOR ABG AND OK TO TRANSFER TO [facility] FOR FURTHER MONITORING.
--- NOTE | 2021-06-04 20:41 | NUR ---
CALLED REPORT TO MIKO LANDRY ON , PT TRANSPORTED TO [phone] WITH ALL BELONGINGS. CALLED PT SON PIPER WITH UPDATES. NO OTHER NEEDS.
[2021-06-04] MEDS: INSULIN GLARGINE SYRINGE. SQ SCH (21:00)
[2021-06-04] MEDS: MIRTAZAPINE 7.5 MG TABLET. PO SCH (21:00)
--- NOTE | 2021-06-04 21:00 | NUR ---
ASSUME CARE, PT A/O, PT ANSWERS QUESTIONS APPROPRIATELY, VSS, BLOOD SUGAR WNL, WILL CONT TO MONITOR PT STATUS AND STATUS. CALL LIGHT IN REACH. PMRN
[2021-06-04] MEDS: ATORVASTATIN CALCIUM 20 MG TABLET PO SCH (21:04)
[2021-06-05] VITALS (19 sets, daily range): BP systolic 91–116; BP diastolic 36–64
[2021-06-05] MEDS: MORPHINE SULFATE 4 MG/ML INJ. IV PRN ×2 (02:50→13:44)
[2021-06-05 06:46] LABS: HEMATOCRIT 19.9 % (36.0-47.0); RED BLOOD COUNT 2.11 x10^6/uL (3.50-5.40); RED CELL DISTRIBUTION WIDTH 18.5 % (11.5-14.5)
[2021-06-05 07:00] LABS: ALBUMIN 2.1 g/dL (3.4-5.0); ALBUMIN/GLOBULIN RATIO 0.7 (1.0-1.7); CALCIUM 7.6 mg/dL (8.5-10.1); GFR 54.3; POTASSIUM 4.6 mmol/L (3.5-5.1); TOTAL BILIRUBIN 3.3 mg/dL (0.2-1.0); TOTAL PROTEIN 5.2 g/dL (6.4-8.2)
[2021-06-05 07:05] LABS: HEMOGLOBIN 6.9 g/dL (12.0-15.5)
[2021-06-05] MEDS: INSULIN LISPRO 300 UNITS/3 ML VIAL. SQ SCH ×6 (07:30→16:51)
[2021-06-05] MEDS: TAMSULOSIN 0.4 MG CAP.ER.24H. PO SCH (09:10)
[2021-06-05] MEDS: ASPIRIN CHEWABLE 81 MG TABLET. PO SCH (09:10)
[2021-06-05] MEDS: metFORMIN 500 MG TABLET PO SCH ×2 (09:10→16:51)
[2021-06-05] MEDS: LACTOBACILLUS RHAMNOSUS GG 1 CAPSULE. PO SCH (09:10)
[2021-06-05] MEDS: CETIRIZINE HCL 10 MG TABLET. PO SCH (09:10)
--- NOTE | 2021-06-05 10:48 | PN ---
DATE: 06/05/2021 SUBJECTIVE: The patient is resting, slightly almost flat in bed, continued to be extremely lethargic. She did have a low blood sugar yesterday with blood sugar down to 44, so we did start her actually on D10 and transferred her to [address] [place] [address], continued to be monitored. She dropped her H and H also yesterday down to 6.8 and received 1 unit of packed RBCs and her hemoglobin has risen to 7.7 yesterday and this morning dropped down again to 6.9. There was no documented history of hematemesis, melena or hematochezia. Although her dressing saturated. There is no evidence of any soft tissue swelling around her right hip joint. PHYSICAL EXAMINATION: GENERAL: When I examined her this morning, she was pale, but no jaundice, cyanosis, no lymphadenopathy, no thyromegaly, no jugular venous distention. No limb edema. VITAL SIGNS: Her rate was 88, blood pressure is 101/48, temperature was 99.6, respiratory rate was 18 and her oxygen saturation was 94% on room air. HEAD, EYES, EARS, NOSE AND THROAT: Normocephalic, atraumatic. NECK: Supple. HEART: Showed normal first and second heart sounds. No gallop, rub or murmur. CHEST: Shows central trachea, equal bilateral expansion, air entry, vesicular breath sounds. No crepitation or rhonchi. ABDOMEN: Scaphoid, soft, nontender. NEUROLOGIC: She is very lethargic and drowsy, but she does open her eyes and drifts back to sleep. All her cranial nerves are grossly intact. She moves upper extremities spontaneously. She definitely has no neck rigidity. Her intake was 870, output was 200. As of this morning, her white cell count was 8000, hemoglobin 6.9, hematocrit 19.9, MCV 94 and platelet count 348,000. Her chemistry showed a serum sodium of 137, potassium 4.6, chloride 100, bicarbonate 24, anion gap 7, BUN 30, creatinine is 1, potassium 1. Her estimated GFR was 54. Glucose 172, calcium was 7.6. Total bilirubin was high at 3.3. However, AST, ALT and alkaline phosphatase is normal. Total protein 5.2, albumin was 2.1. ASSESSMENT: 1. Fall with resultant right hip intertrochanteric fracture, status post right short cephalomedullary nailing. 2. The patient has multiple other medical problems including: A. Type 2 diabetes mellitus that seemed to be reasonably controlled, in fact, she has hypoglycemia yesterday and was started on D10. B. Hypertension. She is borderline hypertensive. C. Cerebrovascular accident. D. Hyperlipidemia. E. Malignant neoplasm of the colon. F. Malignant neoplasm of the pancreas, status post Whipple's procedure. G. Coronary artery disease. 2. Blood loss anemia for which she will be receiving a second unit of packed RBCs. PLAN: My plan is to continue with D10 to maintain a blood sugar of around 150. I will add ammonium chloride as well as blood gases. We will check stool for occult blood given that her BUN has actually risen dramatically and start her on IV Protonix. ACRI DR: Jessie TID: [id number]
--- NOTE | 2021-06-05 10:56 | RAD ---
CT PELVIS WO History: Possible postoperative bleed. Comparison: Fluoroscopy 06/03/2021. Hip radiograph 06/02/2021. Technique: Noncontrast CT of the pelvis. Findings: There are postsurgical changes from right proximal femur intramedullary nail and dynamic compression screw internal fixation. Alignment at the right hip is near-anatomic. No dislocation. In the subcutaneous fat superior to the right greater trochanter, immediately deep to a row of surgic al kandy, there is a hyperdense subcutaneous collection measuring 5.2 x 3.6 x 6.7 cm, most likely r epresenting hematoma. There are a few foci of adjacent subcutaneous air. Diffuse soft tissue swelling surrounds the right hip and proximal femur as well as scattered areas of subcutaneous emphysema consistent with recent instrumentation. Postsurgical changes with bowel anastomosis seen in the midabdomen. Heavy aortoiliac atherosclerotic calcifications. Partially visualized appendix normal caliber at the base. Henning catheter within the b ladder. Decreased osseous mineralization. Degenerative changes at the lumbosacral junction. Bilateral sacroiliac sclerosis. Fat-containing right lower abdominal right ventral hernia. Impression: 1. Subcutaneous hematoma measuring to approximately 5 x 4 x 7 cm in the superior right hip immediate ly deep to a row of skin kandy. 2. Diffuse soft tissue swelling in the right hip with subcutaneous air consistent with recent instru mentation and ORIF of the right femur intertrochanteric fracture. ------ Exposure: One or more of the following individualized dose reduction techniques were utilized for thi s examination: 1. Automated exposure control 2. Adjustment of the mA and/or kV according to patient size 3. Use of iterative reconstruction technique. Electronically signed by: Allan Doll MD (06/05/2021 10:54 AM) [id number]
[2021-06-05 12:00] LABS: PROTHROMBIN TIME PATIENT 64.1 SEC (11.7-14.0)
[2021-06-05] MEDS ORDERED: PHYTONADIONE 10 MG/ML AMPUL. SQ ONE (12:15)
--- NOTE | 2021-06-05 13:27 | NUR ---
SS following for discharge planning. SS reviewed pt chart and discussed with pt RN. Pt is LTC resident from [facility], ; fax [phone]. COVID19 negative. PT/OT ordered. CT of pelvis. Pt had surgery on 06/03/2021. Clinical updates phoned and faxed to [facility]. SS will continue to follow for discharge planning.
[2021-06-05 13:32] LABS: BASE EXCESS ABG -2 mmol/L (-3-3); HCO3 ABG 21 mmol/L (21-28); PCO2 ABG 28 mmHg (35-46); PO2 ABG 107 mmHg (65-108); SAT O2 ABG 98 % (92-99)
[2021-06-05 13:36] LABS: FIO2 ABG 0.5L n.c.
[2021-06-05] MEDS: IV DEXTROSE 10% 1,000 ML IV SCH (17:14)
[2021-06-05] MEDS ORDERED: ACETAMINOPHEN 325 MG TABLET. PO PRN (17:15)
--- NOTE | 2021-06-05 17:31 | PDOC ---
PROGRESS NOTES Date of Service DATE: 06/05/21 TIME: 17:21 Subjective Subjective Problems overnight: Objective Vital Signs Vital Signs Date Time Temp Pulse Resp B/P (MAP) Pulse Ox O2 Delivery O2 Flow Rate FiO2 06/05/21 17:03 100.1 74 20 109/44 100.1 06/05/21 14:44 94 Room Air 06/05/21 14:14 0.5 Labs Laboratory Tests Test 06/03/21 19:13 06/04/21 05:30 06/04/21 07:57 06/04/21 12:05 Glucose (Fingerstick) 179 mg/dL (70-99) 135 mg/dL (70-99) 220 mg/dL (70-99) White Blood Count 11.9 x10^3/uL (4.0-11.0) Red Blood Count 2.08 x10^6/uL (3.50-5.40) Hemoglobin 6.8 g/dL (12.0-15.5) Hematocrit 20.2 % (36.0-47.0) Mean Corpuscular Volume 97 fL (79-100) Mean Corpuscular Hemoglobin 33 pg (25-35) Mean Corpuscular Hemoglobin Concent 34 g/dL (31-37) Red Cell Distribution Width 17.3 % (11.5-14.5) Platelet Count 155 x10^3/uL (140-400) Sodium Level 139 mmol/L (136-145) Potassium Level 4.8 mmol/L (3.5-5.1) Chloride Level 109 mmol/L (98-107) Carbon Dioxide Level 20 mmol/L (21-32) Anion Gap 10 (6-14) Blood Urea Nitrogen 20 mg/dL (7-20) Creatinine 1.0 mg/dL (0.6-1.0) Estimated GFR (Cockcroft-Gault) 54.3 BUN/Creatinine Ratio 20 (6-20) Glucose Level 149 mg/dL (70-99) Calcium Level 7.5 mg/dL (8.5-10.1) Total Bilirubin 2.6 mg/dL (0.2-1.0) Aspartate Amino Transf (AST/SGOT) 63 U/L (15-37) Alanine Aminotransferase (ALT/SGPT) 32 U/L (14-59) Alkaline Phosphatase 108 U/L (46-116) Total Protein 5.5 g/dL (6.4-8.2) Albumin 2.2 g/dL (3.4-5.0) Albumin/Globulin Ratio 0.7 (1.0-1.7) Test 06/04/21 17:05 06/04/21 17:32 06/04/21 18:20 06/04/21 18:26 Glucose (Fingerstick) 44 mg/dL (70-99) 94 mg/dL (70-99) 87 mg/dL (70-99) White Blood Count 11.0 x10^3/uL (4.0-11.0) Red Blood Count 2.38 x10^6/uL (3.50-5.40) Hemoglobin 7.7 g/dL (12.0-15.5) Hematocrit 22.5 % (36.0-47.0) Mean Corpuscular Volume 95 fL (79-100) Mean Corpuscular Hemoglobin 33 pg (25-35) Mean Corpuscular Hemoglobin Concent 34 g/dL (31-37) Red Cell Distribution Width 18.4 % (11.5-14.5) Platelet Count 168 x10^3/uL (140-400) Neutrophils (%) (Auto) 67 % (31-73) Lymphocytes (%) (Auto) 16 % (24-48) Monocytes (%) (Auto) 15 % (0-9) Eosinophils (%) (Auto) 1 % (0-3) Basophils (%) (Auto) 0 % (0-3) Neutrophils # (Auto) 7.4 x10^3/uL (1.8-7.7) Lymphocytes # (Auto) 1.8 x10^3/uL (1.0-4.8) Monocytes # (Auto) 1.7 x10^3/uL (0.0-1.1) Eosinophils # (Auto) 0.1 x10^3/uL (0.0-0.7) Basophils # (Auto) 0.0 x10^3/uL (0.0-0.2) Sodium Level 140 mmol/L (136-145) Potassium Level 4.8 mmol/L (3.5-5.1) Chloride Level 109 mmol/L (98-107) Carbon Dioxide Level 19 mmol/L (21-32) Anion Gap 12 (6-14) Blood Urea Nitrogen 29 mg/dL (7-20) Creatinine 1.1 mg/dL (0.6-1.0) Estimated GFR (Cockcroft-Gault) 48.7 BUN/Creatinine Ratio 26 (6-20) Glucose Level 80 mg/dL (70-99) Calcium Level 7.8 mg/dL (8.5-10.1) Total Bilirubin 3.2 mg/dL (0.2-1.0) Aspartate Amino Transf (AST/SGOT) 58 U/L (15-37) Alanine Aminotransferase (ALT/SGPT) 11 U/L (14-59) Alkaline Phosphatase 107 U/L (46-116) Total Protein 5.5 g/dL (6.4-8.2) Albumin 2.2 g/dL (3.4-5.0) Albumin/Globulin Ratio 0.7 (1.0-1.7) Test 06/04/21 19:37 06/04/21 20:31 06/04/21 21:33 06/04/21 22:32 Glucose (Fingerstick) 76 mg/dL (70-99) 92 mg/dL (70-99) 122 mg/dL (70-99) 139 mg/dL (70-99) Test 06/04/21 23:31 06/05/21 00:38 06/05/21 01:32 06/05/21 02:32 Glucose (Fingerstick) 143 mg/dL (70-99) 159 mg/dL (70-99) 168 mg/dL (70-99) 183 mg/dL (70-99) Test 06/05/21 06:23 06/05/21 06:35 06/05/21 09:08 06/05/21 11:28 Glucose (Fingerstick) 161 mg/dL (70-99) 162 mg/dL (70-99) 154 mg/dL (70-99) White Blood Count 8.0 x10^3/uL (4.0-11.0) Red Blood Count 2.11 x10^6/uL (3.50-5.40) Hemoglobin 6.9 g/dL (12.0-15.5) Hematocrit 19.9 % (36.0-47.0) Mean Corpuscular Volume 94 fL (79-100) Mean Corpuscular Hemoglobin 33 pg (25-35) Mean Corpuscular Hemoglobin Concent 35 g/dL (31-37) Red Cell Distribution Width 18.5 % (11.5-14.5) Platelet Count 148 x10^3/uL (140-400) Sodium Level 137 mmol/L (136-145) Potassium Level 4.6 mmol/L (3.5-5.1) Chloride Level 108 mmol/L (98-107) Carbon Dioxide Level 22 mmol/L (21-32) Anion Gap 7 (6-14) Blood Urea Nitrogen 30 mg/dL (7-20) Creatinine 1.0 mg/dL (0.6-1.0) Estimated GFR (Cockcroft-Gault) 54.3 BUN/Creatinine Ratio 30 (6-20) Glucose Level 172 mg/dL (70-99) Calcium Level 7.6 mg/dL (8.5-10.1) Total Bilirubin 3.3 mg/dL (0.2-1.0) Aspartate Amino Transf (AST/SGOT) 57 U/L (15-37) Alanine Aminotransferase (ALT/SGPT) 10 U/L (14-59) Alkaline Phosphatase 102 U/L (46-116) Total Protein 5.2 g/dL (6.4-8.2) Albumin 2.1 g/dL (3.4-5.0) Albumin/Globulin Ratio 0.7 (1.0-1.7) Test 06/05/21 11:30 06/05/21 12:17 06/05/21 16:50 Prothrombin Time 64.1 SEC (11.7-14.0) Prothromb Time International Ratio 7.8 (0.8-1.1) Ammonia 97 mcmol/L (11-34) O2 Saturation 98 % (92-99) Arterial Blood pH 7.50 (7.35-7.45) Arterial Blood pCO2 at Patient Temp 28 mmHg (35-46) Arterial Blood pO2 at Patient Temp 107 mmHg (65-108) Arterial Blood HCO3 21 mmol/L (21-28) Arterial Blood Base Excess -2 mmol/L (-3-3) FiO2 0.5l n.c. Glucose (Fingerstick) 136 mg/dL (70-99) Laboratory Tests Test 06/04/21 17:32 06/04/21 18:20 06/04/21 18:26 06/04/21 19:37 Glucose (Fingerstick) 94 mg/dL (70-99) 87 mg/dL (70-99) 76 mg/dL (70-99) White Blood Count 11.0 x10^3/uL (4.0-11.0) Red Blood Count 2.38 x10^6/uL (3.50-5.40) Hemoglobin 7.7 g/dL (12.0-15.5) Hematocrit 22.5 % (36.0-47.0) Mean Corpuscular Volume 95 fL (79-100) Mean Corpuscular Hemoglobin 33 pg (25-35) Mean Corpuscular Hemoglobin Concent 34 g/dL (31-37) Red Cell Distribution Width 18.4 % (11.5-14.5) Platelet Count 168 x10^3/uL (140-400) Neutrophils (%) (Auto) 67 % (31-73) Lymphocytes (%) (Auto) 16 % (24-48) Monocytes (%) (Auto) 15 % (0-9) Eosinophils (%) (Auto) 1 % (0-3) Basophils (%) (Auto) 0 % (0-3) Neutrophils # (Auto) 7.4 x10^3/uL (1.8-7.7) Lymphocytes # (Auto) 1.8 x10^3/uL (1.0-4.8) Monocytes # (Auto) 1.7 x10^3/uL (0.0-1.1) Eosinophils # (Auto) 0.1 x10^3/uL (0.0-0.7) Basophils # (Auto) 0.0 x10^3/uL (0.0-0.2) Sodium Level 140 mmol/L (136-145) Potassium Level 4.8 mmol/L (3.5-5.1) Chloride Level 109 mmol/L (98-107) Carbon Dioxide Level 19 mmol/L (21-32) Anion Gap 12 (6-14) Blood Urea Nitrogen 29 mg/dL (7-20) Creatinine 1.1 mg/dL (0.6-1.0) Estimated GFR (Cockcroft-Gault) 48.7 BUN/Creatinine Ratio 26 (6-20) Glucose Level 80 mg/dL (70-99) Calcium Level 7.8 mg/dL (8.5-10.1) Total Bilirubin 3.2 mg/dL (0.2-1.0) Aspartate Amino Transf (AST/SGOT) 58 U/L (15-37) Alanine Aminotransferase (ALT/SGPT) 11 U/L (14-59) Alkaline Phosphatase 107 U/L (46-116) Total Protein 5.5 g/dL (6.4-8.2) Albumin 2.2 g/dL (3.4-5.0) Albumin/Globulin Ratio 0.7 (1.0-1.7) Test 06/04/21 20:31 06/04/21 21:33 06/04/21 22:32 06/04/21 23:31 Glucose (Fingerstick) 92 mg/dL (70-99) 122 mg/dL (70-99) 139 mg/dL (70-99) 143 mg/dL (70-99) Test 06/05/21 00:38 06/05/21 01:32 06/05/21 02:32 06/05/21 06:23 Glucose (Fingerstick) 159 mg/dL (70-99) 168 mg/dL (70-99) 183 mg/dL (70-99) 161 mg/dL (70-99) Test 06/05/21 06:35 06/05/21 09:08 06/05/21 11:28 06/05/21 11:30 White Blood Count 8.0 x10^3/uL (4.0-11.0) Red Blood Count 2.11 x10^6/uL (3.50-5.40) Hemoglobin 6.9 g/dL (12.0-15.5) Hematocrit 19.9 % (36.0-47.0) Mean Corpuscular Volume 94 fL (79-100) Mean Corpuscular Hemoglobin 33 pg (25-35) Mean Corpuscular Hemoglobin Concent 35 g/dL (31-37) Red Cell Distribution Width 18.5 % (11.5-14.5) Platelet Count 148 x10^3/uL (140-400) Sodium Level 137 mmol/L (136-145) Potassium Level 4.6 mmol/L (3.5-5.1) Chloride Level 108 mmol/L (98-107) Carbon Dioxide Level 22 mmol/L (21-32) Anion Gap 7 (6-14) Blood Urea Nitrogen 30 mg/dL (7-20) Creatinine 1.0 mg/dL (0.6-1.0) Estimated GFR (Cockcroft-Gault) 54.3 BUN/Creatinine Ratio 30 (6-20) Glucose Level 172 mg/dL (70-99) Calcium Level 7.6 mg/dL (8.5-10.1) Total Bilirubin 3.3 mg/dL (0.2-1.0) Aspartate Amino Transf (AST/SGOT) 57 U/L (15-37) Alanine Aminotransferase (ALT/SGPT) 10 U/L (14-59) Alkaline Phosphatase 102 U/L (46-116) Total Protein 5.2 g/dL (6.4-8.2) Albumin 2.1 g/dL (3.4-5.0) Albumin/Globulin Ratio 0.7 (1.0-1.7) Glucose (Fingerstick) 162 mg/dL (70-99) 154 mg/dL (70-99) Prothrombin Time 64.1 SEC (11.7-14.0) Prothromb Time International Ratio 7.8 (0.8-1.1) Ammonia 97 mcmol/L (11-34) Test 06/05/21 12:17 06/05/21 16:50 O2 Saturation 98 % (92-99) Arterial Blood pH 7.50 (7.35-7.45) Arterial Blood pCO2 at Patient Temp 28 mmHg (35-46) Arterial Blood pO2 at Patient Temp 107 mmHg (65-108) Arterial Blood HCO3 21 mmol/L (21-28) Arterial Blood Base Excess -2 mmol/L (-3-3) FiO2 0.5l n.c. Glucose (Fingerstick) 136 mg/dL (70-99) Assessment Assessment POD# 2 s/p R hip gamma nail Plan Plan of Care Pt seen, was transferred to progressive care unit last night. Had low hgb and issues with BP and BG. She got a unit of PRBCs last night and again today. High INR but no known underlying liver disease. Pt not on anticoagulant at facility. RN reports that she was woken up every hour last night for finger sticks so didn't sleep. Ammonia high as well. IM involved. Pt barely wakes up for exam and goes back to sleep almost immediately. Getting FFP now, has been 2 hours since PRBCs were transfused per RN. Pt does not participate with exam. R hip dressing clean, dry and intact, no sangenous fluid on dressing. No pain response with PROM of the hip. Calf soft BL. SCD in place BL. Pt does plantarflex/dorsiflex the foot. Reviewed chart. Plan per IM. There was a CT done but the amount of hematoma seen there is unlikely to cause her hgb to drop that much after PRBCs last night. Stool was flushed so hemoccult blood has not been obtained yet. Discussed with RN that her drop in hgb unlikely from her surgical site after exam today and stool may need to be obtained digitally given the patient's overall appearance today. As far as her hip, she is WBAT, no restrictions. Justicifation of Admission Dx: Justifications for Admission: Justification of Admission Dx: Yes DRAGAN KHAN Jun 05, 2021 17:31
[2021-06-05] MEDS ORDERED: LACTULOSE 20 GM/30 ML SOLUTION. PO PRN (17:45)
[2021-06-05 18:42] LABS: CALCIUM 7.7 mg/dL (8.5-10.1); GFR 54.3; POTASSIUM 4.3 mmol/L (3.5-5.1)
[2021-06-05 19:04] LABS: PROTHROMBIN TIME PATIENT 30.9 SEC (11.7-14.0)
--- NOTE | 2021-06-05 19:40 | NUR ---
attempt to insert ng tube w/o success, pt swinging arms, yelling and cussing, this rn calm pt down, then pt able to take lactolose po, will cont to monitor. pmrn
[2021-06-05] MEDS ORDERED: PANTOPRAZOLE IV PUSH 40 MG VIAL. IVP ONE (20:00)
--- NOTE | 2021-06-05 20:53 | RAD ---
AP chest. HISTORY: Worsening condition AP view was taken of the chest. Comparison is made with a study from March. There is a left Port-A -Cath unchanged. Patient's taken a poor inspiration. There are hazy bilateral infiltrates from atypic al pneumonia or pulmonary edema. There is no effusion. IMPRESSION: 1. Bilateral hazy infiltrates from pulmonary edema or atypical pneumonia. Electronically signed by: Jude Navarrete MD (06/05/2021 8:51 PM) [facility]
[2021-06-05] MEDS: INSULIN GLARGINE SYRINGE. SQ SCH (21:00)
[2021-06-05] MEDS: ATORVASTATIN CALCIUM 20 MG TABLET PO SCH (21:00)
[2021-06-05] MEDS: MIRTAZAPINE 7.5 MG TABLET. PO SCH (21:00)
[2021-06-06] VITALS (14 sets, daily range): BP systolic 106–134; BP diastolic 51–99
[2021-06-06 04:49] LABS: HEMATOCRIT 19.6 % (36.0-47.0); RED BLOOD COUNT 2.16 x10^6/uL (3.50-5.40); RED CELL DISTRIBUTION WIDTH 18.2 % (11.5-14.5); WHITE BLOOD COUNT 5.2 x10^3/uL (4.0-11.0)
[2021-06-06 04:52] LABS: HEMOGLOBIN 6.8 g/dL (12.0-15.5)
[2021-06-06 05:03] LABS: ALBUMIN 2.1 g/dL (3.4-5.0); ALBUMIN/GLOBULIN RATIO 0.7 (1.0-1.7); CALCIUM 7.9 mg/dL (8.5-10.1); GFR 54.3; POTASSIUM 3.5 mmol/L (3.5-5.1); TOTAL BILIRUBIN 4.6 mg/dL (0.2-1.0); TOTAL PROTEIN 5.1 g/dL (6.4-8.2)
--- NOTE | 2021-06-06 05:29 | NUR ---
PT HEMOGLOBIN 6.8, DR CHRISTIAN NOTIFIED, NEW ORDERS RECEIVED SEE ORDERS. WILL MONITOR PT. PMRN
[2021-06-06] MEDS: PANTOPRAZOLE IV PUSH 40 MG VIAL. IVP SCH (05:37)
[2021-06-06 05:52] LABS: PROTHROMBIN TIME PATIENT 31.9 SEC (11.7-14.0)
[2021-06-06] MEDS: INSULIN LISPRO 300 UNITS/3 ML VIAL. SQ SCH ×6 (07:30→17:00)
[2021-06-06] MEDS ORDERED: LACTULOSE 20 GM/30 ML SOLUTION. PO SCH (08:00)
[2021-06-06] MEDS: TAMSULOSIN 0.4 MG CAP.ER.24H. PO SCH (09:35)
[2021-06-06] MEDS: LACTOBACILLUS RHAMNOSUS GG 1 CAPSULE. PO SCH (09:35)
[2021-06-06] MEDS: metFORMIN 500 MG TABLET PO SCH ×2 (09:35→17:55)
[2021-06-06] MEDS: CETIRIZINE HCL 10 MG TABLET. PO SCH (09:36)
[2021-06-06] MEDS: ASPIRIN CHEWABLE 81 MG TABLET. PO SCH (09:36)
[2021-06-06 10:30] LABS: FECAL OB PT NEGATIVE (NEG)
[2021-06-06] MEDS ORDERED: PHYTONADIONE 10 MG/ML AMPUL. SQ ONE (11:30)
[2021-06-06] MEDS: LACTULOSE 20 GM/30 ML SOLUTION. PO SCH ×3 (12:30→23:51)
--- NOTE | 2021-06-06 12:48 | PDOC2 ---
GI CONSULT Date of Service: DATE: 06/06/21 TIME: 12:00 Reason For Consult: elevated LFTs and INR HPI: HPI: 75 y/o female admitted w/ right hip fracture after fall at nursing facility s/p nailing 06/03/21 w/ hematoma noted on post-op CT. Admitting Hgb was 10.1 w/ drift down to 6-7 range requiring pRBCs. No obvious GI bleeding and Hemoccult negative. On 06/05, first check of INR was 7.8. Per d/w Dr. Mclaughlin and nursing, pt does not take any anti-coagulants regularly and has not received any here. INR improved to 3.1 s/p vit K and FFP. Plt normal til today - slightly low at 127. Bili, AST, and Alk Phos elevated on admission - Alk Phos now normal, AST improved (69), and bili bit worse (4.6). Ammonia 97 on 06/05, down to 57 today w/ lactulose. Mental status is better today per nurse - attempt to insert NGT yesterday unsuccessful, epistaxis. No obvious GI bleeding. H/o cholangiocarcinoma s/p Whipple (margins and lymph nodes negative for tumor) in 2016 - we saw at that time and pre-operatively had ERCP w/ stent by Dr. Iraheta. CT C/A/P ordered by Dr. Porter in 2019 showed stable postoperative changes compatible with a prior Billroth type procedure with no evidence for local dise ase recurrence or of active metastatic disease. Note made of diffuse hepatic steatosis. US this admission shows possible fatty infiltrated (but poorly evaluated), right hepatic cyst, dilated CBD (1.3cm), s/p cholecystectomy. From past GI encounter: she reported previous normal EGD and colonoscopy w/ Dr. Hawknis. Chronically anemic - low normal B12, elevated iron saturation, normal iron, and low TIBC in 2017 (I believe checked prior to transfusion at that time). H/o C Diff treated w/ shanae. Mention of colon cancer in other notes - these details are unclear. She's not a great historian - doesn't know about any h/o liver disease. "I know I have cancer" - can't elaborate. Also wants me to call someone to get her the hell out of here. PMH: PMH: CAD, CVA, HTN, HLD, DM, anemia, cholangiocarcinoma, pancreatic fistula, dementia right ankle surgery, arm fracture, Whipple/chemo FH: Family History: Cancer Social History: Smoke: No ALCOHOL: rare Drugs: None ROS: Difficult to obtain. Vitals: Vitals: Vital Signs Date Time Temp Pulse Resp B/P (MAP) Pulse Ox O2 Delivery O2 Flow Rate FiO2 06/06/21 10:44 98.8 63 18 123/63 (83) 96 Room Air 2.0 98.8 Labs: Labs: Laboratory Tests Test 06/05/21 12:17 06/05/21 16:50 06/05/21 18:20 06/05/21 21:08 O2 Saturation 98 % (92-99) Arterial Blood pH 7.50 (7.35-7.45) Arterial Blood pCO2 at Patient Temp 28 mmHg (35-46) Arterial Blood pO2 at Patient Temp 107 mmHg (65-108) Arterial Blood HCO3 21 mmol/L (21-28) Arterial Blood Base Excess -2 mmol/L (-3-3) FiO2 0.5l n.c. Glucose (Fingerstick) 136 mg/dL (70-99) 146 mg/dL (70-99) Hemoglobin 7.9 g/dL (12.0-15.5) Prothrombin Time 30.9 SEC (11.7-14.0) Prothromb Time International Ratio 3.1 (0.8-1.1) Sodium Level 138 mmol/L (136-145) Potassium Level 4.3 mmol/L (3.5-5.1) Chloride Level 107 mmol/L (98-107) Carbon Dioxide Level 22 mmol/L (21-32) Anion Gap 9 (6-14) Blood Urea Nitrogen 25 mg/dL (7-20) Creatinine 1.0 mg/dL (0.6-1.0) Estimated GFR (Cockcroft-Gault) 54.3 Glucose Level 134 mg/dL (70-99) Calcium Level 7.7 mg/dL (8.5-10.1) Test 06/06/21 03:30 06/06/21 05:25 06/06/21 07:24 06/06/21 10:03 White Blood Count 5.2 x10^3/uL (4.0-11.0) Red Blood Count 2.16 x10^6/uL (3.50-5.40) Hemoglobin 6.8 g/dL (12.0-15.5) Hematocrit 19.6 % (36.0-47.0) Mean Corpuscular Volume 90 fL (79-100) Mean Corpuscular Hemoglobin 31 pg (25-35) Mean Corpuscular Hemoglobin Concent 35 g/dL (31-37) Red Cell Distribution Width 18.2 % (11.5-14.5) Platelet Count 127 x10^3/uL (140-400) Sodium Level 141 mmol/L (136-145) Potassium Level 3.5 mmol/L (3.5-5.1) Chloride Level 109 mmol/L (98-107) Carbon Dioxide Level 23 mmol/L (21-32) Anion Gap 9 (6-14) Blood Urea Nitrogen 23 mg/dL (7-20) Creatinine 1.0 mg/dL (0.6-1.0) Estimated GFR (Cockcroft-Gault) 54.3 BUN/Creatinine Ratio 23 (6-20) Glucose Level 125 mg/dL (70-99) Calcium Level 7.9 mg/dL (8.5-10.1) Total Bilirubin 4.6 mg/dL (0.2-1.0) Aspartate Amino Transf (AST/SGOT) 69 U/L (15-37) Alanine Aminotransferase (ALT/SGPT) 17 U/L (14-59) Alkaline Phosphatase 100 U/L (46-116) Total Protein 5.1 g/dL (6.4-8.2) Albumin 2.1 g/dL (3.4-5.0) Albumin/Globulin Ratio 0.7 (1.0-1.7) Prothrombin Time 31.9 SEC (11.7-14.0) Prothromb Time International Ratio 3.2 (0.8-1.1) Ammonia 57 mcmol/L (11-34) Glucose (Fingerstick) 182 mg/dL (70-99) Stool Occult Blood Negative (NEG) Test 06/06/21 11:53 Glucose (Fingerstick) 148 mg/dL (70-99) CULTURE URINE Preliminary GREATER THAN 100,000 CFU/ML GRAM NEGATIVE RODS on 06/06/21 at 0829. FINAL ID= ESCHERICHIA COLI Allergies: Coded Allergies: No Known Drug Allergies (Unverified , 06/03/21) Medications: Current Medications Medications (Trade) Dose Ordered Sig/Luly Route PRN Reason Start Time Stop Time Status Last Admin Dose Admin Phytonadione (Vitamin K Ampule) 10 mg 1X ONCE SQ 06/05/21 12:15 06/05/21 12:18 DC 06/05/21 13:28 Acetaminophen (Tylenol) 650 mg PRN Q6HRS PRN PO MILD PAIN / TEMP > 100.3'F 06/05/21 17:15 06/05/21 17:24 Lactulose (Lactulose) 40 gm PRN Q4HRS PRN PO CONSTIPATION 06/05/21 17:45 06/05/21 19:42 Pantoprazole Sodium (PROTONIX VIAL for IV PUSH) 40 mg DAILYAC IVP 06/06/21 07:30 06/06/21 05:37 Pantoprazole Sodium (PROTONIX VIAL for IV PUSH) 40 mg 1X ONCE IVP 06/05/21 20:00 06/05/21 20:04 DC 06/05/21 20:08 Lactulose (Lactulose) 40 gm Q4HRS PO 06/06/21 08:00 06/06/21 11:57 DC 06/06/21 05:37 Imaging: Imaging: CXR 06/05 IMPRESSION: 1. Bilateral hazy infiltrates from pulmonary edema or atypical pneumonia. Abd US 06/05 FINDINGS: Mid body the pancreas appeared normal. Portions of the head and tail of pancreas were obscured. Liver is echogenic possible fatty infiltration. Liver is poorly evaluated. There is a cyst in the anterior right liver. There is flow the portal vein with color imaging. Liver is difficult to fully evaluate. MRI or cysts CT could be of benefit. Right kidney was 10.4 cm in length without hydronephrosis. There is a 2.4 cm right renal cyst. Patient's had a cholecystectomy. Common duct is dilated measuring 1.3 cm IMPRESSION: 1. Previous cholecystectomy. 2. No right hydronephrosis. 3. Incomplete evaluation of the pancreas. 4. Hepatic cyst. 5. Dilated common duct. Pelvis CT 06/03 Findings: There are postsurgical changes from right proximal femur intramedullary nail and dynamic compression screw internal fixation. Alignment at the right hip is near- anatomic. No dislocation. In the subcutaneous fat superior to the right greater trochanter, immediately deep to a row of surgical kandy, there is a hyperdense subcutaneous collection measuring 5.2 x 3.6 x 6.7 cm, most likely representing hematoma. There are a few foci of adjacent subcutaneous air. Diffuse soft tissue swelling surrounds the right hip and proximal femur as well as scattered areas of subcutaneous emphysema consistent with recent instr umentation. Postsurgical changes with bowel anastomosis seen in the midabdomen. Heavy aortoiliac atherosclerotic calcifications. Partially visualized appendix normal caliber at the base. Henning catheter within the bladder. Decreased osseous mineralization. Degenerative changes at the lumbosacral junction. Bilateral sacroiliac sclerosis. Fat-containing right lower abdominal right ventral hernia. Impression: 1. Subcutaneous hematoma measuring to approximately 5 x 4 x 7 cm in the superior right hip immediately deep to a row of skin kandy. 2. Diffuse soft tissue swelling in the right hip with subcutaneous air consistent with recent instrumentation and ORIF of the right femur intertrochanteric fracture. Right Femur X-Ray 06/02 IMPRESSION: Fracture at the intertrochanteric region of the right femur, not well evaluated on radiographs. Consider cross-sectional imaging to better evaluate. Hip/Pelvis X-Ray 06/02 IMPRESSION: Mildly displaced intertrochanteric right hip fracture. PE: GEN: NAD HEENT: Atraumatic, PERRL LUNGS: clear HEART: RRR ABD: NABS, S/ND/NT EXTREMITY: No edema SKIN: IV site bleeding NEURO/PSYCH: confused, little agitated but calmed down as we continued speaking A/P: A/P: Right hip fracture s/p nailing Coagulopathy, hyperammonemia - improved Chronic anemia, negative Hemoccult - worse post-op requiring transfusions, hemat champ on CT - getting ASA Mild thrombocytopenia, elevated bili and AST H/o cholangiocarcinoma s/p Whipple ?h/o colon cancer - not per past encounters (in fact reported normal colonoscopy w/ Dr. Hawkins), but now mention of this H/o C Diff Hepatic steatosis, hepatic cyst Dementia, UTI COVID negative -- Significant coagulopathy - apparently not on any anti-coagulants and improved w/ vit and FFP - more of both ordered per Dr. Mclaughlin today. Doesn't seem to have severe liver disease but does have fatty liver on imaging and elevated ammonia. Reviewed w/ Dr. Iraheta - suspects coagulopathy is a multi-factorial issue - continue transfusions/vit K for now. Okay to continue lactulose. Has regular diet ordered so could change to PO PPI. CLINT LAURENT Jun 06, 2021 12:48
--- NOTE | 2021-06-06 16:11 | NUR ---
SS following up with discharge planning. SS reviewed pt chart and discussed with pt RN. Pt is currently on room air. Pt is [facility] resident from [facility], ; fax [phone]. GI consulted. Blood today. PT/OT ordered. COVID19 negative. SS will continue to follow for discharge planning.
[2021-06-06] MEDS: IV DEXTROSE 10% 1,000 ML IV SCH (17:30)
[2021-06-06] MEDS: ATORVASTATIN CALCIUM 20 MG TABLET PO SCH (20:52)
[2021-06-06] MEDS: MIRTAZAPINE 7.5 MG TABLET. PO SCH (21:00)
[2021-06-06] MEDS: INSULIN GLARGINE SYRINGE. SQ SCH (21:05)
[2021-06-07 02:49] VITALS: BP 114/49
[2021-06-07] MEDS: LACTULOSE 20 GM/30 ML SOLUTION. PO SCH ×3 (05:59→21:44)
[2021-06-07] MEDS: PANTOPRAZOLE IV PUSH 40 MG VIAL. IVP SCH (05:59)
[2021-06-07 06:31] LABS: HEMATOCRIT 23.4 % (36.0-47.0); RED BLOOD COUNT 2.59 x10^6/uL (3.50-5.40); RED CELL DISTRIBUTION WIDTH 17.9 % (11.5-14.5); WHITE BLOOD COUNT 4.8 x10^3/uL (4.0-11.0)
[2021-06-07 06:35] LABS: ALBUMIN 2.2 g/dL (3.4-5.0); ALBUMIN/GLOBULIN RATIO 0.8 (1.0-1.7); CALCIUM 7.7 mg/dL (8.5-10.1); CREATININE 0.9 mg/dL (0.6-1.0); GFR 61.4; TOTAL PROTEIN 4.9 g/dL (6.4-8.2)
[2021-06-07 06:38] LABS: POTASSIUM 2.9 mmol/L (3.5-5.1)
--- NOTE | 2021-06-07 06:44 | NUR ---
PT POTASSIUM LEVEL 2.9, DR CHRISTIAN NOTIFIED, GIVE 40 MEQ OF POTASSIUM, JOHN CONT TO MONITOR PT. PMRN
[2021-06-07] MEDS ORDERED: POTASSIUM BICARB 20 MEQ EFFERVESCENT TABLET. PO ONE (06:45)
[2021-06-07 07:00] VITALS: BP 104/48
[2021-06-07] MEDS: INSULIN LISPRO 300 UNITS/3 ML VIAL. SQ SCH ×5 (07:30→16:57)
[2021-06-07 07:39] LABS: PROTHROMBIN TIME PATIENT 23.8 SEC (11.7-14.0)
[2021-06-07] MEDS: PHYTONADIONE 5 MG/5 ML ORAL SOLN. PO SCH (08:16)
[2021-06-07] MEDS: metFORMIN 500 MG TABLET PO SCH (08:17)
[2021-06-07] MEDS: CETIRIZINE HCL 10 MG TABLET. PO SCH (08:17)
[2021-06-07] MEDS: LACTOBACILLUS RHAMNOSUS GG 1 CAPSULE. PO SCH (08:18)
[2021-06-07] MEDS: TAMSULOSIN 0.4 MG CAP.ER.24H. PO SCH (08:18)
[2021-06-07] MEDS: ASPIRIN CHEWABLE 81 MG TABLET. PO SCH (08:18)
--- NOTE | 2021-06-07 09:41 | PN ---
DATE: 06/06/2021 SUBJECTIVE: The patient is resting, slightly propped up in bed, definitely more awake and responsive. Her prothrombin time and INR were extremely high yesterday at 64.1 and 7.8. Her ammonia was also found to be high at 97. 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 Tracked liver enzymes are slightly abnormal and did even abdominal ultrasound, which showed that the patient has a previous cholecystectomy, no right hydronephrosis, incomplete evaluation of the pancreas, hepatic cyst and dilated common bile duct and she was unresponsive yesterday. I did even blood gasses and were actually within normal range. The patient was given 2 units of fresh frozen plasma and 10 mg of vitamin K and her hemoglobin dropped down to 6.8, did receive 1 unit of blood and received another one. She received 2 units of packed RBCs and her hemoglobin kept dropping and as of yesterday afternoon, her hemoglobin went up to 7.9; however, this morning, her hemoglobin and hematocrit dropped down to 6.8 and 19.6. Today's prothrombin time was 31.9, INR of 3.2 and therefore, we gave her 2 units of fresh frozen plasma and with type and crossed and gave her 1 more unit of packed RBCs. We attempted to put an NG tube; however, it could not be put in and she was awake enough to get some lactulose and did receive lactulose 45 mL twice so far. In fact, she is more awake today and her ammonia is down. PHYSICAL EXAMINATION: GENERAL: When I saw her this afternoon, she was resting, slightly propped up in bed, in no apparent distress. She was extremely pale. In fact, she is jaundiced, but not cyanosed. No lymphadenopathy, no thyromegaly, no jugular venous distention. No limb edema. VITAL SIGNS: Her heart rate was 63, blood pressure was 123/63, temperature was 98.8, respiratory rate was 18 and oxygen saturation was 96% on 2 liters of oxygen. HEAD, EYES, EARS, NOSE AND THROAT: Normocephalic, atraumatic. NECK: Supple. HEART: Normal first and second heart sounds. No gallop, rub or murmur. CHEST: Clear to auscultation, no crepitation or rhonchi. ABDOMEN: Distended, soft, nontender. No guarding, no rigidity, no organomegaly. All hernial orifices intact. Bowel sounds normal. NEUROLOGIC: She is definitely more awake, alert, responding appropriately. All her cranial nerves intact. She moves extremities without difficulty. Her intake was incompletely recorded. LABORATORY DATA: Lab work this morning showed her white cell count to be 5.2, hemoglobin 6.8, hematocrit 19.6, MCV 90 and platelet count of 127,000. Her chemistry showed a serum sodium 144, potassium 3.5, chloride 109, bicarbonate 23, anion gap of 9, BUN 23, creatinine 1, estimated GFR was 54 mL per minute. Her glucose 125, calcium was 7.9. Total bilirubin is 4.6 and her AST, ALT, alkaline phosphatase actually have normalized. Her ammonia is down to 57. Her total protein 5.1, albumin was 2.1. ASSESSMENT: 1. Fall with resultant right hip intertrochanteric fracture, status post right short cephalomedullary nailing. 2. The patient was found to be extremely encephalopathic and I did actually check her PT/INR and ammonia was found to be extremely high, although the patient is not known to have any underlying liver disease at least to the my knowledge. We treated her with 2 units of fresh frozen plasma and also vitamin K 10 mg subcutaneously. She did actually drop her H and H to 6.8 and 20 on 06/04 and received 1 unit of packed RBCs, her hemoglobin and hematocrit went up to 7.7 and 22.5, dropped again yesterday morning to 6.9 and 19.9, received 1 unit of packed RBCs and her hemoglobin has risen to 7.9, dropped down again to 6.8 and 19.6, she is scheduled to receive 2 units of fresh frozen plasma and 1 unit of packed RBCs. I did consult the Gastroenterology team, but for some reason they have not seen her yet. 3. The patient is known to have type 2 diabetes mellitus and was hypoglycemic and therefore, we started her on D10W. 4. Hypertension. She is borderline hypotensive. 5. Cerebrovascular accident. 6. Hyperlipidemia. 7. Malignant neoplasm of the colon. 8. Malignant neoplasm of the pancreas, status post Whipple's procedure. 10. Coronary artery disease. PLAN: My plan is to give her 2 units of fresh frozen plasma, 1 unit of packed RBCs. I will also give her another 10 mg of vitamin K and check her H and H again this evening and transfuse her again if her hemoglobin and hematocrit are 7 or less than 7. LORI/KENYA/AYAAN DR: LORI/sheyla TID: [id number]
--- NOTE | 2021-06-07 10:44 | PDOC ---
Date of Service: DATE: 06/07/21 TIME: 10:40 Subjective: Subjective: Pt sleeping. Son Yang present - denies h/o liver disease, alcohol use, anti-coagulant use. Objective: Objective: D/w nurse - more alert today, stooling w/ lactulose, no bleeding. Low-normal B12, retic elevated. Vital Signs: Vital Signs Date Time Temp Pulse Resp B/P (MAP) Pulse Ox O2 Delivery O2 Flow Rate FiO2 06/07/21 08:00 Room Air 2.0 06/07/21 07:00 98.1 50 19 104/48 (66) 95 98.1 Labs: Laboratory Tests Test 06/06/21 11:53 06/06/21 14:47 06/06/21 17:39 06/06/21 19:10 Glucose (Fingerstick) 148 mg/dL 149 mg/dL Vitamin B12 Level 282 pg/mL Hemoglobin 8.1 g/dL Test 06/06/21 20:29 06/07/21 06:09 06/07/21 06:50 06/07/21 07:58 Glucose (Fingerstick) 176 mg/dL 139 mg/dL White Blood Count 4.8 x10^3/uL Red Blood Count 2.59 x10^6/uL Hemoglobin 8.0 g/dL Hematocrit 23.4 % Mean Corpuscular Volume 90 fL Mean Corpuscular Hemoglobin 31 pg Mean Corpuscular Hemoglobin Concent 34 g/dL Red Cell Distribution Width 17.9 % Platelet Count 133 x10^3/uL Sodium Level 144 mmol/L Potassium Level 2.9 mmol/L Chloride Level 111 mmol/L Carbon Dioxide Level 24 mmol/L Anion Gap 9 Blood Urea Nitrogen 15 mg/dL Creatinine 0.9 mg/dL Estimated GFR (Cockcroft-Gault) 61.4 BUN/Creatinine Ratio 17 Glucose Level 121 mg/dL Calcium Level 7.7 mg/dL Total Bilirubin 6.0 mg/dL Aspartate Amino Transf (AST/SGOT) 87 U/L Alanine Aminotransferase (ALT/SGPT) 29 U/L Alkaline Phosphatase 110 U/L Ammonia 44 mcmol/L Total Protein 4.9 g/dL Albumin 2.2 g/dL Albumin/Globulin Ratio 0.8 Prothrombin Time 23.8 SEC Prothromb Time International Ratio 2.2 PE: GEN: NAD LUNGS: room air HEART: HR in 50s ABD: non-distended NEURO/PSYCH: sleeping - did not disturb A/P: Right hip fracture s/p nailing, hematoma Coagulopathy, hyperammonemia - improved w/ lactulose, FFP, vit K - unclear cause , hepatic steatosis on imaging Chronic anemia, negative Hemoccult - worse post-op requiring transfusions, hematoma on CT - getting ASA Mild thrombocytopenia (better), elevated bili and AST (worse) H/o cholangiocarcinoma s/p Whipple Dementia, UTI, hypokalemia -- Give B12, continue lactulose. Will review w/ Dr. Iraheta. Justicifation of Admission Dx: Justifications for Admission: Justification of Admission Dx: Yes CLINT LAURENT Jun 07, 2021 10:44
[2021-06-07 11:00] VITALS: BP 117/59
[2021-06-07] MEDS ORDERED: CYANOCOBALAMIN (VITAMIN B-12) 1,000 MCG/ML VIAL. IM ONE (11:30)
[2021-06-07] MEDS: CIPROFLOXACIN HCL 250 MG TABLET. PO SCH ×2 (12:00→21:43)
[2021-06-07] MEDS: POTASSIUM CHLORIDE 20 MEQ TABLET.ER. PO SCH ×2 (12:00→17:08)
--- NOTE | 2021-06-07 12:01 | NUR ---
SS following for discharge planning. SS reviewed pt chart and discussed with pt RN. Pt is [facility] resident from [facility], ; fax [phone], and is currently on room air. COVID19 negative. GI following. PT/OT ordered. Not medically ready today. Pt is able to return to facility when medically ready for discharge. SS will continue to follow for discharge planning.
--- NOTE | 2021-06-07 13:15 | PN ---
DATE: 06/07/2021 SUBJECTIVE: The patient is resting, slightly propped up in bed, in no apparent distress. She is definitely more awake, alert, responding appropriately. Nursing staff stated she has multiple episodes of diarrhea. She is on lactulose and she had 3 bowel movements last night and one this morning and her potassium was 2.9. She also grew more than 100,000 colony forming units per mL of gram-negative rods identified as Escherichia coli that is apparently resistant to ceftriaxone, sensitive to cefotaxime, cefepime, levofloxacin, meropenem, tetracycline, amikacin, aztreonam, cefazolin, ceftazidime. PHYSICAL EXAMINATION: GENERAL: When I examined her, she was pale, ____ cyanosed. No lymphadenopathy, no thyromegaly, no jugular venous distention. No lower limb edema. VITAL SIGNS: Her heart rate was 60, blood pressure was 104/48, temperature was 98.1, respiratory rate was 19, and oxygen saturation was 95% on 2 liters of oxygen. HEAD, EYES, EARS, NOSE, AND THROAT: Normocephalic, atraumatic. NECK: Supple. HEART: Showed normal first and second heart sounds. No gallop or murmur. CHEST: Clear to auscultation, no crepitation or rhonchi. ABDOMEN: Distended, soft, nontender. There was no shifting dullness. No guarding or rigidity. No organomegaly. All hernial orifice intact. Bowel sounds normal. NEUROLOGIC: She is definitely more awake, alert, hard of hearing, but responds appropriately. All cranial nerves intact. She moves extremities without difficulty. She has an indwelling Henning catheter. Her intake over the last 24 hours was 1276, output was 1400. LABORATORY DATA: This morning showed a serum sodium 144, potassium 2.9, chloride 111, bicarbonate 24, anion gap of 9, BUN 50, creatinine 0.9. Estimated GFR was 61 mL per minute. Her glucose 121, calcium was 7.7. Total bilirubin was 6. AST, ALT are elevated. Alkaline phosphatase was normal. Her serum ammonia was 44. Total protein was 4.9, albumin was 2.2. Her white cell count was 4800, hemoglobin 8, hematocrit 23, MCV 90 and platelet count of 133,000. Her prothrombin time was 23.8, INR of 2.2. Her stool for occult blood was negative and her coronavirus by PCR was not detectable. ASSESSMENT: 1. Fall with resultant right hip intertrochanteric fracture, status post right short cephalomedullary nailing. 2. The patient was found to be extremely encephalopathic and I checked her PT/INR and ammonia and was found to be extremely high, although the patient is not known to have any underlying liver disease at least to the best of my knowledge, she has received at least 4 units of fresh frozen plasma and has received so far 30 mg of vitamin K. her H and H has finally stabilized at 8 and 23. 3. Hepatic encephalopathy, has responded very well to lactulose. The patient is now more awake, alert, and responding appropriately. Her serum ammonia came down from 97 down to 44. 4. Hypokalemia, likely due to diarrhea as response to lactulose. 5. The patient has multiple other medical problems including: A. Type 2 diabetes mellitus. 6. Hypertension. The patient's blood pressure is borderline. 7. Cerebrovascular accident. 8. Hyperlipidemia. 9. Malignant neoplasm of the colon. 10. Apparently she has a history of cholangiocarcinoma, status post Whipple procedure. 11. Coronary artery disease. 12. Urinary tract infection with growth of more than 100,000 colony forming units per mL of gram-negative cocci identified as Escherichia coli that is resistant to amoxicillin and clavulanic acid sensitive to cefotaxime, nitrofurantoin, cefepime, ceftriaxone, but resistant to cefuroxime, intermediate to trimethoprim/sulfamethoxazole sensitive to levofloxacin, meropenem, amikacin and ciprofloxacin. PLAN: My plan is obviously to continue with daily vitamin. I will cut down the lactulose may be to twice a day. Continue with Protonix and I will discontinue the acetaminophen and we will continue obviously with physical and occupational therapy. LOIR/SARAN DR: Jessie TID: [id number]
[2021-06-07 14:35] VITALS: BP 134/45
[2021-06-07 14:39] LABS: CALCIUM 7.9 mg/dL (8.5-10.1); CREATININE 1.2 mg/dL (0.6-1.0); POTASSIUM 3.9 mmol/L (3.5-5.1)
[2021-06-07 19:00] VITALS: BP 129/49
[2021-06-07] MEDS: ATORVASTATIN CALCIUM 20 MG TABLET PO SCH (21:44)
[2021-06-07] MEDS: MIRTAZAPINE 7.5 MG TABLET. PO SCH (21:44)
[2021-06-07] MEDS: INSULIN GLARGINE SYRINGE. SQ SCH (21:46)
[2021-06-07 23:00] VITALS: BP 135/57
[2021-06-08 03:33] VITALS: BP 119/53
[2021-06-08 06:41] LABS: HEMATOCRIT 24.5 % (36.0-47.0); HEMOGLOBIN 8.3 g/dL (12.0-15.5); RED BLOOD COUNT 2.72 x10^6/uL (3.50-5.40); RED CELL DISTRIBUTION WIDTH 18.3 % (11.5-14.5); WHITE BLOOD COUNT 4.5 x10^3/uL (4.0-11.0)
[2021-06-08 06:58] LABS: ALBUMIN 2.1 g/dL (3.4-5.0); ALBUMIN/GLOBULIN RATIO 0.7 (1.0-1.7); CREATININE 0.7 mg/dL (0.6-1.0); POTASSIUM 3.7 mmol/L (3.5-5.1); TOTAL PROTEIN 5.3 g/dL (6.4-8.2)
[2021-06-08 07:00] VITALS: BP 128/55
[2021-06-08 07:06] LABS: PROTHROMBIN TIME PATIENT 24.8 SEC (11.7-14.0)
[2021-06-08] MEDS: INSULIN LISPRO 300 UNITS/3 ML VIAL. SQ SCH ×3 (07:47→17:37)
[2021-06-08] MEDS: CETIRIZINE HCL 10 MG TABLET. PO SCH (09:21)
[2021-06-08] MEDS: POTASSIUM CHLORIDE 20 MEQ TABLET.ER. PO SCH ×3 (09:21→17:36)
[2021-06-08] MEDS: CIPROFLOXACIN HCL 250 MG TABLET. PO SCH ×2 (09:21→22:11)
[2021-06-08] MEDS: LACTULOSE 20 GM/30 ML SOLUTION. PO SCH ×3 (09:21→22:11)
[2021-06-08] MEDS: LACTOBACILLUS RHAMNOSUS GG 1 CAPSULE. PO SCH (09:21)
[2021-06-08] MEDS: TAMSULOSIN 0.4 MG CAP.ER.24H. PO SCH (09:21)
[2021-06-08] MEDS: PANTOPRAZOLE IV PUSH 40 MG VIAL. IVP SCH (09:22)
[2021-06-08] MEDS: PHYTONADIONE 5 MG/5 ML ORAL SOLN. PO SCH (09:22)
[2021-06-08] MEDS: ASPIRIN CHEWABLE 81 MG TABLET. PO SCH (09:23)
[2021-06-08] MEDS: MORPHINE SULFATE 4 MG/ML INJ. IV PRN (09:33)
--- NOTE | 2021-06-08 10:45 | PDOC ---
Date of Service: DATE: 06/08/21 TIME: 10:37 Objective: Objective: No GI concerns per nurse - sleep after morphine. Stooling plenty w/ lactulose, no bleeding. D/w Dr. Mclaughlin - wondering if CT and/or Hepatitis panel would be helpful, possible DC tomorrow. Vital Signs: Vital Signs Date Time Temp Pulse Resp B/P (MAP) Pulse Ox O2 Delivery O2 Flow Rate FiO2 06/08/21 10:03 18 100 Nasal Cannula 2.0 06/08/21 07:00 99.0 53 128/55 (79) 99.0 Labs: Laboratory Tests Test 06/07/21 11:26 06/07/21 14:00 06/07/21 16:55 06/07/21 21:23 Glucose (Fingerstick) 198 mg/dL 174 mg/dL 223 mg/dL Sodium Level 140 mmol/L Potassium Level 3.9 mmol/L Chloride Level 107 mmol/L Carbon Dioxide Level 21 mmol/L Anion Gap 12 Blood Urea Nitrogen 17 mg/dL Creatinine 1.2 mg/dL Estimated GFR (Cockcroft-Gault) 44.0 Glucose Level 247 mg/dL Calcium Level 7.9 mg/dL Test 06/08/21 06:25 06/08/21 07:34 White Blood Count 4.5 x10^3/uL Red Blood Count 2.72 x10^6/uL Hemoglobin 8.3 g/dL Hematocrit 24.5 % Mean Corpuscular Volume 90 fL Mean Corpuscular Hemoglobin 31 pg Mean Corpuscular Hemoglobin Concent 34 g/dL Red Cell Distribution Width 18.3 % Platelet Count 144 x10^3/uL Prothrombin Time 24.8 SEC Prothromb Time International Ratio 2.3 Sodium Level 142 mmol/L Potassium Level 3.7 mmol/L Chloride Level 111 mmol/L Carbon Dioxide Level 26 mmol/L Anion Gap 5 Blood Urea Nitrogen 14 mg/dL Creatinine 0.7 mg/dL Estimated GFR (Cockcroft-Gault) 82.0 BUN/Creatinine Ratio 20 Glucose Level 110 mg/dL Calcium Level 8.0 mg/dL Total Bilirubin 6.0 mg/dL Aspartate Amino Transf (AST/SGOT) 75 U/L Alanine Aminotransferase (ALT/SGPT) 31 U/L Alkaline Phosphatase 122 U/L Ammonia 37 mcmol/L Total Protein 5.3 g/dL Albumin 2.1 g/dL Albumin/Globulin Ratio 0.7 Glucose (Fingerstick) 101 mg/dL BLOOD CULTURE Preliminary NO GROWTH AFTER 2 DAYS PE: GEN: NAD LUNGS: clear, NC HEART: RRR ABD: S/ND/NT NEURO/PSYCH: sleeping - difficult to rouse - just received morphine for hip pain A/P: Right hip fracture s/p nailing, hematoma Coagulopathy (unclear cause - improved w/ FFP and vit K but still not normal), hyperammonemia, hyperbilirubinemia, chronic anemia - hepatic steatosis on past imaging H/o cholangiocarcinoma s/p Whipple Dementia, UTI -- Check CT for completeness. Justicifation of Admission Dx: Justifications for Admission: Justification of Admission Dx: Yes CLINT LAURENT Jun 08, 2021 10:45
[2021-06-08 10:59] VITALS: BP 134/60
[2021-06-08] MEDS: IOHEXOL 300 MG/ML 100ML VIAL. IV ONE ×2 (11:06→14:00)
[2021-06-08] MEDS ORDERED: CONTRAST GIVEN. MC PRN (11:15)
[2021-06-08] MEDS ORDERED: IOHEXOL 240 MG/ML 50ML VIAL. PO ONE (11:15)
[2021-06-08 15:00] VITALS: BP 122/51
--- NOTE | 2021-06-08 16:11 | NUR ---
SS following up with discharge planning. SS reviewed pt chart and discussed with pt RN. Pt is LT resident from [facility], ; fax [phone], and is currently requiring oxygen via nasal canula. COVID19 negative. PT/OT ordered. Pt is able to return to facility when medically ready for discharge. Clinical updates phoned and faxed to facility. SS will continue to follow for discharge planning.
--- NOTE | 2021-06-08 16:30 | RAD ---
CT ABDOMEN+PELVIS W History: History of cholangiocarcinoma. Hyperbilirubinemia and coagulopathy. Comparison: CT pelvis 06/05/2021. Ultrasound abdomen and pelvis 06/03/2021. CT chest abdomen and pelvis 03/11/2019. Technique: CT abdomen and pelvis with oral contrast only. Findings: There is a small 5 mm nodule in the right minor fissure, likely fissural lymph node. Redemonstrated c alcified posterior right lower lobe 7 mm granuloma. Catheter tip terminates at the cavoatrial junctio n. Heavy coronary artery calcification. Left hepatic lobe pneumobilia. The common duct measures 9 mm diameter. The liver is hypodense compati ble with steatosis. No focal hepatic lesion although evaluation is limited by noncontrast exam. Statu s post cholecystectomy. Postsurgical changes from pancreaticoduodenectomy. Residual pancreatic body a nd tail are atrophic with chronically dilated pancreatic duct. The spleen and adrenal glands are unre markable. Bilateral hypoattenuating renal cysts similar to comparison. No hydronephrosis or nephrolit hiasis. Mild wall thickening in the proximal alimentary limb. No evidence of obstruction. Contrast passes thr ough the small bowel to the colon. Normal appendix. No colonic wall thickening or pericolonic inflamm atory changes. Redundant sigmoid colon. The bladder is decompressed by Henning catheter. Calcified atrophic uterus. No abdominal pelvic adenopa thy. No intra-abdominal free fluid or free air. The unopacified vasculature demonstrates atherosclero tic calcification without aneurysm. Right hip intertrochanteric fracture status post intramedullary nail and dynamic compression screw fi xation. Redemonstrated hematoma overlying the right hip measuring at least 4.3 x 2.9 cm, incompletely within the [id number], with a few foci of air. Moderate fat-containing umbilical hernia. Bilatera l sacroiliac sclerosis. Impression: 1. History of cholangiocarcinoma status post pancreaticoduodenectomy. Mildly dilated common bile veronica t measuring 9 mm with pneumobilia. No evidence of biliary or bowel obstruction. 2. Hypoattenuating liver compatible with steatosis. No hepatic masses identified however evaluation limited by noncontrast technique. 3. Right hip intertrochanteric fracture status post ORIF with partially visualized subcutaneous kate latasha with a few foci of air, possibly postoperative however superimposed infection is not excluded. ------ Exposure: One or more of the following individualized dose reduction techniques were utilized for thi s examination: 1. Automated exposure control 2. Adjustment of the mA and/or kV according to patient size 3. Use of iterative reconstruction technique. Electronically signed by: Allan Doll MD (06/08/2021 4:28 PM) [id number]
[2021-06-08 19:35] VITALS: BP 112/49
[2021-06-08] MEDS: INSULIN GLARGINE SYRINGE. SQ SCH (21:00)
--- NOTE | 2021-06-08 21:25 | PN ---
DATE: 06/08/2021 SUBJECTIVE: The patient is resting, slightly propped up in bed, in no apparent distress. She is definitely more awake, alert, responding appropriately. On questioning her, she stated that she has some nausea, but denied any vomiting. PHYSICAL EXAMINATION: GENERAL: When I examined her, she was pale, jaundiced, not cyanosed. No lymphadenopathy, no thyromegaly, no jugular venous distention, no lower limb edema. VITAL SIGNS: Her heart rate was 53, blood pressure was 128/55, temperature was 99, respiratory rate was 18 and oxygen saturation was 100% on room air. HEAD, EYES, EARS, NOSE AND THROAT: Normocephalic, atraumatic. NECK: Supple. HEART: Showed normal first and second heart sounds. No gallop, rub or murmur. CHEST: Clear to auscultation. No crepitation or rhonchi. ABDOMEN: Distended, soft, nontender. No guarding or rigidity. No organomegaly. All hernial orifice intact. Bowel sounds normal. NEUROLOGIC: She is definitely more awake, alert, responding appropriately. All cranial nerves intact. She moves extremities without difficulty. She is status post right short cephalomedullary nailing for right hip intertrochanteric fracture. Her intake was 1700, output was 900. LABORATORY DATA: As of this morning showed white cell count 4.5, hemoglobin 8.3, hematocrit 24, MCV 90 and platelet count of 144,000. Her chemistry showed a serum sodium 142, potassium 3.7, chloride 111, bicarbonate 26, anion gap of 5, BUN 14, creatinine 0.7. Estimated GFR is 82 mL per minute. Her glucose 110, calcium was 8. Total bilirubin is 6. AST and alkaline phosphatase elevated. ALT is normal. Her ammonia this morning was 37 and her total protein 5.3. Albumin was 2.1. Her prothrombin time and INR were 24.8 and 2.3 despite getting 40 mg of vitamin K and 4 units of fresh frozen plasma indicating that she probably has significant liver disease. She also has UTI, for which she is now on ciprofloxacin. PLAN: To continue with antibiotic. Continue with lactulose. Continue with all other medication. I will continue with physical and occupational therapy. We will discontinue her Henning catheter and I will check also her labs again tomorrow as well as her hepatitis serology. If she remains stable, she can be discharged back to [facility]. YELITZA DR: Jessie TID: [id number]
[2021-06-08] MEDS: MIRTAZAPINE 7.5 MG TABLET. PO SCH (22:11)
[2021-06-08] MEDS: ATORVASTATIN CALCIUM 20 MG TABLET PO SCH (22:11)
[2021-06-08 23:01] VITALS: BP 128/55
[2021-06-09 03:42] VITALS: BP 129/63
[2021-06-09 07:00] VITALS: BP 141/60
[2021-06-09] MEDS ORDERED: PANTOPRAZOLE 40 MG TABLET.DR. PO SCH (07:30)
[2021-06-09] MEDS: LACTULOSE 20 GM/30 ML SOLUTION. PO SCH ×2 (08:52→14:00)
[2021-06-09] MEDS: CETIRIZINE HCL 10 MG TABLET. PO SCH (08:52)
[2021-06-09] MEDS: ASPIRIN CHEWABLE 81 MG TABLET. PO SCH (08:52)
[2021-06-09] MEDS: CIPROFLOXACIN HCL 250 MG TABLET. PO SCH (08:52)
[2021-06-09] MEDS: TAMSULOSIN 0.4 MG CAP.ER.24H. PO SCH (08:52)
[2021-06-09] MEDS: LACTOBACILLUS RHAMNOSUS GG 1 CAPSULE. PO SCH (08:52)
[2021-06-09] MEDS: POTASSIUM CHLORIDE 20 MEQ TABLET.ER. PO SCH ×2 (08:53→12:00)
[2021-06-09] MEDS: INSULIN LISPRO 300 UNITS/3 ML VIAL. SQ SCH ×2 (08:54→13:13)
--- NOTE | 2021-06-09 10:43 | SNU/HH DC ---
DISCHARGE ORDERS DISCHARGE INFORMATION: DISCHARGE DATE: Jun 09, 2021 FINAL DIAGNOSIS Right itertrochanteric femur fracture s/p ORIF Blood loss anemia chronic liver disease hepatic encephalop[athy Urinary tract infection CONDITION ON DISCHARGE: Stable CODE STATUS: Code Status: Full ALF: SNF STAY <30 DAYS: Yes POST DISCHARGE ORDERS: ACTIVITY ORDERS: Activity as tolerated DIET AFTER DISCHARGE: Regular WOUND/INCISION CARE: Change dressing TREATMENT/EQUIPMENT ORDERS: Physical Therapy For: Evalulation/Treatment Occupational Therapy For: Evaluation/Treatment DISCHARGE MEDICATIONS: Home Meds Reported Medications Insulin Lispro (HUMALOG) 100 Unit/1 Ml Vial, 5 UNIT SQ TIDAC for hypoglycemic, EACH 06/02/21 Mirtazapine (MIRTAZAPINE) 7.5 Mg Tablet, 1 TAB PO QHS for insomnia for 30 Days, #30 TAB 0 Refills 06/02/21 Metformin Hcl (METFORMIN HCL) 1,000 Mg Tablet, 1000 MG PO BID for antidiabetic, TAB 06/02/21 Loperamide Hcl (LOPERAMIDE) 2 Mg Tablet, 2 MG PO DAILY for antidiarrheal, TAB 06/02/21 Insulin Glargine,Hum.rec.anlog (LANTUS SOLOSTAR) 100 Unit/1 Ml Insuln.pen, 15 UNIT SQ QHS for hypoglycemic, #15 ML 3 Refills 06/02/21 Tamsulosin Hcl (FLOMAX) 0.4 Mg Cap.er.24h, 1 CAP PO DAILY for urinary retention, #30 CAP 11 Refills 06/02/21 Aspirin (ASPIRIN) 81 Mg Tab.chew, 81 MG PO DAILY, TAB.CHEW 11/27/16 Lactobacillus Acidophilus (PROBIOTIC) 1 Each Capsule, 1 EACH PO DAILY, CAP 11/27/16 Atorvastatin Calcium (ATORVASTATIN CALCIUM) 20 Mg Tablet, 20 MG PO HS for FOR CHOLESTEROL, #30 TAB 0 Refills 11/27/16 Cetirizine Hcl (ZYRTEC) 10 Mg Tablet, 1 TAB PO DAILY, #30 TAB 2 Refills 07/24/16 TYLRE CHRISTIAN MD Jun 09, 2021 10:43
[2021-06-09] MEDS ORDERED: TRAM50TA PO (10:50)
[2021-06-09 11:00] VITALS: BP 112/49
--- NOTE | 2021-06-09 11:18 | NUR ---
I have read the documentation by SN Teresa and concur. Suresh Sofia RN [facility]
[2021-06-09 11:21] LABS: BASO % 1 % (0-3); EOS # 0.2 x10^3/uL (0.0-0.7); EOS % 4 % (0-3); HEMATOCRIT 25.8 % (36.0-47.0); HEMOGLOBIN 8.6 g/dL (12.0-15.5); LYMPH % 18 % (24-48); MEAN CORPUSCULAR HEMOGLOBIN 31 pg (25-35); MEAN CORPUSCULAR HGB CONC 33 g/dL (31-37); MEAN CORPUSCULAR VOLUME 93 fL (79-100); MONO # 0.7 x10^3/uL (0.0-1.1); MONO % 12 % (0-9); NEUT # 3.7 x10^3/uL (1.8-7.7); NEUT % 66 % (31-73); PLATELET COUNT 149 x10^3/uL (140-400); RED BLOOD COUNT 2.79 x10^6/uL (3.50-5.40); RED CELL DISTRIBUTION WIDTH 18.9 % (11.5-14.5); WHITE BLOOD COUNT 5.6 x10^3/uL (4.0-11.0)
[2021-06-09 11:32] LABS: PROTHROMBIN TIME PATIENT 24.3 SEC (11.7-14.0)
[2021-06-09 11:37] LABS: CALCIUM 7.8 mg/dL (8.5-10.1); CREATININE 0.8 mg/dL (0.6-1.0); GFR 70.3; POTASSIUM 4.4 mmol/L (3.5-5.1)
[2021-06-09] MEDS ORDERED: HEPARIN PF 500 UNIT/5 ML DISP.SYRIN. IVP ONE (13:00)
--- NOTE | 2021-06-09 13:46 | NUR ---
Rust removed this AM. Physician wrote orders to bladder scan post removal and replace rust if greater than 300 mL in bladder. Pt bladder scanned at 1230 with 5 mL of urine in bladder. Pt states she does not feel as though she needs to urinate at this time.
--- NOTE | 2021-06-09 16:36 | NUR ---
Discharge Note: SOLOMON BLAKE [address] Discharge instructions and discharge home medications sent to [facility]. Facility did not answer phone and message sent with patient for staff to call for report. Attempted to get ahold of surgery computational geneticist regarding staple removal and follow up. Unable to get ahold of surgical staff member. Pt discharged in stable condition.
--- NOTE | 2021-06-09 16:46 | NUR ---
Phone call from [facility] regarding questions on DC. Dr. Mclaughlin contacted and orders given for a CBC, BMP, ammonia, and PT/INR for friday. Attempted to call facility back, no answer.
== END 2021-06-09 14:30 | DRG 481 ==
LOC: 4 NORTH 15:05 → 6 SOUTH 06-04 20:58
PROVIDERS: ADMIT Internal Medicine; ATTEND Internal Medicine
PROC: 0QS604Z Reposition Right Upper Femur with Internal Fixation Device, Open Approach (ICD-10-PCS; principal; 2021-06-03 10:00)
PROC: 30233K1 Transfusion of Nonautologous Frozen Plasma into Peripheral Vein, Percutaneous Approach (ICD-10-PCS; 2021-06-04)
PROC: 30233N1 Transfusion of Nonautologous Red Blood Cells into Peripheral Vein, Percutaneous Approach (ICD-10-PCS; 2021-06-04)
DX: S72.141A Displaced intertrochanteric fracture of right femur, initial encounter for closed fracture (principal); D62 Acute posthemorrhagic anemia; C18.9 Malignant neoplasm of colon, unspecified; C22.1 Intrahepatic bile duct carcinoma; C25.9 Malignant neoplasm of pancreas, unspecified; D68.9 Coagulation defect, unspecified; E46 Unspecified protein-calorie malnutrition; E87.1 Hypo-osmolality and hyponatremia; J81.1 Chronic pulmonary edema; N39.0 Urinary tract infection, site not specified; Z16.19 Resistance to other specified beta lactam antibiotics; Z85.07 Personal history of malignant neoplasm of pancreas; Z85.038 Personal history of other malignant neoplasm of large intestine; Z90.411 Acquired partial absence of pancreas; Z86.73 Personal history of transient ischemic attack (TIA), and cerebral infarction without residual deficits; B96.20 Unspecified Escherichia coli [E. coli] as the cause of diseases classified elsewhere; D69.6 Thrombocytopenia, unspecified; E11.649 Type 2 diabetes mellitus with hypoglycemia without coma; E78.5 Hyperlipidemia, unspecified; E87.6 Hypokalemia; F03.90 Unspecified dementia, unspecified severity, without behavioral disturbance, psychotic disturbance, mood disturbance, and anxiety; I10 Essential (primary) hypertension; I25.10 Atherosclerotic heart disease of native coronary artery without angina pectoris; K72.90 Hepatic failure, unspecified without coma; K74.60 Unspecified cirrhosis of liver; K76.0 Fatty (change of) liver, not elsewhere classified; Y93.01 Activity, walking, marching and hiking; Z83.3 Family history of diabetes mellitus; Z85.05 Personal history of malignant neoplasm of liver; Z90.49 Acquired absence of other specified parts of digestive tract; F41.9 Anxiety disorder, unspecified; W18.39XA Other fall on same level, initial encounter; Y92.89 Other specified places as the place of occurrence of the external cause; Y99.8 Other external cause status; Z68.24 Body mass index [BMI] 24.0-24.9, adult; Z20.822 Contact with and (suspected) exposure to COVID-19
CPT/HCPCS: 36415; 36430; 36600; 71045; 72192; 73501; 73552; 74176; 76000; 76705; 80048; 80053; 82140; 82274; 82607; 82805; 82962; 85018; 85025; 85027; 85045; 85610; 86705; 86709; 86803; 86850; 86900; 86901; 86920; 86927; 87040; 87077; 87086; 87186; 87340; 87426; A4314; A4930; A6223; A6258; A6402; C1713; C9113; J0690; J1100; J1642; J1815; J2270; J2370; J2405; J2704; J3010; J3420; J3430; J3480; J3490; J7040; J7120; P9016; P9017; Q9966; Q9967; U0003; 97530-GP; 97535-GO; G0378